=== PATIENT | male | born 1970 | race Caucasian/White ===

== ENCOUNTER 2024-11-30 11:50 | Emergency (ER) | payer OTHER ==
[2024-11-30 11:57] VITALS: RESP 20; TEMP 98
--- NOTE | 2024-11-30 12:05 | ED ---
General Adult HPI - General Chief complaint: Shortness of Breath Stated complaint: JUSTIN Time Seen by Provider: 11/30/24 11:50 Source: patient, EMS, RN notes reviewed, old records reviewed Mode of arrival: EMS Limitations: no limitations - History of Present Illness Initial comments: This is a 54-year-old male who presents to the emergency department stating that he has been having a cough for about a week and he had difficulty breathing. Patient states that difficulty breathing is getting worse. Patient denies chest pain or palpitations. Patient denies any fever or chills. Patient denies any abdominal pain patient has nausea vomit diarrhea. - Related Data Previous Rx's Medication Instructions Recorded Albuterol Inhaler [Ventolin Hfa 1 - 2 puff INHALATION Q6HR PRN #2 11/30/24 Inhaler] each Amoxic-Pot Clav 875-125Mg 1 tab PO BID 10 Days #20 tab 11/30/24 [Augmentin 875-125] Azithromycin [Zithromax Tri-Basil (3 500 mg PO DAILY 3 Days #3 tab 11/30/24 tabs)] Allergies Allergy/AdvReac Type Severity Reaction Status Date / Time No Known Allergies Allergy Verified 11/30/24 11:57 Review of Systems ROS Statement: Those systems with pertinent positive or pertinent negative responses have been documented in the HPI. ROS Other: All systems not noted in ROS Statement are negative. Past Medical History Past Medical History: No Reported History History of Any Multi-Drug Resistant Organisms: None Reported Past Surgical History: No Surgical Hx Reported Past Psychological History: No Psychological Hx Reported Smoking Status: Current every day smoker Past Alcohol Use History: Rare Past Drug Use History: None Reported General Exam - General Exam Comments Initial Comments: GENERAL: Patient is well-developed and well-nourished. Patient is nontoxic and well- hydrated and is in mild distress. ENT: Neck is soft and supple. No significant lymphadenopathy is noted. Oropharynx is clear. Moist mucous membranes. Neck has full range of motion without eliciting any pain. EYES: The sclera were anicteric and conjunctiva were pink and moist. Extraocular movements were intact and pupils were equal round and reactive to light. Eyelids were unremarkable. PULMONARY: Unlabored respirations. Good breath sounds bilaterally. No audible rales rhonchi or wheezing was noted. CARDIOVASCULAR: There is a regular rate and rhythm without any murmurs gallops or rubs. ABDOMEN: Soft and nontender with normal bowel sounds. SKIN: Skin is clear with no lesions or rashes and otherwise unremarkable. NEUROLOGIC: Patient is alert and oriented x3. Cranial nerves II through XII are grossly intact. Motor and sensory are also intact. Normal speech, volume and content. Symmetrical smile. MUSCULOSKELETAL: Normal extremities with adequate strength and full range of motion. LYMPHATICS: No significant lymphadenopathy is noted PSYCHIATRIC: Normal psychiatric evaluation. Limitations: no limitations Course Vital Signs 11/30/24 11/30/24 11/30/24 11:51 11:56 11:57 Temperature 98 F Pulse Rate 118 H Respiratory 20 20 Rate Blood Pressure 121/61 O2 Sat by Pulse 96 Oximetry 11/30/24 11/30/24 12:20 12:58 Temperature Pulse Rate 112 H 100 Respiratory Rate Blood Pressure O2 Sat by Pulse Oximetry Medical Decision Making - Medical Decision Making EKG is interpreted by myself. EKG shows sinus tachycardia at 109 bpm [place] interval is 97 QRS is 87 QT interval 343 QTc is 407. Patient's EKG shows no ST segment elevation or depression. Was pt. sent in by a medical professional or institution (, PA, STICK ROLLER, urgent care, hospital, or long-term...) When possible be specific @ -No Did you speak to anyone other than the patient for history (EMS, parent, family, police, friend...)? What history was obtained from this source @ -No Did you review nursing and triage notes (agree or disagree)? Why? @ -I reviewed and agree with nursing and triage notes Were old charts reviewed (outside hosp., previous admission, EMS record, old EKG, old radiological studies, urgent care reports/EKG's, long-term records)? Report findings @ -No old charts were reviewed Differential Diagnosis? @ -Differential Dyspnea: Coronary syndrome, arrhythmia, tamponade, asthma, COPD, pulmonary embolism, pneumonia, pneumothorax, pulmonary effusion, anaphylaxis, diabetic ketoacidosis, flailed chest, pulmonary contusion, diaphragmatic rupture, anemia, neuro muscular, this is not meant to be an all-inclusive list. EKG interpreted by me (3pts min.). @ -As above X-rays interpreted by me (1pt min.). @ -Patient has consolidated right lower lobe CT interpreted by me (1pt min.). @ -None done U/S interpreted by me (1pt. min.). @ -None done What testing was considered but not performed or refused? (CT, X-rays, U/S, labs)? Why? @ -None What meds were considered but not given or refused? Why? @ -None Did you discuss the management of the patient with other professionals (professionals i.e. , PA, STICK ROLLER, lab, RT, psych nurse, community mental health social worker, tar leveler, teacher, sheriffs officer, case management social worker)? Give summary @ -No Was smoking cessation discussed for >3mins.? @ -No Was critical care preformed (if so, how long)? @ -No Were there social determinants of health that impacted care today? How? (Homelessness, low income, unemployed, alcoholism, drug addiction, transp ortation, low edu. Level, literacy, decrease access to med. care, [facility], rehab)? @ -No Was there de-escalation of care discussed even if they declined (Discuss DNR or withdrawal of care, Hospice)? DNR status @ -No What co-morbidities impacted this encounter? (DM, HTN, Smoking, COPD, CAD, Cancer, CVA, ARF, Chemo, Hep., AIDS, mental health diagnosis, sleep apnea, morbid obesity)? @ -None Was patient admitted / discharged? Hospital course, mention meds given and route, prescriptions, significant lab abnormalities, going to OR and other pertinent info. @ -I spoke with the patient indicated to the patient that I wanted the patient to stay because of the significance of the pneumonia and the white count but the patient stated he could not stay because he has a developmentally delayed child at home that no one else can take care of. Patient was given 2 doses of Rocephin and I tried to encourage him to stay again and he absolutely refused so patient will be discharged home on Zithromax Undiagnosed new problem with uncertain prognosis? @ -No Drug Therapy requiring intensive monitoring for toxicity (Heparin, Nitro, Insulin, Cardizem)? @ -No Were any procedures done? @ -No Diagnosis/symptom? @ -Pneumonia Acute, or Chronic, or Acute on Chronic? @ -Acute Uncomplicated (without systemic symptoms) or Complicated (systemic symptoms)? @ -Comp Side effects of treatment? @ -No Exacerbation, Progression, or Severe Exacerbation? @ -No Poses a threat to life or bodily function? How? (Chest pain, [place], [place], pneumonia, PE, COPD, DKA, ARF, appy, cholecystitis, CVA, Diverticulitis, Homicidal, Suicidal, threat to staff... and all critical care pts) @ -Yes this could lead to sepsis and endorgan dysfunction - Lab Data Result diagrams: 11/30/24 12:03 11/30/24 12:03 Lab Results 11/30/24 11/30/24 11/30/24 Range/Units 12:03 12: 12:03 WBC 19.56 H (4.50-10.00) 10*3/uL RBC 3.79 L (4.40-5.60) 10*6/uL Hgb 11.0 L (13.0-17.0) g/dL Hct 32.2 L (39.6-50.0) % MCV 85.0 (80.0-97.0) fL MCH 29.0 (27.0-32.0) pg MCHC 34.2 (32.0-37.0) g/dL Plt Count 923 H (140-440) 10*3/uL MPV 9.1 L (9.5-12.2) fL Immature Gran % (Auto) 1.3 % Neutrophils % (Manual) 78 % Lymphocytes % (Manual) 15 % Monocytes % (Manual) 4 % Eosinophils % (Manual) 1 % Metamyelocytes % 1 % Myelocytes % 1 % Immature Gran # 0.25 H (0.00-0.04) 10*3/uL Neutrophils # (Manual) 15.26 H (1.3-7.7) k/uL Lymphocytes # (Manual) 2.93 (1.0-4.8) k/uL Monocytes # (Manual) 0.78 (0-1.0) k/uL Eosinophils # (Manual) 0.20 (0-0.7) k/uL Metamyelocytes # (Man) 0.20 H (0) k/uL Myelocytes # (Manual) 0.20 H (0) k/uL Nucleated RBCs 0 (0-0) /100 WBC Manual Slide Review Performed Sodium 134 L (137-145) mmol/L Potassium 4.0 (3.5-5.1) mmol/L Chloride 98 (98-107) mmol/L Carbon Dioxide 18 L (22-30) mmol/L Anion Gap 18 mmol/L BUN 30 H (9-20) mg/dL Creatinine 1.51 H (0.66-1.25) mg/dL Est GFR (CKD-EPI)AfAm 60 (>60 ml/min/1.73 sqM) Est GFR (CKD-EPI)NonAf 52 (>60 ml/min/1.73 sqM) Glucose 144 H (74-99) mg/dL Plasma Lactic Acid Raul 3.4 H* (0.7-2.0) mmol/L Calcium 8.9 (8.4-10.2) mg/dL Magnesium 1.9 (1.6-2.3) mg/dL Total Bilirubin 0.6 (0.2-1.3) mg/dL AST 19 (17-59) U/L ALT 40 (4-49) U/L Alkaline Phosphatase 136 H (38-126) U/L Total Protein 6.2 L (6.3-8.2) g/dL Albumin 3.0 L (3.5-5.0) g/dL Influenza Type A (PCR) (Not Detectd) Influenza Type B (PCR) (Not Detectd) RSV (PCR) (Not Detectd) SARS-CoV-2 (PCR) (Not Detectd) 11/30/24 Range/Units 12:22 WBC (4.50-10.00) 10*3/uL RBC (4.40-5.60) 10*6/uL Hgb (13.0-17.0) g/dL Hct (39.6-50.0) % MCV (80.0-97.0) fL MCH (27.0-32.0) pg MCHC (32.0-37.0) g/dL Plt Count (140-440) 10*3/uL MPV (9.5-12.2) fL Immature Gran % (Auto) % Neutrophils % (Manual) % Lymphocytes % (Manual) % Monocytes % (Manual) % Eosinophils % (Manual) % Metamyelocytes % % Myelocytes % % Immature Gran # (0.00-0.04) 10*3/uL Neutrophils # (Manual) (1.3-7.7) k/uL Lymphocytes # (Manual) (1.0-4.8) k/uL Monocytes # (Manual) (0-1.0) k/uL Eosinophils # (Manual) (0-0.7) k/uL Metamyelocytes # (Man) (0) k/uL Myelocytes # (Manual) (0) k/uL Nucleated RBCs (0-0) /100 WBC Manual Slide Review Sodium (137-145) mmol/L Potassium (3.5-5.1) mmol/L Chloride (98-107) mmol/L Carbon Dioxide (22-30) mmol/L Anion Gap mmol/L BUN (9-20) mg/dL Creatinine (0.66-1.25) mg/dL Est GFR (CKD-EPI)AfAm (>60 ml/min/1.73 sqM) Est GFR (CKD-EPI)NonAf (>60 ml/min/1.73 sqM) Glucose (74-99) mg/dL Plasma Lactic Acid Raul (0.7-2.0) mmol/L Calcium (8.4-10.2) mg/dL Magnesium (1.6-2.3) mg/dL Total Bilirubin (0.2-1.3) mg/dL AST (17-59) U/L ALT (4-49) U/L Alkaline Phosphatase (38-126) U/L Total Protein (6.3-8.2) g/dL Albumin (3.5-5.0) g/dL Influenza Type A (PCR) Not Detected (Not Detectd) Influenza Type B (PCR) Not Detected (Not Detectd) RSV (PCR) Not Detected (Not Detectd) SARS-CoV-2 (PCR) Not Detected (Not Detectd) Disposition Clinical Impression: Pneumonia Disposition: HOME SELF-CARE Instructions (If sedation given, give patient instructions): Bacterial Pneumonia (ED) Prescriptions: Amoxic-Pot Clav 875-125Mg [Augmentin 875-125] 1 tab PO BID 10 Days #20 tab Albuterol Inhaler [Ventolin Hfa Inhaler] 1 - 2 puff INHALATION Q6HR PRN #2 each PRN Reason: Difficulty breathing Azithromycin [Zithromax Tri-Basil (3 tabs)] 500 mg PO DAILY 3 Days #3 tab Is patient prescribed a controlled substance at d/c from ED?: No Referrals: None,Stated [Primary Care Provider] - 1-2 days Time of Disposition: 13:50
[2024-11-30] MEDS: methylPREDNISolone SOD SUCCI 125 MG/2 ML VIAL IV STA (12:06)
[2024-11-30] MEDS: SODIUM CHLORIDE 0.9% 1,000 ML IV ONE ×2 (12:06→13:21)
[2024-11-30] MEDS: IPRATROPIUM-ALBUTEROL 3 ML NEB INHALATION STA (12:20)
[2024-11-30 12:21] LABS: HCT 32.2 % (39.6-50.0); MCHC 34.2 g/dL (32.0-37.0); Mean Platelet Volume 9.1 fL (9.5-12.2); Platelet Count 923 10*3/uL (140-440); RBC 3.79 10*6/uL (4.40-5.60); RDW 13.4 % (11.5-14.5); WBC 19.56 10*3/uL (4.50-10.00)
[2024-11-30 12:32] LABS: ALT 40 U/L (4-49); AST 19 U/L (17-59); African American GFR (CKD) 60 (>60 ml/min/1.73 sqM); Alkaline Phosphatase 136 U/L (38-126); Anion Gap 18 mmol/L; Blood Urea Nitrogen 30 mg/dL (9-20); Calcium 8.9 mg/dL (8.4-10.2); Carbon Dioxide 18 mmol/L (22-30); Chloride 98 mmol/L (98-107); Glucose 144 mg/dL (74-99); Magnesium 1.9 mg/dL (1.6-2.3); Non-African American GFR(CKD) 52 (>60 ml/min/1.73 sqM); Sodium 134 mmol/L (137-145); Total Bilirubin 0.6 mg/dL (0.2-1.3); Total Protein 6.2 g/dL (6.3-8.2)
[2024-11-30 13:11] LABS: Influenza A Not Detected (Not Detectd); Influenza B Not Detected (Not Detectd); RSV Not Detected (Not Detectd)
[2024-11-30 13:22] LABS: Lymphocytes # (M) 2.93 k/uL (1.0-4.8); Metamyelocytes % 1 %; Monocytes # (M) 0.78 k/uL (0-1.0); Myelocytes % 1 %; Neutrophils # (M) 15.26 k/uL (1.3-7.7); Neutrophils % (M) 78 %; Nucleated Red Blood Cells 0 /100 WBC (0-0); Total Cells Counted 100
--- NOTE | 2024-11-30 13:26 | XR ---
EXAMINATION TYPE: XR chest 2V DATE OF EXAM: 11/30/2024 12:50 PM COMPARISON: None. CLINICAL INDICATION: Male, 54 years old with history of difficulty breathing, TECHNIQUE: XR chest 2V view(s) obtained. FINDINGS: The heart size is normal. The pulmonary vasculature is normal. Right lower lobe consolidation is present. Correlate for pneumonia. Small effusion is present. Follow -up is recommended.. IMPRESSION: 1. Right lower lobe consolidation. Correlate for pneumonia. Follow-up recommended. 2. Small right pleural effusion [facility], , 11/30/2024 1:23 PM
[2024-11-30] MEDS: LACTATED RINGERS 1,000 ML IV ONE (13:28)
[2024-11-30] MEDS: cefTRIAXone IN SWFI 1,000 MG/10 ML SYRINGE IVP STA ×2 (14:02→14:04)
[2024-11-30 14:14] VITALS: BP 134/84; PULSE 105
== END 2024-11-30 14:26 | disposition home or self-care (01) ==
LOC: EC 11:50
DX: J18.9 Pneumonia, unspecified organism (principal); R00.0 Tachycardia, unspecified; F17.200 Nicotine dependence, unspecified, uncomplicated
CPT/HCPCS: 36415; 94640; 93005; 80053; 83605; 83735; 85025; 87040; 87636; 71046; 99285; 96374; 96375; 96361 ×2; J0696; J2919

== ENCOUNTER 2024-12-20 08:28 | Inpatient (IN) | payer OTHER ==
--- NOTE | 2024-12-20 08:49 | ED ---
General Adult HPI - General Chief complaint: Shortness of Breath Stated complaint: JUSTIN Time Seen by Provider: 12/20/24 08:33 Source: patient, EMS, RN notes reviewed Mode of arrival: EMS Limitations: no limitations - History of Present Illness Initial comments: Patient is a 54-year-old male present to the emergency department with concerns with difficulty breathing. Onset of symptoms was just a couple days ago. No cough. No fever. Patient does have a 30 pack year history of smoking, not at this time. Patient does have leg edema which is new for him. No chest pain. Patient did have bad pneumonia a few weeks ago. - Related Data Previous Rx's Medication Instructions Recorded Albuterol Inhaler [Ventolin Hfa 1 - 2 puff INHALATION Q6HR PRN #2 11/30/24 Inhaler] each Amoxic-Pot Clav 875-125Mg 1 tab PO BID 10 Days #20 tab 11/30/24 [Augmentin 875-125] Azithromycin [Zithromax Tri-Basil (3 500 mg PO DAILY 3 Days #3 tab 11/30/24 tabs)] Allergies Allergy/AdvReac Type Severity Reaction Status Date / Time No Known Allergies Allergy Verified 12/20/24 08:34 Review of Systems ROS Statement: Those systems with pertinent positive or pertinent negative responses have been documented in the HPI. ROS Other: All systems not noted in ROS Statement are negative. Constitutional: Denies: fever Eyes: Denies: eye pain ENT: Denies: ear pain Respiratory: Reports: as per HPI, dyspnea. Denies: cough Cardiovascular: Reports: edema. Denies: chest pain Endocrine: Denies: fatigue Past Medical History Past Medical History: No Reported History History of Any Multi-Drug Resistant Organisms: None Reported Past Surgical History: No Surgical Hx Reported Past Psychological History: No Psychological Hx Reported Smoking Status: Former smoker Past Alcohol Use History: Rare Past Drug Use History: None Reported General Exam Limitations: no limitations General appearance: alert Head exam: Present: normocephalic Eye exam: Present: normal appearance Neck exam: Present: normal inspection Respiratory exam: Present: decreased breath sounds Cardiovascular Exam: Present: tachycardia, normal heart sounds GI/Abdominal exam: Present: soft. Absent: tenderness Extremities exam: Present: pedal edema. Absent: calf tenderness Neurological exam: Present: alert Psychiatric exam: Present: normal affect, normal mood Skin exam: Present: normal color Course Vital Signs 12/20/24 12/20/24 12/20/24 08:29 08:59 09:07 Temperature 98.2 F Pulse Rate 102 H 100 107 H Respiratory 30 H 18 18 Rate Blood Pressure 150/85 O2 Sat by Pulse 95 Oximetry 12/20/24 12/20/24 09:15 10:08 Temperature Pulse Rate 108 H 104 H Respiratory 26 H 18 Rate Blood Pressure 146/83 142/80 O2 Sat by Pulse 97 96 Oximetry EKG Findings - EKG Results: EKG: interpreted by RAULD, sinus rhythm, normal axis, normal QRS, normal ST/T EKG shows: tachycardia Medical Decision Making - Medical Decision Making Was pt. sent in by a medical professional or institution (, PA, CLINICAL EXERCISE SPECIALIST, urgent care, hospital, or fci...) When possible be specific @ -No Did you speak to anyone other than the patient for history (EMS, parent, family, police, friend...)? What history was obtained from this source @ -No Did you review nursing and triage notes (agree or disagree)? Why? @ -I reviewed and agree with nursing and triage notes Were old charts reviewed (outside hosp., previous admission, EMS record, old EKG, old radiological studies, urgent care reports/EKG's, fci records)? Report findings @ -Previous chart reviewed including recommendations and x-ray and blood work Differential Diagnosis (chest pain, altered mental status, abdominal pain women, abdominal pain men, vaginal bleeding, weakness, fever, dyspnea, syncope, headache, dizziness, GI bleed, back pain, seizure, CVA, palpatations, mental health, musculoskeletal)? @ -Differential Dyspnea: Coronary syndrome, arrhythmia, tamponade, asthma, COPD, pulmonary embolism, pneumonia, pneumothorax, pulmonary effusion, anaphylaxis, diabetic ketoacidosis, flailed chest, pulmonary contusion, diaphragmatic rupture, anemia, neuromuscular, this is not meant to be an all-inclusive list. EKG interpreted by me (3pts min.). @ -As above X-rays interpreted by me (1pt min.). @ -Large right effusion. Appearance of air foci CT interpreted by me (1pt min.). @ -CT scan shows large right effusion. Air foci U/S interpreted by me (1pt. min.). @ -None done What testing was considered but not performed or refused? (CT, X-rays, U/S, labs)? Why? @ -None What meds were considered but not given or refused? Why? @ -None Did you discuss the management of the patient with other professionals (professionals i.e. , PA, CLINICAL EXERCISE SPECIALIST, lab, RT, psych nurse, community mental health social worker, natural foods clerk, teacher, electorate officer, disability case manager)? Give summary @ -Case discussed with Dr. Rivera who will evaluate. Case also discussed with Dr. Huff who will admit covering hospital call Was smoking cessation discussed for >3mins.? @ -No Was critical care preformed (if so, how long)? @ -31 minutes critical care time Were there social determinants of health that impacted care today? How? (Homelessness, low income, unemployed, alcoholism, drug addiction, transportation, low edu. Level, literacy, decrease access to med. care, [facility], rehab)? @ -No Was there de-escalation of care discussed even if they declined (Discuss DNR or withdrawal of care, Hospice)? DNR status @ -No What co-morbidities impacted this encounter? (DM, HTN, Smoking, COPD, CAD, Cancer, CVA, ARF, Chemo, Hep., AIDS, mental health diagnosis, sleep apnea, morbid obesity)? @ -Recent pneumonia Was patient admitted / discharged? Hospital course, mention meds given and route, prescriptions, significant lab abnormalities, going to OR and other per tinent info. @ -Patient has large right effusion. Concern for infectious etiology. Concerns for sepsis at 10:15 AM. Blood culture and lactic acid and IV antibiotics have all been ordered. Patient reevaluated and updated. Admission orders written. Undiagnosed new problem with uncertain prognosis? @ -No Drug Therapy requiring intensive monitoring for toxicity (Heparin, Nitro, Insulin, Cardizem)? @ -No Were any procedures done? @ -No Diagnosis/symptom? @ -Large right effusion Acute, or Chronic, or Acute on Chronic? @ -Acute Uncomplicated (without systemic symptoms) or Complicated (systemic symptoms)? @ -Complicated with concerns for infection and sepsis Side effects of treatment? @ -No Exacerbation, Progression, or Severe Exacerbation? @ -No Poses a threat to life or bodily function? How? (Chest pain, [place], [place], pneumonia, PE, COPD, DKA, ARF, appy, cholecystitis, CVA, Diverticulitis, Homicidal, Suicidal, threat to staff... and all critical care pts) @ -Threat to pulmonary function - Lab Data Result diagrams: 12/20/24 08:49 12/20/24 08:49 Lab Results 12/20/24 12/20/24 12/20/24 Range/Units 08:49 08:49 08:49 WBC 11.22 H (4.50-10.00) 10*3/uL RBC 2.90 L (4.40-5.60) 10*6/uL Hgb 7.6 L D (13.0-17.0) g/dL Hct 24.2 L (39.6-50.0) % MCV 83.4 (80.0-97.0) fL MCH 26.2 L (27.0-32.0) pg MCHC 31.4 L (32.0-37.0) g/dL Plt Count 707 H (140-440) 10*3/uL MPV 8.4 L (9.5-12.2) fL Immature Gran % (Auto) 0.6 % Neutrophils % (Manual) 72 % Lymphocytes % (Manual) 24 % Monocytes % (Manual) 4 % Eosinophils % (Manual) 2 % Immature Gran # 0.07 H (0.00-0.04) 10*3/uL Neutrophils # (Manual) 8.08 H (1.3-7.7) k/uL Lymphocytes # (Manual) 2.69 (1.0-4.8) k/uL Monocytes # (Manual) 0.45 (0-1.0) k/uL Eosinophils # (Manual) 0.22 (0-0.7) k/uL Nucleated RBCs 1 H (0-0) /100 WBC Manual Slide Review Performed Polychromasia Present Anisocytosis (manual) Present PT 12.3 (10.0-12.5) sec INR 1.1 (<1.2) APTT 24.8 (22.0-30.0) sec D-Dimer 1.66 H (<0.60) mg/L FEU Sodium 136 L (137-145) mmol/L Potassium 4.5 (3.5-5.1) mmol/L Chloride 105 (98-107) mmol/L Carbon Dioxide 22 (22-30) mmol/L Anion Gap 9 mmol/L BUN 9 (9-20) mg/dL Creatinine 0.42 L (0.66-1.25) mg/dL Est GFR (CKD-EPI)AfAm >90 (>60 ml/min/1.73 sqM) Est GFR (CKD-EPI)NonAf >90 (>60 ml/min/1.73 sqM) Glucose 111 H (74-99) mg/dL Plasma Lactic Acid Raul (0.7-2.0) mmol/L Calcium 8.8 (8.4-10.2) mg/dL Magnesium 2.0 (1.6-2.3) mg/dL Total Bilirubin 0.6 (0.2-1.3) mg/dL AST 26 (17-59) U/L ALT 33 (4-49) U/L Alkaline Phosphatase 160 H (38-126) U/L Troponin I (0.000-0.034) ng/mL NT-Pro-B Natriuret Pep 283 pg/mL Total Protein 6.5 (6.3-8.2) g/dL Albumin 3.0 L (3.5-5.0) g/dL Influenza Type A (PCR) (Not Detectd) Influenza Type B (PCR) (Not Detectd) RSV (PCR) (Not Detectd) SARS-CoV-2 (PCR) (Not Detectd) 12/20/24 12/20/24 12/20/24 Range/Units 08:49 08:49 08:49 WBC (4.50-10.00) 10*3/uL RBC (4.40-5.60) 10*6/uL Hgb (13.0-17.0) g/dL Hct (39.6-50.0) % MCV (80.0-97.0) fL MCH (27.0-32.0) pg MCHC (32.0-37.0) g/dL Plt Count (140-440) 10*3/uL MPV (9.5-12.2) fL Immature Gran % (Auto) % Neutrophils % (Manual) % Lymphocytes % (Manual) % Monocytes % (Manual) % Eosinophils % (Manual) % Immature Gran # (0.00-0.04) 10*3/uL Neutrophils # (Manual) (1.3-7.7) k/uL Lymphocytes # (Manual) (1.0-4.8) k/uL Monocytes # (Manual) (0-1.0) k/uL Eosinophils # (Manual) (0-0.7) k/uL Nucleated RBCs (0-0) /100 WBC Manual Slide Review Polychromasia Anisocytosis (manual) PT (10.0-12.5) sec INR (<1.2) APTT (22.0-30.0) sec D-Dimer (<0.60) mg/L FEU Sodium (137-145) mmol/L Potassium (3.5-5.1) mmol/L Chloride (98-107) mmol/L Carbon Dioxide (22-30) mmol/L Anion Gap mmol/L BUN (9-20) mg/dL Creatinine (0.66-1.25) mg/dL Est GFR (CKD-EPI)AfAm (>60 ml/min/1.73 sqM) Est GFR (CKD-EPI)NonAf (>60 ml/min/1.73 sqM) Glucose (74-99) mg/dL Plasma Lactic Acid Raul 1.2 (0.7-2.0) mmol/L Calcium (8.4-10.2) mg/dL Magnesium (1.6-2.3) mg/dL Total Bilirubin (0.2-1.3) mg/dL AST (17-59) U/L ALT (4-49) U/L Alkaline Phosphatase (38-126) U/L Troponin I <0.012 (0.000-0.034) ng/mL NT-Pro-B Natriuret Pep pg/mL Total Protein (6.3-8.2) g/dL Albumin (3.5-5.0) g/dL Influenza Type A (PCR) Not Detected (Not Detectd) Influenza Type B (PCR) Not Detected (Not Detectd) RSV (PCR) Not Detected (Not Detectd) SARS-CoV-2 (PCR) Not Detected (Not Detectd) Disposition Clinical Impression: Pleural effusion, right Disposition: ADMITTED IP TO THIS [facility] Condition: Serious Is patient prescribed a controlled substance at d/c from ED?: No Referrals: None,Stated [Primary Care Provider] - 1-2 days Time of Disposition: 10:25
[2024-12-20 08:55] LABS: HCT 24.2 % (39.6-50.0); MCH 26.2 pg (27.0-32.0); MCHC 31.4 g/dL (32.0-37.0); MCV 83.4 fL (80.0-97.0); Mean Platelet Volume 8.4 fL (9.5-12.2); Platelet Count 707 10*3/uL (140-440); RDW 14.8 % (11.5-14.5); WBC 11.22 10*3/uL (4.50-10.00)
[2024-12-20] MEDS: IPRATROPIUM-ALBUTEROL 3 ML NEB INHALATION STA (08:59)
[2024-12-20 09:09] LABS: ALT 33 U/L (4-49); AST 26 U/L (17-59); African American GFR (CKD) >90 (>60 ml/min/1.73 sqM); Alkaline Phosphatase 160 U/L (38-126); Anion Gap 9 mmol/L; Blood Urea Nitrogen 9 mg/dL (9-20); Calcium 8.8 mg/dL (8.4-10.2); Carbon Dioxide 22 mmol/L (22-30); Chloride 105 mmol/L (98-107); Glucose 111 mg/dL (74-99); Non-African American GFR(CKD) >90 (>60 ml/min/1.73 sqM); Potassium 4.5 mmol/L (3.5-5.1); Sodium 136 mmol/L (137-145); Total Bilirubin 0.6 mg/dL (0.2-1.3); Total Protein 6.5 g/dL (6.3-8.2)
[2024-12-20 09:11] LABS: HGB 7.6 g/dL (13.0-17.0)
[2024-12-20 09:12] LABS: INR 1.1 (<1.2); Partial Thromboplastin Time 24.8 sec (22.0-30.0); Prothrombin Time 12.3 sec (10.0-12.5)
[2024-12-20 09:16] LABS: NT-Pro-B-Type Natriuretic Pept 283 pg/mL
--- NOTE | 2024-12-20 09:17 | XR ---
EXAMINATION TYPE: XR chest 2V DATE OF EXAM: 12/20/2024 8:59 AM COMPARISON: 11/30/2024 CLINICAL INDICATION: Male, 54 years old with history of difficulty breathing, shortness of breath TECHNIQUE: PA and lateral views FINDINGS: Exam is become markedly abnormal in the interval now with abnormal opacity filling most of the right hemithorax. This seems to have some mass effect on the heart with slight leftward cardiac shift. Some mottled lucencies are suggested and there is also small amount of aerated portion at the superior ma rgin of the abnormal opacity. Background increased interstitial density on the left is unchanged. Hyp erinflation. IMPRESSION: COPD with interval development of marked abnormality characterized by opacity filling nearly the enti re right hemithorax and demonstrating slight mass effect onto the mediastinum. Further contrast enhan riana CT evaluation recommended. Background COPD and suspected chronic scarring. [facility], , 12/20/2024 9:14 AM
[2024-12-20 09:34] LABS: Influenza A Not Detected (Not Detectd); Influenza B Not Detected (Not Detectd); RSV Not Detected (Not Detectd)
[2024-12-20 09:48] LABS: Eosinophils # (M) 0.22 k/uL (0-0.7); Lymphocytes # (M) 2.69 k/uL (1.0-4.8); Monocytes # (M) 0.45 k/uL (0-1.0); Neutrophils # (M) 8.08 k/uL (1.3-7.7); Neutrophils % (M) 72 %; Nucleated Red Blood Cells 1 /100 WBC (0-0); Total Cells Counted 200
[2024-12-20 09:50] LABS: Anisocytosis (M) Present; Polychromasia Present
--- NOTE | 2024-12-20 10:01 | CT ---
EXAMINATION TYPE: CT angio chest DATE OF EXAM: 12/20/2024 9:52 AM COMPARISON: None. CLINICAL INDICATION: Male, 54 years old with history of anna, effusion, , TECHNIQUE: Axial CT was performed with sagittal and coronal reformats. 3D reconstruction and/or MIP imaging was also performed on a separate workstation. IV CONTRAST: with IV Contrast, patient injected with 100 mL of Isovue 370. (None if empty) CT DLP: mGycm, Automated exposure control for dose reduction was used. FINDINGS: PULMONARY ARTERIES: The pulmonary arteries and their major tributaries are patent. I do not see williams dence for sizable filling defect to suggest pulmonary embolic process. LUNGS: There is a large pleural collection noted with numerous internal foci of air and anterior air- fluid level seen. Collection measures at least 22 cm craniocaudal dimension by 16 cm transverse dimen lily by 22.4 cm AP dimension. Findings are concerning for abscess or underlying empyema. There is ranulfo r complete collapse of the right lung with aeration seen within the right upper lobe. There is medias tinal shift from right to left of approximately 3.2 cm. Emphysematous changes are noted. The left leigh g demonstrates mild strandy density left lower lobe however is otherwise clear. MEDIASTINUM: There is mediastinal shift from right to left of approximately 3.2 cm. No evidence for m ediastinal mass. No mediastinal lymph nodes greater than 1cm. HEART: Size within normal limits. No significant coronary artery calcifications. HILAR STRUCTURES: No evidence for mass. No hilar lymph nodes greater than 1 cm. IMPRESSION: 1. No evidence for Pulmonary embolism at this time. 2.There is a large pleural collection noted with numerous internal foci of air and anterior air-fluid level seen. Collection measures at least 22 cm craniocaudal dimension by 16 cm transverse dimension by 22.4 cm AP dimension. Findings are concerning for abscess or underlying empyema. 3. Complete collapse of the right middle lobe and right lower lobe. 4. Mediastinal shift from right to left. [facility], , 12/20/2024 9:58 AM
[2024-12-20] MEDS ORDERED: PNEUMONIA PROTOCOL UTILIZED 1 EACH MISC PO PRN (10:16)
[2024-12-20] MEDS ORDERED: VANCOMYCIN IV PER PHARMACY 1 EACH MISC MISCELLANE PRN ×2 (10:16→12:05)
--- NOTE | 2024-12-20 10:30 | US ---
EXAMINATION TYPE: US chest DATE OF EXAM: 12/20/2024 COMPARISON: Same day CT and CXR CLINICAL INDICATION: Male, 54 years old with history of Right pleural effusion; Right effusion TECHNIQUE: Grayscale imaging of the chest. Targeted ultrasound of the posterior lower right hemithor ax FINDINGS: EXAM MEASUREMENTS: Right Pleural Effusion pocket size: 21.1 cm Right skin surface to fluid distance: 3.2 cm Right side marked for possible thoracentesis outside the dept. Pulmonologists are able to review the images in the patient?s EMR. IMPRESSIONS: As above [facility], , 12/20/2024 10:28 AM
[2024-12-20] MEDS: AZITHROMYCIN 500 MG in SODIUM CHLORIDE 0.9% 250 ML IVPB STA (11:04)
[2024-12-20] MEDS: IPRATROPIUM-ALBUTEROL 3 ML NEB INHALATION SCH (11:11)
[2024-12-20] MEDS: SODIUM CHLORIDE 0.9% 1,000 ML IV SCH (11:17)
[2024-12-20] MEDS: PIPERACILLIN-TAZOBACTAM 3.375 GM in SODIUM CHLORIDE 0.9% 100 ML IVPB STA (11:18)
--- NOTE | 2024-12-20 11:19 | XR ---
EXAMINATION TYPE: XR chest 1V portable DATE OF EXAM: 12/20/2024 11:13 AM COMPARISON: None. CLINICAL INDICATION: Male, 54 years old with history of Post right thoracentesis, TECHNIQUE: XR chest 1V portable views of the chest are obtained. FINDINGS: Demonstrated are scattered senescent parenchymal change. The patient is status post right-sided thoracentesis with significant diminution in right-sided pleur al collection. There is a loculated pneumothorax/collection of air measuring 12.6 x 4.5 cm. Scattered coarse and patchy infiltrate is seen throughout the right lung. The left lung appears clear. The heart is stable. Hilar and mediastinal structures are within normal limits. Degenerative changes are seen of the dorsal spine. IMPRESSION: 1. The patient is status post right-sided thoracentesis with significant diminution in right-sided p leural collection. There is a loculated pneumothorax/collection of air measuring 12.6 x 4.5 cm. Scatt ered coarse and patchy infiltrate is seen throughout the right lung. [facility], , 12/20/2024 11:17 AM
[2024-12-20] MEDS: VANCOMYCIN 1,500 MG in SODIUM CHLORIDE 0.9% 500 ML 500 ML IVPB ONE (11:50)
--- NOTE | 2024-12-20 12:07 | P.HPIM ---
History of Present Illness This is a pleasant 54 years old male with no significant past medical history Patient presents because of worsening dyspnea. About 1 month ago he was diagnosed with pneumonia pneumonia with small right pleural effusion and he was treated with oral antibiotic, this was progressed gradually over this month and become more opacified right lung on chest x-ray. Patient underwent thoracocentesis with pulmonary team while he is still in the emergency room where more than 3 L of purulent fluid has been drained. Patient with no significant pain, no significant coughing and is on room air He denies any other specific symptoms He quit smoking about 4 months ago with no alcohol or illicit drugs. Vitals stable he was mildly tachycardic which is improving now Labs showing leukocytosis 11.2, hemoglobin 7.6. Platelet count 707 Rest of BMP LFT troponin and INR were unremarkable D-dimer was elevated 1.6. He underwent CTA of the chest which was negative for PE but showing large pleural effusion on the right with collapse of the right lung. Chest x-ray and CTA of the lung showing the same findings of large pleural effusion and collapse of the right lung EKG showing sinus tachycardia [address]-T changes Patient underwent right sided thoracocentesis more than 3 L of purulent fluid was drained. And patient tolerated the procedure well Review of Systems Review of systems CONSTITUTIONAL: No fever, no malaise, no fatigue. HEENT: No recent visual problems or hearing problems. Denied any sore throat. CARDIOVASCULAR: No orthopnea, PND, no palpitations, no syncope. PULMONARY: No s chest wall tenderness, no hemoptysis. GASTROINTESTINAL: No diarrhea, no nausea, no vomiting, no abdominal pain. Normoactive bowel sounds. NEUROLOGICAL: No headaches, no weakness, no numbness. HEMATOLOGICAL: Denies any bleeding or petechiae. GENITOURINARY: Denies any burning micturition, frequency, or urgency. MUSCULOSKELETAL/RHEUMATOLOGICAL: Denies any joint pain, swelling, or any muscle pain. ENDOCRINE: Denies any polyuria or polydipsia. Past Medical History Past Medical History: No Reported History History of Any Multi-Drug Resistant Organisms: None Reported Past Surgical History: No Surgical Hx Reported Past Psychological History: No Psychological Hx Reported Smoking Status: Former smoker Past Alcohol Use History: Rare Past Drug Use History: None Reported Medications and Allergies Home Medications Medication Instructions Recorded Confirmed Type No Known Home Medications 12/20/24 12/20/24 History Allergies Allergy/AdvReac Type Severity Reaction Status Date / Time No Known Allergies Allergy Verified 12/20/24 11:32 Physical Exam Vitals: Vital Signs Temp Pulse Resp BP Pulse Ox 12/20/24 11:26 18 12/20/24 11:21 96 18 121/63 95 12/20/24 10:08 104 H 18 142/80 96 12/20/24 09:15 108 H 26 H 146/83 97 12/20/24 09:07 107 H 18 12/20/24 08:59 100 18 12/20/24 08:29 98.2 F 102 H 30 H 150/85 95 Intake and Output 12/19/24 12/20/24 12/20/24 22:59 06:59 14:59 Other: Weight 77.111 kg GENERAL: The patient is alert and oriented x3, not in any acute distress. Well developed, well nourished. HEENT: Pupils are round and equally reacting to light. EOMI. No scleral icterus. No conjunctival pallor. Normocephalic, atraumatic. No pharyngeal erythema. No thyromegaly. CARDIOVASCULAR: S1 and S2 present. No murmurs, rubs, or gallops. -PULMONARY: Chest is clear to auscultation, no wheezing , no crackles. Decreased breath sounds on the right lung side ABDOMEN: Soft, nontender, nondistended, normoactive bowel sounds. No palpable organomegaly. MUSCULOSKELETAL: No joint swelling or deformity. EXTREMITIES: No cyanosis, clubbing, or pedal edema. NEUROLOGICAL: Gross neurological examination did not reveal any focal deficits. SKIN: No rashes. no petechiae. Results CBC & Chem 7: 12/20/24 08:49 12/20/24 08:49 Labs: Abnormal Lab Results - Last 24 Hours (Table) 12/20/24 12/20/24 12/20/24 Range/Units 08:49 08:49 08:49 WBC 11.22 H (4.50-10.00) 10*3/uL RBC 2.90 L (4.40-5.60) 10*6/uL Hgb 7.6 L D (13.0-17.0) g/dL Hct 24.2 L (39.6-50.0) % MCH 26.2 L (27.0-32.0) pg MCHC 31.4 L (32.0-37.0) g/dL Plt Count 707 H (140-440) 10*3/uL MPV 8.4 L (9.5-12.2) fL Immature Gran # 0.07 H (0.00-0.04) 10*3/uL Neutrophils # (Manual) 8.08 H (1.3-7.7) k/uL Nucleated RBCs 1 H (0-0) /100 WBC D-Dimer 1.66 H (<0.60) mg/L FEU Sodium 136 L (137-145) mmol/L Creatinine 0.42 L (0.66-1.25) mg/dL Glucose 111 H (74-99) mg/dL Alkaline Phosphatase 160 H (38-126) U/L Albumin 3.0 L (3.5-5.0) g/dL Assessment and Plan Assessment: Right pneumonia failed outpatient treatment associated with large/huge right pleural effusion with left-sided mediastinal shift right sided thoracocentesis more than 3 L of purulent fluid was drained Normocytic hypochromic anemia Elevated D-dimer with negative CAT scan from pulmonary embolism Plan: Continue with antibiotic currently on Zosyn and IV vancomycin. Will change it to pharmacy to dose Follow-up pleural fluid culture Follow-up chest x-ray Pulmonary team following closely Bronchodilator Labs and medication were reviewed.. Continue same treatment. Continue with s ymptomatic treatment. Resume home medication. Monitor labs and vitals. DVT and GI prophylaxis. Further recommendations as per clinical course of the patient DVT prophylaxis: Subcutaneous heparin GI Prophylaxis: Pepcid Prognosis is guarded
--- NOTE | 2024-12-20 13:54 | P.CNPUL ---
History of Present Illness Consult date: 12/20/24 Requesting physician: Nick Joseph Reason for consult: dyspnea, pleural effusion, abnormal CXR/CT Chief complaint: Shortness of breath History of present illness: This is a pleasant 54-year-old male patient with a known history of chronic tobacco dependence stating he quit about 4 months ago. No primary care provider. No other medical history. He was here on November 30, 2024 in the emergency department with complaints of increasing shortness of breath cough and congestion. He was found to have a right lower lobe infiltrate and was treated with Augmentin, azithromycin and an albuterol inhaler. He was to follow-up with a primary care provider however he did not. He returned here to the emergency room this morning with worsening shortness of breath over the past week. Chest x-ray shows near complete opacification of the right lung. CT angiogram ruled out pulmonary embolism. There is a large pleural collection noted with numerous internal foci of air and anterior air-filled levels seen. Findings are concerning for abscess or underlying empyema. Complete collapse of the right middle and right lower lobe. Mediastinal shift from right to left. White count 11.2. Hemoglobin 7.6. Platelets 707. D-dimer 1.66. Sodium 136. Potassium 4.5. Bicarb 22. BUN 9. Creatinine 0.42. Glucose 111. Troponin negative x 1. proBNP 283. Viral screen negative for influenza A/B, RSV or COVID. He is seen today in the emergency department. Currently sitting up on a stretcher. He is dyspneic with conversation. Dyspneic with minimal exertion. He is maintaining good O2 saturations in the 90s on room air. Slightly tachypneic. Tachycardic. Ultrasound of the chest revealed a 21.[address] Regan did perform a thoracentesis with just over 4 L of thick pale yellow fluid with sediment returned. Follow-up chest x-ray revealed significant decrease in the right sided pleural collection. There is a loculated pneumothorax/collection of air measuring 12.6 x 4.5 cm. Scattered coarse and patchy infiltrate seen throughout the right lung. He has been initiated on vancomycin and Zosyn. Review of Systems REVIEW OF SYSTEMS: CONSTITUTIONAL: Denies any recent significant weight loss or weight gain. EYES: Denies change in vision. EARS, NOSE, MOUTH, THROAT: Denies headaches, denies sore throat. CARDIOVASCULAR: Denies chest pain, palpitations or syncopal episodes. RESPIRATORY: Positive for shortness of breath, cough, congestion no hemoptysis. GASTROINTESTINAL: Denies change in appetite, denies abdominal pain GENITOURINARY: Denies hematuria, denies infections. MUSKULOSKELETAL: Denies pain, denies swelling. INTEGUMENTARY: Denies rash, denies eczema. NEUROLOGICAL: Denies recent memory loss, no recent seizure activity. PSYCHIATRIC: Denies anxiety, denies depression. HEMATOLOGIC/LYMPHATIC: Denies anemia, denies enlarged lymph nodes. Past Medical History Past Medical History: Pneumonia (Right lower lobe pneumonia November 30, 2024) History of Any Multi-Drug Resistant Organisms: None Reported Past Surgical History: No Surgical Hx Reported Past Psychological History: No Psychological Hx Reported Smoking Status: Former smoker (Quit smoking 4 months ago) Past Alcohol Use History: Rare (Drinks wine every other Monday) Past Drug Use History: None Reported - Past Family History Mother Family Medical History: Osteoarthritis (OA) Father Family Medical History: Diabetes Mellitus Medications and Allergies Home Medications Medication Instructions Recorded Confirmed Type No Known Home Medications 12/20/24 12/20/24 History Allergies Allergy/AdvReac Type Severity Reaction Status Date / Time No Known Allergies Allergy Verified 12/20/24 11:32 Physical Exam Vitals: Vital Signs Temp Pulse Resp BP Pulse Ox 12/20/24 11:26 18 12/20/24 11:21 96 18 121/63 95 12/20/24 10:08 104 H 18 142/80 96 12/20/24 09:15 108 H 26 H 146/83 97 12/20/24 09:07 107 H 18 12/20/24 08:59 100 18 12/20/24 08:29 98.2 F 102 H 30 H 150/85 95 Intake and Output 12/19/24 12/20/24 12/20/24 22:59 06:59 14:59 Other: Weight 77.111 kg GENERAL EXAM: Alert, pleasant 54-year-old male, on room air, some mild dyspnea, fairly comfortable in no apparent distress. HEAD: Normocephalic. EYES: Normal reaction of pupils, equal size. NOSE: Clear with pink turbinates. THROAT: No erythema or exudates. NECK: No masses, no JVD. CHEST: No chest wall deformity. LUNGS: Equal air entry with diminished breath sounds throughout the right lung. CVS: S1 and S2 normal with no audible murmur, regular rhythm. ABDOMEN: No hepatosplenomegaly, normal bowel sounds, no guarding or rigidity. SPINE: No scoliosis or deformity SKIN: No rashes CENTRAL NERVOUS SYSTEM: No focal deficits, tone is normal in all 4 extremities. EXTREMITIES: There is no peripheral edema. No clubbing, no cyanosis. Peripheral pulses are intact. Results - Laboratory Findings CBC and BMP: 12/20/24 08:49 12/20/24 08:49 PT/INR, D-dimer PT 12.3 sec (10.0-12.5) 12/20/24 08:49 INR 1.1 (<1.2) 12/20/24 08:49 D-Dimer 1.66 mg/L FEU (<0.60) H 12/20/24 08:49 Abnormal lab findings: Abnormal Labs 12/20/24 12/20/24 12/20/24 08:49 08:49 08:49 WBC 11.22 H RBC 2.90 L Hgb 7.6 L D Hct 24.2 L MCH 26.2 L MCHC 31.4 L Plt Count 707 H MPV 8.4 L Immature Gran # 0.07 H Neutrophils # (Manual) 8.08 H Nucleated RBCs 1 H D-Dimer 1.66 H Sodium 136 L Creatinine 0.42 L Glucose 111 H Alkaline Phosphatase 160 H Albumin 3.0 L - Diagnostic Findings Chest x-ray: image reviewed CT scan - chest: image reviewed Assessment and Plan Assessment: Dyspnea secondary to near complete opacification of the right lung. Status post thoracentesis today with 4 L of thick yellowish-brown fluid returned. Cultures, fluid analysis and cytology pending. Initiated on vancomycin and Zosyn Recent treatment for right lower lobe pneumonia on 11/30/2024 in our emergency department with Augmentin and azithromycin Chronic tobacco dependence, states quit approximately 4 months ago No primary care provider, no recent health care assessment Plan: The patient was seen and evaluated Imaging, labs and medications reviewed Status post right sided thoracentesis 4 L of cloudy thick fluid returned Follow-up chest x-ray reveals trapped lung Cardiothoracic services consulted Infectious disease consulted Initiated on vancomycin and Zosyn Cultures and cytology pending Currently stable and on room air oxygen Add bronchodilators Add an incentive spirometer Follow-up chest x-ray in a.m. Encouraged to find a primary care provider for future follow-up We will continue to follow and make further recommendations based on his clinical status I have personally seen and examined the patient, performed the documentation and the assessment and plan as written. Number of minutes spent on the visit: 20 Dictation was produced using [employer] dictation software. Please excuse any grammatical, word or spelling errors. Time with Patient: Greater than 30
[2024-12-20] MEDS: PIPERACILLIN-TAZOBACTAM 3.375 GM in SODIUM CHLORIDE 0.9% 100 ML IVPB SCH (15:07)
--- NOTE | 2024-12-20 15:43 | P.GSCN ---
History of Present Illness Consult date: 12/20/24 Reason for Consult: Right empyema, trapped right lung Requesting physician: Isabel Regan History of present illness: This is a 54-year-old gentleman who does not follow with a primary care physician on a regular basis. He has a past medical history significant for a recent right lower lobe pneumonia on November 30, 2024 which was treated with azithromycin and Augmentin, and tobacco abuse, quit smoking around 4 months ago. The patient reported to the emergency department here at [facility] via EMS due to complaints of progressive shortness of breath, especially with activity. He reports he has been having symptoms of shortness of breath over the last 2 weeks, but has progressively gotten worse over the last couple of days. The patient also reports he has developed some edema to his bilateral lower extremities. He denies any fever, chills, nausea, vomiting, diarrhea, constipation, headache, hemoptysis, hematemesis, cough, chest pain/pressure, presyncope or syncope. On November 30, 2024, he presented to the emergency department with complaints of productive cough, fever, and was subsequently diagnosed with a right lower lobe pneumonia and small pleural effusion. The patient reports that he did feel better after the course of antibiotics, although around a week after finishing the antibiotics he developed some shortness of breath with activity. Initial laboratory results on admission showed a WBC count of 11.22, hemoglobin 7.6, hematocrit 24.2, platelet count 707, PT 12.3, INR 1.1, PTT 24.8, D-dimer 1.66, sodium 136, potassium 4.5, chloride 105, CO2 22, BUN 9, creatinine 0.42, glucose 111, troponins less than 0.012, and pro BNP 283. Influenza type A, influenza type B, RSV and SARS COVID 2 all showed not detected. A twelve-lead EKG was completed which showed sinus tachycardia heart rate 102 bpm. Due to the patient's shortness of breath and elevated D-dimer a chest CTA was completed which showed no evidence for pulmonary embolism, a large pleural collection noted with numerous internal foci of air and anterior air-fluid level seen, the collection measured 22 cm cranioc audal dimension by 16 cm transverse dimension by 22.4 cm AP dimension, findings were concerning for abscess or underlying empyema, complete collapse of the right middle lobe and right lower lobe, and mediastinal shift from right to left. Due to the findings of the large right pleural fluid collection an ultrasound of the chest was completed which showed a right pleural effusion pocket size of 21.1 cm. Subsequently, Dr. Regan from pulmonary/critical care medicine was consulted for further evaluation and treatment recommendations. The patient underwent a right sided thoracentesis by Dr. Lindsey and 4 L empyema was drained out of the right chest. A follow-up chest x-ray was completed post right thoracentesis which demonstrated significant dimuntion and right sided pleural collection, a loculated pneumothorax/collection of air measuring 12.6 x 4.5 cm, and scattered coarse patchy infiltrates seen throughout the right mid lung. A consult was subsequently placed to cardiothoracic surgery for further evaluation and treatment recommendations due to the findings of an empyema and trapped lung. Review of Systems A review of systems was completed was negative except as mentioned in the HPI. Past Medical History Past Medical History: Pneumonia (Right lower lobe pneumonia November 30, 2024) History of Any Multi-Drug Resistant Organisms: None Reported Past Surgical History: No Surgical Hx Reported Past Psychological History: No Psychological Hx Reported Smoking Status: Former smoker (Quit smoking 4 months ago) Past Alcohol Use History: Rare (Drinks wine every other Monday) Past Drug Use History: None Reported - Past Family History Mother Family Medical History: Osteoarthritis (OA) Father Family Medical History: Diabetes Mellitus Medications and Allergies Home Medications Medication Instructions Recorded Confirmed Type No Known Home Medications 12/20/24 12/20/24 History Allergies Allergy/AdvReac Type Severity Reaction Status Date / Time No Known Allergies Allergy Verified 12/20/24 11:32 Surgical - Exam Vital Signs Temp Pulse Resp BP Pulse Ox 98.2 F 102 H 30 H 150/85 95 12/20/24 08:29 12/20/24 08:29 12/20/24 08:29 12/20/24 08:29 12/20/24 08:29 - General well developed, well nourished, no distress, no pain - Eyes PERRL, normal ocular movement, no pale, no icteric - ENT normal pinna, normal nares, normal mucosa, no hearing loss, no congestion - Neck Neck is supple, no lymphadenopathy no masses, no bruits, trachea midline, no venous distension - Respiratory Lung sounds essentially clear to his left lobes, diminished lung sounds to his right lobes, no wheezes, rhonchi or crackles. Respirations are symmetrical and nonlabored. Oxygen saturation is 95% on room air. - Cardiovascular Regular rhythm and rate. S1 and S2 present, negative for S3, gallop or murmur. +2 edema to his bilateral lower extremities. - Abdomen Abdomen is soft, nontender and nondistended. Active bowel sounds present all 4 abdominal quadrants. No guarding or rigidity. No organomegaly appreciated. - Genitourinary Deferred - Rectum Deferred - Integumentary Skin is warm and dry. No clubbing or cyanosis is present. no rash, no growths, no abnormal pigmentation - Neurologic No focal deficits. normal coordination, normal sensation - Musculoskeletal Moves all 4 extremities with equal strength bilateral. - Psychiatric oriented to time, oriented to person, oriented to place, speech is normal, memory intact Results - Labs 12/20/24 08:49 12/20/24 08:49 Abnormal Lab Results - Last 24 Hours (Table) 12/20/24 12/20/24 12/20/24 Range/Units 08:49 08:49 08:49 WBC 11.22 H (4.50-10.00) 10*3/uL RBC 2.90 L (4.40-5.60) 10*6/uL Hgb 7.6 L D (13.0-17.0) g/dL Hct 24.2 L (39.6-50.0) % MCH 26.2 L (27.0-32.0) pg MCHC 31.4 L (32.0-37.0) g/dL Plt Count 707 H (140-440) 10*3/uL MPV 8.4 L (9.5-12.2) fL Immature Gran # 0.07 H (0.00-0.04) 10*3/uL Neutrophils # (Manual) 8.08 H (1.3-7.7) k/uL Nucleated RBCs 1 H (0-0) /100 WBC D-Dimer 1.66 H (<0.60) mg/L FEU Sodium 136 L (137-145) mmol/L Creatinine 0.42 L (0.66-1.25) mg/dL Glucose 111 H (74-99) mg/dL Alkaline Phosphatase 160 H (38-126) U/L Albumin 3.0 L (3.5-5.0) g/dL Diabetes panel 12/20/24 Range/Units 08:49 Sodium 136 L (137-145) mmol/L Potassium 4.5 (3.5-5.1) mmol/L Chloride 105 (98-107) mmol/L Carbon Dioxide 22 (22-30) mmol/L BUN 9 (9-20) mg/dL Creatinine 0.42 L (0.66-1.25) mg/dL Glucose 111 H (74-99) mg/dL Calcium 8.8 (8.4-10.2) mg/dL AST 26 (17-59) U/L ALT 33 (4-49) U/L Alkaline Phosphatase 160 H (38-126) U/L Total Protein 6.5 (6.3-8.2) g/dL Albumin 3.0 L (3.5-5.0) g/dL Calcium panel 12/20/24 Range/Units 08:49 Calcium 8.8 (8.4-10.2) mg/dL Albumin 3.0 L (3.5-5.0) g/dL Pituitary panel 12/20/24 Range/Units 08:49 Sodium 136 L (137-145) mmol/L Potassium 4.5 (3.5-5.1) mmol/L Chloride 105 (98-107) mmol/L Carbon Dioxide 22 (22-30) mmol/L BUN 9 (9-20) mg/dL Creatinine 0.42 L (0.66-1.25) mg/dL Glucose 111 H (74-99) mg/dL Calcium 8.8 (8.4-10.2) mg/dL Adrenal panel 12/20/24 Range/Units 08:49 Sodium 136 L (137-145) mmol/L Potassium 4.5 (3.5-5.1) mmol/L Chloride 105 (98-107) mmol/L Carbon Dioxide 22 (22-30) mmol/L BUN 9 (9-20) mg/dL Creatinine 0.42 L (0.66-1.25) mg/dL Glucose 111 H (74-99) mg/dL Calcium 8.8 (8.4-10.2) mg/dL Total Bilirubin 0.6 (0.2-1.3) mg/dL AST 26 (17-59) U/L ALT 33 (4-49) U/L Alkaline Phosphatase 160 H (38-126) U/L Total Protein 6.5 (6.3-8.2) g/dL Albumin 3.0 L (3.5-5.0) g/dL - Imaging Chest x-ray: report reviewed, image reviewed CT scan - chest: report reviewed, image reviewed EKG: image reviewed Assessment and Plan Assessment: Right-sided pleural effusion, empyema, status post thoracentesis with 4 L empyema drained by Dr. Rivera Shortness of breath, likely secondary to above Normocytic hypochromic anemia Elevated D-dimer, CTA of the chest negative for pulmonary embolus Recent right lower lobe pneumonia, completed a course of Z-Basil and Augmentin History of nicotine dependence, quit smoking 4 months ago Plan: The patient was seen and examined at his bedside in the emergency department room 9. His chart and diagnostics were reviewed. His case was discussed in detail with Dr. Daindra Casarez from cardiothoracic surgery. We will order an incentive spirometry at this time and encouraged use 10 times every hour while awake. Infectious disease has been consulted, antibiotic management per infectious disease recommendations, currently on Zosyn and vancomycin. Continue to monitor daily chest x-rays. Medical management of other comorbidities per internal medicine, infectious disease and pulmonary/critical care medicine recommendations. Continued smoking cessation has been encouraged with the patient. Pleural fluid culture results remain pending, will continue to follow. More recommendations to follow based on patient's clinical course. We will consult interventional radiology for right pigtail catheter placement, followed by instillation of dornase/alteplase instillation treatments. Thank you Dr. Rivera for this consult and we look forward to working with you in the care of this patient. I have personally seen and examined the patient, performed the documentation and the assessment and plan as written. Number of minutes spent on the visit: 30. CHRISTOPHER Swanson
[2024-12-20 17:17] LABS: Total Protein 6.5 g/dL (6.2-8.2)
--- NOTE | 2024-12-20 18:34 | OP ---
OPERATIVE REPORT DATE OF SERVICE : OPERATIVE REPORT: Right-sided thoracentesis. PREOPERATIVE DIAGNOSIS: Large right-sided pleural effusion. POSTOPERATIVE DIAGNOSIS: Right pleural effusion, suspect empyema. DESCRIPTION OF PROCEDURE: The patient was placed in a sitting upright position, the area below the right scapula was prepared in a sterile fashion, drapes were applied. Ultrasound was used prior to the procedure, and the ultrasound was highly suggestive of a parapneumonic effusion, possible empyema. The marking was placed at the 8th intercostal space and tip of the scapula. The area was locally anesthetized with lidocaine, then the needle was inserted into the pleural space. Fluid was localized with a small needle. Then, a small tiny incision was made and standard thoracentesis cannula and needle were used, advanced into the pleural space and as soon as the fluid was obtained, the catheter was advanced over the needle into the pleural space and the guide needle was pulled out. A drain total of 4 L of purulent fluid, thick yellow, drained from the right pleural space. The procedure was well tolerated, the patient had no symptoms throughout the whole procedure, a postoperative chest x-ray showed a trapped lung and small area of air collection. Again, this was not the noted at the periphery of the lung laterally. Fluid was sent for different diagnostic studies, no complications, and no intervention is found to be necessary at this point; however, Thoracic Surgery will be consulted for possible decortication down the line. In the meantime, we will treat the patient empirically with antibiotics in the form of Zosyn and vancomycin. We will monitor daily x-rays of the chest. MMODL / IJN: [id number] /
[2024-12-20] MEDS: HYDROcodone/APAP 5-325MG 1 EACH TAB PO PRN (18:47)
[2024-12-20 19:22] LABS: Appearance,BF Turbid (Clear)
[2024-12-20 19:39] LABS: Cholesterol,BF Source Pleural Fluid; Cholesterol,Body Fluid 31 mg/dL; T. Protein, Body Fluid Source Pleural Fluid; Total Protein, Body Fluid >3600 mg/dL
[2024-12-20 20:16] LABS: Glucose, BF Source Pleural Fluid; Glucose, Body Fluid <2 mg/dL; LDH, Body Fluid Source Pleural Fluid
[2024-12-20] MEDS: VANCOMYCIN 1,500 MG in SODIUM CHLORIDE 0.9% 500 ML 500 ML IVPB SCH (21:35)
--- NOTE | 2024-12-21 07:20 | XR ---
EXAMINATION TYPE: XR chest 1V portable DATE OF EXAM: 12/21/2024 CLINICAL INDICATION: Male, 54 years old with history of Right empyema, progress study. TECHNIQUE: Single AP portable upright view of the chest is obtained. COMPARISON: Chest x-ray and CT from one day earlier FINDINGS: Persistent right peripheral lower lung thick-walled collection now mostly air after thorac entesis. This is more prominent in size from most recent x-ray. Background chronic emphysematous hudson ge redemonstrated with right upper lung diffuse opacity. Stable mild linear scarring in the left lung . More prominent right basilar masslike consolidation/atelectasis. Cardiac fluid size stable and with in normal limits. Osseous structures are intact. IMPRESSION: More prominent pleural-based thick-walled right lower lung collection containing predomin antly air. More prominent adjacent right basilar compressive atelectasis. Persistent right upper lung diffuse edema and/or atelectasis. [facility], , 12/21/2024 7:18 AM
[2024-12-21] MEDS ORDERED: AZITHROMYCIN 500 MG in SODIUM CHLORIDE 0.9% 250 ML IVPB SCH (09:00)
[2024-12-21 10:04] LABS: HCT 24.6 % (39.6-50.0); HGB 7.6 g/dL (13.0-17.0); MCH 26.1 pg (27.0-32.0); MCHC 30.9 g/dL (32.0-37.0); MCV 84.5 fL (80.0-97.0); Mean Platelet Volume 8.5 fL (9.5-12.2); Platelet Count 674 10*3/uL (140-440); RBC 2.91 10*6/uL (4.40-5.60); RDW 15.1 % (11.5-14.5); WBC 6.63 10*3/uL (4.50-10.00)
[2024-12-21 10:15] LABS: African American GFR (CKD) >90 (>60 ml/min/1.73 sqM); Anion Gap 6 mmol/L; Blood Urea Nitrogen 4 mg/dL (9-20); Calcium 7.9 mg/dL (8.4-10.2); Carbon Dioxide 26 mmol/L (22-30); Chloride 104 mmol/L (98-107); Glucose 223 mg/dL (74-99); Non-African American GFR(CKD) >90 (>60 ml/min/1.73 sqM); Potassium 4.1 mmol/L (3.5-5.1); Sodium 136 mmol/L (137-145)
--- NOTE | 2024-12-21 12:21 | CT ---
EXAMINATION TYPE: CT chest abdomen w con CT DLP: 874.6 mGycm, Automated exposure control for dose reduction was used. DATE OF EXAM: 12/21/2024 12:01 PM COMPARISON: Chest radiograph 12/21/2024, CTA chest 12/20/2024 CLINICAL INDICATION:Male, 54 years old with history of empyema, anemia; PHH, Empyema, anemia. Technique: Multiple axial images of the chest, abdomen, and pelvis were obtained following the intrav enous administration of 100 mL Isovue-300. Two-dimensional coronal and sagittal reconstructions were obtained. Findings: CHEST: LUNGS/ PLEURA: Moderate centrilobular and paraseptal emphysematous changes. Scattered regions of line ar atelectasis within the left lung. Large right hydropneumothorax with air-fluid level. Consolidativ e patchy opacities within the hydropneumothorax. There is some additional patchy consolidative and ga s opacities in the periphery of the right upper lung. Overall measures grossly 21.3 x 10.7 x 17.7 cm. Loculated component along the right major fissure superiorly. Surrounding regions of atelectatic leigh g. There is some aeration of the right upper lung. AIRWAY: Patent and unremarkable.. HEART: Prominent in size. Small pericardial effusion. Mild coronary artery calcifications present. MEDIASTINUM: Enlarged precarinal lymph node measuring up to 1.7 cm. VASCULATURE: No aortic aneurysm. MUSCULOSKELETAL: No acute osseous abnormalities. S-shaped scoliotic curvature. SOFT TISSUES/LYMPH NODES: Unremarkable. LOWER NECK: No significant finding.. ABDOMEN: ABDOMEN LIVER: Enlarged measuring 21.0 cm in CC dimension. Focal region of fatty infiltration adjacent to the subsegmental ligament. GALLBLADDER AND BILE DUCTS: Layering increased densities within the lumen consistent with gallstones are present. No biliary ductal dilatation. PANCREAS: Unremarkable. SPLEEN: Enlarged measuring 15.0 cm in CC dimension ADRENAL GLANDS: Unremarkable. KIDNEYS AND URETERS: No evidence of hydronephrosis or renal calculus. The kidneys enhance symmetrical ly. Contrast is demonstrated within both collecting systems on the delayed phase. STOMACH AND BOWEL: Stomach and duodenum are unremarkable. The appendix is within normal limits. No fo christopher bowel wall thickening or surrounding inflammatory changes. No evidence of bowel obstruction. PERITONEUM: No evidence of pneumoperitoneum or free fluid. VASCULATURE: Mild atherosclerotic calcifications are present throughout the abdominal aorta and its b ranches. No abdominal aortic aneurysm. MUSCULOSKELETAL: No acute osseous abnormalities. Multilevel degenerative disc disease with the most p ronounced at L5-S1 and L1-L2. LYMPH NODES: No evidence for lymphadenopathy. SOFT TISSUE/ABDOMINAL WALL: Tiny fat filled umbilical hernia. IMPRESSION: 1. Redemonstration of large fluid collection/hydropneumothorax within the right lung with consolidat giles opacities and multiple foci of gas. There is decreased fluid component with increased gas compone nt from prior exam. Additional multiloculated portion along the right major fissure superiorly. Findi ngs are consistent reported empyema. 2. Reactive mediastinal adenopathy. 3. Moderate COPD changes. 4. Mild hepatosplenomegaly. 5. Cholelithiasis. [facility], , 12/21/2024 12:19 PM
[2024-12-21 12:53] LABS: Eosinophils # (M) 0.13 k/uL (0-0.7); Lymphocytes # (M) 2.25 k/uL (1.0-4.8); Monocytes # (M) 0.27 k/uL (0-1.0); Neutrophils # (M) 3.98 k/uL (1.3-7.7); Neutrophils % (M) 60 %; Nucleated Red Blood Cells 0 /100 WBC (0-0); Total Cells Counted 100
--- NOTE | 2024-12-21 13:50 | P.PN ---
Subjective Progress Note Date: 12/21/24 This is a pleasant 54-year-old male patient with a known history of chronic tobacco dependence stating he quit about 4 months ago. No primary care provider. No other medical history. He was here on November 30, 2024 in the emergency department with complaints of increasing shortness of breath cough and congestion. He was found to have a right lower lobe infiltrate and was treated with Augmentin, azithromycin and an albuterol inhaler. He was to follow-up with a primary care provider however he did not. He returned here to the emergency room this morning with worsening shortness of breath over the past week. Chest x-ray shows near complete opacification of the right lung. CT angiogram ruled out pulmonary embolism. There is a large pleural collection noted with numerous internal foci of air and anterior air-filled levels seen. Findings are concerning for abscess or underlying empyema. Complete collapse of the right middle and right lower lobe. Mediastinal shift from right to left. White count 11.2. Hemoglobin 7.6. Platelets 707. D-dimer 1.66. Sodium 136. Potassium 4.5. Bicarb 22. BUN 9. Creatinine 0.42. Glucose 111. Troponin negative x 1. proBNP 283. Viral screen negative for influenza A/B, RSV or COVID. He is seen today in the emergency department. Currently sitting up on a stretcher. He is dyspneic with conversation. Dyspneic with minimal exertion. He is maintaining good O2 saturations in the 90s on room air. Slightly tachypneic. Tachycardic. Ultrasound of the chest revealed a 21.[address] Regan did perform a thoracentesis with just over 4 L of thick pale yellow fluid with sediment returned. Follow-up chest x-ray revealed significant decrease in the right sided pleural collection. There is a loculated pneumothorax/collection of air measuring 12.6 x 4.5 cm. Scattered coarse and patchy infiltrate seen throughout the right lung. He has been initiated on vancomycin and Zosyn. The patient is seen today December 21, 2024 in follow-up on the regular medical floor. He is currently sitting up in bed. Awake and alert in no acute distress. B reathing easier today compared to yesterday. Attaining good O2 saturations in the 90s on 2 L/min per nasal cannula. Chest x-ray reveals more prominent pleural-based thick-walled right lower lung collection containing predominantly air. More prominent adjacent right basilar compressive atelectasis. Persistent right upper lung diffuse edema and/or atelectasis. CT scan of the chest and abdomen redemonstrates a large fluid collection/hydropneumothorax within the right lung with consolidative opacities and multiple foci of gas. Additional multiloculated portion along the right major fissure superiorly. Reactive mediastinal adenopathy. Moderate COPD changes. Mild hepatic splenomegaly. Ch olelithiasis. White count 6.6. Hemoglobin 7.6. Platelets 674. Sodium 136. Potassium 4.1. Bicarb 26. BUN 4. Creatinine 0.47. Glucose 223. Pleural fluid and exudate with total protein greater than 3.6 and LDH greater than 2500. Urine Legionella screen was negative. Pleural fluid cultures pending. Cytology pending. Sputum culture pending. He remains on vancomycin and cefepime. Continued on bronchodilators. Normal saline at 100 mL/h Objective - Vital Signs Vital signs: Vital Signs Temp 98.8 F 12/21/24 06:50 Pulse 102 H 12/21/24 08:33 Resp 18 12/21/24 06:50 BP 138/74 12/21/24 06:50 Pulse Ox 93 L 12/21/24 07:52 FiO2 Intake & Output 12/20/24 12/21/24 12/21/24 18:59 06:59 18:59 Intake Total 750 Balance 750 Weight 77.111 kg Intake: Oral 750 Other: Voiding Method Toilet # Voids 0 2 - Exam GENERAL EXAM: Alert, active, pleasant 54-year-old male, on 2 L nasal cannula, fairly comfortable in no apparent distress. HEAD: Normocephalic. EYES: Normal reaction of pupils, equal size. NOSE: Clear with pink turbinates. THROAT: No erythema or exudates. NECK: No masses, no JVD. CHEST: No chest wall deformity. LUNGS: Equal air entry with scattered rhonchi, crackles in the right lung. CVS: S1 and S2 normal with no audible murmur, regular rhythm. ABDOMEN: No hepatosplenomegaly, normal bowel sounds, no guarding or rigidity. SPINE: No scoliosis or deformity SKIN: No rashes CENTRAL NERVOUS SYSTEM: No focal deficits, tone is normal in all 4 extremities. EXTREMITIES: There is no peripheral edema. No clubbing, no cyanosis. Peripheral pulses are intact. - Labs CBC & Chem 7: 12/21/24 09:31 12/21/24 09:31 Labs: Abnormal Lab Results - Last 24 Hours (Table) 12/20/24 12/20/24 12/21/24 Range/Units 08:49 11:21 09:31 RBC 2.91 L (4.40-5.60) 10*6/uL Hgb 7.6 L (13.0-17.0) g/dL Hct 24.6 L (39.6-50.0) % MCH 26.1 L (27.0-32.0) pg MCHC 30.9 L (32.0-37.0) g/dL RDW 15.1 H (11.5-14.5) % Plt Count 674 H (140-440) 10*3/uL MPV 8.5 L (9.5-12.2) fL Immature Gran # 0.05 H (0.00-0.04) 10*3/uL Sodium (137-145) mmol/L BUN (9-20) mg/dL Creatinine (0.66-1.25) mg/dL Glucose (74-99) mg/dL Calcium (8.4-10.2) mg/dL Lactate Dehydrogenase 434 H (120-246) U/L Fluid Appearance Turbid A (Clear) 12/21/24 Range/Units 09:31 RBC (4.40-5.60) 10*6/uL Hgb (13.0-17.0) g/dL Hct (39.6-50.0) % MCH (27.0-32.0) pg MCHC (32.0-37.0) g/dL RDW (11.5-14.5) % Plt Count (140-440) 10*3/uL MPV (9.5-12.2) fL Immature Gran # (0.00-0.04) 10*3/uL Sodium 136 L (137-145) mmol/L BUN 4 L (9-20) mg/dL Creatinine 0.47 L (0.66-1.25) mg/dL Glucose 223 H (74-99) mg/dL Calcium 7.9 L (8.4-10.2) mg/dL Lactate Dehydrogenase (120-246) U/L Fluid Appearance (Clear) Microbiology - Last 24 Hours (Table) 12/20/24 23:00 Gram Stain - Preliminary Sputum 12/20/24 11:21 Gram Stain - Preliminary Pleural Fluid Assessment and Plan Assessment: Dyspnea secondary to near complete opacification of the right lung. Status post thoracentesis today with 4 L of thick yellowish-brown fluid returned. Cultures, fluid analysis and cytology pending. Currently on vancomycin and cefepime. CT scan of the chest and abdomen redemonstrates a large fluid collection/hydropneumothorax within the right lung with consolidative opacities and multiple foci of gas. Additional multiloculated portion along the right major fissure superiorly. Reactive mediastinal adenopathy. Moderate COPD changes. Mild hepatic splenomegaly. Cholelithiasis. Acute hypoxemic respiratory failure secondary to above, currently on 2 L/min per nasal cannula Recent treatment for right lower lobe pneumonia on 11/30/2024 in our emergency d epartment with Augmentin and azithromycin Acute anemia of unclear etiology, current hemoglobin 7.6. When on 11/30/2024 was 11.0 Chronic tobacco dependence, states quit approximately 4 months ago No primary care provider, no recent health care assessment Plan: The patient was seen and evaluated Imaging, labs and medications reviewed Obtain a stool for occult blood CT scan of the chest and abdomen reviewed Continue saline at 75 mL/h Continue vancomycin and cefepime per ID service Currently stable and on 2 L nasal cannula Continue bronchodilators Continue the incentive spirometer Plan is for pigtail catheter insertion December 24, 2023 CT services is following december plan for lytic infusions We will continue to follow I have personally seen and examined the patient, performed the documentation and the assessment and plan as written. Number of minutes spent on the visit: 10 Dictation was produced using [employer]ok[employer] software. Please excuse any grammatical, word or spelling errors.
--- NOTE | 2024-12-21 17:20 | P.PN ---
Subjective Progress Note Date: 12/21/24 Principal diagnosis: Right empyema, trapped right lung. Past medical history significant for a recent right lower lobe pneumonia on November 30, 2024 which was treated with azithromycin and Augmentin, and tobacco abuse, quit smoking around 4 months ago. The patient was seen and examined at his bedside on the fourth floor medical surgical unit. He is currently sitting up in bed, is awake, alert, orientated x 3 is in no acute apparent distress. The patient reports his breathing has much improved since having the fluid drained off his right chest. He is still having some shortness of breath with activity and his oxygen saturations are currently 88% to 89% on room air. He is achieving 1500 mL on his incentive spirometry. Remote telemetry is showing normal sinus rhythm heart rate 85 bpm. He has been afebrile in the last 24 hours. Pleural fluid Gram stain shows many polymorphonuclear leukocytes and no organisms seen. Sputum Gram stain preliminary shows many polymorphonuclear leukocytes, few gram-positive cocci, rare gram-negative bacilli and rare gram-positive bacilli. Infectious diseases consulted and currently the patient is receiving vancomycin, and Maxipime for IV antibiotic coverage. Chest x-ray this morning reveals a more prominent pleural-based thick-walled right lower lung collection containing predominantly air, more prominent adjacent right basilar compressive atelectasis, and persistent right upper lung diffuse edema and/or atelectasis. Interventional radiology has been consulted for placement of pigtail catheter for alteplase/dornase instillation. Objective - Vital Signs Vital signs: Vital Signs Temp 98.4 F 12/21/24 00:40 Pulse 102 H 12/21/24 00:40 Resp 18 12/21/24 00:40 BP 125/73 12/21/24 00:40 Pulse Ox 91 L 12/21/24 00:40 FiO2 Intake & Output 12/20/24 12/20/24 12/21/24 06:59 18:59 06:59 Weight 77.111 kg Other: # Voids 0 - Exam CONSTITUTIONAL: Appears comfortable, cooperative, no acute distress RESPIRATORY: Lungs sounds diminished to his right chest, essentially clear to his left lobes. Respirations symmetrical, nonlabored. Currently on room air with oxygen saturation 89%. Able to achieve 1500 mL on his incentive spirometry. Strong cough. CARDIOVASCULAR: S1, S2 present. Regular rate and rhythm, sinus rhythm on telemetry, heart rate 85 bpm. Palpable peripheral pulses bilaterally. +1 edema to his bilateral lower extremities. No calf pain or tenderness noted. SCDs present. GASTROINTESTINAL: Abdomen soft, nontender, nondistended. Active bowel sounds present 4 quadrants. Tolerating diet. Positive bowel movement. GENITOURINARY: Continues to void clear, yellow urine INTEGUMENTARY: Skin is warm and dry with evidence of good perfusion. NEUROLOGIC: Cranial nerves II through XII intact. No focal deficits MUSKULOSKELETAL: Able to move all extremities, strength equal bilaterally, gait normal. PSYCHIATRIC: Alert and oriented to person place and time, appropriate affect, intact judgment and insight - Allied health notes Allied health notes reviewed: nursing - Labs CBC & Chem 7: 12/21/24 09:31 12/21/24 09:31 Labs: Abnormal Lab Results - Last 24 Hours (Table) 12/20/24 12/20/24 12/20/24 Range/Units 08:49 08:49 08:49 WBC 11.22 H (4.50-10.00) 10*3/uL RBC 2.90 L (4.40-5.60) 10*6/uL Hgb 7.6 L D (13.0-17.0) g/dL Hct 24.2 L (39.6-50.0) % MCH 26.2 L (27.0-32.0) pg MCHC 31.4 L (32.0-37.0) g/dL Plt Count 707 H (140-440) 10*3/uL MPV 8.4 L (9.5-12.2) fL Immature Gran # 0.07 H (0.00-0.04) 10*3/uL Neutrophils # (Manual) 8.08 H (1.3-7.7) k/uL Nucleated RBCs 1 H (0-0) /100 WBC D-Dimer 1.66 H (<0.60) mg/L FEU Sodium 136 L (137-145) mmol/L Creatinine 0.42 L (0.66-1.25) mg/dL Glucose 111 H (74-99) mg/dL Alkaline Phosphatase 160 H (38-126) U/L Lactate Dehydrogenase (120-246) U/L Albumin 3.0 L (3.5-5.0) g/dL Fluid Appearance (Clear) 12/20/24 12/20/24 Range/Units 08:49 11:21 WBC (4.50-10.00) 10*3/uL RBC (4.40-5.60) 10*6/uL Hgb (13.0-17.0) g/dL Hct (39.6-50.0) % MCH (27.0-32.0) pg MCHC (32.0-37.0) g/dL Plt Count (140-440) 10*3/uL MPV (9.5-12.2) fL Immature Gran # (0.00-0.04) 10*3/uL Neutrophils # (Manual) (1.3-7.7) k/uL Nucleated RBCs (0-0) /100 WBC D-Dimer (<0.60) mg/L FEU Sodium (137-145) mmol/L Creatinine (0.66-1.25) mg/dL Glucose (74-99) mg/dL Alkaline Phosphatase (38-126) U/L Lactate Dehydrogenase 434 H (120-246) U/L Albumin (3.5-5.0) g/dL Fluid Appearance Turbid A (Clear) Microbiology - Last 24 Hours (Table) 12/20/24 23:00 Gram Stain - Preliminary Sputum 12/20/24 11:21 Gram Stain - Preliminary Pleural Fluid - Imaging and Cardiology Chest x-ray: report reviewed, image reviewed Assessment and Plan Assessment: Right-sided pleural effusion, empyema, status post thoracentesis with 4 L empyema drained by Dr. Rivera Shortness of breath, likely secondary to above Acute hypoxemic respiratory failure secondary to above Normocytic hypochromic anemia Elevated D-dimer, CTA of the chest negative for pulmonary embolus Recent right lower lobe pneumonia, completed a course of Z-Basil and Augmentin History of nicotine dependence, quit smoking 4 months ago Plan: Dr. Casarez will place a right chest pigtail catheter. Keep right pleural chest tube pigtail catheter to low continuous wall suction -20 cm H2O. Encourage use of incentive spirometry 10 times every hour while awake. Dr. Casarez is recommending a bronchoscopy, this was communicated between Dr. Casarez and Dr. Regan. We will make the patient n.p.o. after midnight. Monitor daily chest x-rays. Continue to follow cytology, pleural fluid and sputum culture results. Dr. Nick from infectious disease is following, antibiotic management per Dr. Nick. We will order transthoracic 2D echocardiogram to evaluate his LV function. The patient has new onset edema to his bilateral lower extremities. Send all called stool due to his anemia. Increase activity as tolerated. Out of bed for all meals. More recommendations to follow based on patient's clinical course. Time with Patient: Greater than 30
--- NOTE | 2024-12-21 17:22 | XR ---
EXAMINATION TYPE: XR chest 1V portable DATE OF EXAM: 12/21/2024 5:15 PM COMPARISON: 12/21/2024 CLINICAL INDICATION: Male, 54 years old with history of chest tube placement, TECHNIQUE: XR chest 1V portable views of the chest are obtained. FINDINGS: Demonstrated are scattered senescent parenchymal change. Pigtail catheter is now present at the right mid lung pleural space. Loculated collection containing fluid and air consistent with empyema persists and is somewhat smaller than on prior examination. Con tinued patchy infiltrate throughout the right lung. The heart is stable. Hilar and mediastinal structures are within normal limits. Degenerative changes are seen of the dorsal spine. IMPRESSION: 1. Pigtail catheter is now present at the right mid lung pleural space. Loculated collection contain ing fluid and air consistent with empyema persists and is somewhat smaller than on prior examination. Continued patchy infiltrate throughout the right lung. [facility], , 12/21/2024 5:19 PM
[2024-12-21] MEDS: VANCOMYCIN TROUGH DUE 1 EACH MISC MISCELLANE ONE (19:46)
--- NOTE | 2024-12-21 23:04 | P.CONS ---
History of Present Illness - Reason for Consult Consult date: 12/21/24 Empyema Requesting physician: Bernice Rouse - Chief Complaint Shortness of breath and cough x few weeks - History of Present Illness Patient is a 54-year-old male with a past medical history significant for pneumonia former smoker presenting to the hospital for evaluation of increasing shortness of breath that apparently has been getting worse over the last few weeks patient apparently recently has been diagnosed with pneumonia that has been treated in the outpatient setting with Zithromax and Augmentin however the patient patient did not have improvement and noticed to have progressive worsening shortness of breath on minimal exertion even at rest patient also have a cough which is moderate in intensity with occasional sputum production. Denies any hemoptysis or pleuritic chest pain patient denies high- grade fever did have some chills on presentation to the hospital patient was afebrile and no fever have been recorded subsequently patient was tachycardic but not hypotensive he was hypoxic currently on 2 L nasal cannula oxygen patient did have a white count of 11.22 creatinine 0.42 electrolytes are normal liver enzymes normal patient did have a thoracocentesis with a turbid fluid white count of [id number] cells with the cultures currently pending patient did have a chest x-ray COPD with interval development of marked abnormality characterized by opacity filling nearly the entire right hemithorax and demonstrating right mass effect onto the mediastinum patient did have a CT angiogram of the chest did shows large right effusion with numerous internal foci of air and did air- fluid level concerning for empyema complete collapse of the right middle lobe no PE patient is empirically being treated with vancomycin and Zosyn infectious disease was consulted for further management of antibiotic therapy Review of Systems Positive point and negatives has been mentioned in the HPI, complete review of systems was performed and all other systems are negative Past Medical History Past Medical History: Pneumonia History of Any Multi-Drug Resistant Organisms: None Reported Past Surgical History: No Surgical Hx Reported Past Anesthesia/Blood Transfusion Reactions: Unable to Obtain Past Psychological History: No Psychological Hx Reported Smoking Status: Former smoker Past Alcohol Use History: Rare Past Drug Use History: None Reported - Past Family History Mother Family Medical History: Osteoarthritis (OA) Father Family Medical History: Diabetes Mellitus Medications and Allergies Home Medications Medication Instructions Recorded Confirmed Type No Known Home Medications 12/20/24 12/20/24 History Allergies Allergy/AdvReac Type Severity Reaction Status Date / Time No Known Allergies Allergy Verified 12/20/24 11:32 Physical Exam Vitals: Vital Signs Temp Pulse Pulse Resp BP BP Pulse Ox 12/21/24 00:40 98.4 F 102 H 18 125/73 91 L 12/20/24 21:12 101 H 12/20/24 21:01 100 12/20/24 19:25 98.3 F 105 H 18 119/68 93 L 12/20/24 17:08 98.3 F 101 H 20 124/73 94 L 12/20/24 15:47 103 H 18 12/20/24 15:37 105 H 18 12/20/24 14:55 108 H 22 117/74 93 L 12/20/24 11:26 18 12/20/24 11:21 96 18 121/63 95 12/20/24 10:08 104 H 18 142/80 96 12/20/24 09:15 108 H 26 H 146/83 97 12/20/24 09:07 107 H 18 12/20/24 08:59 100 18 12/20/24 08:29 98.2 F 102 H 30 H 150/85 95 Intake and Output 12/20/24 12/20/24 12/21/24 14:59 22:59 06:59 Intake Total 750 Balance 750 Intake: Oral 750 Other: # Voids 0 2 Weight 77.111 kg 77.111 kg GENERAL DESCRIPTION: Middle-age male lying in bed, no distress. No tachypnea or accessory muscle of respiration use. HEENT: Shows Pallor , no scleral icterus. Oral mucous membrane is dry. No pharyngeal erythema or thrush NECK: Trachea central, no thyromegaly. LUNGS: Unlabored breathing. Decreased breath sound at right lung base HEART: S1, S2, regular rate and rhythm. No loud murmur ABDOMEN: Soft, no tenderness , guarding or rigidity, no organomegaly EXTREMITIES: No edema of feet. SKIN: No rash, no masses palpable. NEUROLOGICAL: The patient is awake, alert, oriented x3, mood and affect normal. Results CBC & Chem 7: 12/21/24 09:31 12/21/24 09:31 Labs: Abnormal Lab Results - Last 24 Hours (Table) 12/20/24 12/20/24 12/20/24 Range/Units 08:49 08:49 08:49 WBC 11.22 H (4.50-10.00) 10*3/uL RBC 2.90 L (4.40-5.60) 10*6/uL Hgb 7.6 L D (13.0-17.0) g/dL Hct 24.2 L (39.6-50.0) % MCH 26.2 L (27.0-32.0) pg MCHC 31.4 L (32.0-37.0) g/dL Plt Count 707 H (140-440) 10*3/uL MPV 8.4 L (9.5-12.2) fL Immature Gran # 0.07 H (0.00-0.04) 10*3/uL Neutrophils # (Manual) 8.08 H (1.3-7.7) k/uL Nucleated RBCs 1 H (0-0) /100 WBC D-Dimer 1.66 H (<0.60) mg/L FEU Sodium 136 L (137-145) mmol/L Creatinine 0.42 L (0.66-1.25) mg/dL Glucose 111 H (74-99) mg/dL Alkaline Phosphatase 160 H (38-126) U/L Lactate Dehydrogenase (120-246) U/L Albumin 3.0 L (3.5-5.0) g/dL Fluid Appearance (Clear) 12/20/24 12/20/24 Range/Units 08:49 11:21 WBC (4.50-10.00) 10*3/uL RBC (4.40-5.60) 10*6/uL Hgb (13.0-17.0) g/dL Hct (39.6-50.0) % MCH (27.0-32.0) pg MCHC (32.0-37.0) g/dL Plt Count (140-440) 10*3/uL MPV (9.5-12.2) fL Immature Gran # (0.00-0.04) 10*3/uL Neutrophils # (Manual) (1.3-7.7) k/uL Nucleated RBCs (0-0) /100 WBC D-Dimer (<0.60) mg/L FEU Sodium (137-145) mmol/L Creatinine (0.66-1.25) mg/dL Glucose (74-99) mg/dL Alkaline Phosphatase (38-126) U/L Lactate Dehydrogenase 434 H (120-246) U/L Albumin (3.5-5.0) g/dL Fluid Appearance Turbid A (Clear) Microbiology - Last 24 Hours (Table) 12/20/24 23:00 Gram Stain - Preliminary Sputum 12/20/24 11:21 Gram Stain - Preliminary Pleural Fluid Assessment and Plan (1) Sepsis Current Visit: Yes Status: Acute Code(s): A41.9 - SEPSIS, UNSPECIFIED ORGANISM SNOMED Code(s): 08599709 (2) Empyema Current Visit: Yes Status: Acute Code(s): J86.9 - PYOTHORAX WITHOUT FISTULA SNOMED Code(s): 958199115 (3) Pneumonia Current Visit: No Status: Acute Code(s): J18.9 - PNEUMONIA, UNSPECIFIED ORGANISM SNOMED Code(s): 447479265 Plan: 1patient presented to hospital with sepsis in this patient who did have tachycardia elevated white count meeting criteria for SIRS source is right-sided pneumonia and underlying empyema status post thoracocentesis in this patient failing outpatient oral Augmentin and Zithromax therapy will need to cover for resistant gram-positive as well as gram-negative pathogen 2-patient will be treated with vancomycin however switch Zosyn to cefepime to decrease risk of nephrotoxicity while waiting for the culture to finalize We will follow on clinical condition and cultures to further adjust medication if needed Thank you for this consultation we will follow the patient along with you Dictation was produced using [email or web address] dictation software. please excuse any grammatical, word or spelling errors. Time with Patient: Greater than 30
[2024-12-21] MEDS: MORPHINE SULFATE 2 MG/ML SYRINGE IVP STA (23:10)
--- NOTE | 2024-12-21 23:32 | P.PN ---
Subjective This is a pleasant 54 years old male with no significant past medical history Patient presents because of worsening dyspnea. About 1 month ago he was diagnosed with pneumonia pneumonia with small right pleural effusion and he was treated with oral antibiotic, this was progressed gradually over this month and become more opacified right lung on chest x-ray. Patient underwent thoracocentesis with pulmonary team while he is still in the emergency room where more than 3 L of purulent fluid has been drained. Patient with no significant pain, no significant coughing and is on room air He denies any other specific symptoms He quit smoking about 4 months ago with no alcohol or illicit drugs. Vitals stable he was mildly tachycardic which is improving now Labs showing leukocytosis 11.2, hemoglobin 7.6. Platelet count 707 Rest of BMP LFT troponin and INR were unremarkable D-dimer was elevated 1.6. He underwent CTA of the chest which was negative for PE but showing large pleural effusion on the right with collapse of the right lung. Chest x-ray and CTA of the lung showing the same findings of large pleural effusion and collapse of the right lung EKG showing sinus tachycardia [address]-T changes Patient underwent right sided thoracocentesis more than 3 L of purulent fluid was drained. And patient tolerated the procedure well 5/3 Patient feels more comfortable and breathing easily no significant chest pain or coughing Repeat CT of the chest and abdomen showing loculated still large fluid collection in the right lung for his empyema. thoracic surgery was consulted for possible decortication Patient currently kept on IV vancomycin and Zosyn pending final culture results Review of systems CONSTITUTIONAL: No fever, no malaise, no fatigue. GASTROINTESTINAL: No diarrhea, no nausea, no vomiting, no abdominal pain. Normoactive bowel sounds. NEUROLOGICAL: No headaches, no weakness, no numbness. HEMATOLOGICAL: Denies any bleeding or petechiae. GENITOURINARY: Denies any burning micturition, frequency, or urgency. MUSCULOSKELETAL/RHEUMATOLOGICAL: Denies any joint pain, swelling, or any muscle pain. ENDOCRINE: Denies any polyuria or polydipsia. Active Medications Generic Name Dose Route Start Last Admin Trade Name Freq PRN Reason Stop Dose Admin Hydrocodone Bitart/Acetaminophen 1 each 12/20/24 18:40 12/21/24 18:56 Hydrocodone/Apap 5-325mg 1 Each Tab PO 1 each Q6HR PRN Administration Pain Albuterol/Ipratropium 3 ml 12/20/24 12:00 12/21/24 21:08 Ipratropium-Albuterol 3 Ml Neb INHALATION 3 ml RT-QID BARTOLOME Administration Albuterol/Ipratropium 3 ml 12/20/24 10:16 Ipratropium-Albuterol 3 Ml Neb INHALATION RT-Q4H PRN shortness of breath Sodium Chloride 1,000 mls @ 75 mls/hr 12/20/24 10:30 12/21/24 18:14 Saline 0.9% IV Not Given .[id number] BARTOLOME Piperacillin Sod/Tazobactam 100 mls @ 25 mls/hr 12/22/24 00:00 Sod 3.375 gm/ Sodium Chloride IVPB Q8HR [facility] Protocol Miscellaneous Information 1 each 12/20/24 10:16 Pneumonia Protocol Utilized 1 Each Misc PO ONCE PRN Per Protocol Objective - Vital Signs Vital signs: Vital Signs Temp 98.8 F 12/21/24 06:50 Pulse 94 12/21/24 16:10 Resp 18 12/21/24 06:50 BP 138/74 12/21/24 06:50 Pulse Ox 93 L 12/21/24 07:52 FiO2 Intake & Output 12/21/24 12/21/24 12/22/24 06:59 18:59 06:59 Intake Total 750 Output Total 650 Balance 750 -650 Intake: Oral 750 Output: Drainage 650 Right Chest 650 Other: Voiding Method Toilet # Voids 2 1 - Exam GENERAL: The patient is alert and oriented x3, not in any acute distress. Well developed, well nourished. HEENT: Pupils are round and equally reacting to light. EOMI. No scleral icterus. No conjunctival pallor. Normocephalic, atraumatic. No pharyngeal erythema. No thyromegaly. CARDIOVASCULAR: S1 and S2 present. No murmurs, rubs, or gallops. -PULMONARY: Chest is clear to auscultation, no wheezing , no crackles. Decreased breath sounds in the bases ABDOMEN: Soft, nontender, nondistended, normoactive bowel sounds. No palpable organomegaly. MUSCULOSKELETAL: No joint swelling or deformity. EXTREMITIES: No cyanosis, clubbing, or pedal edema. NEUROLOGICAL: Gross neurological examination did not reveal any focal deficits. SKIN: No rashes. no petechiae. - Labs CBC & Chem 7: 12/21/24 09:31 12/21/24 09:31 Labs: Abnormal Lab Results - Last 24 Hours (Table) 12/21/24 12/21/24 Range/Units 09:31 09:31 RBC 2.91 L (4.40-5.60) 10*6/uL Hgb 7.6 L (13.0-17.0) g/dL Hct 24.6 L (39.6-50.0) % MCH 26.1 L (27.0-32.0) pg MCHC 30.9 L (32.0-37.0) g/dL RDW 15.1 H (11.5-14.5) % Plt Count 674 H (140-440) 10*3/uL MPV 8.5 L (9.5-12.2) fL Immature Gran # 0.05 H (0.00-0.04) 10*3/uL Sodium 136 L (137-145) mmol/L BUN 4 L (9-20) mg/dL Creatinine 0.47 L (0.66-1.25) mg/dL Glucose 223 H (74-99) mg/dL Calcium 7.9 L (8.4-10.2) mg/dL Microbiology - Last 24 Hours (Table) 12/20/24 11:21 Nasal Screen MRSA/MSSA - Final Nasal Swab 12/20/24 11:15 Blood Culture - Preliminary Blood 12/20/24 11:21 Acid Fast Bacilli Smear - Preliminary Lung - Right 12/20/24 23:00 Gram Stain - Preliminary Sputum 12/20/24 11:21 Gram Stain - Preliminary Pleural Fluid Assessment and Plan Assessment: Right pneumonia failed outpatient treatment associated with large/huge right pleural effusion with left-sided mediastinal shift right sided thoracocentesis more than 3 L of purulent fluid was drained Normocytic hypochromic anemia Elevated D-dimer with negative CAT scan from pulmonary embolism Plan: Continue with antibiotic currently on Zosyn and IV vancomycin. Will change it to pharmacy to dose. ID team on the case Follow-up pleural fluid culture Follow-up chest x-ray Pulmonary team following closely Bronchodilator Cardiothoracic surgery consult for possible decortication Labs and medication were reviewed.. Continue same treatment. Continue with symptomatic treatment. Resume home medication. Monitor labs and vitals. DVT and GI prophylaxis. Further recommendations as per clinical course of the patient DVT prophylaxis: Subcutaneous heparin GI Prophylaxis: Pepcid Prognosis is guarded
[2024-12-22] MEDS: PIPERACILLIN-TAZOBACTAM 3.375 GM in SODIUM CHLORIDE 0.9% 100 ML IVPB SCH (01:16)
[2024-12-22 03:53] LABS: African American GFR (CKD) >90 (>60 ml/min/1.73 sqM); Non-African American GFR(CKD) >90 (>60 ml/min/1.73 sqM)
--- NOTE | 2024-12-22 05:55 | XR ---
EXAMINATION TYPE: XR chest 1V portable DATE OF EXAM: 12/22/2024 CLINICAL INDICATION: Male, 54 years old with history of Right empyema, progress study. TECHNIQUE: Single AP portable semiupright view of the chest is obtained. COMPARISON: Chest x-ray from one day earlier FINDINGS: Stable right lateral pleural pigtail drainage catheter. Stable moderate size right lateral inferior pleural collection now containing fluid. Background chronic emphysematous change with paren chymal scarring bilaterally. Persistent right basilar masslike opacity. Cardiac silhouette size stabl e and within normal limits. Levoconvex scoliosis in the lower thoracic spine is redemonstrated. IMPRESSION: Stable moderate-sized right pleural collection with pigtail drainage catheter now contain ing fluid versus air on prior. [facility], , 12/22/2024 5:52 AM
[2024-12-22] MEDS ORDERED: ACETAMINOPHEN TAB 325 MG TAB PO PRN (07:27)
--- NOTE | 2024-12-22 07:44 | CA ---
Transthoracic Echo Report Name: Jesse Kendrick Age: 54 Gender: M : 1970 Exam Date: 12/21/2024 17:33 Exam Location: [facility] Ht (in): 72 Wt (lb): 170 Ordering Physician: Marquise Levy Attending/Referring Phys: Cam MORALES Senior Product Integrity Engineer Yane Casillas RDCS Procedure CPT: Indications: evaluate LV function Cardiac Hx: Technical Quality: Fair Contrast 1: Total Dose (mL): Contrast 2: Total Dose (mL): MEASUREMENTS (Male / Female) Normal Values 2D ECHO LV Diastolic Diameter PLAX 4.6 cm 4.2 - 5.9 / 3.9 - 5.3 cm LV Systolic Diameter PLAX 2.6 cm IVS Diastolic Thickness 1.3 cm 0.6 - 1.0 / 0.6 - 0.9 cm LVPW Diastolic Thickness 1.2 cm 0.6 - 1.0 / 0.6 - 0.9 cm LV Relative Wall Thickness 0.5 RV Internal Dim ED PLAX 2.8 cm LA Systolic Diameter LX 4.2 cm 3.0 - 4.0 / 2.7 - 3.8 cm LV Diastolic Volume MOD BP 68.0 cm??? 67 - 155 / 56 - 104 cm??? LV Systolic Volume MOD BP 18.0 cm??? 22 - 58 / 19 - 49 cm??? LV Ejection Fraction MOD BP 73.5 % >= 55 % LV Cardiac Index MOD BP 2451.6 cm???/min???m??? LV Diastolic Volume MOD 4C 92.5 cm??? LV Systolic Volume MOD 4C 23.7 cm??? LV Ejection Fraction MOD 4C 74.4 % LV Cardiac Index MOD 4C 3371.9 cm???/min???m??? LV Diastolic Length 4C 7.7 cm LV Systolic Length 4C 6.2 cm LV Diastolic Volume MOD 2C 48.1 cm??? LV Systolic Volume MOD 2C 13.8 cm??? LV Ejection Fraction MOD 2C 71.3 % LV Cardiac Index MOD 2C 1679.8 cm???/min???m??? LV Diastolic Length 2C 7.2 cm LV Systolic Length 2C 6.7 cm LA Volume 86.6 cm??? 18 - 58 / 22 - 52 cm??? LA Volume Index 43.8 cm???/m??? 16 - 28 cm???/m??? M-MODE Aortic Root Diameter MM 3.6 cm LA Systolic Diameter MM 4.2 cm LA Ao Ratio MM 1.2 AV Cusp Separation MM 2.0 cm DOPPLER AV Peak Velocity 192.7 cm/s AV Peak Gradient 14.9 mmHg MV Area PHT 3.2 cm??? Mitral E Point Velocity 105.7 cm/s Mitral A Point Velocity 84.4 cm/s Mitral E to A Ratio 1.3 MV Deceleration Time 240.7 ms TR Peak Velocity 317.7 cm/s TR Peak Gradient 40.4 mmHg Right Atrial Pressure 5.0 mmHg Pulmonary Artery Systolic Pressu 45.4 mmHg Right Ventricular Systolic Press 45.4 mmHg FINDINGS Left Ventricle Left ventricular ejection fraction is estimated at 65-70%. Mildly increased septal wall thickness. Hyperdynamic left ventricular systolic function. Left ventricular cavity size normal. No obvious regional wall motion abnormalities. Right Ventricle Mild right ventricular dilatation. Moderate pulmonary hypertension. Right Atrium Mild right atrial dilatation. Left Atrium Mildly increased left atrial diameter. Mildly increased left atrial area. Mitral Valve Mitral valve thickened. Mild mitral regurgitation. No mitral stenosis. Aortic Valve Trileaflet aortic valve. No aortic valve stenosis or regurgitation. Diffuse thickening (sclerosis) of the aortic valve cusps without reduced excursion. Tricuspid Valve Structurally normal tricuspid valve. Mild tricuspid regurgitation. No tricuspid stenosis. Pulmonic Valve Structurally normal pulmonic valve. Trace pulmonic regurgitation. No pulmonic stenosis. Pericardium Small pericardial effusion. No pleural effusion. Aorta Aorta at upper limits of normal. CONCLUSIONS Normal LV function Previewed by: Dr. Rocky Reis MD (Electronically Signed) Final Date: 22 Dec 2024 07:43
[2024-12-22 08:40] LABS: Basophils # (A) 0.04 10*3/uL (0.00-0.10); Basophils % (A) 0.6 %; Eosinophils # (A) 0.11 10*3/uL (0.04-0.35); Eosinophils % (A) 1.8 %; HCT 26.5 % (39.6-50.0); Lymphocytes # (A) 1.81 10*3/uL (0.90-5.00); Lymphocytes % (A) 29.1 %; MCH 25.5 pg (27.0-32.0); MCHC 30.2 g/dL (32.0-37.0); MCV 84.4 fL (80.0-97.0); Mean Platelet Volume 8.3 fL (9.5-12.2); Monocytes % (A) 9.6 %; Neutrophils # (A) 3.58 10*3/uL (1.80-7.70); Neutrophils % (A) 57.6 %; Platelet Count 621 10*3/uL (140-440); RBC 3.14 10*6/uL (4.40-5.60); RDW 15.2 % (11.5-14.5); WBC 6.22 10*3/uL (4.50-10.00)
[2024-12-22] MEDS: DORNASE ALFA 5 MG in SODIUM CHLORIDE 0.9% 50 ML IRRIGATION ONE (08:49)
[2024-12-22] MEDS: ALTEPLASE 10 MG in SODIUM CHLORIDE 0.9% 50 ML IRRIGATION ONE (08:50)
[2024-12-22 08:52] LABS: African American GFR (CKD) >90 (>60 ml/min/1.73 sqM); Anion Gap 7 mmol/L; Blood Urea Nitrogen 3 mg/dL (9-20); Calcium 8.7 mg/dL (8.4-10.2); Carbon Dioxide 27 mmol/L (22-30); Chloride 101 mmol/L (98-107); Glucose 99 mg/dL (74-99); Non-African American GFR(CKD) >90 (>60 ml/min/1.73 sqM); Potassium 4.8 mmol/L (3.5-5.1); Sodium 135 mmol/L (137-145)
[2024-12-22] MEDS: KETOROLAC 15 MG/ML 1 ML VIAL IVP SCH (09:00)
[2024-12-22] MEDS: LACTATED RINGERS 1,000 ML IV ONE ×2 (09:35→09:51)
[2024-12-22] MEDS: LIDOCAINE 2% INJ 20 MG/ML INTRATRACH ONE (09:40)
--- NOTE | 2024-12-22 10:12 | P.PN ---
Subjective Progress Note Date: 12/22/24 Principal diagnosis: Right empyema, trapped right lung. Past medical history significant for a recent right lower lobe pneumonia on November 30, 2024 which was treated with azithromycin and Augmentin, and tobacco abuse, quit smoking around 4 months ago. Status post day #2 right thoracentesis with 4 L of empyema drained by Dr. Rivera. Status post day #1 placement of right chest pigtail catheter by Dr. Casarez. The patient was seen and examined at his bedside on the fourth floor medical surgical unit today October 22, 2024. He is currently sitting up in bed, is awake, alert, orientated x 3 is in no acute apparent distress. He is currently n.p.o. at this time as he is scheduled for a bronchoscopy to be performed by Dr. Regan today. He underwent a placement of a right pleural pigtail catheter yesterday by Dr. Casarez, the pigtail catheter is connected to a bedside Pleur-evac system on low continuous wall suction -20 cm H2O. No air leak is present at this time. It is draining purulent serous drainage. 225 mL output in the last 8 hours and 900 mL output since placement. Oxygen saturations are 94% on 2 L nasal cannula and he is achieving 1500 to 2000 mL on his incentive spirometry with encouragement. Blood culture showed no growth after 24 hours. Pleural fluid cultures show no growth after 24 hours and sputum culture luminary results show many polymorphonuclear leukocytes, few gram-positive cocci, rare gram-negative bacilli and rare gram-positive bacilli. He remains on Zosyn for IV antibiotic coverage. He has been afebrile in the last 24 hours. Chest x-ray results reviewed. Objective - Vital Signs Vital signs: Vital Signs Temp 98.9 F 12/22/24 06:54 Pulse 93 12/22/24 09:20 Resp 18 12/22/24 06:54 BP 137/77 12/22/24 06:54 Pulse Ox 96 12/22/24 09:12 FiO2 Intake & Output 12/21/24 12/22/24 12/22/24 18:59 06:59 18:59 Intake Total 800 100 Output Total 650 2075 Balance -650 -1275 100 Intake: IV 100 Oral 800 Output: Drainage 650 225 Right Chest 650 225 Urine 1850 Other: Voiding Method Toilet Toilet Urinal # Voids 1 3 - Exam CONSTITUTIONAL: Appears comfortable, cooperative, no acute distress RESPIRATORY: Lungs sounds diminished to his right chest, essentially clear to his left lobes. Respirations symmetrical, nonlabored. Currently on 2 L nasal cannula with oxygen saturation 92%. Able to achieve 0632-6286 mL on his incentive spirometry. Strong cough. CARDIOVASCULAR: S1, S2 present. Regular rate and rhythm, sinus rhythm on telemetry, heart rate 94 bpm. Palpable peripheral pulses bilaterally. +1 edema to his bilateral lower extremities. No calf pain or tenderness noted. SCDs present. GASTROINTESTINAL: Abdomen soft, nontender, nondistended. Active bowel sounds present 4 quadrants. Tolerating diet. GENITOURINARY: Continues to void clear, yellow urine. INTEGUMENTARY: Skin is warm and dry with evidence of good perfusion. NEUROLOGIC: Cranial nerves II through XII intact. No focal deficits MUSKULOSKELETAL: Able to move all extremities, strength equal bilaterally, gait normal. PSYCHIATRIC: Alert and oriented to person place and time, appropriate affect, intact judgment and insight. INVASIVE LINES AND TUBES: right pleural pigtail catheter connected to a bedside Pleur-evac system on low continuous wall suction -20 cm H2O. No air leak is present at this time. It is draining purulent serous drainage. 225 mL output in the last 8 hours and 900 mL output since placement. - Allied health notes Allied health notes reviewed: nursing - Labs CBC & Chem 7: 12/22/24 07:42 12/22/24 07:42 Labs: Abnormal Lab Results - Last 24 Hours (Table) 12/21/24 12/21/24 12/22/24 Range/Units 09:31 09:31 03:14 RBC 2.91 L (4.40-5.60) 10*6/uL Hgb 7.6 L (13.0-17.0) g/dL Hct 24.6 L (39.6-50.0) % MCH 26.1 L (27.0-32.0) pg MCHC 30.9 L (32.0-37.0) g/dL RDW 15.1 H (11.5-14.5) % Plt Count 674 H (140-440) 10*3/uL MPV 8.5 L (9.5-12.2) fL Immature Gran # 0.05 H (0.00-0.04) 10*3/uL Sodium 136 L (137-145) mmol/L BUN 4 L (9-20) mg/dL Creatinine 0.47 L 0.37 L (0.66-1.25) mg/dL Glucose 223 H (74-99) mg/dL Calcium 7.9 L (8.4-10.2) mg/dL 12/22/24 12/22/24 Range/Units 07:42 07:42 RBC 3.14 L (4.40-5.60) 10*6/uL Hgb 8.0 L (13.0-17.0) g/dL Hct 26.5 L (39.6-50.0) % MCH 25.5 L (27.0-32.0) pg MCHC 30.2 L (32.0-37.0) g/dL RDW 15.2 H (11.5-14.5) % Plt Count 621 H (140-440) 10*3/uL MPV 8.3 L (9.5-12.2) fL Immature Gran # 0.08 H (0.00-0.04) 10*3/uL Sodium 135 L (137-145) mmol/L BUN 3 L (9-20) mg/dL Creatinine 0.44 L (0.66-1.25) mg/dL Glucose (74-99) mg/dL Calcium (8.4-10.2) mg/dL Microbiology - Last 24 Hours (Table) 12/20/24 11:21 Gram Stain - Preliminary Pleural Fluid Body Fluid Culture - Preliminary 12/20/24 11:21 Nasal Screen MRSA/MSSA - Final Nasal Swab 12/20/24 11:15 Blood Culture - Preliminary Blood 12/20/24 11:21 Acid Fast Bacilli Smear - Preliminary Lung - Right - Imaging and Cardiology Chest x-ray: report reviewed, image reviewed Assessment and Plan Assessment: Right-sided pleural effusion, empyema, status post thoracentesis with 4 L empyema drained by Dr. Rivera, status post placement of right pleural pigtail catheter Shortness of breath, likely secondary to above Acute hypoxemic respiratory failure secondary to above Normocytic hypochromic anemia Elevated D-dimer, CTA of the chest negative for pulmonary embolus Recent right lower lobe pneumonia, completed a course of Z-Basil and Augmentin History of nicotine dependence, quit smoking 4 months ago Plan: Keep right pleural pigtail catheter in place to low continuous wall suction -20 cm H2O. May disconnect to ambulate to the bathroom and in the uribe. Will instill alteplase/dornase through the pigtail catheter today and clamp for 1 hour post instillation. Encourage use of incentive spirometry 10 times every hour while awake. He is scheduled for bronchoscopy today by Dr. Rivera, n.p.o. at this time. Monitor daily chest x-rays. Continue to follow cytology, pleural fluid and sputum culture results. Dr. Nick from infectious disease is following, antibiotic management per infectious disease. Transthoracic 2D echocardiogram results reviewed. Occult stool stool pending. Hemoglobin 8.0 today. Increase activity as tolerated. Out of bed for all meals. More recommendations to follow based on patient's clinical course. Time with Patient: Greater than 30
--- NOTE | 2024-12-22 10:50 | XR ---
EXAMINATION TYPE: XR chest 1V portable DATE OF EXAM: 12/22/2024 CLINICAL INDICATION: Male, 54 years old with history of Post bronch, progress study. TECHNIQUE: Single AP portable upright view of the chest is obtained. COMPARISON: Chest x-ray from earlier today FINDINGS: No pneumothorax after bronchoscopy. Persistent small to moderate size right-sided pleural f luid collection with basilar pleural pigtail drainage catheter. Background chronic emphysematous change with parenchymal scarring bilaterally. Persistent right basil ar masslike opacity. Persistent right suprahilar mass like opacity and diffuse right lung opacity/ellis ma. Cardiac silhouette size stable and within normal limits. Levoconvex scoliosis in the lower thorac ic spine is redemonstrated. IMPRESSION: No pneumothorax after bronchoscopy. Other findings stable. [facility] Alex, , 12/22/2024 10:47 AM
--- NOTE | 2024-12-22 13:39 | P.PN ---
Subjective Progress Note Date: 12/22/24 This is a pleasant 54-year-old male patient with a known history of chronic tobacco dependence stating he quit about 4 months ago. No primary care provider. No other medical history. He was here on November 30, 2024 in the emergency department with complaints of increasing shortness of breath cough and congestion. He was found to have a right lower lobe infiltrate and was treated with Augmentin, azithromycin and an albuterol inhaler. He was to follow-up with a primary care provider however he did not. He returned here to the emergency room this morning with worsening shortness of breath over the past week. Chest x-ray shows near complete opacification of the right lung. CT angiogram ruled out pulmonary embolism. There is a large pleural collection noted with numerous internal foci of air and anterior air-filled levels seen. Findings are concerning for abscess or underlying empyema. Complete collapse of the right middle and right lower lobe. Mediastinal shift from right to left. White count 11.2. Hemoglobin 7.6. Platelets 707. D-dimer 1.66. Sodium 136. Potassium 4.5. Bicarb 22. BUN 9. Creatinine 0.42. Glucose 111. Troponin negative x 1. proBNP 283. Viral screen negative for influenza A/B, RSV or COVID. He is seen today in the emergency department. Currently sitting up on a stretcher. He is dyspneic with conversation. Dyspneic with minimal exertion. He is maintaining good O2 saturations in the 90s on room air. Slightly tachypneic. Tachycardic. Ultrasound of the chest revealed a 21.[address] Regan did perform a thoracentesis with just over 4 L of thick pale yellow fluid with sediment returned. Follow-up chest x-ray revealed significant decrease in the right sided pleural collection. There is a loculated pneumothorax/collection of air measuring 12.6 x 4.5 cm. Scattered coarse and patchy infiltrate seen throughout the right lung. He has been initiated on vancomycin and Zosyn. The patient is seen today December 21, 2024 in follow-up on the regular medical floor. He is currently sitting up in bed. Awake and alert in no acute distress. B reathing easier today compared to yesterday. Attaining good O2 saturations in the 90s on 2 L/min per nasal cannula. Chest x-ray reveals more prominent pleural-based thick-walled right lower lung collection containing predominantly air. More prominent adjacent right basilar compressive atelectasis. Persistent right upper lung diffuse edema and/or atelectasis. CT scan of the chest and abdomen redemonstrates a large fluid collection/hydropneumothorax within the right lung with consolidative opacities and multiple foci of gas. Additional multiloculated portion along the right major fissure superiorly. Reactive mediastinal adenopathy. Moderate COPD changes. Mild hepatic splenomegaly. Ch olelithiasis. White count 6.6. Hemoglobin 7.6. Platelets 674. Sodium 136. Potassium 4.1. Bicarb 26. BUN 4. Creatinine 0.47. Glucose 223. Pleural fluid and exudate with total protein greater than 3.6 and LDH greater than 2500. Urine Legionella screen was negative. Pleural fluid cultures pending. Cytology pending. Sputum culture pending. He remains on vancomycin and cefepime. Continued on bronchodilators. Normal saline at 100 mL/h The patient is seen today December 22, 2024 in follow-up on the regular medical floor. He is currently sitting up in bed. Awake and alert in no acute distress. Denies any worsening shortness of breath, cough or congestion. He continues with a dry nonproductive cough. He is maintaining good O2 saturations in the 90s on 2 L nasal cannula. He has been afebrile. Hemodynamically stable. A right sided pigtail catheter was placed by CT services yesterday. Currently 2 Pleur-evac. Receiving alteplase/dornase infusions. They did request bronchoscopy to rule out any endobronchial tumors prior to possible decortication later this week. Koska P was performed today. No endobronchial lesions noted. There was some compression in the right bronchial system due to external fluid. He tolerated the procedure well. He remains on Zosyn. Pleural fluid cultures are pending. Sputum culture is pending. Bronchoscopy with BAL cultures are now pending. White count 6.2. Hemoglobin 8.0. Platelets 621. Sodium 135. Potassium 4.8. Bicarb 27. BUN 3. Creatinine 0.44. He remains on DuoNeb inhalations. Heath and Toradol for pain control. Objective - Vital Signs Vital signs: Vital Signs Temp 97.6 F 12/22/24 10:15 Pulse 92 12/22/24 10:15 Resp 19 12/22/24 10:15 BP 109/67 12/22/24 10:15 Pulse Ox 92 L 12/22/24 10:15 FiO2 Intake & Output 12/21/24 12/22/24 12/22/24 18:59 06:59 18:59 Intake Total 800 100 Output Total 650 2075 900 Balance -650 -1275 -800 Intake: IV 100 Oral 800 Output: Drainage 650 225 Right Chest 650 225 Urine 1850 900 Other: Voiding Method Toilet Toilet Toilet Urinal Urinal # Voids 1 3 2 - Exam GENERAL EXAM: Alert, pleasant 54-year-old male, sitting up in bed, on 2 L nasal cannula, fairly comfortable in no apparent distress. HEAD: Normocephalic. EYES: Normal reaction of pupils, equal size. NOSE: Clear with pink turbinates. THROAT: No erythema or exudates. NECK: No masses, no JVD. CHEST: No chest wall deformity. LUNGS: Equal air entry with scattered rhonchi, crackles in the right lung. CVS: S1 and S2 normal with no audible murmur, regular rhythm. ABDOMEN: No hepatosplenomegaly, normal bowel sounds, no guarding or rigidity. SPINE: No scoliosis or deformity SKIN: No rashes CENTRAL NERVOUS SYSTEM: No focal deficits, tone is normal in all 4 extremities. EXTREMITIES: There is no peripheral edema. No clubbing, no cyanosis. Peripheral pulses are intact. - Labs CBC & Chem 7: 12/22/24 07:42 12/22/24 07:42 Labs: Abnormal Lab Results - Last 24 Hours (Table) 12/22/24 12/22/24 12/22/24 Range/Units 03:14 07:42 07:42 RBC 3.14 L (4.40-5.60) 10*6/uL Hgb 8.0 L (13.0-17.0) g/dL Hct 26.5 L (39.6-50.0) % MCH 25.5 L (27.0-32.0) pg MCHC 30.2 L (32.0-37.0) g/dL RDW 15.2 H (11.5-14.5) % Plt Count 621 H (140-440) 10*3/uL MPV 8.3 L (9.5-12.2) fL Immature Gran # 0.08 H (0.00-0.04) 10*3/uL Sodium 135 L (137-145) mmol/L BUN 3 L (9-20) mg/dL Creatinine 0.37 L 0.44 L (0.66-1.25) mg/dL Microbiology - Last 24 Hours (Table) 12/20/24 11:21 Gram Stain - Preliminary Pleural Fluid Body Fluid Culture - Preliminary 12/20/24 11:21 Nasal Screen MRSA/MSSA - Final Nasal Swab 12/20/24 11:15 Blood Culture - Preliminary Blood 12/20/24 11:21 Acid Fast Bacilli Smear - Preliminary Lung - Right Assessment and Plan Assessment: Dyspnea secondary to near complete opacification of the right lung. Status post thoracentesis today with 4 L of thick yellowish-brown fluid returned. Cultures, fluid analysis and cytology pending. Currently on vancomycin and cefepime. CT scan of the chest and abdomen redemonstrates a large fluid collection/hydropneumothorax within the right lung with consolidative opacities and multiple foci of gas. Additional multiloculated portion along the right major fissure superiorly. Reactive mediastinal adenopathy. Moderate COPD changes. Mild hepatic splenomegaly. Cholelithiasis. Complex right sided pleural effusion secondary to above. Pigtail catheter placed on 12/21/2024 to Pleur-evac. Receiving alteplase/dornase infusion. Bronchoscopy with BAL performed 12/22/2024. No endobronchial tumors identified. There was some external compression noted from pleural fluid, trapped lung Acute hypoxemic respiratory failure secondary to above, currently on 2 L/min per nasal cannula Recent treatment for right lower lobe pneumonia on 11/30/2024 in our emergency department with Augmentin and azithromycin Acute anemia of unclear etiology, current hemoglobin 8.0. When on 11/30/2024 was 11.0 Chronic tobacco dependence, states quit approximately 4 months ago No primary care provider, no recent health care assessment Plan: The patient was seen and evaluated Chest x-ray, labs and medications reviewed Right sided pigtail catheter placed yesterday Alteplase/dornase infusion per CT service Bronchoscopy with BAL performed today No endobronchial tumors noted Continue Zosyn per ID service Currently stable and on 2 L nasal cannula Continue bronchodilators Continue the incentive spirometer May require decortication surgery We will continue to follow I have personally seen and examined the patient, performed the documentation and the assessment and plan as written. Number of minutes spent on the visit: 10 Dictation was produced using [employer] dictation software. Please excuse any grammatical, word or spelling errors.
--- NOTE | 2024-12-22 17:05 | P.PN ---
Subjective Progress Note Date: 12/22/24 Principal diagnosis: Reason for follow-up is pneumonia/empyema Patient is a 54-year-old male with a past medical history significant for pneumonia former smoker presenting to the hospital for evaluation of increasing shortness of breath, patient be diagnosed with a right-sided pneumonia concerning for empyema in this patient was status post chest tube placement on the right side. On today's evaluation that is 12/22/2024, Patient is afebrile this morning patient denies having any worsening right-sided chest pain shortness of breath and cough is decreased in intensity, the patient is currently on room air, patient denies any abdominal pain no diarrhea no nausea no vomiting. Patient white count 6.22, creatinine 0.44, sputum and pleural fluid culture currently pending MRSA nasal screen was negative Objective - Vital Signs Vital signs: Vital Signs Temp 98.5 F 12/22/24 14:55 Pulse 89 12/22/24 16:57 Resp 18 12/22/24 14:55 BP 122/71 12/22/24 14:55 Pulse Ox 95 12/22/24 14:55 FiO2 Intake & Output 12/21/24 12/22/24 12/22/24 18:59 06:59 18:59 Intake Total 800 100 Output Total 650 2074 900 Balance -409 -8619 -800 Intake: IV 100 Oral 800 Output: Drainage 650 225 Right Chest 650 225 Urine 1850 900 Other: Voiding Method Toilet Toilet Toilet Urinal Urinal # Voids 1 3 2 - Exam GENERAL DESCRIPTION: Middle-age male lying in bed in no distress RESPIRATORY SYSTEM: Unlabored breathing , decreased breath sounds at bases HEART: S1 S2 regular rate and rhythm , ABDOMEN: Soft , no tenderness EXTREMITIES: No edema feet - Labs CBC & Chem 7: 12/22/24 07:42 12/22/24 07:42 Labs: Abnormal Lab Results - Last 24 Hours (Table) 12/22/24 12/22/24 12/22/24 Range/Units 03:14 07:42 07:42 RBC 3.14 L (4.40-5.60) 10*6/uL Hgb 8.0 L (13.0-17.0) g/dL Hct 26.5 L (39.6-50.0) % MCH 25.5 L (27.0-32.0) pg MCHC 30.2 L (32.0-37.0) g/dL RDW 15.2 H (11.5-14.5) % Plt Count 621 H (140-440) 10*3/uL MPV 8.3 L (9.5-12.2) fL Immature Gran # 0.08 H (0.00-0.04) 10*3/uL Sodium 135 L (137-145) mmol/L BUN 3 L (9-20) mg/dL Creatinine 0.37 L 0.44 L (0.66-1.25) mg/dL Microbiology - Last 24 Hours (Table) 12/20/24 11:15 Blood Culture - Preliminary Blood 12/20/24 23:00 Gram Stain - Preliminary Sputum Sputum Culture - Preliminary 12/20/24 11:21 Gram Stain - Preliminary Pleural Fluid Body Fluid Culture - Preliminary 12/20/24 11:21 Nasal Screen MRSA/MSSA - Final Nasal Swab 12/20/24 11:21 Acid Fast Bacilli Smear - Preliminary Lung - Right Assessment and Plan (1) Sepsis Current Visit: Yes Status: Acute Code(s): A41.9 - SEPSIS, UNSPECIFIED ORGANISM SNOMED Code(s): 79619386 (2) Empyema Current Visit: Yes Status: Acute Code(s): J86.9 - PYOTHORAX WITHOUT FISTULA SNOMED Code(s): 478142682 (3) Pneumonia Current Visit: No Status: Acute Code(s): J18.9 - PNEUMONIA, UNSPECIFIED ORGANISM SNOMED Code(s): 756450096 Plan: 1patient presented to hospital with sepsis in this patient who did have tachycardia elevated white count meeting criteria for SIRS source is right-sided pneumonia and underlying empyema status post thoracocentesis in this patient failing outpatient oral Augmentin and Zithromax therapy will need to cover for resistant gram-positive as well as gram-negative pathogen 2-patient sputum and pleural fluid cultures so far pending MRSA nasal screen was negative so vancomycin was discontinued and antibiotic has been adjusted to Zosyn while waiting for the culture to finalize Dictation was produced using [employer] software. please excuse any grammatical, word or spelling errors. Time with Patient: Less than 30
--- NOTE | 2024-12-22 23:09 | P.PN ---
Subjective This is a pleasant 54 years old male with no significant past medical history Patient presents because of worsening dyspnea. About 1 month ago he was diagnosed with pneumonia pneumonia with small right pleural effusion and he was treated with oral antibiotic, this was progressed gradually over this month and become more opacified right lung on chest x-ray. Patient underwent thoracocentesis with pulmonary team while he is still in the emergency room where more than 3 L of purulent fluid has been drained. Patient with no significant pain, no significant coughing and is on room air He denies any other specific symptoms He quit smoking about 4 months ago with no alcohol or illicit drugs. Vitals stable he was mildly tachycardic which is improving now Labs showing leukocytosis 11.2, hemoglobin 7.6. Platelet count 707 Rest of BMP LFT troponin and INR were unremarkable D-dimer was elevated 1.6. He underwent CTA of the chest which was negative for PE but showing large pleural effusion on the right with collapse of the right lung. Chest x-ray and CTA of the lung showing the same findings of large pleural effusion and collapse of the right lung EKG showing sinus tachycardia [address]-T changes Patient underwent right sided thoracocentesis more than 3 L of purulent fluid was drained. And patient tolerated the procedure well 5/3 Patient feels more comfortable and breathing easily no significant chest pain or coughing Repeat CT of the chest and abdomen showing loculated still large fluid collection in the right lung for his empyema. thoracic surgery was consulted for possible decortication Patient currently kept on IV vancomycin and Zosyn pending final culture results / Patient breathing better Remains on oxygen He is s/p bronchoscopy showing no tumor Status post right-sided chest tube with about 2 L of discharge mainly purulent and pus Cardiothoracic surgery team following closely Culture pending Remains on Zosyn Review of systems CONSTITUTIONAL: No fever, no malaise, no fatigue. GASTROINTESTINAL: No diarrhea, no nausea, no vomiting, no abdominal pain. Normoactive bowel sounds. NEUROLOGICAL: No headaches, no weakness, no numbness. HEMATOLOGICAL: Denies any bleeding or petechiae. GENITOURINARY: Denies any burning micturition, frequency, or urgency. MUSCULOSKELETAL/RHEUMATOLOGICAL: Denies any joint pain, swelling, or any muscle pain. ENDOCRINE: Denies any polyuria or polydipsia. Active Medications Generic Name Dose Route Start Last Admin Trade Name Freq PRN Reason Stop Dose Admin Acetaminophen 650 mg 12/22/24 07:27 Acetaminophen Tab 325 Mg Tab PO Q4HR PRN Fever and/ or Pain Hydrocodone Bitart/Acetaminophen 1 each 12/20/24 18:40 12/22/24 20:13 Hydrocodone/Apap 5-325mg 1 Each Tab PO 1 each Q6HR PRN Administration Pain Albuterol/Ipratropium 3 ml 12/20/24 12:00 12/22/24 21:15 Ipratropium-Albuterol 3 Ml Neb INHALATION 3 ml RT-QID BARTOLOME Administration Albuterol/Ipratropium 3 ml 12/20/24 10:16 Ipratropium-Albuterol 3 Ml Neb INHALATION RT-Q4H PRN shortness of breath Sodium Chloride 1,000 mls @ 75 mls/hr 12/20/24 10:30 12/22/24 22:00 Saline 0.9% IV 75 mls/hr .[id number] BARTOLOME Administration Piperacillin Sod/Tazobactam 100 mls @ 25 mls/hr 12/22/24 00:00 12/22/24 16:43 Sod 3.375 gm/ Sodium Chloride IVPB 25 mls/hr Q8HR BARTOLOME Administration Protocol Alteplase, Recombinant 10 mg/ 50 mls @ 500 mls/hr 12/23/24 08:00 Sodium Chloride IRRIGATION 12/23/24 08:05 ONCE ONE Dornase Rambo 5 mg/ Sodium 55 mls @ 550 mls/hr 12/23/24 08:00 Chloride IRRIGATION 12/23/24 08:05 ONCE ONE Ketorolac Tromethamine 15 mg 12/22/24 07:30 12/22/24 18:09 Ketorolac 15 Mg/Ml 1 Ml Vial IVP 12/27/24 07:27 15 mg Q6HR BARTOLOME Administration Miscellaneous Information 1 each 12/20/24 10:16 Pneumonia Protocol Utilized 1 Each Misc PO ONCE PRN Per Protocol Objective - Vital Signs Vital signs: Vital Signs Temp 98.5 F 12/22/24 20:08 Pulse 100 12/22/24 21:29 Resp 16 12/22/24 20:08 BP 133/67 12/22/24 20:08 Pulse Ox 95 12/22/24 20:08 FiO2 Intake & Output 05/12/1312/22/24 12/23/24 06:59 18:59 06:59 Intake Total 800 100 Output Total 2074 2400 870 Balance -1275 -2300 -870 Intake: IV 100 Oral 800 Output: Drainage 225 370 Right Chest 225 370 Urine 1850 2400 500 Other: Voiding Method Toilet Toilet Toilet Urinal Urinal Urinal # Voids 3 2 - Exam GENERAL: The patient is alert and oriented x3, not in any acute distress. Well developed, well nourished. HEENT: Pupils are round and equally reacting to light. EOMI. No scleral icterus. No conjunctival pallor. Normocephalic, atraumatic. No pharyngeal erythema. No thyromegaly. CARDIOVASCULAR: S1 and S2 present. No murmurs, rubs, or gallops. -PULMONARY: Chest is clear to auscultation, no wheezing , no crackles. Decreased breath sounds in the bases ABDOMEN: Soft, nontender, nondistended, normoactive bowel sounds. No palpable organomegaly. MUSCULOSKELETAL: No joint swelling or deformity. EXTREMITIES: No cyanosis, clubbing, or pedal edema. NEUROLOGICAL: Gross neurological examination did not reveal any focal deficits. SKIN: No rashes. no petechiae. - Labs CBC & Chem 7: 12/22/24 07:42 12/22/24 07:42 Labs: Abnormal Lab Results - Last 24 Hours (Table) 12/22/24 12/22/24 12/22/24 Range/Units 03:14 07:42 07:42 RBC 3.14 L (4.40-5.60) 10*6/uL Hgb 8.0 L (13.0-17.0) g/dL Hct 26.5 L (39.6-50.0) % MCH 25.5 L (27.0-32.0) pg MCHC 30.2 L (32.0-37.0) g/dL RDW 15.2 H (11.5-14.5) % Plt Count 621 H (140-440) 10*3/uL MPV 8.3 L (9.5-12.2) fL Immature Gran # 0.08 H (0.00-0.04) 10*3/uL Sodium 135 L (137-145) mmol/L BUN 3 L (9-20) mg/dL Creatinine 0.37 L 0.44 L (0.66-1.25) mg/dL Microbiology - Last 24 Hours (Table) 12/20/24 11:21 Gram Stain - Preliminary Pleural Fluid Body Fluid Culture - Preliminary 12/20/24 11:15 Blood Culture - Preliminary Blood 12/20/24 23:00 Gram Stain - Preliminary Sputum Sputum Culture - Preliminary Assessment and Plan Assessment: Right pneumonia failed outpatient treatment associated with large/huge right pleural effusion with left-sided mediastinal shift right sided thoracocentesis more than 3 L of purulent fluid was drained Normocytic hypochromic anemia Elevated D-dimer with negative CAT scan from pulmonary embolism Plan: Continue with antibiotic currently on Zosyn and IV vancomycin. Will change it to pharmacy to dose. ID team on the case Follow-up pleural fluid culture Cardiothoracic surgery consult Continue with right-sided chest tube Pulmonary team following closely Bronchodilator Cardiothoracic surgery consult for possible decortication Labs and medication were reviewed.. Continue same treatment. Continue with symptomatic treatment. Resume home medication. Monitor labs and vitals. DVT and GI prophylaxis. Further recommendations as per clinical course of the patient DVT prophylaxis: Subcutaneous heparin GI Prophylaxis: Pepcid Prognosis is guarded
[2024-12-23] MEDS: IPRATROPIUM-ALBUTEROL 3 ML NEB INHALATION PRN (02:43)
--- NOTE | 2024-12-23 07:41 | XR ---
EXAMINATION TYPE: XR chest 1V portable DATE OF EXAM: 12/23/2024 6:57 AM COMPARISON: Multiple radiographs, with the most recent on 12/22/2024, CT chest abdomen 12/21/2024, CTA ch est 12/20/2024 TECHNIQUE: XR chest 1V portable Portable AP radiograph of the chest. CLINICAL INDICATION:Male, 54 years old with history of Right empyema; FINDINGS: Lungs/Pleura: No pneumothorax. Persistent small to moderate size right-sided pleural fluid collection with basilar pleural pigtail drainage catheter. Background emphysematous change with parenchymal sca rring bilaterally. Persistent right suprahilar opacity representing atelectasis. Pulmonary vascularity: Unremarkable. Heart/mediastinum: Cardiomediastinal silhouette is unremarkable. Musculoskeletal: No acute osseous pathology. IMPRESSION: Similar small the moderate size right pleural fluid collection with pleural pigtail catheter. [facility] Yeni Alex, , 12/23/2024 7:39 AM
--- NOTE | 2024-12-23 08:05 | P.PN ---
Subjective Progress Note Date: 12/23/24 Principal diagnosis: Right empyema, trapped right lung. Previous medical history of recent right lower lobe pneumonia with failed treatment of azithromycin and Augmentin, and tobacco dependence with cessation 4 months ago. POD #3 right thoracentesis with 4 L of empyema drained by Dr. Rivera. POD #2 placement of right chest pigtail catheter by Dr. Casarez. The patient was seen and examined this morning sitting up in bed on the medical surgical unit in no acute distress. Denies significant pain, does still have some shortness of breath. Remains on 2 L nasal cannula with oxygen saturation in the high 90s. Able to achieve 2000 mL on his incentive spirometry. Remains in sinus rhythm to sinus tach on telemetry, hemodynamically stable. Right pigtail catheter present, lytics were instilled for the first dose yesterday, 160 mL drainage overnight with 900 mL of drainage since insertion. Remains on IV Zosyn per infectious disease. Cultures still pending. Objective - Vital Signs Vital signs: Vital Signs Temp 98.6 F 12/23/24 01:43 Pulse 98 12/23/24 02:53 Resp 18 12/23/24 01:43 BP 129/72 12/23/24 01:43 Pulse Ox 99 12/23/24 01:43 FiO2 Intake & Output 12/22/24 12/23/24 12/23/24 18:59 06:59 18:59 Intake Total 100 Output Total 2400 1630 Balance -2300 -1630 Intake: IV 100 Output: Drainage 530 Right Chest 530 Urine 2400 1100 Other: Voiding Method Toilet Toilet Urinal Urinal # Voids 2 - Exam CONSTITUTIONAL: Appears comfortable, cooperative, no acute distress RESPIRATORY: Lungs sounds diminished on the right. Respirations even, nonlabored. Currently on 2 L nasal cannula with oxygen saturation 99%. Able to achieve 2000 mL on incentive spirometry. Strong cough. CARDIOVASCULAR: S1, S2 present. Regular rate and rhythm, sinus rhythm to sinus tach on telemetry. Palpable peripheral pulses bilaterally. No edema present. No calf pain or tenderness noted. SCDs present. GASTROINTESTINAL: Abdomen soft, nontender, nondistended. Active bowel sounds present 4 quadrants. Tolerating diet GENITOURINARY: Continues to void INTEGUMENTARY: Skin is warm and dry NEUROLOGIC: Cranial nerves II through XII intact MUSKULOSKELETAL: Able to move all extremities, strength equal bilaterally, gait normal PSYCHIATRIC: Alert and oriented to person place and time, appropriate affect, intact judgment and insight INVASIVE LINES AND TUBES: Right sided pigtail catheter present to continuous wall suction drained 160 mL thick infectious drainage overnight, 900 mL since insertion yesterday - Allied health notes Allied health notes reviewed: nursing - Labs CBC & Chem 7: 12/22/24 07:42 12/22/24 07:42 Labs: Abnormal Lab Results - Last 24 Hours (Table) 12/22/24 12/22/24 Range/Units 07:42 07:42 RBC 3.14 L (4.40-5.60) 10*6/uL Hgb 8.0 L (13.0-17.0) g/dL Hct 26.5 L (39.6-50.0) % MCH 25.5 L (27.0-32.0) pg MCHC 30.2 L (32.0-37.0) g/dL RDW 15.2 H (11.5-14.5) % Plt Count 621 H (140-440) 10*3/uL MPV 8.3 L (9.5-12.2) fL Immature Gran # 0.08 H (0.00-0.04) 10*3/uL Sodium 135 L (137-145) mmol/L BUN 3 L (9-20) mg/dL Creatinine 0.44 L (0.66-1.25) mg/dL Microbiology - Last 24 Hours (Table) 12/22/24 09:40 Gram Stain - Preliminary Bronchoalviolar Lavage - Right 12/20/24 11:21 Gram Stain - Preliminary Pleural Fluid Body Fluid Culture - Preliminary 12/20/24 11:15 Blood Culture - Preliminary Blood 12/20/24 23:00 Gram Stain - Preliminary Sputum Sputum Culture - Preliminary - Imaging and Cardiology Chest x-ray: report reviewed, image reviewed Assessment and Plan Assessment: Right empyema, trapped right lung, status post right thoracentesis and placement of right pigtail catheter with lytic installation Acute hypoxic respiratory failure Shortness of breath secondary to above History of recent right lower lobe pneumonia with failed treatment of azithromycin and Augmentin Tobacco dependence with cessation 4 months ago. Plan: Keep right pleural pigtail catheter in place to low continuous wall suction -20 cm H2O. May disconnect to ambulate to the bathroom and in the uribe. Will instill second dose alteplase/dornase through the pigtail catheter today and clamp for 1 hour post instillation. Wean oxygen as tolerated. Encourage use of incentive spirometry 10 times every hour while awake. Monitor daily chest x-rays. Continue to follow cytology, pleural fluid and sputum culture results. Dr. Nick from infectious disease is following, antibiotic management per infectious disease. Increase activity as tolerated. Out of bed for all meals. More recommendations to follow based on patient's clinical course.
[2024-12-23 08:22] LABS: HCT 24.2 % (39.6-50.0); MCH 25.1 pg (27.0-32.0); MCHC 28.9 g/dL (32.0-37.0); MCV 86.7 FL (80.0-97.0); Mean Platelet Volume 8.9 FL (9.5-12.2); NRBC Per 100 WBC 0 X 10*3/uL (0.00-0.01); Platelet Count 637 X 10*3/uL (140-440); RBC 2.79 X 10*6/uL (4.40-5.60); RDW 15.3 % (11.5-14.5); WBC 4.71 X 10*3/uL (4.50-10.00)
[2024-12-23 08:32] LABS: Blood Urea Nitrogen 6.6 mg/dL (9.0-27.0); Calcium 7.9 mg/dL (8.7-10.3); Carbon Dioxide 25.5 mmol/L (21.6-31.8); Chloride 102 mmol/L (96-109); Glucose 187 mg/dL (70-110); Potassium 4.4 mmol/L (3.5-5.5); Sodium 138 mmol/L (135-145)
[2024-12-23] MEDS: ALTEPLASE 10 MG in SODIUM CHLORIDE 0.9% 50 ML IRRIGATION ONE (08:54)
[2024-12-23] MEDS: DORNASE ALFA 5 MG in SODIUM CHLORIDE 0.9% 50 ML IRRIGATION ONE (08:54)
[2024-12-23 09:13] LABS: Basophils # (A) 0.02 X 10*3/uL (0.00-0.10); Basophils % (A) 0.4 %; Eosinophils # (A) 0.08 X 10*3/uL (0.04-0.35); Eosinophils % (A) 1.7 %; Lymphocytes # (A) 1.72 X 10*3/uL (0.90-5.00); Lymphocytes % (A) 36.5 %; Monocytes # (A) 0.59 X 10*3/uL (0.20-1.00); Monocytes % (A) 12.5 %; Neutrophils # (A) 2.24 X 10*3/uL (1.80-7.70); Neutrophils % (A) 47.6 %
--- NOTE | 2024-12-23 14:42 | P.PN ---
Subjective Progress Note Date: 12/23/24 This is a pleasant 54-year-old male patient with a known history of chronic tobacco dependence stating he quit about 4 months ago. No primary care provider. No other medical history. He was here on November 30, 2024 in the emergency department with complaints of increasing shortness of breath cough and congestion. He was found to have a right lower lobe infiltrate and was treated with Augmentin, azithromycin and an albuterol inhaler. He was to follow-up with a primary care provider however he did not. He returned here to the emergency room this morning with worsening shortness of breath over the past week. Chest x-ray shows near complete opacification of the right lung. CT angiogram ruled out pulmonary embolism. There is a large pleural collection noted with numerous internal foci of air and anterior air-filled levels seen. Findings are concerning for abscess or underlying empyema. Complete collapse of the right middle and right lower lobe. Mediastinal shift from right to left. White count 11.2. Hemoglobin 7.6. Platelets 707. D-dimer 1.66. Sodium 136. Potassium 4.5. Bicarb 22. BUN 9. Creatinine 0.42. Glucose 111. Troponin negative x 1. proBNP 283. Viral screen negative for influenza A/B, RSV or COVID. He is seen today in the emergency department. Currently sitting up on a stretcher. He is dyspneic with conversation. Dyspneic with minimal exertion. He is maintaining good O2 saturations in the 90s on room air. Slightly tachypneic. Tachycardic. Ultrasound of the chest revealed a 21.[address] Regan did perform a thoracentesis with just over 4 L of thick pale yellow fluid with sediment returned. Follow-up chest x-ray revealed significant decrease in the right sided pleural collection. There is a loculated pneumothorax/collection of air measuring 12.6 x 4.5 cm. Scattered coarse and patchy infiltrate seen throughout the right lung. He has been initiated on vancomycin and Zosyn. The patient is seen today December 21, 2024 in follow-up on the regular medical floor. He is currently sitting up in bed. Awake and alert in no acute distress. B reathing easier today compared to yesterday. Attaining good O2 saturations in the 90s on 2 L/min per nasal cannula. Chest x-ray reveals more prominent pleural-based thick-walled right lower lung collection containing predominantly air. More prominent adjacent right basilar compressive atelectasis. Persistent right upper lung diffuse edema and/or atelectasis. CT scan of the chest and abdomen redemonstrates a large fluid collection/hydropneumothorax within the right lung with consolidative opacities and multiple foci of gas. Additional multiloculated portion along the right major fissure superiorly. Reactive mediastinal adenopathy. Moderate COPD changes. Mild hepatic splenomegaly. Ch olelithiasis. White count 6.6. Hemoglobin 7.6. Platelets 674. Sodium 136. Potassium 4.1. Bicarb 26. BUN 4. Creatinine 0.47. Glucose 223. Pleural fluid and exudate with total protein greater than 3.6 and LDH greater than 2500. Urine Legionella screen was negative. Pleural fluid cultures pending. Cytology pending. Sputum culture pending. He remains on vancomycin and cefepime. Continued on bronchodilators. Normal saline at 100 mL/h The patient is seen today December 22, 2024 in follow-up on the regular medical floor. He is currently sitting up in bed. Awake and alert in no acute distress. Denies any worsening shortness of breath, cough or congestion. He continues with a dry nonproductive cough. He is maintaining good O2 saturations in the 90s on 2 L nasal cannula. He has been afebrile. Hemodynamically stable. A right sided pigtail catheter was placed by CT services yesterday. Currently 2 Pleur-evac. Receiving alteplase/dornase infusions. They did request bronchoscopy to rule out any endobronchial tumors prior to possible decortication later this week. [place] P was performed today. No endobronchial lesions noted. There was some compression in the right bronchial system due to external fluid. He tolerated the procedure well. He remains on Zosyn. Pleural fluid cultures are pending. Sputum culture is pending. Bronchoscopy with BAL cultures are now pending. White count 6.2. Hemoglobin 8.0. Platelets 621. Sodium 135. Potassium 4.8. Bicarb 27. BUN 3. Creatinine 0.44. He remains on DuoNeb inhalations. [place] and Toradol for pain control. The patient is seen today December 23, 2024 in follow-up on the regular medical floor. He is currently resting in bed. Awake and alert in no acute distress. Maintaining good O2 saturations in the 90s on 2 L/min per nasal cannula. He is been afebrile. Hemodynamically stable. Pleural fluid cultures revealing no growth. Bronchoalveolar lavage cultures revealing no growth thus far. White count 4.7. Hemoglobin 7.0. Platelets 637. Sodium 138. Potassium 4.4. Bicarb 26. BUN 7. Creatinine 0.4. Glucose 187. He is continued on DuoNeb inhalations. Continued on Zosyn. Chest x-ray continues to show similar small to moderate right-sided pleural effusion with pleural pigtail catheter in place to Pleur-evac to low continuous suction. Infused yesterday. 160 mL of drainage overnight. He continues to work well with the incentive spirometer probably nearly 2000 mL. Plan is to instill alteplase/dornase again today per CT service. Objective - Vital Signs Vital signs: Vital Signs Temp 98.5 F 12/23/24 06:45 Pulse 102 H 12/23/24 12:29 Resp 17 12/23/24 06:45 BP 135/74 12/23/24 06:45 Pulse Ox 96 12/23/24 12:20 FiO2 Intake & Output 12/22/24 12/23/24 12/23/24 18:59 06:59 18:59 Intake Total 100 Output Total 2400 1630 Balance -2300 -1630 Intake: IV 100 Output: Drainage 530 Right Chest 530 Urine 2400 1100 Other: Voiding Method Toilet Toilet Urinal Urinal # Voids 2 - Exam GENERAL EXAM: Alert, pleasant 54-year-old male, resting in bed, on 2 L nasal cannula, comfortable in no apparent distress. HEAD: Normocephalic. EYES: Normal reaction of pupils, equal size. NOSE: Clear with pink turbinates. THROAT: No erythema or exudates. NECK: No masses, no JVD. CHEST: No chest wall deformity. Right sided pigtail catheter in place to Pleur- evac to wall suction. LUNGS: Equal air entry with scattered rhonchi, crackles in the right lung. CVS: S1 and S2 normal with no audible murmur, regular rhythm. ABDOMEN: No hepatosplenomegaly, normal bowel sounds, no guarding or rigidity. SPINE: No scoliosis or deformity SKIN: No rashes CENTRAL NERVOUS SYSTEM: No focal deficits, tone is normal in all 4 extremities. EXTREMITIES: There is no peripheral edema. No clubbing, no cyanosis. Peripheral pulses are intact. - Labs CBC & Chem 7: 12/23/24 02:50 12/23/24 02:50 Labs: Abnormal Lab Results - Last 24 Hours (Table) 12/23/24 12/23/24 Range/Units 02:50 02:50 RBC 2.79 L (4.40-5.60) X 10*6/uL Hgb 7.0 L (13.0-17.0) g/dL Hct 24.2 L (39.6-50.0) % MCH 25.1 L (27.0-32.0) pg MCHC 28.9 L (32.0-37.0) g/dL RDW 15.3 H (11.5-14.5) % Plt Count 637 H (140-440) X 10*3/uL MPV 8.9 L (9.5-12.2) FL Immature Gran # 0.06 H (0.00-0.04) X 10*3/uL BUN 6.6 L (9.0-27.0) mg/dL Creatinine 0.4 L (0.6-1.5) mg/dL Glucose 187 H (70-110) mg/dL Calcium 7.9 L (8.7-10.3) mg/dL Microbiology - Last 24 Hours (Table) 12/22/24 09:40 Gram Stain - Preliminary Bronchoalviolar Lavage - Right 12/20/24 11:21 Gram Stain - Preliminary Pleural Fluid Body Fluid Culture - Preliminary 12/20/24 11:15 Blood Culture - Preliminary Blood 12/20/24 23:00 Gram Stain - Preliminary Sputum Sputum Culture - Preliminary Assessment and Plan Assessment: Dyspnea secondary to near complete opacification of the right lung. Status post thoracentesis today with 4 L of thick yellowish-brown fluid returned. Cultures, fluid analysis and cytology pending. Currently on vancomycin and cefepime. CT scan of the chest and abdomen redemonstrates a large fluid collection/hydropneumothorax within the right lung with consolidative opacities and multiple foci of gas. Additional multiloculated portion along the right major fissure superiorly. Reactive mediastinal adenopathy. Moderate COPD changes. Mild hepatic splenomegaly. Cholelithiasis. Complex right sided pleural effusion secondary to above. Pigtail catheter placed on 12/21/2024 to Pleur-evac. Receiving alteplase/dornase infusion. Bronchoscopy with BAL performed 12/22/2024. No endobronchial tumors identified. There was some external compression noted from pleural fluid, trapped lung Acute hypoxemic respiratory failure secondary to above, currently on 2 L/min per nasal cannula Recent treatment for right lower lobe pneumonia on 11/30/2024 in our emergency department with Augmentin and azithromycin Acute anemia of unclear etiology, current hemoglobin 8.0. When on 11/30/2024 was 11.0 Chronic tobacco dependence, states quit approximately 4 months ago No primary care provider, no recent health care assessment Plan: The patient was seen and evaluated Chest x-ray, labs and medications reviewed Right sided pigtail catheter remains Alteplase/dornase infusions per CT service Continue Zosyn per ID service Currently stable and on 2 L nasal cannula Continue bronchodilators Continue the incentive spirometer Increase his activity as tolerated We will continue to follow I have personally seen and examined the patient, performed the documentation and the assessment and plan as written. Number of minutes spent on the visit: 10 Dictation was produced using SMS [employer]ist dictation software. Please excuse any grammatical, word or spelling errors.
--- NOTE | 2024-12-24 06:03 | P.PN ---
Subjective Progress Note Date: 12/23/24 This is a pleasant 54 years old male with no significant past medical history Patient presents because of worsening dyspnea. About 1 month ago he was diagnosed with pneumonia pneumonia with small right pleural effusion and he was treated with oral antibiotic, this was progressed gradually over this month and become more opacified right lung on chest x-ray. Patient underwent thoracocentesis with pulmonary team while he is still in the emergency room where more than 3 L of purulent fluid has been drained. Patient with no significant pain, no significant coughing and is on room air He denies any other specific symptoms He quit smoking about 4 months ago with no alcohol or illicit drugs. Vitals stable he was mildly tachycardic which is improving now Labs showing leukocytosis 11.2, hemoglobin 7.6. Platelet count 707 Rest of BMP LFT troponin and INR were unremarkable D-dimer was elevated 1.6. He underwent CTA of the chest which was negative for PE but showing large pleural effusion on the right with collapse of the right lung. Chest x-ray and CTA of the lung showing the same findings of large pleural effusion and collapse of the right lung EKG showing sinus tachycardia [address]-T changes Patient underwent right sided thoracocentesis more than 3 L of purulent fluid was drained. And patient tolerated the procedure well 12/21 Patient feels more comfortable and breathing easily no significant chest pain or coughing Repeat CT of the chest and abdomen showing loculated still large fluid collection in the right lung for his empyema. thoracic surgery was consulted for possible decortication Patient currently kept on IV vancomycin and Zosyn pending final culture results 12/22 Patient breathing better Remains on oxygen He is s/p bronchoscopy showing no tumor Status post right-sided chest tube with about 2 L of discharge mainly purulent and pus Cardiothoracic surgery team following closely Culture pending Remains on Zosyn 12/23/2024 Patient is seen in follow-up today remains with a right-sided chest tube with CT surgery following administering another dose of tPA for right empyema. Infectious disease and pulmonary following as well and will continue current reg imen while awaiting cultures. Patient has been encouraged to increase activity as tolerated and continued incentive spirometer use at least 10 times every hour while awake. Patient is currently maintained on 2 L via nasal cannula and does not wear oxygen outpatient. Hemoglobin is noted to be 7 and will follow-up on repeat labs, transfuse if less than 7. Will follow-up on cultures and discuss f urther with consultations regarding treatment plan moving forward. No plans of chest tube removal as of yet as patient continues with significant amount of purulence being drained. Review of systems CONSTITUTIONAL: No fever, no malaise, no fatigue. GASTROINTESTINAL: No diarrhea, no nausea, no vomiting, no abdominal pain. Normoactive bowel sounds. Respiratory: Reports of continued shortness of breath and cough with right sided chest wall pain near the chest tube site NEUROLOGICAL: No headaches, no weakness, no numbness. HEMATOLOGICAL: Denies any bleeding or petechiae. GENITOURINARY: Denies any burning micturition, frequency, or urgency. MUSCULOSKELETAL/RHEUMATOLOGICAL: Denies any joint pain, swelling, or any muscle pain. ENDOCRINE: Denies any polyuria or polydipsia. Physical exam: GENERAL: The patient is alert and oriented x3, not in any acute distress. Well developed, well nourished. HEENT: Pupils are round and equally reacting to light. EOMI. No scleral icterus. No conjunctival pallor. Normocephalic, atraumatic. No pharyngeal erythema. No thyromegaly. CARDIOVASCULAR: S1 and S2 present. No murmurs, rubs, or gallops. -PULMONARY: Diminished breath sounds bilaterally otherwise chest is clear to auscultation, no wheezing , no crackles. Decreased breath sounds in the bases, more so on the right ABDOMEN: Soft, nontender, nondistended, normoactive bowel sounds. No palpable organomegaly. MUSCULOSKELETAL: No joint swelling or deformity. EXTREMITIES: No cyanosis, clubbing, or pedal edema. NEUROLOGICAL: Gross neurological examination did not reveal any focal deficits. SKIN: No rashes. no petechiae. Assessment: Right pneumonia failed outpatient treatment associated with large/huge right pleural effusion with left-sided mediastinal shift right sided thoracocentesis more than 3 L of purulent fluid was drained, empyema receiving tPA instillation in the chest tube with CT surgery Acute hypoxic respiratory failure secondary to assessment #1 Normocytic hypochromic anemia Elevated D-dimer with negative CAT scan from pulmonary embolism GI prophylaxis DVT prophylaxis No code Plan: Continue with antibiotic currently on Zosyn and IV vancomycin. Infectious disease following and awaiting cultures to determine appropriate antibiotics Cardiothoracic surgery following is instilling another dose of tPA and the chest tube with continued significant amounts of purulence noted Continue with right-sided chest tube at this time per CT surgery and will follow-up on repeat chest x-ray Pulmonary team following closely Continue with breathing inhalational treatments and weaning FiO2 as tolerated. Patient currently maintained on 2 L he does not wear oxygen outpatient Hemoglobin noted to be 7.0 with no active bleeding noted at this time we will follow-up on repeat labs and recommend to transfuse if less than Encouraged incentive spirometer use at least 10 times every hour while awake Patient will need resources outpatient on discharge as patient has no primary care provider at this time The impression and plan of care has been dictated by Suad San, Nurse Practitioner as directed. Dr. Mohit MD I have performed a history and examination and MDM of this patient, discussed the same with the dictator, and agree with the dictator's assessment and plan as written ,documented as a scribe. Based on total visit time, I have performed more than 50% of the visit. Objective - Vital Signs Vital signs: Vital Signs Temp 98.5 F 12/23/24 06:45 Pulse 106 H 12/23/24 06:45 Resp 17 12/23/24 06:45 BP 135/74 12/23/24 06:45 Pulse Ox 92 L 12/23/24 06:45 FiO2 Intake & Output 12/22/24 12/23/24 12/23/24 18:59 06:59 18:59 Intake Total 100 Output Total 2400 1630 Balance -2300 -1630 Intake: IV 100 Output: Drainage 530 Right Chest 530 Urine 2400 1100 Other: Voiding Method Toilet Toilet Urinal Urinal # Voids 2 - Labs CBC & Chem 7: 12/23/24 02:50 12/23/24 02:50 Labs: Abnormal Lab Results - Last 24 Hours (Table) 12/23/24 12/23/24 Range/Units 02:50 02:50 RBC 2.79 L (4.40-5.60) X 10*6/uL Hgb 7.0 L (13.0-17.0) g/dL Hct 24.2 L (39.6-50.0) % MCH 25.1 L (27.0-32.0) pg MCHC 28.9 L (32.0-37.0) g/dL RDW 15.3 H (11.5-14.5) % Plt Count 637 H (140-440) X 10*3/uL MPV 8.9 L (9.5-12.2) FL Immature Gran # 0.06 H (0.00-0.04) X 10*3/uL BUN 6.6 L (9.0-27.0) mg/dL Creatinine 0.4 L (0.6-1.5) mg/dL Glucose 187 H (70-110) mg/dL Calcium 7.9 L (8.7-10.3) mg/dL Microbiology - Last 24 Hours (Table) 12/22/24 09:40 Gram Stain - Preliminary Bronchoalviolar Lavage - Right 12/20/24 11:21 Gram Stain - Preliminary Pleural Fluid Body Fluid Culture - Preliminary 12/20/24 11:15 Blood Culture - Preliminary Blood 12/20/24 23:00 Gram Stain - Preliminary Sputum Sputum Culture - Preliminary
--- NOTE | 2024-12-24 07:43 | XR ---
EXAMINATION TYPE: XR chest 1V portable DATE OF EXAM: 12/24/2024 6:47 AM COMPARISON: Multiple radiographs, with the most recent on 12/23/2024, CT chest abdomen 12/21/2024 TECHNIQUE: XR chest 1V portable Portable AP radiograph of the chest. CLINICAL INDICATION:Male, 54 years old with history of Right-sided empyema; FINDINGS: Lungs/Pleura: No pneumothorax. Persistent small to moderate size right-sided pleural fluid collection with basilar pleural pigtail drainage catheter. Background emphysematous change with parenchymal sca rring bilaterally. Persistent right suprahilar opacity and right basilar opacity. Pulmonary vascularity: Unremarkable. Heart/mediastinum: Cardiomediastinal silhouette is unremarkable. Musculoskeletal: No acute osseous pathology. Right shoulder arthropathy. IMPRESSION: 1. Similar small the moderate size right pleural fluid collection with pleural pigtail catheter. 2. Persistent right suprahilar and right basilar opacities likely representing pneumonia and/or atel ectasis. [facility], , 12/24/2024 7:40 AM
[2024-12-24 08:36] LABS: HCT 24.2 % (39.6-50.0); HGB 7.2 g/dL (13.0-17.0); MCH 25.4 pg (27.0-32.0); MCHC 29.8 g/dL (32.0-37.0); MCV 85.5 FL (80.0-97.0); Mean Platelet Volume 8.7 FL (9.5-12.2); NRBC Per 100 WBC 0 X 10*3/uL (0.00-0.01); Platelet Count 593 X 10*3/uL (140-440); RBC 2.83 X 10*6/uL (4.40-5.60); RDW 15.4 % (11.5-14.5); WBC 5.17 X 10*3/uL (4.50-10.00)
--- NOTE | 2024-12-24 09:31 | P.PN ---
Subjective Progress Note Date: 12/24/24 Principal diagnosis: Right empyema, trapped right lung. Previous medical history of recent right lower lobe pneumonia with failed treatment of azithromycin and Augmentin, and tobacco dependence with cessation 4 months ago. POD #4 right thoracentesis with 4 L of empyema drained by Dr. Rivera. POD #3 placement of right chest pigtail catheter by Dr. Casarez. The patient was seen and examined this morning sitting up in bed on the medical surgical unit in no acute distress. Denies significant pain currently although does admit pain control wears out before he is due for his next dose of medication, does still have some shortness of breath. Remains on 2 L nasal cannula with oxygen saturation in the high 90s. Able to achieve 1500 mL on his incentive spirometry. Remains in sinus rhythm to sinus tach on telemetry, hemodynamically stable. Right pigtail catheter present, lytics were instilled for the second dose yesterday, 90 mL drainage overnight with 1350 mL of drainage in the last 24 hours. Remains on IV Zosyn per infectious disease. Cultures still pending. Objective - Vital Signs Vital signs: Vital Signs Temp 98.3 F 12/24/24 07:35 Pulse 96 12/24/24 07:35 Resp 16 12/24/24 07:35 BP 127/72 12/24/24 07:35 Pulse Ox 95 12/24/24 07:35 FiO2 Intake & Output 12/23/24 12/24/24 12/24/24 18:59 06:59 18:59 Intake Total 1100 Output Total 645 1950 Balance 455 -1950 Intake: Intake, IV Titration 1100 Amount Piperacillin-Tazobactam 3 200 .375 gm In Sodium Chloride 0.9% 100 ml @ 25 mls/hr IVPB Q8HR [facility] Rx# :[id number] Sodium Chloride 0.9% 1, 900 000 ml @ 50 mls/hr IV . Q20H [facility] Rx#:[id number] Output: Chest Tube Drainage 510 Chest Tube Right 510 Drainage 645 Right Chest 645 Urine 1440 Other: Voiding Method Toilet Urinal # Voids 4 # Bowel Movements 1 - Exam CONSTITUTIONAL: Appears comfortable, cooperative, no acute distress RESPIRATORY: Lungs sounds diminished on the right. Respirations even, nonlabored. Currently on 2 L nasal cannula with oxygen saturation 95%. Able to achieve 1500 mL on incentive spirometry. Strong cough. CARDIOVASCULAR: S1, S2 present. Regular rate and rhythm, sinus rhythm to sinus tach on telemetry. Palpable peripheral pulses bilaterally. No edema present. No calf pain or tenderness noted. SCDs present. GASTROINTESTINAL: Abdomen soft, nontender, nondistended. Active bowel sounds present 4 quadrants. Tolerating diet GENITOURINARY: Continues to void INTEGUMENTARY: Skin is warm and dry NEUROLOGIC: Cranial nerves II through XII intact MUSKULOSKELETAL: Able to move all extremities, strength equal bilaterally, gait normal PSYCHIATRIC: Alert and oriented to person place and time, appropriate affect, intact judgment and insight INVASIVE LINES AND TUBES: Right sided pigtail catheter present to continuous wall suction drained 90 mL thick infectious drainage overnight, 1350 mL in the last 24 hours - Allied health notes Allied health notes reviewed: nursing - Labs CBC & Chem 7: 12/24/24 02:48 12/23/24 02:50 Labs: Abnormal Lab Results - Last 24 Hours (Table) 12/24/24 Range/Units 02:48 RBC 2.83 L (4.40-5.60) X 10*6/uL Hgb 7.2 L (13.0-17.0) g/dL Hct 24.2 L (39.6-50.0) % MCH 25.4 L (27.0-32.0) pg MCHC 29.8 L (32.0-37.0) g/dL RDW 15.4 H (11.5-14.5) % Plt Count 593 H (140-440) X 10*3/uL MPV 8.7 L (9.5-12.2) FL Microbiology - Last 24 Hours (Table) 12/22/24 09:40 Acid Fast Bacilli Smear - Preliminary Bronchoalviolar Lavage - Right 12/20/24 11:21 Gram Stain - Preliminary Pleural Fluid Body Fluid Culture - Preliminary 12/20/24 11:15 Blood Culture - Preliminary Blood 12/20/24 23:00 Gram Stain - Final Sputum Sputum Culture - Final - Imaging and Cardiology Chest x-ray: report reviewed, image reviewed Assessment and Plan Assessment: Right empyema, trapped right lung, status post right thoracentesis and placement of right pigtail catheter with lytic installation Acute hypoxic respiratory failure Shortness of breath secondary to above History of recent right lower lobe pneumonia with failed treatment of azithromycin and Augmentin Tobacco dependence with cessation 4 months ago. Plan: Keep right pleural pigtail catheter in place to low continuous wall suction -20 cm H2O. May disconnect to ambulate to the bathroom and in the uribe. Will instill third dose alteplase/dornase through the pigtail catheter today and clamp for 1 hour post instillation. Wean oxygen as tolerated. Encourage use of incentive spirometry 10 times every hour while awake. Monitor daily chest x-rays. Continue to follow cytology, pleural fluid and sputum culture results. Dr. Nick from infectious disease is following, antibiotic management per infectious disease. Increase activity as tolerated. Out of bed for all meals. Encouraged patient to alternate [place] with Toradol instead of taking both at the same time for better pain control Dr. Jenkins did visit with the patient yesterday and discussed our plan for continued lytic installation for several days. If no improvement may consider surgical decortication More recommendations to follow based on patient's clinical course.
[2024-12-24 09:54] LABS: Basophils # (A) 0.05 X 10*3/uL (0.00-0.10); Eosinophils # (A) 0.08 X 10*3/uL (0.04-0.35); Eosinophils % (A) 1.5 %; Lymphocytes # (A) 1.89 X 10*3/uL (0.90-5.00); Lymphocytes % (A) 36.6 %; Monocytes % (A) 11.6 %; Neutrophils # (A) 2.46 X 10*3/uL (1.80-7.70); Neutrophils % (A) 47.6 %
--- NOTE | 2024-12-24 12:37 | P.PN ---
Subjective Progress Note Date: 12/24/24 Principal diagnosis: Empyema. This is a pleasant 54-year-old male patient with a known history of chronic tobacco dependence stating he quit about 4 months ago. No primary care p rovider. No other medical history. He was here on November 30, 2024 in the emergency department with complaints of increasing shortness of breath cough and congestion. He was found to have a right lower lobe infiltrate and was treated with Augmentin, azithromycin and an albuterol inhaler. He was to follow-up with a primary care provider however he did not. He returned here to the emergency room this morning with worsening shortness of breath over the past week. Chest x-ray shows near complete opacification of the right lung. CT angiogram ruled out pulmonary embolism. There is a large pleural collection noted with numerous internal foci of air and anterior air-filled levels seen. Findings are concerning for abscess or underlying empyema. Complete collapse of the right middle and right lower lobe. Mediastinal shift from right to left. White count 11.2. Hemoglobin 7.6. Platelets 707. D-dimer 1.66. Sodium 136. Potassium 4.5. Bicarb 22. BUN 9. Creatinine 0.42. Glucose 111. Troponin negative x 1. proBNP 283. Viral screen negative for influenza A/B, RSV or COVID. He is seen today in the emergency department. Currently sitting up on a stretcher. He is dyspneic with conversation. Dyspneic with minimal exertion. He is maintaining good O2 saturations in the 90s on room air. Slightly tachypneic. Tachycardic. Ultrasound of the chest revealed a 21.[address] Regan did perform a thoracentesis with just over 4 L of thick pale yellow fluid with sediment re turned. Follow-up chest x-ray revealed significant decrease in the right sided pleural collection. There is a loculated pneumothorax/collection of air measuring 12.6 x 4.5 cm. Scattered coarse and patchy infiltrate seen throughout the right lung. He has been initiated on vancomycin and Zosyn. The patient is seen today December 21, 2024 in follow-up on the regular medical floor. He is currently sitting up in bed. Awake and alert in no acute distress. Breathing easier today compared to yesterday. Attaining good O2 saturations in the 90s on 2 L/min per nasal cannula. Chest x-ray reveals more prominent pleural-based thick-walled right lower lung collection containing predominantly air. More prominent adjacent right basilar compressive atelectasis. Persistent right upper lung diffuse edema and/or atelectasis. CT scan of the chest and abdomen redemonstrates a large fluid collection/hydropneumothorax within the right lung with consolidative opacities and multiple foci of gas. Additional multiloculated portion along the right major fissure superiorly. Reactive mediastinal adenopathy. Moderate COPD changes. Mild hepatic splenomegaly. Cholelithiasis. White count 6.6. Hemoglobin 7.6. Platelets 674. Sodium 136. Potassium 4.1. Bicarb 26. BUN 4. Creatinine 0.47. Glucose 223. Pleural fluid and exudate with total protein greater than 3.6 and LDH greater than 2500. Urine Legionella screen was negative. Pleural fluid cultures pending. Cytology pending. Sputum culture pending. He remains on vancomycin and cefepime. Continued on bronchodilators. Normal saline at 100 mL/h The patient is seen today December 22, 2024 in follow-up on the regular medical floor. He is currently sitting up in bed. Awake and alert in no acute distress. Denies any worsening shortness of breath, cough or congestion. He continues with a dry nonproductive cough. He is maintaining good O2 saturations in the 90s on 2 L nasal cannula. He has been afebrile. Hemodynamically stable. A rig ht sided pigtail catheter was placed by CT services yesterday. Currently 2 Pleur-evac. Receiving alteplase/dornase infusions. They did request bronchoscopy to rule out any endobronchial tumors prior to possible decortication later this week. [place] P was performed today. No endobronchial lesions noted. There was some compression in the right bronchial system due to external fluid. He tolerated the procedure well. He remains on Zosyn. Pleural fluid cultures are pending. Sputum culture is pending. Bronchoscopy with BAL cultures are now pending. White count 6.2. Hemoglobin 8.0. Platelets 621. Sodium 135. Potassium 4.8. Bicarb 27. BUN 3. Creatinine 0.44. He remains on DuoNeb inhalations. [place] and Toradol for pain control. The patient is seen today December 23, 2024 in follow-up on the regular medical floor. He is currently resting in bed. Awake and alert in no acute distress. Maintaining good O2 saturations in the 90s on 2 L/min per nasal cannula. He is been afebrile. Hemodynamically stable. Pleural fluid cultures revealing no growth. Bronchoalveolar lavage cultures revealing no growth thus far. White count 4.7. Hemoglobin 7.0. Platelets 637. Sodium 138. Potassium 4.4. Bicarb 26. BUN 7. Creatinine 0.4. Glucose 187. He is continued on DuoNeb inhalation s. Continued on Zosyn. Chest x-ray continues to show similar small to moderate right-sided pleural effusion with pleural pigtail catheter in place to Pleur- evac to low continuous suction. Infused yesterday. 160 mL of drainage overnight. He continues to work well with the incentive spirometer probably nearly 2000 mL. Plan is to instill alteplase/dornase again today per CT service. Progress note dated December 24, 2024. 54-year-old male seen today in room 468. He is resting comfortably in bed. The patient is currently on 2 L of oxygen. He is not receiving any IV fluids. He continues on Zosyn. The patient has been followed by cardiothoracic surgery, and is receiving lytics, in the pleural space, on a regular and daily basis. Clinically, he feels better. Current laboratory data includes a white count of 5.2, hemoglobin 7.2, hematocrit 24.2, and a platelet count of 593,000. No addit ional labs to report. Chest x-ray shows a similar small to moderate size right- sided pleural effusion, with a pleural pigtail catheter. The chest x-ray is largely unchanged. Objective - Vital Signs Vital signs: Vital Signs Temp 98.3 F 12/24/24 07:35 Pulse 100 12/24/24 10:26 Resp 16 12/24/24 08:00 BP 127/72 12/24/24 07:35 Pulse Ox 95 12/24/24 07:35 FiO2 Intake & Output 12/23/24 12/24/24 12/24/24 18:59 06:59 18:59 Intake Total 1100 Output Total 645 1950 Balance 455 -1950 Intake: Intake, IV Titration 1100 Amount Piperacillin-Tazobactam 3 200 .375 gm In Sodium Chloride 0.9% 100 ml @ 25 mls/hr IVPB Q8HR [facility] Rx# :[id number] Sodium Chloride 0.9% 1, 900 000 ml @ 50 mls/hr IV . Q20H [facility] Rx#:[id number] Output: Chest Tube Drainage 510 Chest Tube Right 510 Drainage 645 Right Chest 645 Urine 1440 Other: Voiding Method Toilet Toilet Urinal Urinal # Voids 4 # Bowel Movements 1 - Exam No acute distress, oriented 3. Currently, the patient is on 2 L of oxygen. HEENT examination is grossly unremarkable. Mucous membranes are moist. No oral lesions. Neck supple. Full range of motion. No adenopathy thyromegaly or neck vein distention. Cardiovascular examination reveals regular rhythm rate. S1-S2 normal. No S3 or S4. No discernible murmur noted. Lungs reveal diminished breath sounds on the right side. Left lung is clear. A few scattered crackles are noted. No wheezes. Pigtail catheter on the right. Abdomen soft bowel sounds are heard. No masses or tenderness. Extremities are intact. No cyanosis clubbing or edema. Skin is without rash or lesion. Neurologic examination is brief but nonfocal. - Labs CBC & Chem 7: 12/24/24 02:48 12/23/24 02:50 Labs: Abnormal Lab Results - Last 24 Hours (Table) 12/24/24 Range/Units 02:48 RBC 2.83 L (4.40-5.60) X 10*6/uL Hgb 7.2 L (13.0-17.0) g/dL Hct 24.2 L (39.6-50.0) % MCH 25.4 L (27.0-32.0) pg MCHC 29.8 L (32.0-37.0) g/dL RDW 15.4 H (11.5-14.5) % Plt Count 593 H (140-440) X 10*3/uL MPV 8.7 L (9.5-12.2) FL Immature Gran # 0.09 H (0.00-0.04) X 10*3/uL Microbiology - Last 24 Hours (Table) 12/22/24 09:40 Gram Stain - Preliminary Bronchoalviolar Lavage - Right Bronchial Washings Culture - Preliminary 12/22/24 09:40 Acid Fast Bacilli Smear - Preliminary Bronchoalviolar Lavage - Right 12/20/24 11:21 Gram Stain - Preliminary Pleural Fluid Body Fluid Culture - Preliminary 12/20/24 11:15 Blood Culture - Preliminary Blood 12/20/24 23:00 Gram Stain - Final Sputum Sputum Culture - Final Assessment and Plan Assessment: Dyspnea secondary to near complete opacification of the right lung. Status post thoracentesis today with 4 L of thick yellowish-brown fluid returned. Cultures, fluid analysis and cytology pending. Currently on vancomycin and cefepime. CT scan of the chest and abdomen redemonstrates a large fluid collection/hydropneumothorax within the right lung with consolidative opacities and multiple foci of gas. Additional multiloculated portion along the right ma neftali fissure superiorly. Reactive mediastinal adenopathy. Moderate COPD changes. Complex right sided pleural effusion secondary to above. Pigtail catheter placed on 12/21/2024 to Pleur-evac. Receiving alteplase/dornase infusion. Bronchoscopy with BAL performed 12/22/2024. No endobronchial tumors identified. There was some external compression noted from pleural fluid, trapped lung. Acute hypoxemic respiratory failure secondary to above. Recent treatment for right lower lobe pneumonia on 11/30/2024 in our emergency department with Augmentin and azithromycin. Acute anemia of unclear etiology, possibly anemia of chronic disease. Chronic tobacco dependence. Plan: Plan dated December 24, 2024. 54-year-old male again seen in room 468. The patient remains on 2 L. He has been getting lytics into the right pleural space on a daily basis, given to him by cardiothoracic surgery. The patient continues on antibiotics. Labs, x-rays, medications are reviewed. Surgery has made no decision as to whether or not the patient should have a decortication. Clinically, the patient appears relatively stable. We will continue to follow. Culture data is negative. Pigtail catheter remains into the right pleural space. Dictation was produced using PANOSOLation software. Please excuse any grammatical, word or spelling errors. Time with Patient: Less than 30
[2024-12-24] MEDS: DORNASE ALFA 5 MG in SODIUM CHLORIDE 0.9% 50 ML IRRIGATION ONE (12:45)
[2024-12-24] MEDS: ALTEPLASE 10 MG in SODIUM CHLORIDE 0.9% 50 ML IRRIGATION ONE (12:45)
--- NOTE | 2024-12-24 14:05 | P.PN ---
Subjective Progress Note Date: 12/23/24 Principal diagnosis: Reason for follow-up is pneumonia/empyema Patient is a 54-year-old male with a past medical history significant for pneumonia former smoker presenting to the hospital for evaluation of increasing shortness of breath, patient be diagnosed with a right-sided pneumonia concerning for empyema in this patient was status post chest tube placement on the right side. On today's evaluation that is 12/23/2024,the patient denies any fever or any chills, patient is breathing comfortably on room air, the patient right-sided chest pain has decreased in intensity denies any worsening cough no nausea vomiting no abdominal pain or diarrhea. Patient is currently on 2 L nasal cannula oxygen. Patient white count is 4.71 creatinine 0.4 cultures are currently pending. Objective - Vital Signs Vital signs: Vital Signs Temp 98.5 F 12/23/24 06:45 Pulse 102 H 12/23/24 12:29 Resp 17 12/23/24 06:45 BP 135/74 12/23/24 06:45 Pulse Ox 96 12/23/24 12:20 FiO2 Intake & Output 12/22/24 12/23/24 12/23/24 18:59 06:59 18:59 Intake Total 100 Output Total 2400 1630 Balance -2300 -1630 Intake: IV 100 Output: Drainage 530 Right Chest 530 Urine 2400 1100 Other: Voiding Method Toilet Toilet Urinal Urinal # Voids 2 - Exam GENERAL DESCRIPTION: Middle-age male lying in bed in no distress RESPIRATORY SYSTEM: Unlabored breathing , decreased breath sounds at bases HEART: S1 S2 regular rate and rhythm , ABDOMEN: Soft , no tenderness EXTREMITIES: No edema feet - Labs CBC & Chem 7: 12/24/24 02:48 12/23/24 02:50 Labs: Abnormal Lab Results - Last 24 Hours (Table) 12/23/24 12/23/24 Range/Units 02:50 02:50 RBC 2.79 L (4.40-5.60) X 10*6/uL Hgb 7.0 L (13.0-17.0) g/dL Hct 24.2 L (39.6-50.0) % MCH 25.1 L (27.0-32.0) pg MCHC 28.9 L (32.0-37.0) g/dL RDW 15.3 H (11.5-14.5) % Plt Count 637 H (140-440) X 10*3/uL MPV 8.9 L (9.5-12.2) FL Immature Gran # 0.06 H (0.00-0.04) X 10*3/uL BUN 6.6 L (9.0-27.0) mg/dL Creatinine 0.4 L (0.6-1.5) mg/dL Glucose 187 H (70-110) mg/dL Calcium 7.9 L (8.7-10.3) mg/dL Microbiology - Last 24 Hours (Table) 12/22/24 09:40 Gram Stain - Preliminary Bronchoalviolar Lavage - Right 12/20/24 11:21 Gram Stain - Preliminary Pleural Fluid Body Fluid Culture - Preliminary 12/20/24 11:15 Blood Culture - Preliminary Blood 12/20/24 23:00 Gram Stain - Preliminary Sputum Sputum Culture - Preliminary Assessment and Plan (1) Sepsis Current Visit: Yes Status: Acute Code(s): A41.9 - SEPSIS, UNSPECIFIED ORGANISM SNOMED Code(s): 48127905 (2) Empyema Current Visit: Yes Status: Acute Code(s): J86.9 - PYOTHORAX WITHOUT FISTULA SNOMED Code(s): 550085048 (3) Pneumonia Current Visit: No Status: Acute Code(s): J18.9 - PNEUMONIA, UNSPECIFIED ORGANISM SNOMED Code(s): 138139390 Plan: 1patient presented to hospital with sepsis in this patient who did have tachycardia elevated white count meeting criteria for SIRS source is right-sided pneumonia and underlying empyema status post thoracocentesis in this patient failing outpatient oral Augmentin and Zithromax therapy will need to cover for resistant gram-positive as well as gram-negative pathogen 2-patient sputum and pleural fluid cultures so far pending MRSA nasal screen was negative 3patient currently being treated with Zosyn while waiting for the culture to finalize Dictation was produced using [employer] dictation software. please excuse any grammatical, word or spelling errors. Time with Patient: Less than 30
--- NOTE | 2024-12-24 14:06 | P.PN ---
Subjective Progress Note Date: 12/24/24 Principal diagnosis: Reason for follow-up is pneumonia/empyema Patient is a 54-year-old male with a past medical history significant for pneumonia former smoker presenting to the hospital for evaluation of increasing shortness of breath, patient be diagnosed with a right-sided pneumonia concerning for empyema in this patient was status post chest tube placement on the right side. On today's evaluation that is 12/24/2024,the patient remains to be afebrile, patient is on 2 L nasal cannula supplemental oxygen and denies any shortness of breath right-sided chest pain has decreased and no worsening cough.Patient denies having any nausea or vomiting, no abdominal pain and no diarrhea. Patient white count is 5.17 creatinine 0.4 cultures are currently pending Objective - Vital Signs Vital signs: Vital Signs Temp 98.3 F 12/24/24 07:35 Pulse 100 12/24/24 10:26 Resp 16 12/24/24 08:00 BP 127/72 12/24/24 07:35 Pulse Ox 95 12/24/24 07:35 FiO2 Intake & Output 12/23/24 12/24/24 12/24/24 18:59 06:59 18:59 Intake Total 1100 Output Total 645 1950 Balance 455 -1950 Intake: Intake, IV Titration 1100 Amount Piperacillin-Tazobactam 3 200 .375 gm In Sodium Chloride 0.9% 100 ml @ 25 mls/hr IVPB Q8HR [facility] Rx# :[id number] Sodium Chloride 0.9% 1, 900 000 ml @ 50 mls/hr IV . Q20H [facility] Rx#:[id number] Output: Chest Tube Drainage 510 Chest Tube Right 510 Drainage 645 Right Chest 645 Urine 1440 Other: Voiding Method Toilet Toilet Urinal Urinal # Voids 4 # Bowel Movements 1 - Exam GENERAL DESCRIPTION: Middle-age male lying in bed in no distress RESPIRATORY SYSTEM: Unlabored breathing , decreased breath sounds at bases HEART: S1 S2 regular rate and rhythm , ABDOMEN: Soft , no tenderness EXTREMITIES: No edema feet - Labs CBC & Chem 7: 12/24/24 02:48 12/23/24 02:50 Labs: Abnormal Lab Results - Last 24 Hours (Table) 12/24/24 Range/Units 02:48 RBC 2.83 L (4.40-5.60) X 10*6/uL Hgb 7.2 L (13.0-17.0) g/dL Hct 24.2 L (39.6-50.0) % MCH 25.4 L (27.0-32.0) pg MCHC 29.8 L (32.0-37.0) g/dL RDW 15.4 H (11.5-14.5) % Plt Count 593 H (140-440) X 10*3/uL MPV 8.7 L (9.5-12.2) FL Immature Gran # 0.09 H (0.00-0.04) X 10*3/uL Microbiology - Last 24 Hours (Table) 12/22/24 09:40 Gram Stain - Preliminary Bronchoalviolar Lavage - Right Bronchial Washings Culture - Preliminary 12/22/24 09:40 Acid Fast Bacilli Smear - Preliminary Bronchoalviolar Lavage - Right 12/20/24 11:21 Gram Stain - Preliminary Pleural Fluid Body Fluid Culture - Preliminary 12/20/24 11:15 Blood Culture - Preliminary Blood 12/20/24 23:00 Gram Stain - Final Sputum Sputum Culture - Final Assessment and Plan (1) Sepsis Current Visit: Yes Status: Acute Code(s): A41.9 - SEPSIS, UNSPECIFIED ORGANISM SNOMED Code(s): 24034203 (2) Empyema Current Visit: Yes Status: Acute Code(s): J86.9 - PYOTHORAX WITHOUT FISTULA SNOMED Code(s): 725800264 (3) Pneumonia Current Visit: No Status: Acute Code(s): J18.9 - PNEUMONIA, UNSPECIFIED ORGANISM SNOMED Code(s): 136295212 Plan: 1patient presented to hospital with sepsis in this patient who did have tachycardia elevated white count meeting criteria for SIRS source is right-sided pneumonia and underlying empyema status post thoracocentesis in this patient failing outpatient oral Augmentin and Zithromax therapy will need to cover for resistant gram-positive as well as gram-negative pathogen 2-patient sputum and pleural fluid cultures so far pending MRSA nasal screen was negative 3patient continue with Zosyn while waiting for the culture to finalize to determine discharge antibiotics Dictation was produced using [employer] dictation software. please excuse any grammatical, word or spelling errors. Time with Patient: Less than 30
[2024-12-25] MEDS: HYDROcodone/APAP 5-325MG 1 EACH TAB PO PRN (06:07)
--- NOTE | 2024-12-25 08:05 | XR ---
EXAMINATION TYPE: XR chest 1V portable DATE OF EXAM: 12/25/2024 6:37 AM COMPARISON: Multiple radiographs, with the most recent on 12/24/2024 TECHNIQUE: XR chest 1V portable Portable AP radiograph of the chest. CLINICAL INDICATION:Male, 54 years old with history of empyema; FINDINGS: Lungs/Pleura: Small right basilar pneumothorax with decreased small right pleural effusion. Right-odilon ed pleural pigtail catheter is in stable position. Background emphysematous change with parenchymal s carring bilaterally. Persistent right suprahilar opacity and right basilar opacity. Trace left pleura l effusion. Pulmonary vascularity: Unremarkable. Heart/mediastinum: Cardiomediastinal silhouette is unremarkable. Musculoskeletal: No acute osseous pathology. Right shoulder arthropathy. IMPRESSION: 1. Decreased small right pleural effusion with right basilar small pneumothorax with stable position of pigtail catheter. 2. Persistent right suprahilar and right basilar opacities likely representing pneumonia and/or atel ectasis. 3. Trace left pleural effusion. [facility], , 12/25/2024 8:03 AM
--- NOTE | 2024-12-25 10:04 | P.PN ---
Subjective Progress Note Date: 12/25/24 This is a pleasant 54 years old male with no significant past medical history Patient presents because of worsening dyspnea. About 1 month ago he was diagnosed with pneumonia pneumonia with small right pleural effusion and he was treated with oral antibiotic, this was progressed gradually over this month and become more opacified right lung on chest x-ray. Patient underwent thoracocentesis with pulmonary team while he is still in the emergency room where more than 3 L of purulent fluid has been drained. Patient with no significant pain, no significant coughing and is on room air He denies any other specific symptoms He quit smoking about 4 months ago with no alcohol or illicit drugs. Vitals stable he was mildly tachycardic which is improving now Labs showing leukocytosis 11.2, hemoglobin 7.6. Platelet count 707 Rest of BMP LFT troponin and INR were unremarkable D-dimer was elevated 1.6. He underwent CTA of the chest which was negative for PE but showing large pleural effusion on the right with collapse of the right lung. Chest x-ray and CTA of the lung showing the same findings of large pleural effusion and collapse of the right lung EKG showing sinus tachycardia [address]-T changes Patient underwent right sided thoracocentesis more than 3 L of purulent fluid was drained. And patient tolerated the procedure well 12/21 Patient feels more comfortable and breathing easily no significant chest pain or coughing Repeat CT of the chest and abdomen showing loculated still large fluid collection in the right lung for his empyema. thoracic surgery was consulted for possible decortication Patient currently kept on IV vancomycin and Zosyn pending final culture results 12/22 Patient breathing better Remains on oxygen He is s/p bronchoscopy showing no tumor Status post right-sided chest tube with about 2 L of discharge mainly purulent and pus Cardiothoracic surgery team following closely Culture pending Remains on Zosyn 12/23/2024 Patient is seen in follow-up today remains with a right-sided chest tube with CT surgery following administering another dose of tPA for right empyema. Infectious disease and pulmonary following as well and will continue current reg imen while awaiting cultures. Patient has been encouraged to increase activity as tolerated and continued incentive spirometer use at least 10 times every hour while awake. Patient is currently maintained on 2 L via nasal cannula and does not wear oxygen outpatient. Hemoglobin is noted to be 7 and will follow-up on repeat labs, transfuse if less than 7. Will follow-up on cultures and discuss f christalther with consultations regarding treatment plan moving forward. No plans of chest tube removal as of yet as patient continues with significant amount of purulence being drained. 12/24/2024 Patient is seen in follow-up today reports to feeling lethargic today but doing well otherwise. Patient is continued on oxygenation at 2 L and reports shortness of breath. Patient reports his pain during breakthrough is becoming extreme and Toradol is helping asking for increased frequency. Will adjust [place] slightly and encouraged continued incentive spirometer use and increased activity as tolerated with sitting up more frequently. Plan is for tPA instillation through the chest tube per CT surgery today. Patient continues with continued purulent drainage noted in the tubing. Patient is maintained on antibiotics and awaiting for cultures to finalize. Review of systems CONSTITUTIONAL: No fever, no malaise, no fatigue. GASTROINTESTINAL: No diarrhea, no nausea, no vomiting, no abdominal pain. Normoactive bowel sounds. Respiratory: Reports of continued shortness of breath and cough with right sided chest wall pain near the chest tube site NEUROLOGICAL: No headaches, no weakness, no numbness. HEMATOLOGICAL: Denies any bleeding or petechiae. GENITOURINARY: Denies any burning micturition, frequency, or urgency. MUSCULOSKELETAL/RHEUMATOLOGICAL: Denies any joint pain, swelling, or any muscle pain. ENDOCRINE: Denies any polyuria or polydipsia. Physical exam: GENERAL: The patient is alert and oriented x3, not in any acute distress. Well developed, well nourished. HEENT: Pupils are round and equally reacting to light. EOMI. No scleral icterus. No conjunctival pallor. Normocephalic, atraumatic. No pharyngeal erythema. No thyromegaly. CARDIOVASCULAR: S1 and S2 present. No murmurs, rubs, or gallops. -PULMONARY: Diminished breath sounds bilaterally otherwise chest is clear to auscultation, no wheezing , no crackles. Decreased breath sounds in the bases, more so on the right ABDOMEN: Soft, nontender, nondistended, normoactive bowel sounds. No palpable organomegaly. MUSCULOSKELETAL: No joint swelling or deformity. EXTREMITIES: No cyanosis, clubbing, or pedal edema. NEUROLOGICAL: Gross neurological examination did not reveal any focal deficits. SKIN: No rashes. no petechiae. Assessment: Right pneumonia failed outpatient treatment associated with large/huge right pleural effusion with left-sided mediastinal shift right sided thoracocentesis more than 3 L of purulent fluid was drained, empyema receiving tPA instillation in the chest tube with CT surgery Acute hypoxic respiratory failure secondary to assessment #1 Normocytic hypochromic anemia Elevated D-dimer with negative CAT scan from pulmonary embolism GI prophylaxis DVT prophylaxis No code Plan: Continue with antibiotic currently on Zosyn and IV vancomycin. Infectious disease following and awaiting cultures to determine appropriate antibiotics Cardiothoracic surgery following is instilling another dose of tPA and the chest tube with continued significant amounts of purulence noted Continue with right-sided chest tube at this time per CT surgery. Possible repeat CT once drainage has lessened Pulmonary team following closely Continue with breathing inhalational treatments and weaning FiO2 as tolerated. Patient currently maintained on 2 L he does not wear oxygen outpatient Hemoglobin noted to be 7.3 with no active bleeding noted at this time we will follow-up on repeat labs and recommend to transfuse if less than 7 Encouraged incentive spirometer use at least 10 times every hour while awake Patient will need resources outpatient on discharge as patient has no primary care provider at this time The impression and plan of care has been dictated by Suad San, Nurse Practitioner as directed. Dr. Mohit MD I have performed a history and examination and MDM of this patient, discussed the same with the dictator, and agree with the dictator's assessment and plan as written ,documented as a scribe. Based on total visit time, I have performed more than 50% of the visit. Objective - Vital Signs Vital signs: Vital Signs Temp 98.4 F 12/25/24 06:50 Pulse 94 12/25/24 08:13 Resp 17 12/25/24 06:50 BP 119/72 12/25/24 06:50 Pulse Ox 97 12/25/24 08:04 FiO2 Intake & Output 12/24/24 12/25/24 12/25/24 18:59 06:59 18:59 Intake Total 200 Output Total 2039 1809 100 Balance -2039 -1809 100 Intake: Oral 200 Output: Chest Tube Drainage 310 100 Chest Tube Right 310 100 Drainage 340 Right Chest 340 Urine 1700 1500 Other: Voiding Method Toilet Urinal # Voids 1 - Labs CBC & Chem 7: 12/24/24 02:48 12/23/24 02:50 Labs: Microbiology - Last 24 Hours (Table) 12/20/24 11:21 Gram Stain - Final Pleural Fluid Body Fluid Culture - Final 12/22/24 09:40 Gram Stain - Preliminary Bronchoalviolar Lavage - Right Bronchial Washings Culture - Preliminary
[2024-12-25 10:22] LABS: Basophils # (A) 0.03 X 10*3/uL (0.00-0.10); Basophils % (A) 0.6 %; Eosinophils # (A) 0.09 X 10*3/uL (0.04-0.35); Eosinophils % (A) 1.8 %; HGB 7.4 g/dL (13.0-17.0); Lymphocytes # (A) 1.79 X 10*3/uL (0.90-5.00); Lymphocytes % (A) 35.7 %; MCH 24.1 pg (27.0-32.0); MCHC 28.5 g/dL (32.0-37.0); MCV 84.7 FL (80.0-97.0); Mean Platelet Volume 8.6 FL (9.5-12.2); Monocytes # (A) 0.56 X 10*3/uL (0.20-1.00); Monocytes % (A) 11.2 %; NRBC Per 100 WBC 0 X 10*3/uL (0.00-0.01); Neutrophils # (A) 2.48 X 10*3/uL (1.80-7.70); Neutrophils % (A) 49.3 %; Platelet Count 602 X 10*3/uL (140-440); RBC 3.07 X 10*6/uL (4.40-5.60); RDW 15.5 % (11.5-14.5); WBC 5.02 X 10*3/uL (4.50-10.00)
[2024-12-25 10:46] LABS: BUN/Creat Ratio 12.25 Ratio (12.00-20.00); Blood Urea Nitrogen 4.9 mg/dL (9.0-27.0); Calcium 8.5 mg/dL (8.7-10.3); Chloride 99 mmol/L (96-109); Glucose 100 mg/dL (70-110); Potassium 5.3 mmol/L (3.5-5.5); Sodium 136 mmol/L (135-145)
--- NOTE | 2024-12-25 11:07 | P.PN ---
Subjective Progress Note Date: 12/25/24 Principal diagnosis: Right empyema, trapped right lung. Previous medical history of recent right lower lobe pneumonia with failed treatment of azithromycin and Augmentin, and tobacco dependence with cessation 4 months ago. POD #5 right thoracentesis with 4 L of empyema drained by Dr. Rivera. POD #4 placement of right chest pigtail catheter by Dr. Casarez. Patient was seen and examined in follow-up today December 25, 2024 at his bedside on the fourth floor medical surgical unit. He is currently laying in bed, is awake, alert, oriented x 3 and is in no acute apparent distress. Oxygen saturations are 97% on 2 L nasal cannula and he is achieving 2000 mL on his incentive spirometry with encouragement. Right pigtail catheter chest tube remains in place to low continuous wall suction -20 cm H2O. No airleak is present. Draining thin serous purulent drainage. 310 mL output in the last 8 hours and 1050 mL output in the last 24 hours. He received his third dose of alteplase/dornase pleural instillation yesterday 12/25/2023. Chest x-ray this morning shows a decrease small right pleural effusion with right basilar small pneumothorax with stable position of pigtail catheter. It also shows persistent right suprahilar and right basilar opacities likely representing pneumonia and/or atelectasis, and a trace left pleural effusion. He remains on Zosyn for IV antibiotic coverage managed by infectious disease. Bronchial washing cultures show few polymorphonuclear leukocytes, rare epithelial cells, moderate Gram negative bacilli, few gram-positive cocci and few yeast. Sputum culture shows few normal garth, no Staphylococcus aureus or Pseudomonas recovered. Pleural fluid culture shows no growth after 4 days and blood cultures showed no growth after 72 hours. Objective - Vital Signs Vital signs: Vital Signs Temp 98.4 F 12/25/24 06:50 Pulse 94 12/25/24 08:13 Resp 17 12/25/24 06:50 BP 119/72 12/25/24 06:50 Pulse Ox 97 12/25/24 08:04 FiO2 Intake & Output 12/24/24 12/25/24 12/25/24 18:59 06:59 18:59 Intake Total 200 Output Total 2039 1809 100 Balance -2039 -1809 100 Intake: Oral 200 Output: Chest Tube Drainage 310 100 Chest Tube Right 310 100 Drainage 340 Right Chest 340 Urine 1700 1500 Other: Voiding Method Toilet Urinal # Voids 1 - Exam CONSTITUTIONAL: Appears comfortable, cooperative, no acute distress RESPIRATORY: Lungs sounds diminished on the right. Respirations symmetrical, nonlabored. Currently on 2 L nasal cannula with oxygen saturation 97%. Able to achieve 2000 mL on his incentive spirometry. Strong cough. CARDIOVASCULAR: S1, S2 present. Regular rate and rhythm, sinus rhythm to sinus tach on telemetry. Palpable peripheral pulses bilaterally. No edema present. No calf pain or tenderness noted. SCDs present. GASTROINTESTINAL: Abdomen soft, nontender, nondistended. Active bowel sounds present 4 quadrants. Tolerating diet GENITOURINARY: Continues to void. INTEGUMENTARY: Skin is warm and dry. No clubbing or cyanosis present. NEUROLOGIC: Cranial nerves II through XII intact. No focal deficits. MUSKULOSKELETAL: Able to move all extremities, strength equal bilaterally, gait normal. PSYCHIATRIC: Alert and oriented to person place and time, appropriate affect, intact judgment and insight. INVASIVE LINES AND TUBES: Right sided pigtail catheter present to continuous wall suction drained 310 mL thick infectious drainage overnight, 1050 mL in the last 24 hours. - Allied health notes Allied health notes reviewed: nursing - Labs CBC & Chem 7: 12/25/24 06:10 12/25/24 06:10 Labs: Abnormal Lab Results - Last 24 Hours (Table) 12/25/24 12/25/24 Range/Units 06:10 06:10 RBC 3.07 L (4.40-5.60) X 10*6/uL Hgb 7.4 L (13.0-17.0) g/dL Hct 26.0 L (39.6-50.0) % MCH 24.1 L (27.0-32.0) pg MCHC 28.5 L (32.0-37.0) g/dL RDW 15.5 H (11.5-14.5) % Plt Count 602 H (140-440) X 10*3/uL MPV 8.6 L (9.5-12.2) FL Immature Gran # 0.07 H (0.00-0.04) X 10*3/uL BUN 4.9 L (9.0-27.0) mg/dL Creatinine 0.4 L (0.6-1.5) mg/dL Calcium 8.5 L (8.7-10.3) mg/dL Microbiology - Last 24 Hours (Table) 12/20/24 11:21 Gram Stain - Final Pleural Fluid Body Fluid Culture - Final 12/22/24 09:40 Gram Stain - Preliminary Bronchoalviolar Lavage - Right Bronchial Washings Culture - Preliminary - Imaging and Cardiology Chest x-ray: report reviewed, image reviewed Assessment and Plan Assessment: Right-sided pleural effusion, empyema, status post thoracentesis with 4 L empyema drained by Dr. Rivera, status post placement of right pleural pigtail catheter with lytic installation Shortness of breath, likely secondary to above Acute hypoxemic respiratory failure secondary to above Normocytic hypochromic anemia Elevated D-dimer, CTA of the chest negative for pulmonary embolus Recent right lower lobe pneumonia, completed a course of Z-[place] and Augmentin History of nicotine dependence, quit smoking 4 months ago Plan: Keep right pleural pigtail catheter in place to low continuous wall suction -20 cm H2O. May disconnect to ambulate to the bathroom and in the uribe. Will instill fourth dose alteplase/dornase through the pigtail catheter today and clamp for 1 hour post instillation. Wean oxygen as tolerated. Encourage use of incentive spirometry 10 times every hour while awake. Monitor daily chest x-rays. Continue to follow cytology, pleural fluid and sputum culture results. Dr. Nick from infectious disease is following, antibiotic management per infectious disease. Increase activity as tolerated. Out of bed for all meals. Encouraged patient to alternate [place] with Toradol instead of taking both at the same time for better pain control. Dr. Jenkins did visit with the patient on 12/24/2023 and discussed our plan for continued lytic installation for several days. If no improvement may consider surgical decortication. More recommendations to follow based on patient's clinical course. Time with Patient: Greater than 30
[2024-12-25] MEDS: ALTEPLASE 10 MG in SODIUM CHLORIDE 0.9% 50 ML IRRIGATION ONE (11:38)
[2024-12-25] MEDS: DORNASE ALFA 5 MG in SODIUM CHLORIDE 0.9% 50 ML IRRIGATION ONE (11:38)
--- NOTE | 2024-12-25 12:31 | P.PN ---
Subjective Progress Note Date: 12/25/24 Principal diagnosis: Empyema. This is a pleasant 54-year-old male patient with a known history of chronic tobacco dependence stating he quit about 4 months ago. No primary care p rovider. No other medical history. He was here on November 30, 2024 in the emergency department with complaints of increasing shortness of breath cough and congestion. He was found to have a right lower lobe infiltrate and was treated with Augmentin, azithromycin and an albuterol inhaler. He was to follow-up with a primary care provider however he did not. He returned here to the emergency room this morning with worsening shortness of breath over the past week. Chest x-ray shows near complete opacification of the right lung. CT angiogram ruled out pulmonary embolism. There is a large pleural collection noted with numerous internal foci of air and anterior air-filled levels seen. Findings are concerning for abscess or underlying empyema. Complete collapse of the right middle and right lower lobe. Mediastinal shift from right to left. White count 11.2. Hemoglobin 7.6. Platelets 707. D-dimer 1.66. Sodium 136. Potassium 4.5. Bicarb 22. BUN 9. Creatinine 0.42. Glucose 111. Troponin negative x 1. proBNP 283. Viral screen negative for influenza A/B, RSV or COVID. He is seen today in the emergency department. Currently sitting up on a stretcher. He is dyspneic with conversation. Dyspneic with minimal exertion. He is maintaining good O2 saturations in the 90s on room air. Slightly tachypneic. Tachycardic. Ultrasound of the chest revealed a 21.[address] Regan did perform a thoracentesis with just over 4 L of thick pale yellow fluid with sediment re turned. Follow-up chest x-ray revealed significant decrease in the right sided pleural collection. There is a loculated pneumothorax/collection of air measuring 12.6 x 4.5 cm. Scattered coarse and patchy infiltrate seen throughout the right lung. He has been initiated on vancomycin and Zosyn. The patient is seen today December 21, 2024 in follow-up on the regular medical floor. He is currently sitting up in bed. Awake and alert in no acute distress. Breathing easier today compared to yesterday. Attaining good O2 saturations in the 90s on 2 L/min per nasal cannula. Chest x-ray reveals more prominent pleural-based thick-walled right lower lung collection containing predominantly air. More prominent adjacent right basilar compressive atelectasis. Persistent right upper lung diffuse edema and/or atelectasis. CT scan of the chest and abdomen redemonstrates a large fluid collection/hydropneumothorax within the right lung with consolidative opacities and multiple foci of gas. Additional multiloculated portion along the right major fissure superiorly. Reactive mediastinal adenopathy. Moderate COPD changes. Mild hepatic splenomegaly. Cholelithiasis. White count 6.6. Hemoglobin 7.6. Platelets 674. Sodium 136. Potassium 4.1. Bicarb 26. BUN 4. Creatinine 0.47. Glucose 223. Pleural fluid and exudate with total protein greater than 3.6 and LDH greater than 2500. Urine Legionella screen was negative. Pleural fluid cultures pending. Cytology pending. Sputum culture pending. He remains on vancomycin and cefepime. Continued on bronchodilators. Normal saline at 100 mL/h The patient is seen today December 22, 2024 in follow-up on the regular medical floor. He is currently sitting up in bed. Awake and alert in no acute distress. Denies any worsening shortness of breath, cough or congestion. He continues with a dry nonproductive cough. He is maintaining good O2 saturations in the 90s on 2 L nasal cannula. He has been afebrile. Hemodynamically stable. A rig ht sided pigtail catheter was placed by CT services yesterday. Currently 2 Pleur-evac. Receiving alteplase/dornase infusions. They did request bronchoscopy to rule out any endobronchial tumors prior to possible decortication later this week. Koska P was performed today. No endobronchial lesions noted. There was some compression in the right bronchial system due to external fluid. He tolerated the procedure well. He remains on Zosyn. Pleural fluid cultures are pending. Sputum culture is pending. Bronchoscopy with BAL cultures are now pending. White count 6.2. Hemoglobin 8.0. Platelets 621. Sodium 135. Potassium 4.8. Bicarb 27. BUN 3. Creatinine 0.44. He remains on DuoNeb inhalations. Berger and Toradol for pain control. The patient is seen today December 23, 2024 in follow-up on the regular medical floor. He is currently resting in bed. Awake and alert in no acute distress. Maintaining good O2 saturations in the 90s on 2 L/min per nasal cannula. He is been afebrile. Hemodynamically stable. Pleural fluid cultures revealing no growth. Bronchoalveolar lavage cultures revealing no growth thus far. White count 4.7. Hemoglobin 7.0. Platelets 637. Sodium 138. Potassium 4.4. Bicarb 26. BUN 7. Creatinine 0.4. Glucose 187. He is continued on DuoNeb inhalation s. Continued on Zosyn. Chest x-ray continues to show similar small to moderate right-sided pleural effusion with pleural pigtail catheter in place to Pleur- evac to low continuous suction. Infused yesterday. 160 mL of drainage overnight. He continues to work well with the incentive spirometer probably nearly 2000 mL. Plan is to instill alteplase/dornase again today per CT service. Progress note dated December 24, 2024. 54-year-old male seen today in room 468. He is resting comfortably in bed. The patient is currently on 2 L of oxygen. He is not receiving any IV fluids. He continues on Zosyn. The patient has been followed by cardiothoracic surgery, and is receiving lytics, in the pleural space, on a regular and daily basis. Clinically, he feels better. Current laboratory data includes a white count of 5.2, hemoglobin 7.2, hematocrit 24.2, and a platelet count of 593,000. No addit ional labs to report. Chest x-ray shows a similar small to moderate size right- sided pleural effusion, with a pleural pigtail catheter. The chest x-ray is largely unchanged. Progress note dated December 25, 2024. 54-year-old male seen in room 468. He is lying in bed. He is comfortable. He is awake and alert. The patient was admitted with a diagnosis of right-sided empyema. A pigtail catheter was placed on the right side. He has been receiving lytic therapy, over the last few days. He is currently on 2 L of oxygen. He does feel better. Is not receiving any IV fluids. He continues on Zosyn. His chest x-ray today, may be a bit better. White count 5.02, hemoglobin 7.4, hematocrit 26.0, platelet count 602,000. Sodium 136, potassium 5.3, chloride 99, CO2 25, BUN 4.9, creatinine 0.4. Glucose is 100. Calcium is 8.5. Chest x-ray, in my opinion, is largely unchanged, or slightly improved. Objective - Vital Signs Vital signs: Vital Signs Temp 98.4 F 12/25/24 06:50 Pulse 94 12/25/24 08:13 Resp 17 12/25/24 06:50 BP 119/72 12/25/24 06:50 Pulse Ox 97 12/25/24 08:04 FiO2 Intake & Output 12/24/24 12/25/24 12/25/24 18:59 06:59 18:59 Intake Total 200 Output Total 2039 181 100 Balance -2039 -1809 100 Intake: Oral 200 Output: Chest Tube Drainage 310 100 Chest Tube Right 310 100 Drainage 340 Right Chest 340 Urine 1700 1500 Other: Voiding Method Toilet Urinal # Voids 1 - Exam No acute distress, oriented 3. Currently, the patient is on 2 L of oxygen. HEENT examination is grossly unremarkable. Mucous membranes are moist. No oral lesions. Neck supple. Full range of motion. No adenopathy thyromegaly or neck vein distention. Cardiovascular examination reveals regular rhythm rate. S1-S2 normal. No S3 or S4. No discernible murmur noted. Lungs reveal diminished breath sounds on the right side. Left lung is clear. A few scattered crackles are noted. No wheezes. Pigtail catheter on the right. Abdomen soft bowel sounds are heard. No masses or tenderness. Extremities are intact. No cyanosis clubbing or edema. Skin is without rash or lesion. Neurologic examination is brief but nonfocal. - Labs CBC & Chem 7: 12/25/24 06:10 12/25/24 06:10 Labs: Abnormal Lab Results - Last 24 Hours (Table) 12/25/24 12/25/24 Range/Units 06:10 06:10 RBC 3.07 L (4.40-5.60) X 10*6/uL Hgb 7.4 L (13.0-17.0) g/dL Hct 26.0 L (39.6-50.0) % MCH 24.1 L (27.0-32.0) pg MCHC 28.5 L (32.0-37.0) g/dL RDW 15.5 H (11.5-14.5) % Plt Count 602 H (140-440) X 10*3/uL MPV 8.6 L (9.5-12.2) FL Immature Gran # 0.07 H (0.00-0.04) X 10*3/uL BUN 4.9 L (9.0-27.0) mg/dL Creatinine 0.4 L (0.6-1.5) mg/dL Calcium 8.5 L (8.7-10.3) mg/dL Microbiology - Last 24 Hours (Table) 12/20/24 11:21 Gram Stain - Final Pleural Fluid Body Fluid Culture - Final 12/22/24 09:40 Gram Stain - Preliminary Bronchoalviolar Lavage - Right Bronchial Washings Culture - Preliminary Assessment and Plan Assessment: Dyspnea secondary to near complete opacification of the right lung. Status post thoracentesis today with 4 L of thick yellowish-brown fluid returned. Cultures, fluid analysis and cytology pending. Currently on vancomycin and cefepime. CT scan of the chest and abdomen redemonstrates a large fluid collection/hydropneumothorax within the right lung with consolidative opacities and multiple foci of gas. Additional multiloculated portion along the right major fissure superiorly. Reactive mediastinal adenopathy. Moderate COPD changes. Complex right sided pleural effusion secondary to above. Pigtail catheter aviva riana on 12/21/2024 to Pleur-evac. Receiving alteplase/dornase infusion. Bronchoscopy with BAL performed 12/22/2024. No endobronchial tumors identified. There was some external compression noted from pleural fluid, trapped lung. Acute hypoxemic respiratory failure secondary to above. Recent treatment for right lower lobe pneumonia on 11/30/2024 in our emergency department with Augmentin and azithromycin. Acute anemia of unclear etiology, possibly anemia of chronic disease. Chronic tobacco dependence. Plan: Plan dated December 24, 2024. 54-year-old male again seen in room 468. The patient remains on 2 L. He has been getting lytics into the right pleural space on a daily basis, given to him by cardiothoracic surgery. The patient continues on antibiotics. Labs, x-rays, medications are reviewed. Surgery has made no decision as to whether or not the patient should have a decortication. Clinically, the patient appears relatively stable. We will continue to follow. Culture data is negative. Pigtail catheter remains into the right pleural space. Dictation was produced using [employer] software. Please excuse any grammatical, word or spelling errors. Plan dated December 25, 2024. 54-year-old male seen again in room 468. He remains on 2 L of oxygen. He has a right sided pigtail catheter. He has been receiving tPA and alpha dornase, per cardiothoracic surgery. He continues on Zosyn. Today's chest x-ray may be slightly better. Labs, x-rays, and medications are reviewed. Clinically, he appears to be doing better. We will continue to follow. Prognosis is guarded. Dictation was produced using [employer] software. Please excuse any grammatical, word or spelling errors. Time with Patient: Less than 30
--- NOTE | 2024-12-25 16:36 | PCN ---
PROCEDURE NOTE PROCEDURES PERFORMED: Bronchoscopy and bronchoalveolar lavage of the right lower lobe and right middle lobe. PREOPERATIVE DIAGNOSES: 1. Empyema, status post thoracentesis. 2. Trapped lung. 3. Rule out endobronchial tumor. POSTOPERATIVE DIAGNOSES: 1. Empyema, status post thoracentesis. 2. Trapped lung. 3. Rule out endobronchial tumor. 4. No evidence of endobronchial tumor. ANESTHESIA USED: IV conscious sedation. DESCRIPTION OF PROCEDURE: The patient was brought into the bronchoscopy suite, placed in the supine position, O2 was applied via Ventimask. A bite block was applied. We monitored his O2 saturation continuously. Blood pressure was intermittently monitored, cardiac rhythm was continuously monitored. After adequate IV conscious sedation, bronchoscope was advanced through the bite block down to the area of the vocal cords. The vocal cords were noted to be patent and no evidence of pathology over the vocal cords. Lidocaine applied over the vocal cords. Bronchoscope was advanced further down to the trachea. Thick purulent secretions were noted in the endotracheal wall; these were suctioned. Then, a thorough examination was done of the right upper lobe, right middle lobe, right lower lobe, left upper lobe, lingula, left lower lobe; and there was evidence of mostly purulent secretions throughout the bronchial tree. These were all suctioned and clear. Examination of the right middle lobe was done; there was no evidence of endobronchial tumor. Right lower lobe, there was no evidence of endobronchial tumor. However, the right middle lobe and right lower lobe were extremely decompressed, and mostly because of trapped lung. Procedure was tolerated, no complications, fluid obtained from the right middle lobe and right lower lobe was sent for different diagnostic studies. MMODL / IJN: [id number] /
[2024-12-25] MEDS: ANIDULAFUNGIN 200 MG in SODIUM CHLORIDE 0.9% 200 ML IVPB ONE (22:55)
[2024-12-26] MEDS: AMPICILLIN-SULBACTAM 3 GM in SODIUM CHLORIDE 0.9% 100 ML IVPB SCH (02:00)
--- NOTE | 2024-12-26 06:02 | P.PN ---
Subjective Progress Note Date: 12/25/24 This is a pleasant 54 years old male with no significant past medical history Patient presents because of worsening dyspnea. About 1 month ago he was diagnosed with pneumonia pneumonia with small right pleural effusion and he was treated with oral antibiotic, this was progressed gradually over this month and become more opacified right lung on chest x-ray. Patient underwent thoracocentesis with pulmonary team while he is still in the emergency room where more than 3 L of purulent fluid has been drained. Patient with no significant pain, no significant coughing and is on room air He denies any other specific symptoms He quit smoking about 4 months ago with no alcohol or illicit drugs. Vitals stable he was mildly tachycardic which is improving now Labs showing leukocytosis 11.2, hemoglobin 7.6. Platelet count 707 Rest of BMP LFT troponin and INR were unremarkable D-dimer was elevated 1.6. He underwent CTA of the chest which was negative for PE but showing large pleural effusion on the right with collapse of the right lung. Chest x-ray and CTA of the lung showing the same findings of large pleural effusion and collapse of the right lung EKG showing sinus tachycardia [address]-T changes Patient underwent right sided thoracocentesis more than 3 L of purulent fluid was drained. And patient tolerated the procedure well 12/21 Patient feels more comfortable and breathing easily no significant chest pain or coughing Repeat CT of the chest and abdomen showing loculated still large fluid collection in the right lung for his empyema. thoracic surgery was consulted for possible decortication Patient currently kept on IV vancomycin and Zosyn pending final culture results 12/22 Patient breathing better Remains on oxygen He is s/p bronchoscopy showing no tumor Status post right-sided chest tube with about 2 L of discharge mainly purulent and pus Cardiothoracic surgery team following closely Culture pending Remains on Zosyn 12/23/2024 Patient is seen in follow-up today remains with a right-sided chest tube with CT surgery following administering another dose of tPA for right empyema. Infectious disease and pulmonary following as well and will continue current reg imen while awaiting cultures. Patient has been encouraged to increase activity as tolerated and continued incentive spirometer use at least 10 times every hour while awake. Patient is currently maintained on 2 L via nasal cannula and does not wear oxygen outpatient. Hemoglobin is noted to be 7 and will follow-up on repeat labs, transfuse if less than 7. Will follow-up on cultures and discuss f sonya with consultations regarding treatment plan moving forward. No plans of chest tube removal as of yet as patient continues with significant amount of purulence being drained. 12/24/2024 Patient is seen in follow-up today reports to feeling lethargic today but doing well otherwise. Patient is continued on oxygenation at 2 L and reports shortness of breath. Patient reports his pain during breakthrough is becoming extreme and Toradol is helping asking for increased frequency. Will adjust N orco slightly and encouraged continued incentive spirometer use and increased activity as tolerated with sitting up more frequently. Plan is for tPA instillation through the chest tube per CT surgery today. Patient continues with continued purulent drainage noted in the tubing. Patient is maintained on antibiotics and awaiting for cultures to finalize. 12/25/2024 Patient seen in follow-up today reports to feeling slightly improved and less short of breath. Patient continues with chest tube CT surgery following will be receiving another tPA administration in the chest tube. Patient continues with purulent drainage although somewhat more clear today. Awaiting finalized cultures and follow-up on chest x-ray to monitor closely. Patient is using incentive spirometer encouraged to use at least 10 times every hour while awake. Continue current pain regimen. Will follow-up on repeat labs. Hemoglobin is stable above 7 with no active bleeding noted. Review of systems CONSTITUTIONAL: No fever, no malaise, no fatigue. GASTROINTESTINAL: No diarrhea, no nausea, no vomiting, no abdominal pain. Normoactive bowel sounds. Respiratory: Reports of continued shortness of breath and cough with right sided chest wall pain near the chest tube site, slightly improved today. NEUROLOGICAL: No headaches, no weakness, no numbness. HEMATOLOGICAL: Denies any bleeding or petechiae. GENITOURINARY: Denies any burning micturition, frequency, or urgency. MUSCULOSKELETAL/RHEUMATOLOGICAL: Denies any joint pain, swelling, or any muscle pain. ENDOCRINE: Denies any polyuria or polydipsia. Physical exam: GENERAL: The patient is alert and oriented x3, not in any acute distress. Well developed, well nourished. HEENT: Pupils are round and equally reacting to light. EOMI. No scleral icterus. No conjunctival pallor. Normocephalic, atraumatic. No pharyngeal erythema. No thyromegaly. CARDIOVASCULAR: S1 and S2 present. No murmurs, rubs, or gallops. -PULMONARY: Diminished breath sounds bilaterally otherwise chest is clear to auscultation, no wheezing , no crackles. Decreased breath sounds in the bases, more so on the right ABDOMEN: Soft, nontender, nondistended, normoactive bowel sounds. No palpable organomegaly. MUSCULOSKELETAL: No joint swelling or deformity. EXTREMITIES: No cyanosis, clubbing, or pedal edema. NEUROLOGICAL: Gross neurological examination did not reveal any focal deficits. SKIN: No rashes. no petechiae. Assessment: Right pneumonia failed outpatient treatment associated with large/huge right pleural effusion with left-sided mediastinal shift right sided thoracocentesis more than 3 L of purulent fluid was drained, empyema receiving tPA instillation in the chest tube with CT surgery Acute hypoxic respiratory failure secondary to assessment #1 Normocytic hypochromic anemia Elevated D-dimer with negative CAT scan from pulmonary embolism GI prophylaxis DVT prophylaxis No code Plan: Continue with antibiotic currently on Zosyn and IV vancomycin. Infectious disease following and awaiting cultures to determine appropriate antibiotics Cardiothoracic surgery following is instilling another dose of tPA and the chest tube with continued significant amounts of purulence noted. Continue with right-sided chest tube at this time per CT surgery. Possible r epeat CT once drainage has lessened. Chest x-ray slightly improved Pulmonary team following closely Continue with breathing inhalational treatments and weaning FiO2 as tolerated. Patient currently maintained on 2 L he does not wear oxygen outpatient Hemoglobin noted to be 7.3 with no active bleeding noted at this time we will follow-up on repeat labs and recommend to transfuse if less than 7 Encouraged incentive spirometer use at least 10 times every hour while awake Patient will need resources outpatient on discharge as patient has no primary care provider at this time The impression and plan of care has been dictated by Suad San Nurse Practitioner as directed. Dr. Mohit MD I have performed a history and examination and MDM of this patient, discussed the same with the dictator, and agree with the dictator's assessment and plan as written ,documented as a scribe. Based on total visit time, I have performed more than 50% of the visit. Objective - Vital Signs Vital signs: Vital Signs Temp 98.4 F 12/25/24 06:50 Pulse 94 12/25/24 08:13 Resp 17 12/25/24 06:50 BP 119/72 12/25/24 06:50 Pulse Ox 97 12/25/24 08:04 FiO2 Intake & Output 12/24/24 12/25/24 12/25/24 18:59 06:59 18:59 Intake Total 200 Output Total 2039 1809 100 Balance -2039 100 Intake: Oral 200 Output: Chest Tube Drainage 310 100 Chest Tube Right 310 100 Drainage 340 Right Chest 340 Urine 1700 1500 Other: Voiding Method Toilet Urinal # Voids 1 - Labs CBC & Chem 7: 12/25/24 06:10 12/25/24 06:10 Labs: Microbiology - Last 24 Hours (Table) 12/20/24 11:21 Gram Stain - Final Pleural Fluid Body Fluid Culture - Final 12/22/24 09:40 Gram Stain - Preliminary Bronchoalviolar Lavage - Right Bronchial Washings Culture - Preliminary
[2024-12-26] MEDS: PANTOPRAZOLE 40 MG TABLET PO SCH (06:30)
[2024-12-26] MEDS: ANIDULAFUNGIN 100 MG in SODIUM CHLORIDE 0.9% 100 ML IVPB SCH (08:16)
--- NOTE | 2024-12-26 08:18 | XR ---
EXAMINATION TYPE: XR chest 1V DATE OF EXAM: 12/26/2024 8:04 AM COMPARISON: Multiple radiographs, with the most recent on 12/25/2024 TECHNIQUE: XR chest 1V Portable AP radiograph of the chest. CLINICAL INDICATION:Male, 54 years old with history of Right empyema; FINDINGS: Lungs/Pleura: Similar small right basilar pneumothorax and small right pleural effusion. Right-sided pleural pigtail catheter is in stable position. Background emphysematous change with parenchymal scar ring bilaterally. Persistent right suprahilar opacity and right basilar opacity. Pulmonary vascularity: Unremarkable. Heart/mediastinum: Cardiomediastinal silhouette is unremarkable. Musculoskeletal: No acute osseous pathology. Right shoulder arthropathy. IMPRESSION: 1. Similar small right basilar pneumothorax with small pleural effusion. Stable position of pigtail catheter. 2. Persistent right suprahilar and right basilar opacities likely representing pneumonia and/or atel ectasis. [facility] Alex, , 12/26/2024 8:15 AM
--- NOTE | 2024-12-26 10:45 | P.PN ---
Subjective Progress Note Date: 12/26/24 Principal diagnosis: Right empyema, trapped right lung. Previous medical history of recent right lower lobe pneumonia with failed treatment of azithromycin and Augmentin, and tobacco dependence with cessation 4 months ago. POD #6 right thoracentesis with 4 L of empyema drained by Dr. Rivera. POD #5 placement of right chest pigtail catheter by Dr. Casarez. The patient was seen and examined in follow-up today December 26, 2024 at his bedside on the fourth floor medical surgical unit. He is currently lying in bed, is awake, alert, oriented x 3 and is in no acute apparent distress. Denies any complaints of shortness of breath or pain at this time. States he feels a little weak today. Oxygen saturations are 95% on room air, and he is achieving 2000 mL on his incentive spirometry with encouragement. Right chest pigtail catheter remains in place to low continuous wall suction -20 cm H2O. No airleak is present. Draining serous/purulent drainage. He received a fourth dose of alteplase/dornase yesterday December 25, 2024, and he drained 550 mL output in the last 24 hours. Chest x-ray and laboratory results reviewed. Objective - Vital Signs Vital signs: Vital Signs Temp 97.8 F 12/26/24 07:00 Pulse 96 12/26/24 09:49 Resp 17 12/26/24 07:00 BP 135/75 12/26/24 07:00 Pulse Ox 95 12/26/24 07:00 FiO2 Intake & Output 12/25/24 12/26/24 12/26/24 18:59 06:59 18:59 Intake Total 450 250 Output Total 900 2700 Balance -450 -2700 250 Intake: Oral 450 250 Output: Chest Tube Drainage 400 Chest Tube Right 400 Urine 500 2700 Other: Voiding Method Urinal # Voids 1 - Exam CONSTITUTIONAL: Appears comfortable, cooperative, no acute distress RESPIRATORY: Lungs sounds diminished on the right. Respirations symmetrical, nonlabored. Currently on 2 L nasal cannula with oxygen saturation 95%. Able to achieve 2000 mL on his incentive spirometry. Strong cough. CARDIOVASCULAR: S1, S2 present. Regular rate and rhythm, sinus rhythm to sinus tach on telemetry. Palpable peripheral pulses bilaterally. No edema present. No calf pain or tenderness noted. SCDs present. GASTROINTESTINAL: Abdomen soft, nontender, nondistended. Active bowel sounds present 4 quadrants. Tolerating diet GENITOURINARY: Continues to void. INTEGUMENTARY: Skin is warm and dry. No clubbing or cyanosis present. NEUROLOGIC: Cranial nerves II through XII intact. No focal deficits. MUSKULOSKELETAL: Able to move all extremities, strength equal bilaterally, gait normal. PSYCHIATRIC: Alert and oriented to person place and time, appropriate affect, intact judgment and insight. INVASIVE LINES AND TUBES: Right sided pigtail catheter present to continuous wall suction drained 550 mL serous/purulent drainage in the last 24 hours. - Allied health notes Allied health notes reviewed: nursing - Labs CBC & Chem 7: 12/25/24 06:10 12/25/24 06:10 Labs: Abnormal Lab Results - Last 24 Hours (Table) 12/25/24 Range/Units 06:10 BUN 4.9 L (9.0-27.0) mg/dL Creatinine 0.4 L (0.6-1.5) mg/dL Calcium 8.5 L (8.7-10.3) mg/dL Microbiology - Last 24 Hours (Table) 12/20/24 11:15 Blood Culture - Final Blood 12/22/24 09:40 Gram Stain - Final Bronchoalviolar Lavage - Right Bronchial Washings Culture - Final Pichia kuiavzevii Actinomyces odontolyticus - Imaging and Cardiology Chest x-ray: report reviewed, image reviewed Assessment and Plan Assessment: Right-sided pleural effusion, empyema, status post thoracentesis with 4 L empyema drained by Dr. Rivera, status post placement of right pleural pigtail catheter with lytic installation Shortness of breath, likely secondary to above Acute hypoxemic respiratory failure secondary to above Normocytic hypochromic anemia Elevated D-dimer, CTA of the chest negative for pulmonary embolus Recent right lower lobe pneumonia, completed a course of Z-[place] and Augmentin History of nicotine dependence, quit smoking 4 months ago Plan: Keep right pleural pigtail catheter in place to low continuous wall suction -20 cm H2O. May disconnect to ambulate to the bathroom and in the uribe. Will instill a fifth dose alteplase/dornase through the pigtail catheter today and clamp for 1 hour post instillation. Wean oxygen as tolerated. Encourage use of incentive spirometry 10 times every hour while awake. Monitor daily chest x-rays. Bronchial washings show positive Pichia Kudriavzevli, Actinomyces odontoyticus Dr. Nick from infectious disease is following, antibiotic management per infectious disease. Increase activity as tolerated. Out of bed for all meals. Encouraged patient to alternate [place] with Toradol instead of taking both at the same time for better pain control. Dr. Jenkins did visit with the patient on 12/24/2023 and discussed our plan for continued lytic installation for several days. If no improvement may consider surgical decortication. More recommendations to follow based on patient's clinical course. Time with Patient: Greater than 30
--- NOTE | 2024-12-26 13:16 | P.PN ---
Subjective Progress Note Date: 12/26/24 Principal diagnosis: Empyema. This is a pleasant 54-year-old male patient with a known history of chronic tobacco dependence stating he quit about 4 months ago. No primary care p rovider. No other medical history. He was here on November 30, 2024 in the emergency department with complaints of increasing shortness of breath cough and congestion. He was found to have a right lower lobe infiltrate and was treated with Augmentin, azithromycin and an albuterol inhaler. He was to follow-up with a primary care provider however he did not. He returned here to the emergency room this morning with worsening shortness of breath over the past week. Chest x-ray shows near complete opacification of the right lung. CT angiogram ruled out pulmonary embolism. There is a large pleural collection noted with numerous internal foci of air and anterior air-filled levels seen. Findings are concerning for abscess or underlying empyema. Complete collapse of the right middle and right lower lobe. Mediastinal shift from right to left. White count 11.2. Hemoglobin 7.6. Platelets 707. D-dimer 1.66. Sodium 136. Potassium 4.5. Bicarb 22. BUN 9. Creatinine 0.42. Glucose 111. Troponin negative x 1. proBNP 283. Viral screen negative for influenza A/B, RSV or COVID. He is seen today in the emergency department. Currently sitting up on a stretcher. He is dyspneic with conversation. Dyspneic with minimal exertion. He is maintaining good O2 saturations in the 90s on room air. Slightly tachypneic. Tachycardic. Ultrasound of the chest revealed a 21.[address] Regan did perform a thoracentesis with just over 4 L of thick pale yellow fluid with sediment re turned. Follow-up chest x-ray revealed significant decrease in the right sided pleural collection. There is a loculated pneumothorax/collection of air measuring 12.6 x 4.5 cm. Scattered coarse and patchy infiltrate seen throughout the right lung. He has been initiated on vancomycin and Zosyn. The patient is seen today December 21, 2024 in follow-up on the regular medical floor. He is currently sitting up in bed. Awake and alert in no acute distress. Breathing easier today compared to yesterday. Attaining good O2 saturations in the 90s on 2 L/min per nasal cannula. Chest x-ray reveals more prominent pleural-based thick-walled right lower lung collection containing predominantly air. More prominent adjacent right basilar compressive atelectasis. Persistent right upper lung diffuse edema and/or atelectasis. CT scan of the chest and abdomen redemonstrates a large fluid collection/hydropneumothorax within the right lung with consolidative opacities and multiple foci of gas. Additional multiloculated portion along the right major fissure superiorly. Reactive mediastinal adenopathy. Moderate COPD changes. Mild hepatic splenomegaly. Cholelithiasis. White count 6.6. Hemoglobin 7.6. Platelets 674. Sodium 136. Potassium 4.1. Bicarb 26. BUN 4. Creatinine 0.47. Glucose 223. Pleural fluid and exudate with total protein greater than 3.6 and LDH greater than 2500. Urine Legionella screen was negative. Pleural fluid cultures pending. Cytology pending. Sputum culture pending. He remains on vancomycin and cefepime. Continued on bronchodilators. Normal saline at 100 mL/h The patient is seen today December 22, 2024 in follow-up on the regular medical floor. He is currently sitting up in bed. Awake and alert in no acute distress. Denies any worsening shortness of breath, cough or congestion. He continues with a dry nonproductive cough. He is maintaining good O2 saturations in the 90s on 2 L nasal cannula. He has been afebrile. Hemodynamically stable. A rig ht sided pigtail catheter was placed by CT services yesterday. Currently 2 Pleur-evac. Receiving alteplase/dornase infusions. They did request bronchoscopy to rule out any endobronchial tumors prior to possible decortication later this week. [place] P was performed today. No endobronchial lesions noted. There was some compression in the right bronchial system due to external fluid. He tolerated the procedure well. He remains on Zosyn. Pleural fluid cultures are pending. Sputum culture is pending. Bronchoscopy with BAL cultures are now pending. White count 6.2. Hemoglobin 8.0. Platelets 621. Sodium 135. Potassium 4.8. Bicarb 27. BUN 3. Creatinine 0.44. He remains on DuoNeb inhalations. [place] and Toradol for pain control. The patient is seen today December 23, 2024 in follow-up on the regular medical floor. He is currently resting in bed. Awake and alert in no acute distress. Maintaining good O2 saturations in the 90s on 2 L/min per nasal cannula. He is been afebrile. Hemodynamically stable. Pleural fluid cultures revealing no growth. Bronchoalveolar lavage cultures revealing no growth thus far. White count 4.7. Hemoglobin 7.0. Platelets 637. Sodium 138. Potassium 4.4. Bicarb 26. BUN 7. Creatinine 0.4. Glucose 187. He is continued on DuoNeb inhalation s. Continued on Zosyn. Chest x-ray continues to show similar small to moderate right-sided pleural effusion with pleural pigtail catheter in place to Pleur- evac to low continuous suction. Infused yesterday. 160 mL of drainage overnight. He continues to work well with the incentive spirometer probably nearly 2000 mL. Plan is to instill alteplase/dornase again today per CT service. Progress note dated December 24, 2024. 54-year-old male seen today in room 468. He is resting comfortably in bed. The patient is currently on 2 L of oxygen. He is not receiving any IV fluids. He continues on Zosyn. The patient has been followed by cardiothoracic surgery, and is receiving lytics, in the pleural space, on a regular and daily basis. Clinically, he feels better. Current laboratory data includes a white count of 5.2, hemoglobin 7.2, hematocrit 24.2, and a platelet count of 593,000. No addit ional labs to report. Chest x-ray shows a similar small to moderate size right- sided pleural effusion, with a pleural pigtail catheter. The chest x-ray is largely unchanged. Progress note dated December 25, 2024. 54-year-old male seen in room 468. He is lying in bed. He is comfortable. He is awake and alert. The patient was admitted with a diagnosis of right-sided empyema. A pigtail catheter was placed on the right side. He has been receiving lytic therapy, over the last few days. He is currently on 2 L of oxygen. He does feel better. Is not receiving any IV fluids. He continues on Zosyn. His chest x-ray today, may be a bit better. White count 5.02, hemoglobin 7.4, hematocrit 26.0, platelet count 602,000. Sodium 136, potassium 5.3, chloride 99, CO2 25, BUN 4.9, creatinine 0.4. Glucose is 100. Calcium is 8.5. Chest x-ray, in my opinion, is largely unchanged, or slightly improved. Progress note dated December 26, 2024. 54-year-old male seen again in room 468. He is sitting in a chair next to his hospital bed. The patient continues nasal O2 2 L. He is getting saline at 50 c c an hour. He continues to get daily Lasix, given to him by cardiothoracic surgery. Clinically, he is doing well, and he does feel better. There may be a modest improvement in the patient's chest x-ray. Current labs are from yesterday, no new labs today. Chest x-ray shows a similar small right basilar pneumothorax, small pleural effusion. The pigtail catheter is in stable position. There is persistent right suprahilar and right basilar opacities. This chest x-ray is largely unchanged. BAL sampling, from the right lung, reveals Pichia kudriavzevii and actinomyces odontolyticus. There are no sensitivities for these organisms as yet. Objective - Vital Signs Vital signs: Vital Signs Temp 97.8 F 12/26/24 07:00 Pulse 96 12/26/24 09:49 Resp 17 12/26/24 07:00 BP 135/75 12/26/24 07:00 Pulse Ox 95 12/26/24 07:00 FiO2 Intake & Output 12/25/24 12/26/24 12/26/24 18:59 06:59 18:59 Intake Total 450 250 Output Total 900 2700 550 Balance -450 -2700 -300 Intake: Oral 450 250 Output: Chest Tube Drainage 400 Chest Tube Right 400 Urine 500 2700 550 Other: Voiding Method Urinal # Voids 1 - Exam No acute distress, oriented 3. Currently, the patient is on 2 L of oxygen. HEENT examination is grossly unremarkable. Mucous membranes are moist. No oral lesions. Neck supple. Full range of motion. No adenopathy thyromegaly or neck vein distention. Cardiovascular examination reveals regular rhythm rate. S1-S2 normal. No S3 or S4. No discernible murmur noted. Lungs reveal diminished breath sounds on the right side. Left lung is clear. A few scattered crackles are noted. No wheezes. Pigtail catheter on the right. Abdomen soft bowel sounds are heard. No masses or tenderness. Extremities are intact. No cyanosis clubbing or edema. Skin is without rash or lesion. Neurologic examination is brief but nonfocal. - Labs CBC & Chem 7: 12/25/24 06:10 12/25/24 06:10 Labs: Microbiology - Last 24 Hours (Table) 12/20/24 11:15 Blood Culture - Final Blood 12/22/24 09:40 Gram Stain - Final Bronchoalviolar Lavage - Right Bronchial Washings Culture - Final Pichia kudriavzevii Actinomyces odontolyticus Assessment and Plan Assessment: Dyspnea secondary to near complete opacification of the right lung. S/P thoracentesis with 4 L of thick yellowish-brown fluid returned. BAL samples positive for Pichia, and actinomyces. Complex right sided pleural effusion secondary to above. Pigtail catheter placed on 12/21/2024 to Pleur-evac. Receiving alteplase/dornase infusion. Bronchoscopy with BAL performed 12/22/2024. No endobronchial tumors identified. Acute hypoxemic respiratory failure secondary to above. Recent treatment for right lower lobe pneumonia on 11/30/2024. Acute anemia of unclear etiology, possibly anemia of chronic disease. Chronic tobacco dependence. Plan: Plan dated December 24, 2024. 54-year-old male again seen in room 468. The patient remains on 2 L. He has been getting lytics into the right pleural space on a daily basis, given to him by cardiothoracic surgery. The patient continues on antibiotics. Labs, x-rays, medications are reviewed. Surgery has made no decision as to whether or not the patient should have a decortication. Clinically, the patient appears relatively stable. We will continue to follow. Culture data is negative. Pigtail catheter remains into the right pleural space. Dictation was produced using [employer] dictation software. Please excuse any grammatical, word or spelling errors. Plan dated December 25, 2024. 54-year-old male seen again in room 468. He remains on 2 L of oxygen. He has a right sided pigtail catheter. He has been receiving tPA and alpha dornase, per cardiothoracic surgery. He continues on Zosyn. Today's chest x-ray may be slightly better. Labs, x-rays, and medications are reviewed. Clinically, he appears to be doing better. We will continue to follow. Prognosis is guarded. Dictation was produced using [employer] software. Please excuse any grammatical, word or spelling errors. Plan dated December 26, 2024. The patient is seen today in room 468. He is sitting in the chair next to the hospital bed. He continues on nasal O2 at 2 L. He also continues on Zosyn. The patient is getting saline at 50 cc an hour. Clinically, the patient appears stable. Bronchoscopy washings, done earlier on this hospitalization, show evidence of actinomyces, and Pichia. Sensitivities are currently pending. Labs, x-rays, and medications are reviewed. We will continue to follow the patient, make recommendations along the way. Prognosis is guarded. Dictation was produced using [employer] software. Please excuse any grammatical, word or spelling errors. Time with Patient: Less than 30
[2024-12-26 13:59] VITALS: BMI 23.0
--- NOTE | 2024-12-26 14:56 | CT ---
EXAMINATION TYPE: CT chest wo con DATE OF EXAM: 12/26/2024 COMPARISON: 12/21/2024 CLINICAL INDICATION: Male, 54 years old with history of Right empyema; PHH, Right empyema TECHNIQUE: CT scan of the thorax is performed without IV contrast. CT DLP: 343.[address] CTDI: mGy Automated exposure control for dose reduction was used. FINDINGS: There has been interval marked reduction in the large hydropneumothorax on the right. There is a smal l persistent small right lung base hydropneumothorax.. There is marked dense airspace consolidation r ight lower lobe with air bronchograms consistent with acute pneumonia or atelectasis. There is a pers istent large loculated fluid collection with air in the superior aspect of the right major fissure co nsistent with loculated empyema. Overall there is significant improved aeration in the right lung but there are marked emphysematous bilaterally. There are no acute changes within the left lung there is no left-sided pneumothorax or pleural effusi on. There is a mild pericardial effusion. There is stable mild mediastinal adenopathy. Great vessels of the chest are normal. Limited scans of the upper abdomen reveal no gross abnormality. There are no osseous lesions. IMPRESSION: 1. Marked improved aeration in the right lung with marked reduction in the hydropneumothorax on the r ight. A small hydropneumothorax persists. 2. Stable loculated effusion/empyema in the superior right minor fissure. 3. Persistent moderate right lower lobe lung consolidation with air bronchograms consistent with atel ectasis/pneumonia 4. Marked emphysematous changes 5. . No acute cardiopulmonary disease in the left lung. 6. Mild pericardial effusion. [facility] Alex, , 12/26/2024 2:54 PM
--- NOTE | 2024-12-26 16:24 | P.PN ---
Subjective Progress Note Date: 12/25/24 Principal diagnosis: Reason for follow-up is pneumonia/empyema Patient is a 54-year-old male with a past medical history significant for pneumonia former smoker presenting to the hospital for evaluation of increasing shortness of breath, patient be diagnosed with a right-sided pneumonia concerning for empyema in this patient was status post chest tube placement on the right side. On today's evaluation that is 12/25/2024, the patient continues to be afebrile, the patient is on 2 L nasal oxygen and breathing comfortably, the Pt right-sided chest pain has slightly decreased in intensity no nausea vomiting no worsening cough no abdominal pain no diarrhea. Patient white count is 5.17, culture currently growing actinomyces and Pichia Kudriavzevii Objective - Vital Signs Vital signs: Vital Signs Temp 98.4 F 12/25/24 14:00 Pulse 99 12/25/24 20:42 Resp 17 12/25/24 14:00 BP 108/68 12/25/24 14:00 Pulse Ox 98 12/25/24 14:00 FiO2 Intake & Output 12/25/24 12/25/24 12/26/24 06:59 18:59 06:59 Intake Total 450 Output Total 1810 900 Balance -1810 -450 Intake: Oral 450 Output: Chest Tube Drainage 310 400 Chest Tube Right 310 400 Urine 1500 500 Other: Voiding Method Urinal # Voids 1 - Exam GENERAL DESCRIPTION: Middle-age male lying in bed in no distress RESPIRATORY SYSTEM: Unlabored breathing , decreased breath sounds at bases HEART: S1 S2 regular rate and rhythm , ABDOMEN: Soft , no tenderness EXTREMITIES: No edema feet - Labs CBC & Chem 7: 12/25/24 06:10 12/25/24 06:10 Labs: Abnormal Lab Results - Last 24 Hours (Table) 12/25/24 12/25/24 Range/Units 06:10 06:10 RBC 3.07 L (4.40-5.60) X 10*6/uL Hgb 7.4 L (13.0-17.0) g/dL Hct 26.0 L (39.6-50.0) % MCH 24.1 L (27.0-32.0) pg MCHC 28.5 L (32.0-37.0) g/dL RDW 15.5 H (11.5-14.5) % Plt Count 602 H (140-440) X 10*3/uL MPV 8.6 L (9.5-12.2) FL Immature Gran # 0.07 H (0.00-0.04) X 10*3/uL BUN 4.9 L (9.0-27.0) mg/dL Creatinine 0.4 L (0.6-1.5) mg/dL Calcium 8.5 L (8.7-10.3) mg/dL Microbiology - Last 24 Hours (Table) 12/20/24 11:15 Blood Culture - Final Blood 12/22/24 09:40 Gram Stain - Final Bronchoalviolar Lavage - Right Bronchial Washings Culture - Final Pichia kudriavzevii Actinomyces odontolyticus Assessment and Plan (1) Sepsis Current Visit: Yes Status: Acute Code(s): A41.9 - SEPSIS, UNSPECIFIED ORGANISM SNOMED Code(s): 40988517 (2) Empyema Current Visit: Yes Status: Acute Code(s): J86.9 - PYOTHORAX WITHOUT FISTULA SNOMED Code(s): 235636499 (3) Pneumonia Current Visit: No Status: Acute Code(s): J18.9 - PNEUMONIA, UNSPECIFIED ORGANISM SNOMED Code(s): 513442109 Plan: 1patient presented to hospital with sepsis in this patient who did have tachycardia elevated white count meeting criteria for SIRS source is right-sided pneumonia and underlying empyema status post thoracocentesis in this patient failing outpatient oral Augmentin and Zithromax therapy will need to cover for r esistant gram-positive as well as gram-negative pathogen 2-patient sputum and pleural fluid cultures so far pending MRSA nasal screen was negative culture currently growing actinomyces and Pichia Kudriavzevii 3I will continue Zosyn and start the patient on Unasyn and Eraxis on the basis of these culture Dictation was produced using [employer] dictation software. please excuse any grammatical, word or spelling errors. Time with Patient: Less than 30
--- NOTE | 2024-12-26 16:25 | P.PN ---
Subjective Progress Note Date: 12/26/24 Principal diagnosis: Reason for follow-up is pneumonia/empyema Patient is a 54-year-old male with a past medical history significant for pneumonia former smoker presenting to the hospital for evaluation of increasing shortness of breath, patient be diagnosed with a right-sided pneumonia concerning for empyema in this patient was status post chest tube placement on the right side. On today's evaluation that is 12/26/2024, Patient is afebrile patient is currently on room air and denies having any shortness of breath, the patient seem to be complaining of more pain on the right side today nausea with vomiting no abdominal pain or diarrhea. Patient white 25.02, creatinine 0.4 Objective - Vital Signs Vital signs: Vital Signs Temp 97.8 F 12/26/24 07:00 Pulse 96 12/26/24 09:49 Resp 17 12/26/24 07:00 BP 135/75 12/26/24 07:00 Pulse Ox 95 12/26/24 07:00 FiO2 Intake & Output 12/25/24 12/26/24 12/26/24 18:59 06:59 18:59 Intake Total 450 250 Output Total 900 2700 550 Balance -450 -2700 -300 Intake: Oral 450 250 Output: Chest Tube Drainage 400 Chest Tube Right 400 Urine 500 2700 550 Other: Voiding Method Urinal # Voids 1 - Exam GENERAL DESCRIPTION: Middle-age male lying in bed in no distress RESPIRATORY SYSTEM: Unlabored breathing , decreased breath sounds at bases HEART: S1 S2 regular rate and rhythm , ABDOMEN: Soft , no tenderness EXTREMITIES: No edema feet - Labs CBC & Chem 7: 12/25/24 06:10 12/25/24 06:10 Labs: Microbiology - Last 24 Hours (Table) 12/20/24 11:15 Blood Culture - Final Blood 12/22/24 09:40 Gram Stain - Final Bronchoalviolar Lavage - Right Bronchial Washings Culture - Final Pichia kudriavzevii Actinomyces odontolyticus Assessment and Plan (1) Sepsis Current Visit: Yes Status: Acute Code(s): A41.9 - SEPSIS, UNSPECIFIED ORGANISM SNOMED Code(s): 99070919 (2) Empyema Current Visit: Yes Status: Acute Code(s): J86.9 - PYOTHORAX WITHOUT FISTULA SNOMED Code(s): 430397471 (3) Pneumonia Current Visit: No Status: Acute Code(s): J18.9 - PNEUMONIA, UNSPECIFIED ORGANISM SNOMED Code(s): 777808953 Plan: 1patient presented to hospital with sepsis in this patient who did have tachycardia elevated white count meeting criteria for SIRS source is right-sided pneumonia and underlying empyema status post thoracocentesis in this patient failing outpatient oral Augmentin and Zithromax therapy will need to cover for resistant gram-positive as well as gram-negative pathogen 2-patient sputum and pleural fluid cultures so far pending MRSA nasal screen was negative culture currently growing actinomyces and Pichia Kudriavzevii 3patient is currently being treated with Unasyn and Eraxis on the basis of pleural culture will need midline for outpatient antibiotic and antifungal Dictation was produced using [employer] dictation software. please excuse any grammatical, word or spelling errors. Time with Patient: Less than 30
[2024-12-26 16:57] LABS: INR 1.1 (<1.2); Prothrombin Time 11.7 sec (10.0-12.5)
[2024-12-27 08:19] LABS: Basophils # (A) 0.03 X 10*3/uL (0.00-0.10); Basophils % (A) 0.5 %; Eosinophils # (A) 0.08 X 10*3/uL (0.04-0.35); Eosinophils % (A) 1.4 %; HCT 26.7 % (39.6-50.0); HGB 7.9 g/dL (13.0-17.0); Lymphocytes # (A) 2.08 X 10*3/uL (0.90-5.00); MCH 24.8 pg (27.0-32.0); MCHC 29.6 g/dL (32.0-37.0); Mean Platelet Volume 8.7 FL (9.5-12.2); Monocytes # (A) 0.68 X 10*3/uL (0.20-1.00); Monocytes % (A) 12.1 %; NRBC Per 100 WBC 0 X 10*3/uL (0.00-0.01); Neutrophils # (A) 2.65 X 10*3/uL (1.80-7.70); Neutrophils % (A) 47.2 %; Platelet Count 578 X 10*3/uL (140-440); RBC 3.18 X 10*6/uL (4.40-5.60); RDW 15.6 % (11.5-14.5); WBC 5.62 X 10*3/uL (4.50-10.00)
--- NOTE | 2024-12-27 08:23 | XR ---
EXAMINATION TYPE: XR chest 1V portable DATE OF EXAM: 12/27/2024 6:35 AM COMPARISON: Multiple radiographs, with the most recent on 12/26/2024, CT chest 12/26/2024 TECHNIQUE: XR chest 1V portable Portable AP radiograph of the chest. CLINICAL INDICATION:Male, 54 years old with history of Right empyema; FINDINGS: Lungs/Pleura: Small right basilar hydropneumothorax redemonstrated. Surrounding right basilar consoli dation is similar. Right suprahilar opacity redemonstrated corresponding to loculated fluid within th e major fissure on yesterday's CT. Left mid and lower lung linear scarring. Interval removal of pleur al pigtail catheter from prior radiograph yesterday. Pulmonary vascularity: Unremarkable. Heart/mediastinum: Cardiomediastinal silhouette is unremarkable. Musculoskeletal: No acute osseous pathology. IMPRESSION: 1. Persistent small right basilar hydropneumothorax with surrounding consolidation related to known empyema. 2. Similar right suprahilar opacity related to known loculated effusion/empyema within the right johana or fissure. [facility], , 12/27/2024 8:21 AM
[2024-12-27 08:28] LABS: Magnesium 2.1 mg/dL (1.5-2.4)
[2024-12-27 09:05] LABS: Blood Urea Nitrogen 9.2 mg/dL (9.0-27.0); Calcium 8.6 mg/dL (8.7-10.3); Carbon Dioxide 24.3 mmol/L (21.6-31.8); Chloride 100 mmol/L (96-109); Glucose 110 mg/dL (70-110); Sodium 137 mmol/L (135-145)
--- NOTE | 2024-12-27 09:08 | P.PN ---
Subjective Progress Note Date: 12/26/24 This is a pleasant 54 years old male with no significant past medical history Patient presents because of worsening dyspnea. About 1 month ago he was diagnosed with pneumonia pneumonia with small right pleural effusion and he was treated with oral antibiotic, this was progressed gradually over this month and become more opacified right lung on chest x-ray. Patient underwent thoracocentesis with pulmonary team while he is still in the emergency room where more than 3 L of purulent fluid has been drained. Patient with no significant pain, no significant coughing and is on room air He denies any other specific symptoms He quit smoking about 4 months ago with no alcohol or illicit drugs. Vitals stable he was mildly tachycardic which is improving now Labs showing leukocytosis 11.2, hemoglobin 7.6. Platelet count 707 Rest of BMP LFT troponin and INR were unremarkable D-dimer was elevated 1.6. He underwent CTA of the chest which was negative for PE but showing large pleural effusion on the right with collapse of the right lung. Chest x-ray and CTA of the lung showing the same findings of large pleural effusion and collapse of the right lung EKG showing sinus tachycardia [address]-T changes Patient underwent right sided thoracocentesis more than 3 L of purulent fluid was drained. And patient tolerated the procedure well 12/21 Patient feels more comfortable and breathing easily no significant chest pain or coughing Repeat CT of the chest and abdomen showing loculated still large fluid collection in the right lung for his empyema. thoracic surgery was consulted for possible decortication Patient currently kept on IV vancomycin and Zosyn pending final culture results 12/22 Patient breathing better Remains on oxygen He is s/p bronchoscopy showing no tumor Status post right-sided chest tube with about 2 L of discharge mainly purulent and pus Cardiothoracic surgery team following closely Culture pending Remains on Zosyn 12/23/2024 Patient is seen in follow-up today remains with a right-sided chest tube with CT surgery following administering another dose of tPA for right empyema. Infectious disease and pulmonary following as well and will continue current reg imen while awaiting cultures. Patient has been encouraged to increase activity as tolerated and continued incentive spirometer use at least 10 times every hour while awake. Patient is currently maintained on 2 L via nasal cannula and does not wear oxygen outpatient. Hemoglobin is noted to be 7 and will follow-up on repeat labs, transfuse if less than 7. Will follow-up on cultures and discuss quentin sonya with consultations regarding treatment plan moving forward. No plans of chest tube removal as of yet as patient continues with significant amount of purulence being drained. 12/24/2024 Patient is seen in follow-up today reports to feeling lethargic today but doing well otherwise. Patient is continued on oxygenation at 2 L and reports shortness of breath. Patient reports his pain during breakthrough is becoming extreme and Toradol is helping asking for increased frequency. Will adjust [place] slightly and encouraged continued incentive spirometer use and increased activity as tolerated with sitting up more frequently. Plan is for tPA instillation through the chest tube per CT surgery today. Patient continues with continued purulent drainage noted in the tubing. Patient is maintained on antibiotics and awaiting for cultures to finalize. 12/25/2024 Patient seen in follow-up today reports to feeling slightly improved and less short of breath. Patient continues with chest tube CT surgery following will be receiving another tPA administration in the chest tube. Patient continues with purulent drainage although somewhat more clear today. Awaiting finalized cultures and follow-up on chest x-ray to monitor closely. Patient is using incentive spirometer encouraged to use at least 10 times every hour while awake. Continue current pain regimen. Will follow-up on repeat labs. Hemoglobin is stable above 7 with no active bleeding noted. IV 04/09/2025 Patient seen and evaluated in follow-up this morning and continues with right side chest tube and has been receiving tPA administrations with follow-up chest x-ray that shows similar small right basilar pneumothorax with small pleural effusion stable position of pigtail catheter with persistent right suprahilar and right basilar opacities likelypichia kudriavzevii along with Actinomyces odontolyticus and is continued on Unasyn anidulafungin and per ID recommendations. Patient is afebrile and reports to feeling weak and fatigued today. Repeat chest x-ray will be ordered for tomorrow and patient has scheduled CT of the chest per CT surgery for further evaluation of the loculated empyema. Review of systems CONSTITUTIONAL: No fever, no malaise, no fatigue. GASTROINTESTINAL: No diarrhea, no nausea, no vomiting, no abdominal pain. Normoactive bowel sounds. Respiratory: Reports of continued shortness of breath and cough with right sided chest wall pain near the chest tube site, slightly improved today. NEUROLOGICAL: No headaches, no weakness, no numbness. HEMATOLOGICAL: Denies any bleeding or petechiae. GENITOURINARY: Denies any burning micturition, frequency, or urgency. MUSCULOSKELETAL/RHEUMATOLOGICAL: Denies any joint pain, swelling, or any muscle pain. ENDOCRINE: Denies any polyuria or polydipsia. Physical exam: GENERAL: The patient is alert and oriented x3, not in any acute distress. Well developed, well nourished. HEENT: Pupils are round and equally reacting to light. EOMI. No scleral icterus. No conjunctival pallor. Normocephalic, atraumatic. No pharyngeal erythema. No thyromegaly. CARDIOVASCULAR: S1 and S2 present. No murmurs, rubs, or gallops. -PULMONARY: Diminished breath sounds bilaterally otherwise chest is clear to auscultation, no wheezing , no crackles. Decreased breath sounds in the bases, more so on the right ABDOMEN: Soft, nontender, nondistended, normoactive bowel sounds. No palpable organomegaly. MUSCULOSKELETAL: No joint swelling or deformity. EXTREMITIES: No cyanosis, clubbing, or pedal edema. NEUROLOGICAL: Gross neurological examination did not reveal any focal deficits. SKIN: No rashes. no petechiae. Assessment: Right pneumonia failed outpatient treatment associated with large/huge right pleural effusion with left-sided mediastinal shift right sided thoracocentesis more than 3 L of purulent fluid was drained, empyema receiving tPA instillation in the chest tube with CT surgery Acute hypoxic respiratory failure secondary to assessment #1 Normocytic hypochromic anemia Elevated D-dimer with negative CAT scan from pulmonary embolism GI prophylaxis DVT prophylaxis No code Plan: Continue with antibiotic currently on Zosyn and IV vancomycin. Infectious disease following and awaiting cultures to determine appropriate antibiotics Cardiothoracic surgery following is instilling another dose of tPA and the chest tube with continued significant amounts of purulence noted. Continue with right-sided chest tube at this time per CT surgery. repeat CT ordered for today and pending. drainage has lessened. Chest x-ray slightly improved Pulmonary team following closely Continue with breathing inhalational treatments and weaning FiO2 as tolerated. Patient currently maintained on 2 L he does not wear oxygen outpatient Hemoglobin noted to be 7.3 with no active bleeding noted at this time we will follow-up on repeat labs and recommend to transfuse if less than 7 Encouraged incentive spirometer use at least 10 times every hour while awake Patient will need resources outpatient on discharge as patient has no primary care provider at this time The impression and plan of care has been dictated by Suad San, Nurse Pr actitioner as directed. Dr. Mohit MD I have performed a history and examination and MDM of this patient, discussed the same with the dictator, and agree with the dictator's assessment and plan as written ,documented as a scribe. Based on total visit time, I have performed more than 50% of the visit. Objective - Vital Signs Vital signs: Vital Signs Temp 98.7 F 12/27/24 07:19 Pulse 94 12/27/24 07:19 Resp 18 12/27/24 07:19 BP 117/73 12/27/24 07:19 Pulse Ox 95 12/27/24 07:19 FiO2 Intake & Output 12/26/24 12/27/24 12/27/24 18:59 06:59 18:59 Intake Total 250 Output Total 1750 900 Balance -1500 -900 Weight 77.111 kg Intake: Oral 250 Output: Urine 1750 900 Other: Voiding Method Urinal # Voids 1 - Labs CBC & Chem 7: 12/27/24 04:51 12/25/24 06:10 Labs: Abnormal Lab Results - Last 24 Hours (Table) 12/27/24 Range/Units 04:51 RBC 3.18 L (4.40-5.60) X 10*6/uL Hgb 7.9 L (13.0-17.0) g/dL Hct 26.7 L (39.6-50.0) % MCH 24.8 L (27.0-32.0) pg MCHC 29.6 L (32.0-37.0) g/dL RDW 15.6 H (11.5-14.5) % Plt Count 578 H (140-440) X 10*3/uL MPV 8.7 L (9.5-12.2) FL Immature Gran # 0.10 H (0.00-0.04) X 10*3/uL
--- NOTE | 2024-12-27 10:56 | P.PN ---
Subjective Progress Note Date: 12/27/24 Principal diagnosis: Right empyema, trapped right lung. Previous medical history of recent right lower lobe pneumonia with failed treatment of azithromycin and Augmentin, and tobacco dependence with cessation 4 months ago. POD #7 right thoracentesis with 4 L of empyema drained by Dr. Rivera. POD #6 placement of right chest pigtail catheter by Dr. Casarez. The patient was seen and examined in follow-up today December 27, 2024 at his bedside on the [facility] medical surgical unit. He is currently sitting up to the bedside chair, is awake, alert, oriented x 3 and is in no acute apparent distress. Denies any complaints of pain or shortness of breath at this time. He reports he feels improved today from yesterday. His right pigtail catheter chest tube accidentally fell out yesterday, a clean, dry dressing remains intact to his pigtail catheter site. He had received 4 doses of alteplase/dornase. He is scheduled for a right pigtail catheter placement today by interventional radiology scheduled for 1 PM. Once his pigtail catheter has been placed we will instill a fifth dose of alteplase/dornase. Bronchial washings cultures showed positive for Pichia kudriavzevil, actinomyces odontolyicus and he is currently receiving Unasyn and Eraxis for antibiotic coverage managed by infectious disease. A CT scan of the chest was completed yesterday which showed marked im proved aeration in the right lung with marked reduction in the hydropneumothorax on the right, a small hydropneumothorax persist, stable loculated effusion/empyema in the superior right minor fissure, persistent moderate right lower lobe lung consolidation with air bronchograms consistent with atele ctasis/pneumonia, marked emphysematous changes, no acute cardiopulmonary disease in the left lung and mild pericardial effusion. Chest x-ray results from this morning reviewed. Objective - Vital Signs Vital signs: Vital Signs Temp 98.7 F 12/27/24 07:19 Pulse 94 12/27/24 09:58 Resp 18 12/27/24 07:45 BP 117/73 12/27/24 07:19 Pulse Ox 95 12/27/24 07:19 FiO2 Intake & Output 12/26/24 12/27/24 12/27/24 18:59 06:59 18:59 Intake Total 250 Output Total 1750 900 400 Balance -1500 900 -400 Weight 77.111 kg Intake: Oral 250 Output: Urine 1750 900 400 Other: Voiding Method Urinal Urinal # Voids 1 - Exam CONSTITUTIONAL: Appears comfortable, cooperative, no acute distress RESPIRATORY: Lungs sounds diminished on the right. Respirations symmetrical, nonlabored. Currently on room air with oxygen saturation 99%. Able to achieve 2250 mL on his incentive spirometry. Strong cough. CARDIOVASCULAR: S1, S2 present. Regular rate and rhythm, sinus rhythm on telemetry. Palpable peripheral pulses bilaterally. No edema present. No calf pain or tenderness noted. SCDs present. GASTROINTESTINAL: Abdomen soft, nontender, nondistended. Active bowel sounds present 4 quadrants. Tolerating diet GENITOURINARY: Continues to void. INTEGUMENTARY: Skin is warm and dry. No clubbing or cyanosis present. NEUROLOGIC: Cranial nerves II through XII intact. No focal deficits. MUSKULOSKELETAL: Able to move all extremities, strength equal bilaterally, gait normal. PSYCHIATRIC: Alert and oriented to person place and time, appropriate affect, intact judgment and insight. - Allied health notes Allied health notes reviewed: nursing - Labs CBC & Chem 7: 12/27/24 04:51 12/27/24 04:51 Labs: Abnormal Lab Results - Last 24 Hours (Table) 12/27/24 12/27/24 Range/Units 04:51 04:51 RBC 3.18 L (4.40-5.60) X 10*6/uL Hgb 7.9 L (13.0-17.0) g/dL Hct 26.7 L (39.6-50.0) % MCH 24.8 L (27.0-32.0) pg MCHC 29.6 L (32.0-37.0) g/dL RDW 15.6 H (11.5-14.5) % Plt Count 578 H (140-440) X 10*3/uL MPV 8.7 L (9.5-12.2) FL Immature Gran # 0.10 H (0.00-0.04) X 10*3/uL Anion Gap 12.70 H (4.00-12.00) mmol/L Creatinine 0.4 L (0.6-1.5) mg/dL BUN/Creatinine Ratio 23.00 H (12.00-20.00) Ratio Calcium 8.6 L (8.7-10.3) mg/dL - Imaging and Cardiology Chest x-ray: report reviewed, image reviewed CT scan - chest: report reviewed, image reviewed Assessment and Plan Assessment: Right-sided pleural effusion, empyema, status post thoracentesis with 4 L empyema drained by Dr. Rivera, status post placement of right pleural pigtail catheter with lytic installation Shortness of breath, likely secondary to above Acute hypoxemic respiratory failure secondary to above Normocytic hypochromic anemia Elevated D-dimer, CTA of the chest negative for pulmonary embolus Bronchial washing cultures positive for Pichia kudriavzevil, actinomyces od ontolyicus Recent right lower lobe pneumonia, completed a course of Z-[place] and Augmentin History of nicotine dependence, quit smoking 4 months ago Plan: The patient is scheduled for placement of right pigtail catheter today by interventional radiology, scheduled for 1 PM. Once catheter is placed we will instill a fifth dose alteplase/dornase through the pigtail catheter today and clamp for 1 hour post instillation. The patient may disconnect the pigtail catheter to walk in the uribe and ambulate to the bathroom. Wean oxygen as tolerated. Encourage use of incentive spirometry 10 times every hour while awake. Monitor daily chest x-rays. Bronchial washings show positive Pichia Kudriavzevli, Actinomyces odontoyticus Dr. Nick from infectious disease is following, antibiotic management per infectious disease. Increase activity as tolerated. Out of bed for all meals. Encourage ambulation Encouraged patient to alternate [place] with Toradol instead of taking both at the same time for better pain control. Dr. Jenkins did visit with the patient on 12/24/2023 and discussed our plan for continued lytic installation for several days. If no improvement may consider surgical decortication. More recommendations to follow based on patient's clinical course. Time with Patient: Greater than 30
--- NOTE | 2024-12-27 13:19 | P.PN ---
Subjective Progress Note Date: 12/27/24 This is a pleasant 54-year-old male patient with a known history of chronic tobacco dependence stating he quit about 4 months ago. No primary care provider. No other medical history. He was here on November 30, 2024 in the emergency department with complaints of increasing shortness of breath cough and congestion. He was found to have a right lower lobe infiltrate and was treated with Augmentin, azithromycin and an albuterol inhaler. He was to follow-up with a primary care provider however he did not. He returned here to the emergency room this morning with worsening shortness of breath over the past week. Chest x-ray shows near complete opacification of the right lung. CT angiogram ruled out pulmonary embolism. There is a large pleural collection noted with numerous internal foci of air and anterior air-filled levels seen. Findings are concerning for abscess or underlying empyema. Complete collapse of the right middle and right lower lobe. Mediastinal shift from right to left. White count 11.2. Hemoglobin 7.6. Platelets 707. D-dimer 1.66. Sodium 136. Potassium 4.5. Bicarb 22. BUN 9. Creatinine 0.42. Glucose 111. Troponin negative x 1. proBNP 283. Viral screen negative for influenza A/B, RSV or COVID. He is seen today in the emergency department. Currently sitting up on a stretcher. He is dyspneic with conversation. Dyspneic with minimal exertion. He is maintaining good O2 saturations in the 90s on room air. Slightly tachypneic. Tachycardic. Ultrasound of the chest revealed a 21.[address] Regan did perform a thoracentesis with just over 4 L of thick pale yellow fluid with sediment returned. Follow-up chest x-ray revealed significant decrease in the right sided pleural collection. There is a loculated pneumothorax/collection of air measuring 12.6 x 4.5 cm. Scattered coarse and patchy infiltrate seen throughout the right lung. He has been initiated on vancomycin and Zosyn. The patient is seen today December 21, 2024 in follow-up on the regular medical floor. He is currently sitting up in bed. Awake and alert in no acute distress. B reathing easier today compared to yesterday. Attaining good O2 saturations in the 90s on 2 L/min per nasal cannula. Chest x-ray reveals more prominent pleural-based thick-walled right lower lung collection containing predominantly air. More prominent adjacent right basilar compressive atelectasis. Persistent right upper lung diffuse edema and/or atelectasis. CT scan of the chest and abdomen redemonstrates a large fluid collection/hydropneumothorax within the right lung with consolidative opacities and multiple foci of gas. Additional multiloculated portion along the right major fissure superiorly. Reactive mediastinal adenopathy. Moderate COPD changes. Mild hepatic splenomegaly. Ch olelithiasis. White count 6.6. Hemoglobin 7.6. Platelets 674. Sodium 136. Potassium 4.1. Bicarb 26. BUN 4. Creatinine 0.47. Glucose 223. Pleural fluid and exudate with total protein greater than 3.6 and LDH greater than 2500. Urine Legionella screen was negative. Pleural fluid cultures pending. Cytology pending. Sputum culture pending. He remains on vancomycin and cefepime. Continued on bronchodilators. Normal saline at 100 mL/h The patient is seen today December 22, 2024 in follow-up on the regular medical floor. He is currently sitting up in bed. Awake and alert in no acute distress. Denies any worsening shortness of breath, cough or congestion. He continues with a dry nonproductive cough. He is maintaining good O2 saturations in the 90s on 2 L nasal cannula. He has been afebrile. Hemodynamically stable. A right sided pigtail catheter was placed by CT services yesterday. Currently 2 Pleur-evac. Receiving alteplase/dornase infusions. They did request bronchoscopy to rule out any endobronchial tumors prior to possible decortication later this week. Koska P was performed today. No endobronchial lesions noted. There was some compression in the right bronchial system due to external fluid. He tolerated the procedure well. He remains on Zosyn. Pleural fluid cultures are pending. Sputum culture is pending. Bronchoscopy with BAL cultures are now pending. White count 6.2. Hemoglobin 8.0. Platelets 621. Sodium 135. Potassium 4.8. Bicarb 27. BUN 3. Creatinine 0.44. He remains on DuoNeb inhalations. Eugene and Toradol for pain control. The patient is seen today December 23, 2024 in follow-up on the regular medical floor. He is currently resting in bed. Awake and alert in no acute distress. Maintaining good O2 saturations in the 90s on 2 L/min per nasal cannula. He is been afebrile. Hemodynamically stable. Pleural fluid cultures revealing no growth. Bronchoalveolar lavage cultures revealing no growth thus far. White count 4.7. Hemoglobin 7.0. Platelets 637. Sodium 138. Potassium 4.4. Bicarb 26. BUN 7. Creatinine 0.4. Glucose 187. He is continued on DuoNeb inhalations. Continued on Zosyn. Chest x-ray continues to show similar small to moderate right-sided pleural effusion with pleural pigtail catheter in place to Pleur-evac to low continuous suction. Infused yesterday. 160 mL of drainage overnight. He continues to work well with the incentive spirometer probably nearly 2000 mL. Plan is to instill alteplase/dornase again today per CT service. The patient is seen today December 27, 2024 in follow-up on the regular medical floor. He is sitting up in bed. Awake and alert in no acute distress. Maintaining good O2 saturations in the 90s on room air oxygen. His right sided pigtail catheter was inadvertently removed yesterday. A CT scan of the chest continue to show marked improved aeration in the right lung with marked reduction in the hydropneumothorax on the right. A small hydropneumothorax persists. Stable loculated effusion/empyema in the superior right minor fissure. Persistent moderate right lower lobe lung consolidation with air bronchograms consistent with atelectasis/pneumonia. Marked emphysematous changes. No acute pulmonary disease of the left lung. The plan is to have the pigtail catheter replaced today and to continue with alteplase/dornase infusions per CT service. Bronchoalveolar lavage cultures were positive for Pichia kudriavzevii and actinomyces odontolyticus process. He is continued on DuoNeb inhalations. Remains on antibiotics in the form of Unasyn. Remains on Eraxis. Continues to work well with the incentive spirometer. White count 5.6. Hemoglobin 7.9. Platelets 578. Sodium 137. Potassium 5.0. Bicarb 24. BUN 9. Creatinine 0.9. Glucose 110. Objective - Vital Signs Vital signs: Vital Signs Temp 98.7 F 12/27/24 07:19 Pulse 94 12/27/24 09:58 Resp 18 12/27/24 07:45 BP 117/73 12/27/24 07:19 Pulse Ox 95 12/27/24 07:19 FiO2 Intake & Output 12/26/24 12/27/24 12/27/24 18:59 06:59 18:59 Intake Total 250 Output Total 1750 900 400 Balance -1500 -900 -400 Weight 77.111 kg Intake: Oral 250 Output: Urine 1750 900 400 Other: Voiding Method Urinal Urinal # Voids 1 - Exam GENERAL EXAM: Alert, pleasant 54-year-old male, resting in bed, on room air oxygen, comfortable in no apparent distress. HEAD: Normocephalic. EYES: Normal reaction of pupils, equal size. NOSE: Clear with pink turbinates. THROAT: No erythema or exudates. NECK: No masses, no JVD. CHEST: No chest wall deformity. Right sided pigtail catheter to be replaced and put to Pleur-evac to wall suction. LUNGS: Equal air entry with scattered rhonchi, crackles in the right lung. CVS: S1 and S2 normal with no audible murmur, regular rhythm. ABDOMEN: No hepatosplenomegaly, normal bowel sounds, no guarding or rigidity. SPINE: No scoliosis or deformity SKIN: No rashes CENTRAL NERVOUS SYSTEM: No focal deficits, tone is normal in all 4 extremities. EXTREMITIES: There is no peripheral edema. No clubbing, no cyanosis. Peripheral pulses are intact. - Labs CBC & Chem 7: 12/27/24 04:51 12/27/24 04:51 Labs: Abnormal Lab Results - Last 24 Hours (Table) 12/27/24 12/27/24 Range/Units 04:51 04:51 RBC 3.18 L (4.40-5.60) X 10*6/uL Hgb 7.9 L (13.0-17.0) g/dL Hct 26.7 L (39.6-50.0) % MCH 24.8 L (27.0-32.0) pg MCHC 29.6 L (32.0-37.0) g/dL RDW 15.6 H (11.5-14.5) % Plt Count 578 H (140-440) X 10*3/uL MPV 8.7 L (9.5-12.2) FL Immature Gran # 0.10 H (0.00-0.04) X 10*3/uL Anion Gap 12.70 H (4.00-12.00) mmol/L Creatinine 0.4 L (0.6-1.5) mg/dL BUN/Creatinine Ratio 23.00 H (12.00-20.00) Ratio Calcium 8.6 L (8.7-10.3) mg/dL Assessment and Plan Assessment: Dyspnea secondary to near complete opacification of the right lung. Status post thoracentesis today with 4 L of thick yellowish-brown fluid returned. Cultures, fluid analysis and cytology pending. Currently on vancomycin and cefepime. CT scan of the chest and abdomen redemonstrates a large fluid collection/hydropneumothorax within the right lung with consolidative opacities and multiple foci of gas. Additional multiloculated portion along the right johana or fissure superiorly. Reactive mediastinal adenopathy. Moderate COPD changes. Mild hepatic splenomegaly. Cholelithiasis. Complex right sided pleural effusion secondary to above. Pigtail catheter placed on 12/21/2024 to Pleur-evac. Receiving alteplase/dornase infusion. Bronchoscopy with BAL performed 12/22/2024. No endobronchial tumors identified. There was some external compression noted from pleural fluid, trapped lung. A CT scan of the chest continue to show marked improved aeration in the right lung with marked reduction in the hydropneumothorax on the right. A small hydropneumothorax persists. Stable loculated effusion/empyema in the superior right minor fissure. Persistent moderate right lower lobe lung consolidation with air bronchograms consistent with atelectasis/pneumonia. Marked emphysematous changes. No acute pulmonary disease of the left lung. The plan is to have the pigtail catheter replaced today and to continue with alteplase/dornase infusions per CT service. Post bronchoscopy with BAL on 12/22/2024. Bronchoalveolar lavage cultures were positive for Pichia kudriavzevii and actinomyces odontolyticus process. Remains on Unasyn. Remains on Eraxis. Acute hypoxemic respiratory failure secondary to above, recovered and on room air oxygen Recent treatment for right lower lobe pneumonia on 11/30/2024 in our emergency department with Augmentin and azithromycin Acute anemia of unclear etiology, current hemoglobin 8.0. When on 11/30/2024 was 11.0 Chronic tobacco dependence, states quit approximately 4 months ago No primary care provider, no recent health care assessment Plan: The patient was seen and evaluated CT scan of the chest, chest x-ray, labs and medications reviewed Right sided pigtail catheter to be replaced today Alteplase/dornase infusions per CT service Continue Unasyn and Eraxis per ID service Currently stable and on room air oxygen Continue bronchodilators Continue the incentive spirometer Increase his activity as tolerated We will continue to follow I have personally seen and examined the patient, performed the documentation and the assessment and plan as written. Number of minutes spent on the visit: 10 Dictation was produced using [employer] dictation software. Please excuse any grammatical, word or spelling errors.
[2024-12-27] MEDS: KETOROLAC 15 MG/ML 1 ML VIAL IVP SCH (14:48)
[2024-12-27] MEDS: DORNASE ALFA 5 MG in SODIUM CHLORIDE 0.9% 50 ML IRRIGATION ONE ×2 (15:15→18:08)
[2024-12-27] MEDS: ALTEPLASE 10 MG in SODIUM CHLORIDE 0.9% 50 ML IRRIGATION ONE ×2 (15:15→18:08)
--- NOTE | 2024-12-28 00:04 | P.PN ---
Subjective Progress Note Date: 12/27/24 This is a pleasant 54 years old male with no significant past medical history Patient presents because of worsening dyspnea. About 1 month ago he was diagnosed with pneumonia pneumonia with small right pleural effusion and he was treated with oral antibiotic, this was progressed gradually over this month and become more opacified right lung on chest x-ray. Patient underwent thoracocentesis with pulmonary team while he is still in the emergency room where more than 3 L of purulent fluid has been drained. Patient with no significant pain, no significant coughing and is on room air He denies any other specific symptoms He quit smoking about 4 months ago with no alcohol or illicit drugs. Vitals stable he was mildly tachycardic which is improving now Labs showing leukocytosis 11.2, hemoglobin 7.6. Platelet count 707 Rest of BMP LFT troponin and INR were unremarkable D-dimer was elevated 1.6. He underwent CTA of the chest which was negative for PE but showing large pleural effusion on the right with collapse of the right lung. Chest x-ray and CTA of the lung showing the same findings of large pleural effusion and collapse of the right lung EKG showing sinus tachycardia [address]-T changes Patient underwent right sided thoracocentesis more than 3 L of purulent fluid was drained. And patient tolerated the procedure well 12/21 Patient feels more comfortable and breathing easily no significant chest pain or coughing Repeat CT of the chest and abdomen showing loculated still large fluid collection in the right lung for his empyema. thoracic surgery was consulted for possible decortication Patient currently kept on IV vancomycin and Zosyn pending final culture results 12/22 Patient breathing better Remains on oxygen He is s/p bronchoscopy showing no tumor Status post right-sided chest tube with about 2 L of discharge mainly purulent and pus Cardiothoracic surgery team following closely Culture pending Remains on Zosyn 12/23/2024 Patient is seen in follow-up today remains with a right-sided chest tube with CT surgery following administering another dose of tPA for right empyema. Infectious disease and pulmonary following as well and will continue current reg imen while awaiting cultures. Patient has been encouraged to increase activity as tolerated and continued incentive spirometer use at least 10 times every hour while awake. Patient is currently maintained on 2 L via nasal cannula and does not wear oxygen outpatient. Hemoglobin is noted to be 7 and will follow-up on repeat labs, transfuse if less than 7. Will follow-up on cultures and discuss quentin sonya with consultations regarding treatment plan moving forward. No plans of chest tube removal as of yet as patient continues with significant amount of purulence being drained. 12/24/2024 Patient is seen in follow-up today reports to feeling lethargic today but doing well otherwise. Patient is continued on oxygenation at 2 L and reports shortness of breath. Patient reports his pain during breakthrough is becoming extreme and Toradol is helping asking for increased frequency. Will adjust N orco slightly and encouraged continued incentive spirometer use and increased activity as tolerated with sitting up more frequently. Plan is for tPA instillation through the chest tube per CT surgery today. Patient continues with continued purulent drainage noted in the tubing. Patient is maintained on antibiotics and awaiting for cultures to finalize. 12/25/2024 Patient seen in follow-up today reports to feeling slightly improved and less short of breath. Patient continues with chest tube CT surgery following will be receiving another tPA administration in the chest tube. Patient continues with purulent drainage although somewhat more clear today. Awaiting finalized cultures and follow-up on chest x-ray to monitor closely. Patient is using incentive spirometer encouraged to use at least 10 times every hour while awake. Continue current pain regimen. Will follow-up on repeat labs. Hemoglobin is stable above 7 with no active bleeding noted. 12/26/2024 Patient seen and evaluated in follow-up this morning and continues with right side chest tube and has been receiving tPA administrations with follow-up chest x-ray that shows similar small right basilar pneumothorax with small pleural effusion stable position of pigtail catheter with persistent right suprahilar and right basilar opacities likely. Patient is continued on Unasyn anidulafungin and per ID recommendations. Culture showing pichia kudriavzevii along with Actinomyces odontolyticus. patient is afebrile and reports to feeling weak and fatigued today. Repeat chest x-ray will be ordered for tomorrow and patient has scheduled CT of the chest per CT surgery for further evaluation of the loculated empyema. 12/27/2024 Patient is seen in follow-up today per CT surgery. Pulmonary following along with infectious disease as patient was noted to have loculated empyema status post chest tube. Apparently chest tube was dislodged and awaiting repeat chest tube insertion to be placed sometime today per CT surgery. Patient is afebrile and denies worsening shortness of breath actually reports to feeling somewhat im proved and is currently on room air. Patient does fatigue easily and becomes dyspneic with exertion. Patient has been encouraged to continue with incentive spirometer. Review of systems: Constitutional: No reports of fatigue, fever, or chills Cardiovascular: No reports of chest pain, reports chest wall pain with the chest tube site Respiratory: o reports of shortness of breath with occasional cough, shortness of breath is slightly improved GI: No reports of nausea, vomiting, or diarrhea : No reports of dysuria or retention Neurovascular: No reports of weakness or numbness All medications have been reviewed Physical exam: GENERAL: The patient is alert and oriented x3, not in any acute distress. Well developed, well nourished. Appears older than stated age HEENT: Pupils are round and equally reacting to light. EOMI. No scleral icterus. No conjunctival pallor. Normocephalic, atraumatic. No pharyngeal erythema. No thyromegaly. CARDIOVASCULAR: S1 and S2 present. No murmurs, rubs, or gallops. -PULMONARY: Diminished breath sounds bilaterally otherwise chest is clear to auscultation, no wheezing , no crackles. Decreased breath sounds in the bases, more so on the right ABDOMEN: Soft, nontender, nondistended, normoactive bowel sounds. No palpable organomegaly. MUSCULOSKELETAL: No joint swelling or deformity. EXTREMITIES: No cyanosis, clubbing, or pedal edema. NEUROLOGICAL: Gross neurological examination did not reveal any focal deficits. SKIN: No rashes. no petechiae. Assessment: Right pneumonia failed outpatient treatment associated with large/huge right pleural effusion with left-sided mediastinal shift right sided thoracocentesis more than 3 L of purulent fluid was drained, empyema receiving tPA instillation in the chest tube with CT surgery, cultures showing pichia kudriavzevii along with Actinomyces odontolyticus and yeast Acute hypoxic respiratory failure secondary to assessment #1, improving and currently on room air Normocytic hypochromic anemia Elevated D-dimer with negative CAT scan from pulmonary embolism GI prophylaxis DVT prophylaxis No code Plan: Continue with antibiotic currently on Zosyn and IV vancomycin. Infectious disease following and awaiting cultures to determine appropriate antibiotics. Cardiothoracic surgery following is instilling another dose of tPA and the chest tube with continued significant amounts of purulence noted. Patient did have right-sided chest tube although apparently was dislodged accidentally at this time per CT surgery. Will have new chest tube placed sometime today. Follow-up on repeat chest x-ray Pulmonary team following closely Continue with breathing inhalational treatments and weaning FiO2 as tolerated. Patient currently room air today and continues with intermittent supplemental oxygen. Patient does not wear oxygen outpatient Hemoglobin noted to be 7.9 with no active bleeding noted at this time we will follow-up on repeat labs and recommend to transfuse if less than 7. Will obtain iron studies as patient's hemoglobin in November of this year was 11 Encouraged incentive spirometer use at least 10 times every hour while awake Patient will need resources outpatient on discharge as patient has no primary care provider at this time The impression and plan of care has been dictated by Suad San, Nurse Practitioner as directed. Dr. Devendra MD I have performed a history and examination and MDM of this patient, discussed the same with the dictator, and agree with the dictator's assessment and plan as written ,documented as a scribe. Based on total visit time, I have performed more than 50% of the visit. Objective - Vital Signs Vital signs: Vital Signs Temp 98.7 F 12/27/24 07:19 Pulse 94 12/27/24 07:19 Resp 18 12/27/24 07:19 BP 117/73 12/27/24 07:19 Pulse Ox 95 12/27/24 07:19 FiO2 Intake & Output 12/26/24 12/27/24 12/27/24 18:59 06:59 18:59 Intake Total 250 Output Total 1750 900 Balance -1500 -900 Weight 77.111 kg Intake: Oral 250 Output: Urine 1750 900 Other: Voiding Method Urinal # Voids 1 - Labs CBC & Chem 7: 12/27/24 04:51 12/27/24 04:51 Labs: Abnormal Lab Results - Last 24 Hours (Table) 12/27/24 12/27/24 Range/Units 04:51 04:51 RBC 3.18 L (4.40-5.60) X 10*6/uL Hgb 7.9 L (13.0-17.0) g/dL Hct 26.7 L (39.6-50.0) % MCH 24.8 L (27.0-32.0) pg MCHC 29.6 L (32.0-37.0) g/dL RDW 15.6 H (11.5-14.5) % Plt Count 578 H (140-440) X 10*3/uL MPV 8.7 L (9.5-12.2) FL Immature Gran # 0.10 H (0.00-0.04) X 10*3/uL Anion Gap 12.70 H (4.00-12.00) mmol/L Creatinine 0.4 L (0.6-1.5) mg/dL BUN/Creatinine Ratio 23.00 H (12.00-20.00) Ratio Calcium 8.6 L (8.7-10.3) mg/dL
--- NOTE | 2024-12-28 06:35 | XR ---
EXAMINATION TYPE: XR chest 1V portable DATE OF EXAM: 12/28/2024 CLINICAL INDICATION: Male, 54 years old with history of Right empyema, progress study. TECHNIQUE: Single AP portable upright view of the chest is obtained. COMPARISON: Chest x-ray from one day earlier FINDINGS: There is new Right basilar pleural pigtail drainage catheter. Persistent small to moderate -sized right inferior lateral pleural fluid collection consistent with empyema now having some auditor internal al air after some presumed fluid drainage. Size of collection is stable from one day earlier. Persistent chronic emphysematous change with multifocal right lung acute infiltrates and/or atelectas is. Cardiac silhouette size stable and within normal limits. Osseous structures are intact. IMPRESSION: New Right basilar pleural pigtail drainage catheter. Stable in size right inferior latera l pleural fluid collection or empyema. [facility] Alex, , 12/28/2024 6:33 AM
--- NOTE | 2024-12-28 09:12 | P.PN ---
Subjective Progress Note Date: 12/28/24 Principal diagnosis: Right empyema, trapped right lung. Previous medical history of recent right lower lobe pneumonia with failed treatment of azithromycin and Augmentin, and tobacco dependence with cessation 4 months ago. POD #8 right thoracentesis with 4 L of empyema drained by Dr. Rivera. POD #7 placement of right chest pigtail catheter by Dr. Casarez, POD #1 replacement of right sided pigtail catheter by IR The patient was seen and examined this morning laying in bed on the medical surgical unit in no acute distress. Denies significant pain, does still have some shortness of breath. Remains on room air with oxygen saturation in the mid 90s. Able to achieve 1500 mL on his incentive spirometry. Remains in sinus rhythm to sinus tach on telemetry, hemodynamically stable. Right pigtail catheter present, lytics were instilled for the fifth dose yesterday, 360 mL drainage overnight with 500 mL of drainage in the last 24 hours. Remains on Eraxis and Unasyn per infectious disease. Objective - Vital Signs Vital signs: Vital Signs Temp 98.1 F 12/28/24 07:06 Pulse 88 12/28/24 08:47 Resp 17 12/28/24 08:00 BP 114/78 12/28/24 07:06 Pulse Ox 95 12/28/24 07:06 FiO2 Intake & Output 12/27/24 12/28/24 12/28/24 18:59 06:59 18:59 Intake Total 1000 540 Output Total 1100 3085 1000 Balance -100 -2545 -1000 Intake: Intake, IV Titration 300 Amount Ampicillin-Sulbactam 3 gm 200 In Sodium Chloride 0.9% 100 ml @ 200 mls/hr IVPB Q6HR [facility] Rx#:[id number] Anidulafungin 100 mg In 100 Sodium Chloride 0.9% 100 ml @ 84 mls/hr IVPB DAILY [facility] Rx#:[id number] Oral 700 540 Output: Chest Tube Drainage 300 460 Chest Tube Right 300 460 Urine 800 2625 1000 Other: Voiding Method Urinal Urinal Urinal # Voids 1 - Exam CONSTITUTIONAL: Appears comfortable, cooperative, no acute distress RESPIRATORY: Lungs sounds diminished on the right. Respirations even, nonlabored. Currently on room air with oxygen saturation 96%. Able to achieve 1500 mL on incentive spirometry. Strong cough. CARDIOVASCULAR: S1, S2 present. Regular rate and rhythm, sinus rhythm to sinus tach on telemetry. Palpable peripheral pulses bilaterally. No edema present. No calf pain or tenderness noted. SCDs present. GASTROINTESTINAL: Abdomen soft, nontender, nondistended. Active bowel sounds present 4 quadrants. Tolerating diet GENITOURINARY: Continues to void INTEGUMENTARY: Skin is warm and dry NEUROLOGIC: Cranial nerves II through XII intact MUSKULOSKELETAL: Able to move all extremities, strength equal bilaterally, gait normal PSYCHIATRIC: Alert and oriented to person place and time, appropriate affect, intact judgment and insight INVASIVE LINES AND TUBES: Right sided pigtail catheter present to continuous wall suction drained 360 mL thinner drainage overnight, 500 mL in the last 24 hours - Allied health notes Allied health notes reviewed: nursing - Labs CBC & Chem 7: 12/27/24 04:51 12/27/24 04:51 Labs: Abnormal Lab Results - Last 24 Hours (Table) 12/27/24 Range/Units 04:51 Anion Gap 12.70 H (4.00-12.00) mmol/L Creatinine 0.4 L (0.6-1.5) mg/dL BUN/Creatinine Ratio 23.00 H (12.00-20.00) Ratio Calcium 8.6 L (8.7-10.3) mg/dL Microbiology - Last 24 Hours (Table) 12/22/24 09:40 Fungal Culture - Preliminary Bronchoalviolar Lavage - Right Yeast species - Imaging and Cardiology Chest x-ray: report reviewed, image reviewed Assessment and Plan Assessment: Right empyema, trapped right lung, status post right thoracentesis and placement of right pigtail catheter with lytic installation Acute hypoxic respiratory failure Shortness of breath secondary to above Normocytic hypochromic anemia Elevated D-dimer, CTA of the chest negative for pulmonary embolus Bronchial washing cultures positive for Pichia kudriavzevil, actinomyces odontolyicus History of recent right lower lobe pneumonia with failed treatment of azithromycin and Augmentin Tobacco dependence with cessation 4 months ago. Plan: Keep right pleural pigtail catheter in place to low continuous wall suction -20 cm H2O. May disconnect to ambulate to the bathroom and in the uribe. Will instill 6th dose alteplase/dornase through the pigtail catheter today and clamp for 1 hour post instillation. Encourage use of incentive spirometry 10 times every hour while awake. Monitor daily chest x-rays. Dr. Nick from infectious disease is following, antibiotic management per infectious disease. Increase activity as tolerated. Out of bed for all meals. Pain control per current medication regimen No plan for surgical intervention at this point in time More recommendations to follow based on patient's clinical course.
[2024-12-28] MEDS: DORNASE ALFA 5 MG in SODIUM CHLORIDE 0.9% 50 ML IRRIGATION ONE (10:00)
[2024-12-28] MEDS: ALTEPLASE 10 MG in SODIUM CHLORIDE 0.9% 50 ML IRRIGATION ONE (10:00)
--- NOTE | 2024-12-28 10:00 | US ---
EXAMINATION TYPE: US discontinued thoracentesis, Limited ultrasound of the thorax CT chest tube insertion DATE OF EXAM: 12/27/2024 1:43 PM COMPARISON: , chest radiograph, CT CLINICAL INDICATION:Male, 54 years old with history of right empyema. Technique: Limited ultrasound of the thorax for feasibility of chest tube insertion. Findings: Ultrasound finding of the posterior right thoracic wall demonstrates heterogenous tissue compatible w ith patient's known empyema. Procedure under ultrasound guidance was canceled and CT guidance was req uired. Patient was taken to the CT procedure suite. Informed consent was obtained. The risks of the procedur e were extensively explained including risk of pneumothorax. Procedure was performed in the CT proce dure suite. CT imaging of the chest demonstrates complex right pleural effusion pleural effusion. An appropriate access site was localized to the lateral right pleural space. Timeout was taken per jeanmarie col. The skin was prepped and draped in the usual sterile fashion and then locally anesthetized with 1% lidocaine. The pleural cavity was then accessed via trocar technique with thoracotomy tube Appro ximately 1 mL of clear -colored fluid was obtained. Patient tolerated procedure well without immediate complication. Hemostasis at the procedural site w as obtained with a sterile bandage placed. Immediate following the procedure, an inspiratory and expi ratory chest x-ray was reviewed. No post procedure pneumothorax was identified. The patient was monit ored in the holding area for approximately one hour following the procedure and was subsequently disc harged in stable condition. IMPRESSION: 1. Limited ultrasound of the thorax demonstrating empyema/right complex pleural fusion. 2. Successful CT-guided right thoracotomy tube placement which was left in place for drainage/treatm ent. [facility] Alex, , 12/28/2024 9:58 AM
--- NOTE | 2024-12-28 10:30 | P.PN ---
Subjective Progress Note Date: 12/28/24 This is a pleasant 54-year-old male patient with a known history of chronic tobacco dependence stating he quit about 4 months ago. No primary care provider. No other medical history. He was here on November 30, 2024 in the emergency department with complaints of increasing shortness of breath cough and congestion. He was found to have a right lower lobe infiltrate and was treated with Augmentin, azithromycin and an albuterol inhaler. He was to follow-up with a primary care provider however he did not. He returned here to the emergency room this morning with worsening shortness of breath over the past week. Chest x-ray shows near complete opacification of the right lung. CT angiogram ruled out pulmonary embolism. There is a large pleural collection noted with numerous internal foci of air and anterior air-filled levels seen. Findings are concerning for abscess or underlying empyema. Complete collapse of the right middle and right lower lobe. Mediastinal shift from right to left. White count 11.2. Hemoglobin 7.6. Platelets 707. D-dimer 1.66. Sodium 136. Potassium 4.5. Bicarb 22. BUN 9. Creatinine 0.42. Glucose 111. Troponin negative x 1. proBNP 283. Viral screen negative for influenza A/B, RSV or COVID. He is seen today in the emergency department. Currently sitting up on a stretcher. He is dyspneic with conversation. Dyspneic with minimal exertion. He is maintaining good O2 saturations in the 90s on room air. Slightly tachypneic. Tachycardic. Ultrasound of the chest revealed a 21.[address] Regan did perform a thoracentesis with just over 4 L of thick pale yellow fluid with sediment returned. Follow-up chest x-ray revealed significant decrease in the right sided pleural collection. There is a loculated pneumothorax/collection of air measuring 12.6 x 4.5 cm. Scattered coarse and patchy infiltrate seen throughout the right lung. He has been initiated on vancomycin and Zosyn. The patient is seen today December 21, 2024 in follow-up on the regular medical floor. He is currently sitting up in bed. Awake and alert in no acute distress. B reathing easier today compared to yesterday. Attaining good O2 saturations in the 90s on 2 L/min per nasal cannula. Chest x-ray reveals more prominent pleural-based thick-walled right lower lung collection containing predominantly air. More prominent adjacent right basilar compressive atelectasis. Persistent right upper lung diffuse edema and/or atelectasis. CT scan of the chest and abdomen redemonstrates a large fluid collection/hydropneumothorax within the right lung with consolidative opacities and multiple foci of gas. Additional multiloculated portion along the right major fissure superiorly. Reactive mediastinal adenopathy. Moderate COPD changes. Mild hepatic splenomegaly. Ch olelithiasis. White count 6.6. Hemoglobin 7.6. Platelets 674. Sodium 136. Potassium 4.1. Bicarb 26. BUN 4. Creatinine 0.47. Glucose 223. Pleural fluid and exudate with total protein greater than 3.6 and LDH greater than 2500. Urine Legionella screen was negative. Pleural fluid cultures pending. Cytology pending. Sputum culture pending. He remains on vancomycin and cefepime. Continued on bronchodilators. Normal saline at 100 mL/h The patient is seen today December 22, 2024 in follow-up on the regular medical floor. He is currently sitting up in bed. Awake and alert in no acute distress. Denies any worsening shortness of breath, cough or congestion. He continues with a dry nonproductive cough. He is maintaining good O2 saturations in the 90s on 2 L nasal cannula. He has been afebrile. Hemodynamically stable. A right sided pigtail catheter was placed by CT services yesterday. Currently 2 Pleur-evac. Receiving alteplase/dornase infusions. They did request bronchoscopy to rule out any endobronchial tumors prior to possible decortication later this week. Koska P was performed today. No endobronchial lesions noted. There was some compression in the right bronchial system due to external fluid. He tolerated the procedure well. He remains on Zosyn. Pleural fluid cultures are pending. Sputum culture is pending. Bronchoscopy with BAL cultures are now pending. White count 6.2. Hemoglobin 8.0. Platelets 621. Sodium 135. Potassium 4.8. Bicarb 27. BUN 3. Creatinine 0.44. He remains on DuoNeb inhalations. Viola and Toradol for pain control. The patient is seen today December 23, 2024 in follow-up on the regular medical floor. He is currently resting in bed. Awake and alert in no acute distress. Maintaining good O2 saturations in the 90s on 2 L/min per nasal cannula. He is been afebrile. Hemodynamically stable. Pleural fluid cultures revealing no growth. Bronchoalveolar lavage cultures revealing no growth thus far. White count 4.7. Hemoglobin 7.0. Platelets 637. Sodium 138. Potassium 4.4. Bicarb 26. BUN 7. Creatinine 0.4. Glucose 187. He is continued on DuoNeb inhalations. Continued on Zosyn. Chest x-ray continues to show similar small to moderate right-sided pleural effusion with pleural pigtail catheter in place to Pleur-evac to low continuous suction. Infused yesterday. 160 mL of drainage overnight. He continues to work well with the incentive spirometer probably nearly 2000 mL. Plan is to instill alteplase/dornase again today per CT service. The patient is seen today December 27, 2024 in follow-up on the regular medical floor. He is sitting up in bed. Awake and alert in no acute distress. Maintaining good O2 saturations in the 90s on room air oxygen. His right sided pigtail catheter was inadvertently removed yesterday. A CT scan of the chest continue to show marked improved aeration in the right lung with marked reduction in the hydropneumothorax on the right. A small hydropneumothorax persists. Stable loculated effusion/empyema in the superior right minor fissure. Persistent moderate right lower lobe lung consolidation with air bronchograms consistent with atelectasis/pneumonia. Marked emphysematous changes. No acute pulmonary disease of the left lung. The plan is to have the pigtail catheter replaced today and to continue with alteplase/dornase infusions per CT service. Bronchoalveolar lavage cultures were positive for Pichia kudriavzevii and actinomyces odontolyticus process. He is continued on DuoNeb inhalations. Remains on antibiotics in the form of Unasyn. Remains on Eraxis. Continues to work well with the incentive spirometer. White count 5.6. Hemoglobin 7.9. Platelets 578. Sodium 137. Potassium 5.0. Bicarb 24. BUN 9. Creatinine 0.9. Glucose 110. The patient is seen today December 28, 2024 in follow-up on the regular medical floor. He is awake and alert no acute distress. Resting fairly comfortably in bed. Maintaining good O2 saturations in the 90s on room air oxygen. No IV fluids. He is continued on Unasyn. Continued on Eraxis. Continued on broncho dilators. Right sided pigtail catheter remains in place. Received 1/5 dose of lytics yesterday. 360 mL of drainage overnight with 500 mL in the past 24 hours. Fluid cytology negative for malignancy. Bronchial lavage of the right lung was positive for Pichia kudriavzevii and actinomyces odontolyticus. Objective - Vital Signs Vital signs: Vital Signs Temp 98.1 F 12/28/24 07:06 Pulse 88 12/28/24 08:47 Resp 17 12/28/24 08:00 BP 114/78 12/28/24 07:06 Pulse Ox 95 12/28/24 07:06 FiO2 Intake & Output 12/27/24 12/28/24 12/28/24 18:59 06:59 18:59 Intake Total 1000 540 180 Output Total 1100 3085 1000 Balance -158 -4631 -422 Intake: Intake, IV Titration 300 Amount Ampicillin-Sulbactam 3 gm 200 In Sodium Chloride 0.9% 100 ml @ 200 mls/hr IVPB Q6HR [facility] Rx#:[id number] Anidulafungin 100 mg In 100 Sodium Chloride 0.9% 100 ml @ 84 mls/hr IVPB DAILY [facility] Rx#:[id number] Oral 700 540 180 Output: Chest Tube Drainage 300 460 Chest Tube Right 300 460 Urine 800 2625 1000 Other: Voiding Method Urinal Urinal Urinal # Voids 1 - Exam GENERAL EXAM: Alert, 54-year-old male, resting in bed, on room air oxygen, in no apparent distress. HEAD: Normocephalic. EYES: Normal reaction of pupils, equal size. NOSE: Clear with pink turbinates. THROAT: No erythema or exudates. NECK: No masses, no JVD. CHEST: No chest wall deformity. Right sided pigtail catheter to be replaced and put to Pleur-evac to wall suction. LUNGS: Equal air entry with scattered rhonchi, crackles in the right lung. CVS: S1 and S2 normal with no audible murmur, regular rhythm. ABDOMEN: No hepatosplenomegaly, normal bowel sounds, no guarding or rigidity. SPINE: No scoliosis or deformity SKIN: No rashes CENTRAL NERVOUS SYSTEM: No focal deficits, tone is normal in all 4 extremities. EXTREMITIES: There is no peripheral edema. No clubbing, no cyanosis. Peripheral pulses are intact. - Labs CBC & Chem 7: 12/27/24 04:51 12/27/24 04:51 Labs: Microbiology - Last 24 Hours (Table) 12/22/24 09:40 Fungal Culture - Preliminary Bronchoalviolar Lavage - Right Yeast species Assessment and Plan Assessment: Dyspnea secondary to near complete opacification of the right lung. Status post thoracentesis today with 4 L of thick yellowish-brown fluid returned. Cultures, fluid analysis and cytology pending. Currently on vancomycin and cefepime. CT scan of the chest and abdomen redemonstrates a large fluid collection/hydropneumothorax within the right lung with consolidative opacities and multiple foci of gas. Additional multiloculated portion along the right major fissure superiorly. Reactive mediastinal adenopathy. Moderate COPD changes. Mild hepatic splenomegaly. Cholelithiasis. Complex right sided pleural effusion secondary to above. Pigtail catheter placed on 12/21/2024 to Pleur-evac. Receiving alteplase/dornase infusion. Bronchoscopy with BAL performed 12/22/2024. No endobronchial tumors identified. There was some external compression noted from pleural fluid, trapped lung. A CT scan of the chest continue to show marked improved aeration in the right lung with marked reduction in the hydropneumothorax on the right. A small hy dropneumothorax persists. Stable loculated effusion/empyema in the superior right minor fissure. Persistent moderate right lower lobe lung consolidation with air bronchograms consistent with atelectasis/pneumonia. Marked emphysematous changes. No acute pulmonary disease of the left lung. The plan is to have the pigtail catheter replaced 12/27/2024 and 5 doses of alteplase/dornase infusions per CT service. Post bronchoscopy with BAL on 12/22/2024. Bronchoalveolar lavage cultures were positive for Pichia kudriavzevii and actinomyces odontolyticus process. Remains on Unasyn. Remains on Eraxis. Acute hypoxemic respiratory failure secondary to above, recovered and on room air oxygen Recent treatment for right lower lobe pneumonia on 11/30/2024 in our emergency department with Augmentin and azithromycin Acute anemia of unclear etiology, current hemoglobin 8.0. When on 11/30/2024 was 11.0 Chronic tobacco dependence, states quit approximately 4 months ago No primary care provider, no recent health care assessment Plan: The patient was seen and evaluated Chest x-ray and medications reviewed Right sided pigtail catheter to be replaced yesterday Alteplase/dornase infusions per CT service Received 5 doses thus far Continue Unasyn and Eraxis Stable and on room air oxygen Continue bronchodilators Continue the incentive spirometer Increase his activity as tolerated We will continue to follow I have personally seen and examined the patient, performed the documentation and the assessment and plan as written. Number of minutes spent on the visit: 10 Dictation was produced using [employer] dictation software. Please excuse any grammatical, word or spelling errors.
[2024-12-28 10:38] LABS: Basophils # (A) 0.02 X 10*3/uL (0.00-0.10); Basophils % (A) 0.4 %; Eosinophils # (A) 0.07 X 10*3/uL (0.04-0.35); Eosinophils % (A) 1.3 %; HCT 26.3 % (39.6-50.0); HGB 7.6 g/dL (13.0-17.0); Lymphocytes # (A) 1.89 X 10*3/uL (0.90-5.00); Lymphocytes % (A) 35.8 %; MCH 24.3 pg (27.0-32.0); MCHC 28.9 g/dL (32.0-37.0); Mean Platelet Volume 8.7 FL (9.5-12.2); Monocytes # (A) 0.62 X 10*3/uL (0.20-1.00); Monocytes % (A) 11.7 %; NRBC Per 100 WBC 0 X 10*3/uL (0.00-0.01); Neutrophils # (A) 2.59 X 10*3/uL (1.80-7.70); Neutrophils % (A) 49.1 %; Platelet Count 511 X 10*3/uL (140-440); RBC 3.13 X 10*6/uL (4.40-5.60); RDW 15.5 % (11.5-14.5); WBC 5.28 X 10*3/uL (4.50-10.00)
[2024-12-28 11:07] LABS: % Iron Saturation 10.69 (15.00-50.00); Blood Urea Nitrogen 7.4 mg/dL (9.0-27.0); Calcium 8.7 mg/dL (8.7-10.3); Carbon Dioxide 24.4 mmol/L (21.6-31.8); Chloride 102 mmol/L (96-109); Glucose 118 mg/dL (70-110); Iron 28 UG/DL (65-175); Magnesium 2.1 mg/dL (1.5-2.4); Potassium 5.2 mmol/L (3.5-5.5); Sodium 139 mmol/L (135-145); Total Iron Binding Capacity 262 UG/DL (228-460)
--- NOTE | 2024-12-28 13:12 | P.PN ---
Subjective This is a pleasant 54 years old male with no significant past medical history Patient presents because of worsening dyspnea. About 1 month ago he was diagnosed with pneumonia pneumonia with small right pleural effusion and he was treated with oral antibiotic, this was progressed gradually over this month and become more opacified right lung on chest x-ray. Patient underwent thoracocentesis with pulmonary team while he is still in the emergency room where more than 3 L of purulent fluid has been drained. Patient with no significant pain, no significant coughing and is on room air He denies any other specific symptoms He quit smoking about 4 months ago with no alcohol or illicit drugs. Vitals stable he was mildly tachycardic which is improving now Labs showing leukocytosis 11.2, hemoglobin 7.6. Platelet count 707 Rest of BMP LFT troponin and INR were unremarkable D-dimer was elevated 1.6. He underwent CTA of the chest which was negative for PE but showing large pleural effusion on the right with collapse of the right lung. Chest x-ray and CTA of the lung showing the same findings of large pleural effusion and collapse of the right lung EKG showing sinus tachycardia [address]-T changes Patient underwent right sided thoracocentesis more than 3 L of purulent fluid was drained. And patient tolerated the procedure well 12/21 Patient feels more comfortable and breathing easily no significant chest pain or coughing Repeat CT of the chest and abdomen showing loculated still large fluid collection in the right lung for his empyema. thoracic surgery was consulted for possible decortication Patient currently kept on IV vancomycin and Zosyn pending final culture results 12/22 Patient breathing better Remains on oxygen He is s/p bronchoscopy showing no tumor Status post right-sided chest tube with about 2 L of discharge mainly purulent and pus Cardiothoracic surgery team following closely Culture pending Remains on Zosyn 12/23/2024 Patient is seen in follow-up today remains with a right-sided chest tube with CT surgery following administering another dose of tPA for right empyema. Infectious disease and pulmonary following as well and will continue current regimen while awaiting cultures. Patient has been encouraged to increase activity as tolerated and continued incentive spirometer use at least 10 times every hour while awake. Patient is currently maintained on 2 L via nasal cannula and does not wear oxygen outpatient. Hemoglobin is noted to be 7 and will follow-up on repeat labs, transfuse if less than 7. Will follow-up on cultures and discuss further with consultations regarding treatment plan moving forward. No plans of chest tube removal as of yet as patient continues with significant amount of purulence being drained. 12/24/2024 Patient is seen in follow-up today reports to feeling lethargic today but doing well otherwise. Patient is continued on oxygenation at 2 L and reports shortness of breath. Patient reports his pain during breakthrough is becoming extreme and Toradol is helping asking for increased frequency. Will adjust [place] slightly and encouraged continued incentive spirometer use and increased activity as tolerated with sitting up more frequently. Plan is for tPA instillation through the chest tube per CT surgery today. Patient continues with continued purulent drainage noted in the tubing. Patient is maintained on antibiotics and awaiting for cultures to finalize. 12/25/2024 Patient seen in follow-up today reports to feeling slightly improved and less short of breath. Patient continues with chest tube CT surgery following will be receiving another tPA administration in the chest tube. Patient continues with purulent drainage although somewhat more clear today. Awaiting finalized cultures and follow-up on chest x-ray to monitor closely. Patient is using incentive spirometer encouraged to use at least 10 times every hour while awake. Continue current pain regimen. Will follow-up on repeat labs. Hemoglobin is stable above 7 with no active bleeding noted. 12/26/2024 Patient seen and evaluated in follow-up this morning and continues with right side chest tube and has been receiving tPA administrations with follow-up chest x-ray that shows similar small right basilar pneumothorax with small pleural effusion stable position of pigtail catheter with persistent right suprahilar and right basilar opacities likely. Patient is continued on Unasyn anidulafungin and per ID recommendations. Culture showing pichia kudriavzevii along with Actinomyces odontolyticus. patient is afebrile and reports to feeling weak and fatigued today. Repeat chest x-ray will be ordered for tomorrow and patient has scheduled CT of the chest per CT surgery for further evaluation of the loculated empyema. 12/27/2024 Patient is seen in follow-up today per CT surgery. Pulmonary following along with infectious disease as patient was noted to have loculated empyema status post chest tube. Apparently chest tube was dislodged and awaiting repeat chest tube insertion to be placed sometime today per CT surgery. Patient is afebrile and denies worsening shortness of breath actually reports to feeling somewhat improved and is currently on room air. Patient does fatigue easily and becomes dyspneic with exertion. Patient has been encouraged to continue with incentive spirometer. 12/28/2024 Patient's pigtail catheter came out which was replaced and patient is clinically doing well at this time chest x-ray and CT scan showed improvement in the pleural effusion. Review of systems: Constitutional: No reports of fatigue, fever, or chills Cardiovascular: No reports of chest pain, reports chest wall pain with the chest tube site Respiratory: o reports of shortness of breath with occasional cough, shortness of breath is slightly improved GI: No reports of nausea, vomiting, or diarrhea : No reports of dysuria or retention Neurovascular: No reports of weakness or numbness All medications have been reviewed Physical exam: GENERAL: The patient is alert and oriented x3, not in any acute distress. Well developed, well nourished. Appears older than stated age HEENT: Pupils are round and equally reacting to light. EOMI. No scleral icterus. No conjunctival pallor. Normocephalic, atraumatic. No pharyngeal erythema. No th yromegaly. CARDIOVASCULAR: S1 and S2 present. No murmurs, rubs, or gallops. -PULMONARY: Diminished breath sounds bilaterally otherwise chest is clear to auscultation, no wheezing , no crackles. Decreased breath sounds in the bases, more so on the right ABDOMEN: Soft, nontender, nondistended, normoactive bowel sounds. No palpable organomegaly. MUSCULOSKELETAL: No joint swelling or deformity. EXTREMITIES: No cyanosis, clubbing, or pedal edema. NEUROLOGICAL: Gross neurological examination did not reveal any focal deficits. SKIN: No rashes. no petechiae. Assessment: Right pneumonia failed outpatient treatment associated with large/huge right pleural effusion with left-sided mediastinal shift right sided thoracocentesis more than 3 L of purulent fluid was drained, empyema receiving tPA instillation in the chest tube with CT surgery, cultures showing pichia kudriavzevii along with Actinomyces odontolyticus and yeast Acute hypoxic respiratory failure secondary to assessment #1, improving and currently on room air Normocytic hypochromic anemia Elevated D-dimer with negative CAT scan from pulmonary embolism GI prophylaxis DVT prophylaxis No code Plan: Continue with antibiotic currently on Zosyn and IV vancomycin. Infectious disease following and awaiting cultures to determine appropriate antibiotics. Cardiothoracic surgery following is instilling another dose of tPA and the chest tube with continued significant amounts of purulence noted. Patient did have right-sided chest tube although apparently was dislodged accidentally at this time per CT surgery. Will have new chest tube placed sometime today. Follow-up on repeat chest x-ray Pulmonary team following closely Continue with breathing inhalational treatments and weaning FiO2 as tolerated. Patient currently room air today and continues with intermittent supplemental oxygen. Patient does not wear oxygen outpatient Hemoglobin noted to be 7.9 with no active bleeding noted at this time we will follow-up on repeat labs and recommend to transfuse if less than 7. Will obtain iron studies as patient's hemoglobin in November of this year was 11 Encouraged incentive spirometer use at least 10 times every hour while awake Patient will need resources outpatient on discharge as patient has no primary care provider at this time Objective - Vital Signs Vital signs: Vital Signs Temp 98.1 F 12/28/24 07:06 Pulse 92 12/28/24 12:07 Resp 17 12/28/24 08:00 BP 114/78 12/28/24 07:06 Pulse Ox 95 12/28/24 07:06 FiO2 Intake & Output 12/27/24 12/28/24 12/28/24 18:59 06:59 18:59 Intake Total 1000 540 180 Output Total 1100 3085 1500 Balance -100 -2252 -9165 Intake: Intake, IV Titration 300 Amount Ampicillin-Sulbactam 3 gm 200 In Sodium Chloride 0.9% 100 ml @ 200 mls/hr IVPB Q6HR [facility] Rx#:[id number] Anidulafungin 100 mg In 100 Sodium Chloride 0.9% 100 ml @ 84 mls/hr IVPB DAILY [facility] Rx#:[id number] Oral 700 540 180 Output: Chest Tube Drainage 300 460 Chest Tube Right 300 460 Urine 800 2625 1500 Other: Voiding Method Urinal Urinal Urinal # Voids 1 - Labs CBC & Chem 7: 12/28/24 04:23 12/28/24 04:23 Labs: Abnormal Lab Results - Last 24 Hours (Table) 12/28/24 12/28/24 Range/Units 04:23 04:23 RBC 3.13 L (4.40-5.60) X 10*6/uL Hgb 7.6 L (13.0-17.0) g/dL Hct 26.3 L (39.6-50.0) % MCH 24.3 L (27.0-32.0) pg MCHC 28.9 L (32.0-37.0) g/dL RDW 15.5 H (11.5-14.5) % Plt Count 511 H (140-440) X 10*3/uL MPV 8.7 L (9.5-12.2) FL Immature Gran # 0.09 H (0.00-0.04) X 10*3/uL Anion Gap 12.60 H (4.00-12.00) mmol/L BUN 7.4 L (9.0-27.0) mg/dL Creatinine 0.5 L (0.6-1.5) mg/dL Glucose 118 H (70-110) mg/dL Iron 28 L (65-175) UG/DL % Saturation 10.69 L (15.00-50.00) Transferrin 187.0 L (204.0-354.0) mg/dL Ferritin 369.0 H (22.0-322.0) ng/mL Microbiology - Last 24 Hours (Table) 12/22/24 09:40 Fungal Culture - Preliminary Bronchoalviolar Lavage - Right Yeast species
--- NOTE | 2024-12-29 08:00 | XR ---
EXAMINATION TYPE: XR chest 1V portable DATE OF EXAM: 12/29/2024 5:23 AM COMPARISON: 12/27/2024 CLINICAL INDICATION: Male, 54 years old with history of Right empyema; [facility] TECHNIQUE: XR chest 1V portable Frontal view of the chest. FINDINGS: Lungs/Pleura: There is no evidence of pleural effusion, focal consolidation, or pneumothorax. Pulmonary vascularity: Unremarkable. Heart/mediastinum: Cardiomediastinal silhouette is unremarkable. Musculoskeletal: No acute osseous pathology. Other findings: None Lines/Tubes: Right thoracotomy tube is present with trace pneumothorax. IMPRESSION: Right thoracotomy in place with trace right pneumothorax. Pleural effusion is not definitively seen o n today's exam. [facility], , 12/29/2024 7:57 AM
--- NOTE | 2024-12-29 09:25 | P.PN ---
Subjective Progress Note Date: 12/29/24 This is a pleasant 54-year-old male patient with a known history of chronic tobacco dependence stating he quit about 4 months ago. No primary care provider. No other medical history. He was here on November 30, 2024 in the emergency department with complaints of increasing shortness of breath cough and congestion. He was found to have a right lower lobe infiltrate and was treated with Augmentin, azithromycin and an albuterol inhaler. He was to follow-up with a primary care provider however he did not. He returned here to the emergency room this morning with worsening shortness of breath over the past week. Chest x-ray shows near complete opacification of the right lung. CT angiogram ruled out pulmonary embolism. There is a large pleural collection noted with numerous internal foci of air and anterior air-filled levels seen. Findings are concerning for abscess or underlying empyema. Complete collapse of the right middle and right lower lobe. Mediastinal shift from right to left. White count 11.2. Hemoglobin 7.6. Platelets 707. D-dimer 1.66. Sodium 136. Potassium 4.5. Bicarb 22. BUN 9. Creatinine 0.42. Glucose 111. Troponin negative x 1. proBNP 283. Viral screen negative for influenza A/B, RSV or COVID. He is seen today in the emergency department. Currently sitting up on a stretcher. He is dyspneic with conversation. Dyspneic with minimal exertion. He is maintaining good O2 saturations in the 90s on room air. Slightly tachypneic. Tachycardic. Ultrasound of the chest revealed a 21.[address] Regan did perform a thoracentesis with just over 4 L of thick pale yellow fluid with sediment returned. Follow-up chest x-ray revealed significant decrease in the right sided pleural collection. There is a loculated pneumothorax/collection of air measuring 12.6 x 4.5 cm. Scattered coarse and patchy infiltrate seen throughout the right lung. He has been initiated on vancomycin and Zosyn. The patient is seen today December 21, 2024 in follow-up on the regular medical floor. He is currently sitting up in bed. Awake and alert in no acute distress. B reathing easier today compared to yesterday. Attaining good O2 saturations in the 90s on 2 L/min per nasal cannula. Chest x-ray reveals more prominent pleural-based thick-walled right lower lung collection containing predominantly air. More prominent adjacent right basilar compressive atelectasis. Persistent right upper lung diffuse edema and/or atelectasis. CT scan of the chest and abdomen redemonstrates a large fluid collection/hydropneumothorax within the right lung with consolidative opacities and multiple foci of gas. Additional multiloculated portion along the right major fissure superiorly. Reactive mediastinal adenopathy. Moderate COPD changes. Mild hepatic splenomegaly. Ch olelithiasis. White count 6.6. Hemoglobin 7.6. Platelets 674. Sodium 136. Potassium 4.1. Bicarb 26. BUN 4. Creatinine 0.47. Glucose 223. Pleural fluid and exudate with total protein greater than 3.6 and LDH greater than 2500. Urine Legionella screen was negative. Pleural fluid cultures pending. Cytology pending. Sputum culture pending. He remains on vancomycin and cefepime. Continued on bronchodilators. Normal saline at 100 mL/h The patient is seen today December 22, 2024 in follow-up on the regular medical floor. He is currently sitting up in bed. Awake and alert in no acute distress. Denies any worsening shortness of breath, cough or congestion. He continues with a dry nonproductive cough. He is maintaining good O2 saturations in the 90s on 2 L nasal cannula. He has been afebrile. Hemodynamically stable. A right sided pigtail catheter was placed by CT services yesterday. Currently 2 Pleur-evac. Receiving alteplase/dornase infusions. They did request bronchoscopy to rule out any endobronchial tumors prior to possible decortication later this week. [place] P was performed today. No endobronchial lesions noted. There was some compression in the right bronchial system due to external fluid. He tolerated the procedure well. He remains on Zosyn. Pleural fluid cultures are pending. Sputum culture is pending. Bronchoscopy with BAL cultures are now pending. White count 6.2. Hemoglobin 8.0. Platelets 621. Sodium 135. Potassium 4.8. Bicarb 27. BUN 3. Creatinine 0.44. He remains on DuoNeb inhalations. [place] and Toradol for pain control. The patient is seen today December 23, 2024 in follow-up on the regular medical floor. He is currently resting in bed. Awake and alert in no acute distress. Maintaining good O2 saturations in the 90s on 2 L/min per nasal cannula. He is been afebrile. Hemodynamically stable. Pleural fluid cultures revealing no growth. Bronchoalveolar lavage cultures revealing no growth thus far. White count 4.7. Hemoglobin 7.0. Platelets 637. Sodium 138. Potassium 4.4. Bicarb 26. BUN 7. Creatinine 0.4. Glucose 187. He is continued on DuoNeb inhalations. Continued on Zosyn. Chest x-ray continues to show similar small to moderate right-sided pleural effusion with pleural pigtail catheter in place to Pleur-evac to low continuous suction. Infused yesterday. 160 mL of drainage overnight. He continues to work well with the incentive spirometer probably nearly 2000 mL. Plan is to instill alteplase/dornase again today per CT service. The patient is seen today December 27, 2024 in follow-up on the regular medical floor. He is sitting up in bed. Awake and alert in no acute distress. Maintaining good O2 saturations in the 90s on room air oxygen. His right sided pigtail catheter was inadvertently removed yesterday. A CT scan of the chest continue to show marked improved aeration in the right lung with marked reduction in the hydropneumothorax on the right. A small hydropneumothorax persists. Stable loculated effusion/empyema in the superior right minor fissure. Persistent moderate right lower lobe lung consolidation with air bronchograms consistent with atelectasis/pneumonia. Marked emphysematous changes. No acute pulmonary disease of the left lung. The plan is to have the pigtail catheter replaced today and to continue with alteplase/dornase infusions per CT service. Bronchoalveolar lavage cultures were positive for Pichia kudriavzevii and actinomyces odontolyticus process. He is continued on DuoNeb inhalations. Remains on antibiotics in the form of Unasyn. Remains on Eraxis. Continues to work well with the incentive spirometer. White count 5.6. Hemoglobin 7.9. Platelets 578. Sodium 137. Potassium 5.0. Bicarb 24. BUN 9. Creatinine 0.9. Glucose 110. The patient is seen today December 28, 2024 in follow-up on the regular medical floor. He is awake and alert no acute distress. Resting fairly comfortably in bed. Maintaining good O2 saturations in the 90s on room air oxygen. No IV fluids. He is continued on Unasyn. Continued on Eraxis. Continued on broncho dilators. Right sided pigtail catheter remains in place. Received 1/5 dose of lytics yesterday. 360 mL of drainage overnight with 500 mL in the past 24 hours. Fluid cytology negative for malignancy. Bronchial lavage of the right lung was positive for Pichia kudriavzevii and actinomyces odontolyticus. The patient is seen today December 29, 2024 in follow-up on the regular medical floor. He is resting comfortably in bed. Awake and alert in no acute distress. Maintaining good O2 saturations in the 90s on room air oxygen. He has been afebrile. Hemodynamically stable. He remains on Unasyn and Eraxis. He is continued on bronchodilators. Working well with the incentive spirometer. Chest x-ray showing improvement. Trace right pneumothorax. Right sided pigtail remains in place. No significant pleural effusion. White count 5.2. Hemoglobin 7.6. Platelets 511. Sodium 139. Potassium 5.2. Bicarb 24. BUN 7. Creatinine 0.5. Glucose 118. Objective - Vital Signs Vital signs: Vital Signs Temp 97.6 F 12/29/24 07:45 Pulse 86 12/29/24 09:07 Resp 18 12/29/24 07:46 BP 124/78 12/29/24 07:45 Pulse Ox 97 12/29/24 08:53 FiO2 Intake & Output 12/28/24 12/29/24 12/29/24 18:59 06:59 18:59 Intake Total 180 Output Total 2770 1400 230 Balance -2590 -1400 -230 Intake: Oral 180 Output: Chest Tube Drainage 270 Chest Tube Right 270 Drainage 150 Right Chest 150 Urine 2500 1250 230 Other: Voiding Method Urinal Urinal # Voids 1 - Exam GENERAL EXAM: Alert, very pleasant 54-year-old male, resting in bed, on room air oxygen, comfortable in no apparent distress. HEAD: Normocephalic. EYES: Normal reaction of pupils, equal size. NOSE: Clear with pink turbinates. THROAT: No erythema or exudates. NECK: No masses, no JVD. CHEST: No chest wall deformity. Right sided pigtail catheter to be replaced and put to Pleur-evac to wall suction. LUNGS: Equal air entry with scattered rhonchi, crackles in the right lung. CVS: S1 and S2 normal with no audible murmur, regular rhythm. ABDOMEN: No hepatosplenomegaly, normal bowel sounds, no guarding or rigidity. SPINE: No scoliosis or deformity SKIN: No rashes CENTRAL NERVOUS SYSTEM: No focal deficits, tone is normal in all 4 extremities. EXTREMITIES: There is no peripheral edema. No clubbing, no cyanosis. Peripheral pulses are intact. - Labs CBC & Chem 7: 12/28/24 04:23 12/28/24 04:23 Labs: Abnormal Lab Results - Last 24 Hours (Table) 12/28/24 12/28/24 Range/Units 04:23 04:23 RBC 3.13 L (4.40-5.60) X 10*6/uL Hgb 7.6 L (13.0-17.0) g/dL Hct 26.3 L (39.6-50.0) % MCH 24.3 L (27.0-32.0) pg MCHC 28.9 L (32.0-37.0) g/dL RDW 15.5 H (11.5-14.5) % Plt Count 511 H (140-440) X 10*3/uL MPV 8.7 L (9.5-12.2) FL Immature Gran # 0.09 H (0.00-0.04) X 10*3/uL Anion Gap 12.60 H (4.00-12.00) mmol/L BUN 7.4 L (9.0-27.0) mg/dL Creatinine 0.5 L (0.6-1.5) mg/dL Glucose 118 H (70-110) mg/dL Iron 28 L (65-175) UG/DL % Saturation 10.69 L (15.00-50.00) Transferrin 187.0 L (204.0-354.0) mg/dL Ferritin 369.0 H (22.0-322.0) ng/mL Assessment and Plan Assessment: Dyspnea secondary to near complete opacification of the right lung. Status post thoracentesis today with 4 L of thick yellowish-brown fluid returned. CT scan of the chest and abdomen redemonstrates a large fluid collection/hydropneumothorax within the right lung with consolidative opacities and multiple foci of gas. Additional multiloculated portion along the right major fissure superiorly. Reactive mediastinal adenopathy. Moderate COPD changes. Post bronchoscopy with BAL on 12/22/2024. Bronchoalveolar lavage cultures were positive for Pichia kudriavzevii and actinomyces odontolyticus process. Remains on Unasyn. Remains on Eraxis. Complex right sided pleural effusion secondary to above. Pigtail catheter placed on 12/21/2024 to Pleur-evac. Receiving alteplase/dornase infusion. Bronchoscopy with BAL performed 12/22/2024. No endobronchial tumors identified. There was some external compression noted from pleural fluid, trapped lung. A CT scan of the chest continue to show marked improved aeration in the right lung with marked reduction in the hydropneumothorax on the right. A small hydropneumothorax persists. Stable loculated effusion/empyema in the superior right minor fissure. Persistent moderate right lower lobe lung consolidation with air bronchograms consistent with atelectasis/pneumonia. Marked emphysematous changes. No acute pulmonary disease of the left lung. Pigtail catheter replaced 12/27/2024 and 5 doses of alteplase/dornase infused per CT service. Acute hypoxemic respiratory failure secondary to above, recovered and on room air oxygen Recent treatment for right lower lobe pneumonia on 11/30/2024 in our emergency d epartment with Augmentin and azithromycin Acute anemia of unclear etiology, current hemoglobin 8.0. When on 11/30/2024 was 11.0 Chronic tobacco dependence, states quit approximately 4 months ago No primary care provider, no recent health care assessment Plan: The patient was seen and evaluated Chest x-ray, labs and medications reviewed Chest x-ray showing improvement Right sided pigtail catheter in place Continue Unasyn and Eraxis Stable and on room air oxygen Continue bronchodilators Continue the incentive spirometer Increase his activity as tolerated We will continue to follow I have personally seen and examined the patient, performed the documentation and the assessment and plan as written. Number of minutes spent on the visit: 10 Dictation was produced using [employer] software. Please excuse any grammatical, word or spelling errors.
--- NOTE | 2024-12-29 10:01 | P.PN ---
Subjective Progress Note Date: 12/29/24 Principal diagnosis: Right empyema, trapped right lung. Previous medical history of recent right lower lobe pneumonia with failed treatment of azithromycin and Augmentin, and tobacco dependence with cessation 4 months ago. POD #9 right thoracentesis with 4 L of empyema drained by Dr. Rivera. POD #8 placement of right chest pigtail catheter by Dr. Casarez, POD #2 replacement of right sided pigtail catheter by IR The patient was seen and examined this morning sitting up in bed on the medical surgical unit in no acute distress. Does complain of some chest heaviness with deep breathing, requesting higher dose of [place]. Remains on room air with oxygen saturation in the mid 90s. Able to achieve 2000 mL on his incentive spirometry. Remains in sinus rhythm to sinus tach on telemetry, hemodynamically stable. Right pigtail catheter present, lytics were instilled for the sisth dose yesterday, 150 mL drainage overnight with 400 mL of drainage in the last 24 hours. Remains on Eraxis and Unasyn per infectious disease. Objective - Vital Signs Vital signs: Vital Signs Temp 97.6 F 12/29/24 07:45 Pulse 86 12/29/24 09:07 Resp 18 12/29/24 07:46 BP 124/78 12/29/24 07:45 Pulse Ox 97 12/29/24 08:53 FiO2 Intake & Output 12/28/24 12/29/24 12/29/24 18:59 06:59 18:59 Intake Total 180 Output Total 2770 1400 230 Balance -2590 -1400 -230 Intake: Oral 180 Output: Chest Tube Drainage 270 Chest Tube Right 270 Drainage 150 Right Chest 150 Urine 2500 1250 230 Other: Voiding Method Urinal Urinal # Voids 1 - Exam CONSTITUTIONAL: Appears comfortable, cooperative, no acute distress RESPIRATORY: Lungs sounds diminished on the right. Respirations even, nonlabored. Currently on room air with oxygen saturation 94%. Able to achieve 2000 mL on incentive spirometry. Strong cough. CARDIOVASCULAR: S1, S2 present. Regular rate and rhythm, sinus rhythm to sinus tach on telemetry. Palpable peripheral pulses bilaterally. No edema present. No calf pain or tenderness noted. SCDs present. GASTROINTESTINAL: Abdomen soft, nontender, nondistended. Active bowel sounds present 4 quadrants. Tolerating diet GENITOURINARY: Continues to void INTEGUMENTARY: Skin is warm and dry NEUROLOGIC: Cranial nerves II through XII intact MUSKULOSKELETAL: Able to move all extremities, strength equal bilaterally, gait normal PSYCHIATRIC: Alert and oriented to person place and time, appropriate affect, intact judgment and insight INVASIVE LINES AND TUBES: Right sided pigtail catheter present to continuous wall suction drained 150 mL thinner drainage overnight, 400 mL in the last 24 hours - Allied health notes Allied health notes reviewed: nursing - Labs CBC & Chem 7: 12/28/24 04:23 12/28/24 04:23 Labs: Abnormal Lab Results - Last 24 Hours (Table) 12/28/24 12/28/24 Range/Units 04:23 04:23 RBC 3.13 L (4.40-5.60) X 10*6/uL Hgb 7.6 L (13.0-17.0) g/dL Hct 26.3 L (39.6-50.0) % MCH 24.3 L (27.0-32.0) pg MCHC 28.9 L (32.0-37.0) g/dL RDW 15.5 H (11.5-14.5) % Plt Count 511 H (140-440) X 10*3/uL MPV 8.7 L (9.5-12.2) FL Immature Gran # 0.09 H (0.00-0.04) X 10*3/uL Anion Gap 12.60 H (4.00-12.00) mmol/L BUN 7.4 L (9.0-27.0) mg/dL Creatinine 0.5 L (0.6-1.5) mg/dL Glucose 118 H (70-110) mg/dL Iron 28 L (65-175) UG/DL % Saturation 10.69 L (15.00-50.00) Transferrin 187.0 L (204.0-354.0) mg/dL Ferritin 369.0 H (22.0-322.0) ng/mL - Imaging and Cardiology Chest x-ray: report reviewed, image reviewed Assessment and Plan Assessment: Right empyema, trapped right lung, status post right thoracentesis and placement of right pigtail catheter with lytic installation Acute hypoxic respiratory failure Shortness of breath secondary to above Normocytic hypochromic anemia Elevated D-dimer, CTA of the chest negative for pulmonary embolus Bronchial washing cultures positive for Pichia violettazevil, actinomyces odontolyicus History of recent right lower lobe pneumonia with failed treatment of azithromycin and Augmentin Tobacco dependence with cessation 4 months ago. Plan: Keep right pleural pigtail catheter in place to low continuous wall suction -20 cm H2O. May disconnect to ambulate to the bathroom and in the uribe. Will instill 7th dose alteplase/dornase through the pigtail catheter today and clamp for 1 hour post instillation. Encourage use of incentive spirometry 10 times every hour while awake. Monitor daily chest x-rays. Dr. Nick from infectious disease is following, antibiotic management per infectious disease. Increase activity as tolerated. Out of bed for all meals. Pain control per current medication regimen No plan for surgical intervention at this point in time but will be reevaluated on a daily basis More recommendations to follow based on patient's clinical course.
[2024-12-29] MEDS: ALTEPLASE 10 MG in SODIUM CHLORIDE 0.9% 50 ML IRRIGATION ONE (10:54)
[2024-12-29] MEDS: DORNASE ALFA 5 MG in SODIUM CHLORIDE 0.9% 50 ML IRRIGATION ONE (10:54)
--- NOTE | 2024-12-29 12:11 | P.PN ---
Subjective This is a pleasant 54 years old male with no significant past medical history Patient presents because of worsening dyspnea. About 1 month ago he was diagnosed with pneumonia pneumonia with small right pleural effusion and he was treated with oral antibiotic, this was progressed gradually over this month and become more opacified right lung on chest x-ray. Patient underwent thoracocentesis with pulmonary team while he is still in the emergency room where more than 3 L of purulent fluid has been drained. Patient with no significant pain, no significant coughing and is on room air He denies any other specific symptoms He quit smoking about 4 months ago with no alcohol or illicit drugs. Vitals stable he was mildly tachycardic which is improving now Labs showing leukocytosis 11.2, hemoglobin 7.6. Platelet count 707 Rest of BMP LFT troponin and INR were unremarkable D-dimer was elevated 1.6. He underwent CTA of the chest which was negative for PE but showing large pleural effusion on the right with collapse of the right lung. Chest x-ray and CTA of the lung showing the same findings of large pleural effusion and collapse of the right lung EKG showing sinus tachycardia [address]-T changes Patient underwent right sided thoracocentesis more than 3 L of purulent fluid was drained. And patient tolerated the procedure well 12/21 Patient feels more comfortable and breathing easily no significant chest pain or coughing Repeat CT of the chest and abdomen showing loculated still large fluid collection in the right lung for his empyema. thoracic surgery was consulted for possible decortication Patient currently kept on IV vancomycin and Zosyn pending final culture results 12/22 Patient breathing better Remains on oxygen He is s/p bronchoscopy showing no tumor Status post right-sided chest tube with about 2 L of discharge mainly purulent and pus Cardiothoracic surgery team following closely Culture pending Remains on Zosyn 12/23/2024 Patient is seen in follow-up today remains with a right-sided chest tube with CT surgery following administering another dose of tPA for right empyema. Infectious disease and pulmonary following as well and will continue current regimen while awaiting cultures. Patient has been encouraged to increase activity as tolerated and continued incentive spirometer use at least 10 times every hour while awake. Patient is currently maintained on 2 L via nasal cannula and does not wear oxygen outpatient. Hemoglobin is noted to be 7 and will follow-up on repeat labs, transfuse if less than 7. Will follow-up on cultures and discuss further with consultations regarding treatment plan moving forward. No plans of chest tube removal as of yet as patient continues with significant amount of purulence being drained. 12/24/2024 Patient is seen in follow-up today reports to feeling lethargic today but doing well otherwise. Patient is continued on oxygenation at 2 L and reports shortness of breath. Patient reports his pain during breakthrough is becoming extreme and Toradol is helping asking for increased frequency. Will adjust [place] slightly and encouraged continued incentive spirometer use and increased activity as tolerated with sitting up more frequently. Plan is for tPA instillation through the chest tube per CT surgery today. Patient continues with continued purulent drainage noted in the tubing. Patient is maintained on antibiotics and awaiting for cultures to finalize. 12/25/2024 Patient seen in follow-up today reports to feeling slightly improved and less short of breath. Patient continues with chest tube CT surgery following will be receiving another tPA administration in the chest tube. Patient continues with purulent drainage although somewhat more clear today. Awaiting finalized cultures and follow-up on chest x-ray to monitor closely. Patient is using incentive spirometer encouraged to use at least 10 times every hour while awake. Continue current pain regimen. Will follow-up on repeat labs. Hemoglobin is stable above 7 with no active bleeding noted. 12/26/2024 Patient seen and evaluated in follow-up this morning and continues with right side chest tube and has been receiving tPA administrations with follow-up chest x-ray that shows similar small right basilar pneumothorax with small pleural effusion stable position of pigtail catheter with persistent right suprahilar and right basilar opacities likely. Patient is continued on Unasyn anidulafungin and per ID recommendations. Culture showing pichia kudriavzevii along with Actinomyces odontolyticus. patient is afebrile and reports to feeling weak and fatigued today. Repeat chest x-ray will be ordered for tomorrow and patient has scheduled CT of the chest per CT surgery for further evaluation of the loculated empyema. 12/27/2024 Patient is seen in follow-up today per CT surgery. Pulmonary following along with infectious disease as patient was noted to have loculated empyema status post chest tube. Apparently chest tube was dislodged and awaiting repeat chest tube insertion to be placed sometime today per CT surgery. Patient is afebrile and denies worsening shortness of breath actually reports to feeling somewhat improved and is currently on room air. Patient does fatigue easily and becomes dyspneic with exertion. Patient has been encouraged to continue with incentive spirometer. 12/28/2024 Patient's pigtail catheter came out which was replaced and patient is clinically doing well at this time chest x-ray and CT scan showed improvement in the pleural effusion. 12/29/2024 Patient chest tube is draining well drained about 100 cc since morning. Review of systems: Constitutional: No reports of fatigue, fever, or chills Cardiovascular: No reports of chest pain, reports chest wall pain with the chest tube site Respiratory: o reports of shortness of breath with occasional cough, shortness of breath is slightly improved GI: No reports of nausea, vomiting, or diarrhea : No reports of dysuria or retention Neurovascular: No reports of weakness or numbness All medications have been reviewed Physical exam: GENERAL: The patient is alert and oriented x3, not in any acute distress. Well developed, well nourished. Appears older than stated age HEENT: Pupils are round and equally reacting to light. EOMI. No scleral icterus. No conjunctival pallor. Normocephalic, atraumatic. No pharyngeal erythema. No thyromegaly. CARDIOVASCULAR: S1 and S2 present. No murmurs, rubs, or gallops. -PULMONARY: Diminished breath sounds bilaterally otherwise chest is clear to auscultation, no wheezing , no crackles. Decreased breath sounds in the bases, more so on the right ABDOMEN: Soft, nontender, nondistended, normoactive bowel sounds. No palpable organomegaly. MUSCULOSKELETAL: No joint swelling or deformity. EXTREMITIES: No cyanosis, clubbing, or pedal edema. NEUROLOGICAL: Gross neurological examination did not reveal any focal deficits. SKIN: No rashes. no petechiae. Assessment: Right pneumonia failed outpatient treatment associated with large/huge right pleural effusion with left-sided mediastinal shift right sided thoracocentesis more than 3 L of purulent fluid was drained, empyema receiving tPA instillation in the chest tube with CT surgery, cultures showing pichia kudriavzevii along with Actinomyces odontolyticus and yeast Acute hypoxic respiratory failure secondary to assessment #1, improving and currently on room air Normocytic hypochromic anemia Elevated D-dimer with negative CAT scan from pulmonary embolism GI prophylaxis DVT prophylaxis No code Plan: Continue with antibiotic currently on Zosyn and IV vancomycin. Infectious disease following and awaiting cultures to determine appropriate antibiotics. Cardiothoracic surgery following is instilling another dose of tPA and the chest tube with continued significant amounts of purulence noted. Patient did have right-sided chest tube although apparently was dislodged accidentally at this time per CT surgery. Will have new chest tube placed sometime today. Follow-up on repeat chest x-ray Pulmonary team following closely Continue with breathing inhalational treatments and weaning FiO2 as tolerated. Patient currently room air today and continues with intermittent supplemental oxygen. Patient does not wear oxygen outpatient Hemoglobin noted to be 7.9 with no active bleeding noted at this time we will follow-up on repeat labs and recommend to transfuse if less than 7. Will obtain iron studies as patient's hemoglobin in November of this year was 11 Encouraged incentive spirometer use at least 10 times every hour while awake Patient will need resources outpatient on discharge as patient has no primary care provider at this time Objective - Vital Signs Vital signs: Vital Signs Temp 97.6 F 12/29/24 07:45 Pulse 86 12/29/24 09:07 Resp 18 12/29/24 07:46 BP 124/78 12/29/24 07:45 Pulse Ox 97 12/29/24 08:53 FiO2 Intake & Output 12/28/24 12/29/24 12/29/24 18:59 06:59 18:59 Intake Total 180 Output Total 2770 1400 230 Balance -2590 -1400 -230 Intake: Oral 180 Output: Chest Tube Drainage 270 Chest Tube Right 270 Drainage 150 Right Chest 150 Urine 2500 1250 230 Other: Voiding Method Urinal Urinal # Voids 1 - Labs CBC & Chem 7: 12/28/24 04:23 12/28/24 04:23
--- NOTE | 2024-12-29 12:36 | P.PN ---
Subjective Progress Note Date: 12/27/24 Principal diagnosis: Reason for follow-up is pneumonia/empyema Patient is a 54-year-old male with a past medical history significant for pneumonia former smoker presenting to the hospital for evaluation of increasing shortness of breath, patient be diagnosed with a right-sided pneumonia concerning for empyema in this patient was status post chest tube placement on the right side. On today's evaluation that is 12/27/2024, patient has been afebrile, patient is breathing comfortably and is currently on room air, patient denies right-sided chest pain has decreased intensity and denies any worsening cough, patient denies nausea vomiting or diarrhea and no abdominal pain. Patient white count is 5.62 creatinine 0.4 Objective - Vital Signs Vital signs: Vital Signs Temp 98.7 F 12/27/24 07:19 Pulse 94 12/27/24 09:58 Resp 18 12/27/24 07:45 BP 117/73 12/27/24 07:19 Pulse Ox 95 12/27/24 07:19 FiO2 Intake & Output 12/26/24 12/27/24 12/27/24 18:59 06:59 18:59 Intake Total 250 Output Total 1750 900 400 Balance -1500 -900 -400 Weight 77.111 kg Intake: Oral 250 Output: Urine 1750 900 400 Other: Voiding Method Urinal Urinal # Voids 1 - Exam GENERAL DESCRIPTION: Middle-age male lying in bed in no distress RESPIRATORY SYSTEM: Unlabored breathing , decreased breath sounds at bases HEART: S1 S2 regular rate and rhythm , ABDOMEN: Soft , no tenderness EXTREMITIES: No edema feet - Labs CBC & Chem 7: 12/28/24 04:23 12/28/24 04:23 Labs: Abnormal Lab Results - Last 24 Hours (Table) 12/27/24 12/27/24 Range/Units 04:51 04:51 RBC 3.18 L (4.40-5.60) X 10*6/uL Hgb 7.9 L (13.0-17.0) g/dL Hct 26.7 L (39.6-50.0) % MCH 24.8 L (27.0-32.0) pg MCHC 29.6 L (32.0-37.0) g/dL RDW 15.6 H (11.5-14.5) % Plt Count 578 H (140-440) X 10*3/uL MPV 8.7 L (9.5-12.2) FL Immature Gran # 0.10 H (0.00-0.04) X 10*3/uL Anion Gap 12.70 H (4.00-12.00) mmol/L Creatinine 0.4 L (0.6-1.5) mg/dL BUN/Creatinine Ratio 23.00 H (12.00-20.00) Ratio Calcium 8.6 L (8.7-10.3) mg/dL Assessment and Plan (1) Sepsis Current Visit: Yes Status: Acute Code(s): A41.9 - SEPSIS, UNSPECIFIED ORGANISM SNOMED Code(s): 41334158 (2) Empyema Current Visit: Yes Status: Acute Code(s): J86.9 - PYOTHORAX WITHOUT FISTULA SNOMED Code(s): 259094323 (3) Pneumonia Current Visit: No Status: Acute Code(s): J18.9 - PNEUMONIA, UNSPECIFIED ORGANISM SNOMED Code(s): 014321354 Plan: 1patient presented to hospital with sepsis in this patient who did have tachycardia elevated white count meeting criteria for SIRS source is right-sided pneumonia and underlying empyema status post thoracocentesis in this patient failing outpatient oral Augmentin and Zithromax therapy will need to cover for resistant gram-positive as well as gram-negative pathogen 2-patient sputum and pleural fluid cultures so far pending MRSA nasal screen was negative culture currently growing actinomyces and Pichia Kudriavzevii 3patient is afebrile white count is normal, currently being Unasyn and Eraxis on the basis of pleural culture and monitor clinical course closely Dictation was produced using [employer] software. please excuse any grammatical, word or spelling errors.
--- NOTE | 2024-12-29 12:37 | P.PN ---
Subjective Progress Note Date: 12/28/24 Principal diagnosis: Reason for follow-up is pneumonia/empyema Patient is a 54-year-old male with a past medical history significant for pneumonia former smoker presenting to the hospital for evaluation of increasing shortness of breath, patient be diagnosed with a right-sided pneumonia concerning for empyema in this patient was status post chest tube placement on the right side. On today's evaluation that is 12/28/2024, Patient is afebrile this morning patient denies having any chest pain shortness of breath and cough has decreased in intensity, the patient is currently on room air, patient denies any abdominal pain no diarrhea no nausea no vomiting. Patient white count is 5.28, creatinine 0.5 Objective - Vital Signs Vital signs: Vital Signs Temp 98.3 F 12/28/24 19:20 Pulse 85 12/28/24 20:32 Resp 20 12/28/24 20:32 BP 131/76 12/28/24 19:20 Pulse Ox 94 L 12/28/24 19:20 FiO2 Intake & Output 12/28/24 12/28/24 12/29/24 06:59 18:59 06:59 Intake Total 540 180 Output Total 3085 2500 500 Balance -5620 -3871 -500 Intake: Oral 540 180 Output: Chest Tube Drainage 460 Chest Tube Right 460 Urine 2625 2500 500 Other: Voiding Method Urinal Urinal # Voids 1 - Exam GENERAL DESCRIPTION: Middle-age male lying in bed in no distress RESPIRATORY SYSTEM: Unlabored breathing , decreased breath sounds at bases HEART: S1 S2 regular rate and rhythm , ABDOMEN: Soft , no tenderness EXTREMITIES: No edema feet - Labs CBC & Chem 7: 12/28/24 04:23 12/28/24 04:23 Labs: Abnormal Lab Results - Last 24 Hours (Table) 12/28/24 12/28/24 Range/Units 04:23 04:23 RBC 3.13 L (4.40-5.60) X 10*6/uL Hgb 7.6 L (13.0-17.0) g/dL Hct 26.3 L (39.6-50.0) % MCH 24.3 L (27.0-32.0) pg MCHC 28.9 L (32.0-37.0) g/dL RDW 15.5 H (11.5-14.5) % Plt Count 511 H (140-440) X 10*3/uL MPV 8.7 L (9.5-12.2) FL Immature Gran # 0.09 H (0.00-0.04) X 10*3/uL Anion Gap 12.60 H (4.00-12.00) mmol/L BUN 7.4 L (9.0-27.0) mg/dL Creatinine 0.5 L (0.6-1.5) mg/dL Glucose 118 H (70-110) mg/dL Iron 28 L (65-175) UG/DL % Saturation 10.69 L (15.00-50.00) Transferrin 187.0 L (204.0-354.0) mg/dL Ferritin 369.0 H (22.0-322.0) ng/mL Assessment and Plan (1) Sepsis Current Visit: Yes Status: Acute Code(s): A41.9 - SEPSIS, UNSPECIFIED ORGANISM SNOMED Code(s): 11725637 (2) Empyema Current Visit: Yes Status: Acute Code(s): J86.9 - PYOTHORAX WITHOUT FISTULA SNOMED Code(s): 918884161 (3) Pneumonia Current Visit: No Status: Acute Code(s): J18.9 - PNEUMONIA, UNSPECIFIED ORGANISM SNOMED Code(s): 759203612 Plan: 1patient presented to hospital with sepsis in this patient who did have tachycardia elevated white count meeting criteria for SIRS source is right-sided pneumonia and underlying empyema status post thoracocentesis in this patient failing outpatient oral Augmentin and Zithromax therapy will need to cover for resistant gram-positive as well as gram-negative pathogen 2-patient sputum and pleural fluid cultures so far pending MRSA nasal screen was negative culture currently growing actinomyces and Pichia Kudriavzevii 3patient is afebrile white count is normal, 4patient is currently being Unasyn and Eraxis will need a PICC line for outpatient IV antibiotic and antifungal therapy Dictation was produced using [email or web address] dictation software. please excuse any grammatical, word or spelling errors. Time with Patient: Less than 30
[2024-12-29] MEDS: HYDROcodone/APAP 7.5-325MG 1 EACH TAB PO PRN (13:10)
--- NOTE | 2024-12-30 08:27 | XR ---
EXAMINATION TYPE: XR chest 1V portable DATE OF EXAM: 12/30/2024 6:37 AM COMPARISON: 12/29/2024 CLINICAL INDICATION: Male, 54 years old with history of Empyema, , FINDINGS: Heart normal size. Mild hyperinflation. Interstitial and patchy bilateral opacities persist. Right ba silar pigtail pleural catheter remains in place with similar small pleural air cavity at the lateral costophrenic angle. Residual small right pleural effusion and prominent adjacent right basilar opacit y remains. IMPRESSION: 1. Pigtail pleural catheter at the right base remains in place. Similar residual small right pleural effusion and pleural air cavity. Also, similar prominent right basilar opacity. 2. Otherwise, changes of COPD with bilateral interstitial and patchy opacities are similar as well. [facility], , 12/30/2024 8:24 AM
[2024-12-30] MEDS: ALTEPLASE 10 MG in SODIUM CHLORIDE 0.9% 50 ML IRRIGATION ONE (08:43)
[2024-12-30] MEDS: DORNASE ALFA 5 MG in SODIUM CHLORIDE 0.9% 50 ML IRRIGATION ONE (08:43)
--- NOTE | 2024-12-30 08:58 | P.PN ---
Subjective Progress Note Date: 12/30/24 Principal diagnosis: Right empyema, trapped right lung. Previous medical history of recent right lower lobe pneumonia with failed treatment of azithromycin and Augmentin, and tobacco dependence with cessation 4 months ago. POD #10 right thoracentesis with 4 L of empyema drained by Dr. Rivera. POD #9 placement of right chest pigtail catheter by Dr. Casarez, POD #3 replacement of right sided pigtail catheter by IR The patient was seen and examined this morning sitting up in bed on the medical surgical unit in no acute distress. States increased Boyers dose has helped with his chest heaviness. Remains on room air with oxygen saturation in the mid 90s. Able to achieve 2000 mL on his incentive spirometry. Remains in sinus rhythm on telemetry, hemodynamically stable. Right pigtail catheter present, lytics were instilled for the seventh dose yesterday, 400 mL of drainage in the last 24 hours. Chest x-ray reviewed with Dr. Jenkins. Remains on Eraxis and Unasyn per infectious disease. Patient has been up and ambulatory without difficulty. Objective - Vital Signs Vital signs: Vital Signs Temp 97.6 F 12/30/24 07:10 Pulse 94 12/30/24 07:10 Resp 18 12/30/24 07:10 BP 135/79 12/30/24 07:10 Pulse Ox 91 L 12/30/24 07:10 FiO2 Intake & Output 12/29/24 12/30/24 12/30/24 18:59 06:59 18:59 Intake Total 950 540 Output Total 570 850 Balance 380 -310 Intake: Intake, IV Titration 200 Amount Ampicillin-Sulbactam 3 gm 100 In Sodium Chloride 0.9% 100 ml @ 200 mls/hr IVPB Q6HR [facility] Rx#:[id number] Anidulafungin 100 mg In 100 Sodium Chloride 0.9% 100 ml @ 84 mls/hr IVPB DAILY [facility] Rx#:[id number] Oral 750 540 Output: Chest Tube Drainage 340 Chest Tube Right 340 Urine 230 850 Other: Voiding Method Urinal Urinal # Voids 3 2 - Exam CONSTITUTIONAL: Appears comfortable, cooperative, no acute distress RESPIRATORY: Lungs sounds diminished on the right. Respirations even, nonlabored. Currently on room air with oxygen saturation 96%. Able to achieve 2000 mL on incentive spirometry. Strong cough. CARDIOVASCULAR: S1, S2 present. Regular rate and rhythm, sinus rhythm on telemetry. Palpable peripheral pulses bilaterally. No edema present. No calf pain or tenderness noted. SCDs present. GASTROINTESTINAL: Abdomen soft, nontender, nondistended. Active bowel sounds present 4 quadrants. Tolerating diet GENITOURINARY: Continues to void INTEGUMENTARY: Skin is warm and dry NEUROLOGIC: Cranial nerves II through XII intact MUSKULOSKELETAL: Able to move all extremities, strength equal bilaterally, gait normal PSYCHIATRIC: Alert and oriented to person place and time, appropriate affect, intact judgment and insight INVASIVE LINES AND TUBES: Right sided pigtail catheter present to continuous wall suction, drained 400 mL in the last 24 hours - Allied health notes Allied health notes reviewed: nursing - Labs CBC & Chem 7: 12/28/24 04:23 12/28/24 04:23 - Imaging and Cardiology Chest x-ray: report reviewed, image reviewed Assessment and Plan Assessment: Right empyema, trapped right lung, status post right thoracentesis and placement of right pigtail catheter with lytic installation Acute hypoxic respiratory failure Shortness of breath secondary to above Normocytic hypochromic anemia Elevated D-dimer, CTA of the chest negative for pulmonary embolus Bronchial washing cultures positive for Pichia kudriavzevil, actinomyces odontolyicus History of recent right lower lobe pneumonia with failed treatment of azithromycin and Augmentin Tobacco dependence with cessation 4 months ago. Plan: Keep right pleural pigtail catheter in place to low continuous wall suction -20 cm H2O. May disconnect to ambulate to the bathroom and in the uribe. Will instill 8th dose alteplase/dornase today, will continue to instill as long as patient is getting adequate drainage Encourage use of incentive spirometry 10 times every hour while awake. Monitor daily chest x-rays. Dr. Nick from infectious disease is following, antibiotic management per infectious disease. Increase activity as tolerated. Out of bed for all meals. Pain control per current medication regimen No plan for surgical intervention at this point in time but will be reevaluated on a daily basis More recommendations to follow based on patient's clinical course.
[2024-12-30] MEDS: SODIUM FERRIC GLUCONAT-SUCROSE 125 MG in SODIUM CHLORIDE 0.9% 100 ML IVPB SCH (10:21)
--- NOTE | 2024-12-30 14:10 | P.PN ---
Subjective Progress Note Date: 12/30/24 On 12/30/2024, the patient is being seen for a follow-up. The patient had an extensive right lung pneumonia with a loculated right-sided pleural effusion. The patient presented to us with increased shortness of breath. The patient had a large collection of pleural fluid with numerous internal foci of air and fluid levels and the findings were consistent essentially with empyema. The patient had a thoracentesis with a total of 4 L of thick pale yellowish fluid was aspirated. Following that, the patient had a loculated pneumothorax on the right. Subsequently, the patient had a CAT scan of the chest and abdomen that showed a large fluid collection/hydropneumothorax within the right hemithorax w ith consolidative opacities and multiple foci of air. The patient also had a bronchoscopy on 12/22/2024 that showed no evidence of any endobronchial tumors or lesions. The lavage from the right lung was consistent with Lucy Job the and actinomyces species. Subsequently, the patient had the pigtail catheter inserted and the patient is receiving thrombolytic therapy through the pigtail catheter that was inserted on the right. The patient is currently stable. Using incentive spirometer and pulling approximately 2000 on his I-S. Over the past 24 hours, another 400 cc of pleural fluid was aspirated from the right lung via the pigtail catheter. The most recent chest x-ray from today shows that the catheter is in the right lung base. The same time, there is a small right-sided pleural effusion and a tiny loculated right lower lobe pneumothorax. There is also COPD and bilateral interstitial and patchy opacities bilaterally. The patient remains on IV Unasyn and Eraxis. He is feeling well. No significant shortness of breath. No chest pain. No pleurisy. No hemoptysis. He is cu rrently on 2 L/min nasal cannula. The white cell count is at 5.2, hemoglobin 7.6 and a platelet count of 511. Sodium is at 139, bicarb is 24, BUN is 7 with a creatinine of 0.5. His serum iron level was low at 28. Objective - Vital Signs Vital signs: Vital Signs Temp 97.6 F 12/30/24 07:10 Pulse 92 12/30/24 09:35 Resp 18 12/30/24 07:10 BP 135/79 12/30/24 07:10 Pulse Ox 91 L 12/30/24 07:10 FiO2 Intake & Output 12/29/24 12/30/24 12/30/24 18:59 06:59 18:59 Intake Total 950 540 Output Total 570 850 Balance 380 -310 Intake: Intake, IV Titration 200 Amount Ampicillin-Sulbactam 3 gm 100 In Sodium Chloride 0.9% 100 ml @ 200 mls/hr IVPB Q6HR [facility] Rx#:[id number] Anidulafungin 100 mg In 100 Sodium Chloride 0.9% 100 ml @ 84 mls/hr IVPB DAILY [facility] Rx#:[id number] Oral 750 540 Output: Chest Tube Drainage 340 Chest Tube Right 340 Urine 230 850 Other: Voiding Method Urinal Urinal # Voids 3 2 - Exam The patient appeared well nourished and normally developed. Vital signs as documented. The patient is currently on 2 L of oxygen by nasal cannula Head exam is unremarkable. No scleral icterus or corneal arcus noted. Neck is without jugular venous distension, thyromegaly, or carotid bruits. Carotid upstrokes are brisk bilaterally. Lungs are diminished in the right lung base and the patient is a pigtail catheter in place. There is some crackles and diminished breath sound right lung base. Cardiac exam reveals the PMI to be normally sized and situated. Rhythm is regular. First and second heart sounds normal. No murmurs, rubs or gallops. Abdominal exam reveals normal bowel sounds, no masses, no organomegaly and no aortic enlargement. Extremities are nonedematous and both femoral and pedal pulses are normal. Examination of the skin revealed no evidence of significant rashes, suspicious appearing nevi or other concerning lesions. Neurologically, the patient is awake and alert and the patient does not have any focal neurological deficit. Cranial nerves are essentially intact. - Labs CBC & Chem 7: 12/28/24 04:23 12/28/24 04:23 Labs: Microbiology - Last 24 Hours (Table) 12/22/24 09:40 Fungal Culture - Preliminary Bronchoalviolar Lavage - Right Lucy krusei Assessment and Plan Plan: Right lung empyema, status post thoracentesis today with 4 L of thick yellowish- brown fluid returned. CT scan of the chest and abdomen redemonstrates a large fluid collection/hydropneumothorax within the right lung with consolidative opacities and multiple foci of gas. Additional multiloculated portion along the right major fissure superiorly. Reactive mediastinal adenopathy. Moderate COPD changes. Post bronchoscopy with BAL on 12/22/2024. Bronchoalveolar lavage cultures were positive for Pichia kudriavzevii and actinomyces odontolyticus process. Remains on Unasyn. Remains on Eraxis. Pigtail catheter replaced 12/27/2024 and 5 doses of alteplase/dornase infused per CT service. Acute hypoxemic respiratory failure secondary to above, recovered and on 2 L of oxygen by nasal cannula Recent treatment for right lower lobe pneumonia on 11/30/2024 in our emergency department with Augmentin and azithromycin Anemia of chronic disease, normocytic Chronic tobacco dependence, states quit approximately 4 months ago No primary care provider, no recent health care assessment Plan: Keep right pleural pigtail catheter in place to low continuous wall suction -20 cm H2O. May disconnect to ambulate to the bathroom and in the uribe. Will inst ill 8th dose alteplase/dornase today, will continue to instill as long as patient is getting adequate drainage Chest x-ray shows improvement and there is a loculated small right-sided pneumothorax in the right lung base Encourage use of incentive spirometry 10 times every hour while awake. Monitor daily chest x-rays. Dr. Nick from infectious disease is following, antibiotic management per infectious disease. The patient remains on a combination of Eraxis and Unasyn Increase activity as tolerated. Out of bed for all meals. Pain control per current medication regimen Cardiothoracic surgery is on the case Continue the incentive spirometer Increase his activity as tolerated We will continue to follow Time with Patient: Greater than 30
--- NOTE | 2024-12-31 06:26 | P.PN ---
Subjective Progress Note Date: 12/30/24 This is a pleasant 54 years old male with no significant past medical history Patient presents because of worsening dyspnea. About 1 month ago he was diagnosed with pneumonia pneumonia with small right pleural effusion and he was treated with oral antibiotic, this was progressed gradually over this month and become more opacified right lung on chest x-ray. Patient underwent thoracocentesis with pulmonary team while he is still in the emergency room where more than 3 L of purulent fluid has been drained. Patient with no significant pain, no significant coughing and is on room air He denies any other specific symptoms He quit smoking about 4 months ago with no alcohol or illicit drugs. Vitals stable he was mildly tachycardic which is improving now Labs showing leukocytosis 11.2, hemoglobin 7.6. Platelet count 707 Rest of BMP LFT troponin and INR were unremarkable D-dimer was elevated 1.6. He underwent CTA of the chest which was negative for PE but showing large pleural effusion on the right with collapse of the right lung. Chest x-ray and CTA of the lung showing the same findings of large pleural effusion and collapse of the right lung EKG showing sinus tachycardia [address]-T changes Patient underwent right sided thoracocentesis more than 3 L of purulent fluid was drained. And patient tolerated the procedure well 12/21 Patient feels more comfortable and breathing easily no significant chest pain or coughing Repeat CT of the chest and abdomen showing loculated still large fluid collection in the right lung for his empyema. thoracic surgery was consulted for possible decortication Patient currently kept on IV vancomycin and Zosyn pending final culture results 12/22 Patient breathing better Remains on oxygen He is s/p bronchoscopy showing no tumor Status post right-sided chest tube with about 2 L of discharge mainly purulent and pus Cardiothoracic surgery team following closely Culture pending Remains on Zosyn 12/23/2024 Patient is seen in follow-up today remains with a right-sided chest tube with CT surgery following administering another dose of tPA for right empyema. Infectious disease and pulmonary following as well and will continue current reg imen while awaiting cultures. Patient has been encouraged to increase activity as tolerated and continued incentive spirometer use at least 10 times every hour while awake. Patient is currently maintained on 2 L via nasal cannula and does not wear oxygen outpatient. Hemoglobin is noted to be 7 and will follow-up on repeat labs, transfuse if less than 7. Will follow-up on cultures and discuss quentin sonya with consultations regarding treatment plan moving forward. No plans of chest tube removal as of yet as patient continues with significant amount of purulence being drained. 12/24/2024 Patient is seen in follow-up today reports to feeling lethargic today but doing well otherwise. Patient is continued on oxygenation at 2 L and reports shortness of breath. Patient reports his pain during breakthrough is becoming extreme and Toradol is helping asking for increased frequency. Will adjust N orco slightly and encouraged continued incentive spirometer use and increased activity as tolerated with sitting up more frequently. Plan is for tPA instillation through the chest tube per CT surgery today. Patient continues with continued purulent drainage noted in the tubing. Patient is maintained on antibiotics and awaiting for cultures to finalize. 12/25/2024 Patient seen in follow-up today reports to feeling slightly improved and less short of breath. Patient continues with chest tube CT surgery following will be receiving another tPA administration in the chest tube. Patient continues with purulent drainage although somewhat more clear today. Awaiting finalized cultures and follow-up on chest x-ray to monitor closely. Patient is using incentive spirometer encouraged to use at least 10 times every hour while awake. Continue current pain regimen. Will follow-up on repeat labs. Hemoglobin is stable above 7 with no active bleeding noted. 12/26/2024 Patient seen and evaluated in follow-up this morning and continues with right side chest tube and has been receiving tPA administrations with follow-up chest x-ray that shows similar small right basilar pneumothorax with small pleural effusion stable position of pigtail catheter with persistent right suprahilar and right basilar opacities likely. Patient is continued on Unasyn anidulafungin and per ID recommendations. Culture showing pichia kudriavzevii along with Actinomyces odontolyticus. patient is afebrile and reports to feeling weak and fatigued today. Repeat chest x-ray will be ordered for tomorrow and patient has scheduled CT of the chest per CT surgery for further evaluation of the loculated empyema. 12/27/2024 Patient is seen in follow-up today per CT surgery. Pulmonary following along with infectious disease as patient was noted to have loculated empyema status post chest tube. Apparently chest tube was dislodged and awaiting repeat chest tube insertion to be placed sometime today per CT surgery. Patient is afebrile and denies worsening shortness of breath actually reports to feeling somewhat im proved and is currently on room air. Patient does fatigue easily and becomes dyspneic with exertion. Patient has been encouraged to continue with incentive spirometer. 12/30/2024 Patient is seen in follow-up today with CT surgery pulmonary following along with infectious disease. Culture showing Lucy krusei and is maintained on ampicillin along with an antifungal and will continue. Per infectious disease, will likely require IV antibiotics on discharge and case management following working on discharge planning including verifying coverage for IV antibiotics. Patient continues to have chest tube on the right with CT surgery administering tPA daily and continues with significant drainage. Patient is adamant about leaving if he has a special needs child he has to take care of at home and is running out of resources to help him with this while he remains hospitalized. Will discuss with other consultations regarding discharge planning. Encouraged increase activity as tolerated and continued incentive spirometer use. Follow- up chest x-ray noted. Review of systems: Constitutional: No reports of fatigue, fever, or chills Cardiovascular: No reports of chest pain, reports chest wall pain with the chest tube site Respiratory: no further reports of shortness of breath, continues with occasional cough, shortness of breath is improved GI: No reports of nausea, vomiting, or diarrhea : No reports of dysuria or retention Neurovascular: No reports of weakness or numbness All medications have been reviewed Physical exam: GENERAL: The patient is alert and oriented x3, not in any acute distress. Well developed, well nourished. Appears older than stated age HEENT: Pupils are round and equally reacting to light. EOMI. No scleral icterus. No conjunctival pallor. Normocephalic, atraumatic. No pharyngeal erythema. No thyromegaly. CARDIOVASCULAR: S1 and S2 present. No murmurs, rubs, or gallops. -PULMONARY: Diminished breath sounds bilaterally otherwise chest is clear to auscultation, no wheezing , no crackles. Decreased breath sounds in the bases, more so on the right ABDOMEN: Soft, nontender, nondistended, normoactive bowel sounds. No palpable organomegaly. MUSCULOSKELETAL: No joint swelling or deformity. EXTREMITIES: No cyanosis, clubbing, or pedal edema. NEUROLOGICAL: Gross neurological examination did not reveal any focal deficits. SKIN: No rashes. no petechiae. Assessment: Right pneumonia failed outpatient treatment associated with large/huge right pleural effusion with left-sided mediastinal shift right sided thoracocentesis more than 3 L of purulent fluid was drained, empyema receiving tPA instillation in the chest tube with CT surgery, cultures showing pichia kudriavzevii along with Actinomyces odontolyticus and Lucy Acute hypoxic respiratory failure secondary to assessment #1, improving and currently on room air Normocytic hypochromic anemia Elevated D-dimer with negative CAT scan from pulmonary embolism GI prophylaxis DVT prophylaxis No code Plan: Continue with antibiotic currently on ampicillin and anidulafungin. Infectious disease following and awaiting cultures to determine appropriate antibiotics. Cardiothoracic surgery following is instilling another dose of tPA and the chest tube with continued significant amounts of purulence noted. Over 400 mL noted output this morning Patient did have right-sided chest tube although apparently was dislodged accidentally at this time per CT surgery. New chest tube was placed on Monday and is continued at this time per CT surgery. Follow-up on repeat chest x-ray Pulmonary team following closely Continue with breathing inhalational treatments and weaning FiO2 as tolerated. Patient currently room air today and continues with intermittent supplemental oxygen. Patient does not wear oxygen outpatient Hemoglobin noted to be 7.6 with no active bleeding noted at this time we will follow-up on repeat labs and recommend to transfuse if less than 7. Iron deficiency noted. Patient's hemoglobin in November of this year was 11 Encouraged incentive spirometer use at least 10 times every hour while awake Patient will need resources outpatient on discharge as patient has no primary care provider at this time. Case management following working on discharge planning including verifying coverage for IV antibiotic outpatient as per ID recommendations patient will require IV antibiotics on discharge Patient is adamant about leaving soon as he has a child to take care of at home and feels has been hospitalized for too long. Overall prognosis is guarded at this time. The impression and plan of care has been dictated by Suad San, Nurse Practitioner as directed. Dr. Mohit MD I have performed a history and examination and MDM of this patient, discussed the same with the dictator, and agree with the dictator's assessment and plan as written ,documented as a scribe. Based on total visit time, I have performed more than 50% of the visit. Objective - Vital Signs Vital signs: Vital Signs Temp 97.6 F 12/30/24 07:10 Pulse 88 12/30/24 09:24 Resp 18 12/30/24 07:10 BP 135/79 12/30/24 07:10 Pulse Ox 91 L 12/30/24 07:10 FiO2 Intake & Output 12/29/24 12/30/24 12/30/24 18:59 06:59 18:59 Intake Total 950 540 Output Total 570 850 Balance 380 -310 Intake: Intake, IV Titration 200 Amount Ampicillin-Sulbactam 3 gm 100 In Sodium Chloride 0.9% 100 ml @ 200 mls/hr IVPB Q6HR [facility] Rx#:[id number] Anidulafungin 100 mg In 100 Sodium Chloride 0.9% 100 ml @ 84 mls/hr IVPB DAILY [facility] Rx#:[id number] Oral 750 540 Output: Chest Tube Drainage 340 Chest Tube Right 340 Urine 230 850 Other: Voiding Method Urinal Urinal # Voids 3 2 - Labs CBC & Chem 7: 12/28/24 04:23 12/28/24 04:23
--- NOTE | 2024-12-31 08:20 | XR ---
EXAMINATION TYPE: XR chest 1V portable DATE OF EXAM: 12/31/2024 6:43 AM COMPARISON: 12/30/2024 CLINICAL INDICATION: Male, 54 years old with history of Empyema, , FINDINGS: Right basilar pigtail pleural catheter remains in place. Background hyperinflation and borderline hea rt size. Small pleural air cavity remains at the right costophrenic angle with adjacent patchy right basilar opacity and residual small right pleural effusion. Mild interstitial densities are similar as well. IMPRESSION: Similar findings of COPD,, background mild interstitial density, right basilar pleural catheter with a small pleural air cavity, residual small effusion, and prominent patchy right basilar opacity. [facility], Workstation: [id number], 12/31/2024 8:18 AM
[2024-12-31 08:21] LABS: Basophils # (A) 0.04 X 10*3/uL (0.00-0.10); Basophils % (A) 0.7 %; Eosinophils % (A) 1.7 %; HCT 27.7 % (39.6-50.0); HGB 8.1 g/dL (13.0-17.0); Lymphocytes # (A) 2.42 X 10*3/uL (0.90-5.00); Lymphocytes % (A) 41.8 %; MCH 24.4 pg (27.0-32.0); MCHC 29.2 g/dL (32.0-37.0); MCV 83.4 FL (80.0-97.0); Monocytes # (A) 0.57 X 10*3/uL (0.20-1.00); Monocytes % (A) 9.8 %; NRBC Per 100 WBC 0 X 10*3/uL (0.00-0.01); Neutrophils # (A) 2.56 X 10*3/uL (1.80-7.70); Neutrophils % (A) 44.3 %; Platelet Count 500 X 10*3/uL (140-440); RBC 3.32 X 10*6/uL (4.40-5.60); RDW 16.4 % (11.5-14.5); WBC 5.79 X 10*3/uL (4.50-10.00)
--- NOTE | 2024-12-31 09:21 | P.PN ---
Subjective Progress Note Date: 12/31/24 Principal diagnosis: Right empyema, trapped right lung. Previous medical history of recent right lower lobe pneumonia with failed treatment of azithromycin and Augmentin, and tobacco dependence with cessation 4 months ago. POD #11 right thoracentesis with 4 L of empyema drained by Dr. Rivera. POD #10 placement of right chest pigtail catheter by Dr. Casarez, POD #4 replacement of right sided pigtail catheter by IR The patient was seen and examined this morning sitting up in bed on the medical surgical unit in no acute distress. States pain controlled. Remains on room a ir with oxygen saturation in the mid 90s. Able to achieve 2000 mL on his incentive spirometry. Remains in sinus rhythm on telemetry, hemodynamically stable. Right pigtail catheter present, lytics were instilled for the eighth dose yesterday, 350 mL of drainage in the last 24 hours. Chest x-ray reviewed with Dr. Jenkins. Remains on Eraxis and Unasyn per infectious disease. Patient has been up and ambulatory without difficulty. 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 States he does have coverage for his son for today and tomorrow but really needs to be home by . Discussed with Dr. Jenkins. Agree that we will continue to i nstill lytics for the next couple days and then remove pigtail catheter so patient can be discharged to home on . Drainage amount has been less and less every day so it is reasonable to assume pigtail catheter can be safely removed for discharge on . Objective - Vital Signs Vital signs: Vital Signs Temp 98.2 F 12/31/24 08:02 Pulse 96 12/31/24 09:08 Resp 18 12/31/24 08:02 BP 111/67 12/31/24 08:02 Pulse Ox 96 12/31/24 08:54 FiO2 Intake & Output 12/30/24 12/31/24 12/31/24 18:59 06:59 18:59 Output Total 1500 550 Balance -1500 -550 Output: Chest Tube Drainage 300 Chest Tube Right 300 Urine 1200 550 Other: Voiding Method Urinal # Voids 1 - Exam CONSTITUTIONAL: Appears comfortable, cooperative, no acute distress RESPIRATORY: Lungs sounds diminished on the right. Respirations even, nonlabor ed. Currently on room air with oxygen saturation 95%. Able to achieve 2000 mL on incentive spirometry. Strong cough. CARDIOVASCULAR: S1, S2 present. Regular rate and rhythm, sinus rhythm on tel emetry. Palpable peripheral pulses bilaterally. No edema present. No calf pain or tenderness noted. SCDs present. GASTROINTESTINAL: Abdomen soft, nontender, nondistended. Active bowel sounds present 4 quadrants. Tolerating diet GENITOURINARY: Continues to void INTEGUMENTARY: Skin is warm and dry NEUROLOGIC: Cranial nerves II through XII intact MUSKULOSKELETAL: Able to move all extremities, strength equal bilaterally, gait normal PSYCHIATRIC: Alert and oriented to person place and time, appropriate affect, intact judgment and insight INVASIVE LINES AND TUBES: Right sided pigtail catheter present to continuous wall suction, drained 350 mL in the last 24 hours - Allied health notes Allied health notes reviewed: nursing - Labs CBC & Chem 7: 12/31/24 03:24 12/28/24 04:23 Labs: Abnormal Lab Results - Last 24 Hours (Table) 12/31/24 Range/Units 03:24 RBC 3.32 L (4.40-5.60) X 10*6/uL Hgb 8.1 L (13.0-17.0) g/dL Hct 27.7 L (39.6-50.0) % MCH 24.4 L (27.0-32.0) pg MCHC 29.2 L (32.0-37.0) g/dL RDW 16.4 H (11.5-14.5) % Plt Count 500 H (140-440) X 10*3/uL MPV 9.0 L (9.5-12.2) FL Immature Gran # 0.10 H (0.00-0.04) X 10*3/uL Microbiology - Last 24 Hours (Table) 12/20/24 11:21 Fungal Culture - Preliminary Pleural Fluid 12/22/24 09:40 Acid Fast Bacilli Smear - Preliminary Bronchoalviolar Lavage - Right Acid Fast Bacilli Culture - Preliminary 12/20/24 11:21 Acid Fast Bacilli Smear - Preliminary Lung - Right Acid Fast Bacilli Culture - Preliminary 12/22/24 09:40 Fungal Culture - Preliminary Bronchoalviolar Lavage - Right Lucy krusei - Imaging and Cardiology Chest x-ray: report reviewed, image reviewed Assessment and Plan Assessment: Right empyema, trapped right lung, status post right thoracentesis and placement of right pigtail catheter with lytic installation Acute hypoxic respiratory failure Shortness of breath secondary to above Normocytic hypochromic anemia Elevated D-dimer, CTA of the chest negative for pulmonary embolus Bronchial washing cultures positive for Pichia kudriavzevil, actinomyces odontolyicus History of recent right lower lobe pneumonia with failed treatment of azithromycin and Augmentin Tobacco dependence with cessation 4 months ago. Plan: Keep right pleural pigtail catheter in place to low continuous wall suction -20 cm H2O. May disconnect to ambulate to the bathroom and in the uribe. Will instill 9th dose alteplase/dornase today, will continue to instill as long as patient is getting adequate drainage Encourage use of incentive spirometry 10 times every hour while awake. Monitor daily chest x-rays. Dr. Nick from infectious disease is following, antibiotic management per infectious disease. Increase activity as tolerated. Out of bed for all meals. Pain control per current medication regimen No plan for surgical intervention More recommendations to follow based on patient's clinical course.
[2024-12-31 09:46] LABS: Blood Urea Nitrogen 12.5 mg/dL (9.0-27.0); Calcium 8.9 mg/dL (8.7-10.3); Chloride 102 mmol/L (96-109); Glucose 121 mg/dL (70-110); Potassium 4.6 mmol/L (3.5-5.5); Sodium 138 mmol/L (135-145)
[2024-12-31] MEDS: DORNASE ALFA 5 MG in SODIUM CHLORIDE 0.9% 50 ML IRRIGATION ONE (10:39)
[2024-12-31] MEDS: ALTEPLASE 10 MG in SODIUM CHLORIDE 0.9% 50 ML IRRIGATION ONE (10:39)
--- NOTE | 2024-12-31 11:37 | P.PN ---
Subjective Progress Note Date: 12/31/24 On 12/30/2024, the patient is being seen for a follow-up. The patient had an extensive right lung pneumonia with a loculated right-sided pleural effusion. The patient presented to us with increased shortness of breath. The patient had a large collection of pleural fluid with numerous internal foci of air and fluid levels and the findings were consistent essentially with empyema. The patient had a thoracentesis with a total of 4 L of thick pale yellowish fluid was aspirated. Following that, the patient had a loculated pneumothorax on the right. Subsequently, the patient had a CAT scan of the chest and abdomen that showed a large fluid collection/hydropneumothorax within the right hemithorax w ith consolidative opacities and multiple foci of air. The patient also had a bronchoscopy on 12/22/2024 that showed no evidence of any endobronchial tumors or lesions. The lavage from the right lung was consistent with Lucy Job the and actinomyces species. Subsequently, the patient had the pigtail catheter inserted and the patient is receiving thrombolytic therapy through the pigtail catheter that was inserted on the right. The patient is currently stable. Using incentive spirometer and pulling approximately 2000 on his I-S. Over the past 24 hours, another 400 cc of pleural fluid was aspirated from the right lung via the pigtail catheter. The most recent chest x-ray from today shows that the catheter is in the right lung base. The same time, there is a small right-sided pleural effusion and a tiny loculated right lower lobe pneumothorax. There is also COPD and bilateral interstitial and patchy opacities bilaterally. The patient remains on IV Unasyn and Eraxis. He is feeling well. No significant shortness of breath. No chest pain. No pleurisy. No hemoptysis. He is cu rrently on 2 L/min nasal cannula. The white cell count is at 5.2, hemoglobin 7.6 and a platelet count of 511. Sodium is at 139, bicarb is 24, BUN is 7 with a creatinine of 0.5. His serum iron level was low at 28. 12/31/2024, patient is being seen for a follow-up. The patient is doing well. S pecific complaints. A total of 400 cc of pleural fluid was aspirated from the pigtail catheter post alteplase administration yesterday. The same needs to be done today. The patient's chest x-ray shows similar findings. A loculated small right basilar pneumothorax. Extensive pleural density and a catheter is still in place. Patient is on room air oxygen. No significant leukocytosis. White cell count of 5.7, hemoglobin 8.1 and the rest of the electrolytes all within normal limits. The patient has no specific complaints for now. The patient remains on Unasyn and Eraxis. Objective - Vital Signs Vital signs: Vital Signs Temp 98.2 F 12/31/24 08:02 Pulse 96 12/31/24 09:08 Resp 18 12/31/24 08:02 BP 111/67 12/31/24 08:02 Pulse Ox 96 12/31/24 08:54 FiO2 Intake & Output 12/30/24 12/31/24 12/31/24 18:59 06:59 18:59 Output Total 1500 550 Balance -1500 -550 Output: Chest Tube Drainage 300 Chest Tube Right 300 Urine 1200 550 Other: Voiding Method Urinal # Voids 1 - Exam The patient appeared well nourished and normally developed. Vital signs as documented. The patient is currently on room air oxygen Head exam is unremarkable. No scleral icterus or corneal arcus noted. Neck is without jugular venous distension, thyromegaly, or carotid bruits. Carotid upstrokes are brisk bilaterally. Lungs are diminished in the right lung base and the patient is a pigtail catheter in place. There is some crackles and diminished breath sound right lung base. Cardiac exam reveals the PMI to be normally sized and situated. Rhythm is regular. First and second heart sounds normal. No murmurs, rubs or gallops. Abdominal exam reveals normal bowel sounds, no masses, no organomegaly and no aortic enlargement. Extremities are nonedematous and both femoral and pedal pulses are normal. Examination of the skin revealed no evidence of significant rashes, suspicious appearing nevi or other concerning lesions. Neurologically, the patient is awake and alert and the patient does not have any focal neurological deficit. Cranial nerves are essentially intact. - Labs CBC & Chem 7: 12/31/24 03:24 12/31/24 03:24 Labs: Abnormal Lab Results - Last 24 Hours (Table) 12/31/24 Range/Units 03:24 RBC 3.32 L (4.40-5.60) X 10*6/uL Hgb 8.1 L (13.0-17.0) g/dL Hct 27.7 L (39.6-50.0) % MCH 24.4 L (27.0-32.0) pg MCHC 29.2 L (32.0-37.0) g/dL RDW 16.4 H (11.5-14.5) % Plt Count 500 H (140-440) X 10*3/uL MPV 9.0 L (9.5-12.2) FL Immature Gran # 0.10 H (0.00-0.04) X 10*3/uL Microbiology - Last 24 Hours (Table) 12/20/24 11:21 Fungal Culture - Preliminary Pleural Fluid 12/22/24 09:40 Acid Fast Bacilli Smear - Preliminary Bronchoalviolar Lavage - Right Acid Fast Bacilli Culture - Preliminary 12/20/24 11:21 Acid Fast Bacilli Smear - Preliminary Lung - Right Acid Fast Bacilli Culture - Preliminary 12/22/24 09:40 Fungal Culture - Preliminary Bronchoalviolar Lavage - Right Lucy krusei Assessment and Plan Plan: Right lung empyema, status post thoracentesis today with 4 L of thick yellowish- brown fluid returned. CT scan of the chest and abdomen redemonstrates a large fluid collection/hydropneumothorax within the right lung with consolidative opacities and multiple foci of gas. Additional multiloculated portion along the right major fissure superiorly. Reactive mediastinal adenopathy. Moderate COPD changes. Post bronchoscopy with BAL on 12/22/2024. Bronchoalveolar lavage cultures were positive for Pichia kudriavzevii and actinomyces odontolyticus process. Remains on Unasyn. Remains on Eraxis. Pigtail catheter replaced 12/27/2024 and 5 doses of alteplase/dornase infused per CT service. 6th dose of alteplase to be given today. Output from yesterday was in order of 400 cc. Chest x-ray findings are stable. Acute hypoxemic respiratory failure secondary to above, recovered and on 2 L of oxygen by nasal cannula Recent treatment for right lower lobe pneumonia on 11/30/2024 in our emergency department with Augmentin and azithromycin Anemia of chronic disease, normocytic Chronic tobacco dependence, states quit approximately 4 months ago No primary care provider, no recent health care assessment Plan: Keep right pleural pigtail catheter in place to low continuous wall suction -20 cm H2O. May disconnect to ambulate to the bathroom and in the uribe. Will instill 8th dose alteplase/dornase today, will continue to instill as long as patient is getting adequate drainage, a 6th dose will be given today Chest x-ray shows improvement and there is a loculated small right-sided pneumothorax in the right lung base Encourage use of incentive spirometry 10 times every hour while awake. Monitor daily chest x-rays. Dr. Nick from infectious disease is following, antibiotic management per infectious disease. The patient remains on a combination of Eraxis and Unasyn Increase activity as tolerated. Out of bed for all meals. Pain control per current medication regimen Cardiothoracic surgery is on the case Continue the incentive spirometer Increase his activity as tolerated We will continue to follow Time with Patient: Greater than 30
--- NOTE | 2024-12-31 13:41 | P.PN ---
Subjective Progress Note Date: 12/29/24 Principal diagnosis: Reason for follow-up is pneumonia/empyema Patient is a 54-year-old male with a past medical history significant for pneumonia former smoker presenting to the hospital for evaluation of increasing shortness of breath, patient be diagnosed with a right-sided pneumonia concerning for empyema in this patient was status post chest tube placement on the right side. On today's evaluation that is 12/29/2024,the patient denies any fever or any chills, patient is breathing comfortably on room air, the patient denies chest pain shortness of breath and no worsening cough, patient denies abdominal pain, no nausea vomiting or diarrhea. No new labs has been obtained today Objective - Vital Signs Vital signs: Vital Signs Temp 97.6 F 12/29/24 07:45 Pulse 86 12/29/24 09:07 Resp 18 12/29/24 07:46 BP 124/78 12/29/24 07:45 Pulse Ox 97 12/29/24 08:53 FiO2 Intake & Output 12/28/24 12/29/24 12/29/24 18:59 06:59 18:59 Intake Total 180 Output Total 2770 1400 230 Balance -2590 -1400 -230 Intake: Oral 180 Output: Chest Tube Drainage 270 Chest Tube Right 270 Drainage 150 Right Chest 150 Urine 2500 1250 230 Other: Voiding Method Urinal Urinal # Voids 1 - Exam GENERAL DESCRIPTION: Middle-age male lying in bed in no distress RESPIRATORY SYSTEM: Unlabored breathing , decreased breath sounds at bases HEART: S1 S2 regular rate and rhythm , ABDOMEN: Soft , no tenderness EXTREMITIES: No edema feet - Labs CBC & Chem 7: 12/31/24 03:24 12/31/24 03:24 Assessment and Plan (1) Sepsis Current Visit: Yes Status: Acute Code(s): A41.9 - SEPSIS, UNSPECIFIED ORGANISM SNOMED Code(s): 20566285 (2) Empyema Current Visit: Yes Status: Acute Code(s): J86.9 - PYOTHORAX WITHOUT FISTULA SNOMED Code(s): 197410181 (3) Pneumonia Current Visit: No Status: Inactive Code(s): J18.9 - PNEUMONIA, UNSPECIFIED ORGANISM SNOMED Code(s): 280127475 Plan: 1patient presented to hospital with sepsis in this patient who did have tachycardia elevated white count meeting criteria for SIRS source is right-sided pneumonia and underlying empyema status post thoracocentesis in this patient failing outpatient oral Augmentin and Zithromax therapy will need to cover for resistant gram-positive as well as gram-negative pathogen 2-patient sputum and pleural fluid cultures so far pending MRSA nasal screen was negative culture currently growing actinomyces and Pichia Kudriavzevii 3patient is afebrile white count is normal, 4patient currently being treated with Eraxis and Unasyn and monitor clinical course closely Dictation was produced using [employer] dictation software. please excuse any grammatical, word or spelling errors. Time with Patient: Less than 30
--- NOTE | 2024-12-31 13:42 | P.PN ---
Subjective Progress Note Date: 12/30/24 Principal diagnosis: Reason for follow-up is pneumonia/empyema Patient is a 54-year-old male with a past medical history significant for pneumonia former smoker presenting to the hospital for evaluation of increasing shortness of breath, patient be diagnosed with a right-sided pneumonia concerning for empyema in this patient was status post chest tube placement on the right side. On today's evaluation that is 12/30/2024,the patient remains to be afebrile, patient is on room air not requiring supplemental oxygen and denies any shortness of breath no chest pain and cough is decreased intensity.Patient denies having any nausea or vomiting, no abdominal pain and no diarrhea has been reported. No new lab has been obtained today cultures with Lucy and actinomyces Objective - Vital Signs Vital signs: Vital Signs Temp 98.8 F 12/30/24 14:00 Pulse 94 12/30/24 21:05 Resp 18 12/30/24 14:00 BP 127/67 12/30/24 14:00 Pulse Ox 93 L 12/30/24 14:00 FiO2 Intake & Output 12/30/24 12/30/24 12/31/24 06:59 18:59 06:59 Intake Total 540 Output Total 850 1500 Balance -310 -1500 Intake: Oral 540 Output: Chest Tube Drainage 300 Chest Tube Right 300 Urine 850 1200 Other: Voiding Method Urinal Urinal # Voids 2 - Exam GENERAL DESCRIPTION: Middle-age male lying in bed in no distress RESPIRATORY SYSTEM: Unlabored breathing , decreased breath sounds at bases HEART: S1 S2 regular rate and rhythm , ABDOMEN: Soft , no tenderness EXTREMITIES: No edema feet - Labs CBC & Chem 7: 12/31/24 03:24 12/31/24 03:24 Labs: Microbiology - Last 24 Hours (Table) 12/20/24 11:21 Fungal Culture - Preliminary Pleural Fluid 12/22/24 09:40 Acid Fast Bacilli Smear - Preliminary Bronchoalviolar Lavage - Right Acid Fast Bacilli Culture - Preliminary 12/20/24 11:21 Acid Fast Bacilli Smear - Preliminary Lung - Right Acid Fast Bacilli Culture - Preliminary 12/22/24 09:40 Fungal Culture - Preliminary Bronchoalviolar Lavage - Right Lucy krusei Assessment and Plan (1) Sepsis Current Visit: Yes Status: Acute Code(s): A41.9 - SEPSIS, UNSPECIFIED ORGANISM SNOMED Code(s): 64421719 (2) Empyema Current Visit: Yes Status: Acute Code(s): J86.9 - PYOTHORAX WITHOUT FISTULA SNOMED Code(s): 781289547 (3) Pneumonia Current Visit: No Status: Inactive Code(s): J18.9 - PNEUMONIA, UNSPECIFIED ORGANISM SNOMED Code(s): 476230120 Plan: 1patient presented to hospital with sepsis in this patient who did have tachycardia elevated white count meeting criteria for SIRS source is right-sided pneumonia and underlying empyema status post thoracocentesis in this patient failing outpatient oral Augmentin and Zithromax therapy will need to cover for resistant gram-positive as well as gram-negative pathogen 2-patient sputum and pleural fluid cultures so far pending MRSA nasal screen was negative culture currently growing actinomyces and Pichia Kudriavzevii 3patient is afebrile white count is normal, patient did get a PICC line she will continue with Eraxis and Unasyn and continue with supportive care Dictation was produced using [employer] dictation software. please excuse any grammatical, word or spelling errors. Time with Patient: Less than 30
--- NOTE | 2024-12-31 15:57 | P.PN ---
Subjective Progress Note Date: 12/31/24 Principal diagnosis: Reason for follow-up is pneumonia/empyema Patient is a 54-year-old male with a past medical history significant for pneumonia former smoker presenting to the hospital for evaluation of increasing shortness of breath, patient be diagnosed with a right-sided pneumonia concerning for empyema in this patient was status post chest tube placement on the right side. On today's evaluation that is 12/31/2024, the patient continues to be afebrile, the patient is on room air and breathing comfortably, the Pt denies having any chest pain or any worsening cough, the patient denies having any abdominal pain no vomiting or any diarrhea, no new symptoms. Patient white count is 5.79, creatinine 0.5 chest x-ray this morning similar findings patchy right basilar opacity Objective - Vital Signs Vital signs: Vital Signs Temp 98.2 F 12/31/24 08:02 Pulse 96 12/31/24 09:08 Resp 18 12/31/24 08:02 BP 111/67 12/31/24 08:02 Pulse Ox 96 12/31/24 08:54 FiO2 Intake & Output 12/30/24 12/31/24 12/31/24 18:59 06:59 18:59 Output Total 1500 550 Balance -1500 -550 Output: Chest Tube Drainage 300 Chest Tube Right 300 Urine 1200 550 Other: Voiding Method Urinal # Voids 1 1 # Bowel Movements 1 - Exam GENERAL DESCRIPTION: Middle-age male lying in bed in no distress RESPIRATORY SYSTEM: Unlabored breathing , decreased breath sounds at bases HEART: S1 S2 regular rate and rhythm , ABDOMEN: Soft , no tenderness EXTREMITIES: No edema feet - Labs CBC & Chem 7: 12/31/24 03:24 12/31/24 03:24 Labs: Abnormal Lab Results - Last 24 Hours (Table) 12/31/24 12/31/24 Range/Units 03:24 03:24 RBC 3.32 L (4.40-5.60) X 10*6/uL Hgb 8.1 L (13.0-17.0) g/dL Hct 27.7 L (39.6-50.0) % MCH 24.4 L (27.0-32.0) pg MCHC 29.2 L (32.0-37.0) g/dL RDW 16.4 H (11.5-14.5) % Plt Count 500 H (140-440) X 10*3/uL MPV 9.0 L (9.5-12.2) FL Immature Gran # 0.10 H (0.00-0.04) X 10*3/uL Creatinine 0.5 L (0.6-1.5) mg/dL BUN/Creatinine Ratio 25.00 H (12.00-20.00) Ratio Glucose 121 H (70-110) mg/dL Microbiology - Last 24 Hours (Table) 12/20/24 11:21 Fungal Culture - Preliminary Pleural Fluid 12/22/24 09:40 Acid Fast Bacilli Smear - Preliminary Bronchoalviolar Lavage - Right Acid Fast Bacilli Culture - Preliminary 12/20/24 11:21 Acid Fast Bacilli Smear - Preliminary Lung - Right Acid Fast Bacilli Culture - Preliminary 12/22/24 09:40 Fungal Culture - Preliminary Bronchoalviolar Lavage - Right Lucy krusei Assessment and Plan (1) Sepsis Current Visit: Yes Status: Acute Code(s): A41.9 - SEPSIS, UNSPECIFIED ORGANISM SNOMED Code(s): 81020092 (2) Empyema Current Visit: Yes Status: Acute Code(s): J86.9 - PYOTHORAX WITHOUT FISTULA SNOMED Code(s): 179464844 (3) Pneumonia Current Visit: No Status: Inactive Code(s): J18.9 - PNEUMONIA, UNSPECIFIED ORGANISM SNOMED Code(s): 185327176 Plan: 1patient presented to hospital with sepsis in this patient who did have tachycardia elevated white count meeting criteria for SIRS source is right-sided pneumonia and underlying empyema status post thoracocentesis in this patient failing outpatient oral Augmentin and Zithromax therapy will need to cover for resistant gram-positive as well as gram-negative pathogen 2-patient sputum and pleural fluid cultures so far pending MRSA nasal screen was negative culture currently growing actinomyces and Pichia Kudriavzevii 3patient is afebrile white count is normal, 4patient currently being treated with Eraxis and Unasyn plan will be for 2 to 3-week course depending upon clinical response Dictation was produced using [employer] dictation software. please excuse any grammatical, word or spelling errors. Time with Patient: Less than 30
--- NOTE | 2025-01-01 06:03 | P.PN ---
Subjective Progress Note Date: 12/31/24 This is a pleasant 54 years old male with no significant past medical history Patient presents because of worsening dyspnea. About 1 month ago he was diagnosed with pneumonia pneumonia with small right pleural effusion and he was treated with oral antibiotic, this was progressed gradually over this month and become more opacified right lung on chest x-ray. Patient underwent thoracocentesis with pulmonary team while he is still in the emergency room where more than 3 L of purulent fluid has been drained. Patient with no significant pain, no significant coughing and is on room air He denies any other specific symptoms He quit smoking about 4 months ago with no alcohol or illicit drugs. Vitals stable he was mildly tachycardic which is improving now Labs showing leukocytosis 11.2, hemoglobin 7.6. Platelet count 707 Rest of BMP LFT troponin and INR were unremarkable D-dimer was elevated 1.6. He underwent CTA of the chest which was negative for PE but showing large pleural effusion on the right with collapse of the right lung. Chest x-ray and CTA of the lung showing the same findings of large pleural effusion and collapse of the right lung EKG showing sinus tachycardia [address]-T changes Patient underwent right sided thoracocentesis more than 3 L of purulent fluid was drained. And patient tolerated the procedure well 12/21 Patient feels more comfortable and breathing easily no significant chest pain or coughing Repeat CT of the chest and abdomen showing loculated still large fluid collection in the right lung for his empyema. thoracic surgery was consulted for possible decortication Patient currently kept on IV vancomycin and Zosyn pending final culture results 12/22 Patient breathing better Remains on oxygen He is s/p bronchoscopy showing no tumor Status post right-sided chest tube with about 2 L of discharge mainly purulent and pus Cardiothoracic surgery team following closely Culture pending Remains on Zosyn 12/23/2024 Patient is seen in follow-up today remains with a right-sided chest tube with CT surgery following administering another dose of tPA for right empyema. Infectious disease and pulmonary following as well and will continue current reg imen while awaiting cultures. Patient has been encouraged to increase activity as tolerated and continued incentive spirometer use at least 10 times every hour while awake. Patient is currently maintained on 2 L via nasal cannula and does not wear oxygen outpatient. Hemoglobin is noted to be 7 and will follow-up on repeat labs, transfuse if less than 7. Will follow-up on cultures and discuss quentin sonya with consultations regarding treatment plan moving forward. No plans of chest tube removal as of yet as patient continues with significant amount of purulence being drained. 12/24/2024 Patient is seen in follow-up today reports to feeling lethargic today but doing well otherwise. Patient is continued on oxygenation at 2 L and reports shortness of breath. Patient reports his pain during breakthrough is becoming extreme and Toradol is helping asking for increased frequency. Will adjust N orco slightly and encouraged continued incentive spirometer use and increased activity as tolerated with sitting up more frequently. Plan is for tPA instillation through the chest tube per CT surgery today. Patient continues with continued purulent drainage noted in the tubing. Patient is maintained on antibiotics and awaiting for cultures to finalize. 12/25/2024 Patient seen in follow-up today reports to feeling slightly improved and less short of breath. Patient continues with chest tube CT surgery following will be receiving another tPA administration in the chest tube. Patient continues with purulent drainage although somewhat more clear today. Awaiting finalized cultures and follow-up on chest x-ray to monitor closely. Patient is using incentive spirometer encouraged to use at least 10 times every hour while awake. Continue current pain regimen. Will follow-up on repeat labs. Hemoglobin is stable above 7 with no active bleeding noted. 12/26/2024 Patient seen and evaluated in follow-up this morning and continues with right side chest tube and has been receiving tPA administrations with follow-up chest x-ray that shows similar small right basilar pneumothorax with small pleural effusion stable position of pigtail catheter with persistent right suprahilar and right basilar opacities likely. Patient is continued on Unasyn anidulafungin and per ID recommendations. Culture showing pichia kudriavzevii along with Actinomyces odontolyticus. patient is afebrile and reports to feeling weak and fatigued today. Repeat chest x-ray will be ordered for tomorrow and patient has scheduled CT of the chest per CT surgery for further evaluation of the loculated empyema. 12/27/2024 Patient is seen in follow-up today per CT surgery. Pulmonary following along with infectious disease as patient was noted to have loculated empyema status post chest tube. Apparently chest tube was dislodged and awaiting repeat chest tube insertion to be placed sometime today per CT surgery. Patient is afebrile and denies worsening shortness of breath actually reports to feeling somewhat im proved and is currently on room air. Patient does fatigue easily and becomes dyspneic with exertion. Patient has been encouraged to continue with incentive spirometer. 12/30/2024 Patient is seen in follow-up today with CT surgery pulmonary following along with infectious disease. Culture showing Lucy krusei and is maintained on ampicillin along with an antifungal and will continue. Per infectious disease, will likely require IV antibiotics on discharge and case management following working on discharge planning including verifying coverage for IV antibiotics. Patient continues to have chest tube on the right with CT surgery administering tPA daily and continues with significant drainage. Patient is adamant about leaving if he has a special needs child he has to take care of at home and is running out of resources to help him with this while he remains hospitalized. Will discuss with other consultations regarding discharge planning. Encouraged increase activity as tolerated and continued incentive spirometer use. Follow- up chest x-ray noted. 12/31/2024 Patient is seen in follow-up continues to receive tPA installation per CT surgery into the chest tube and is showing some improvements in output. Discussion was had between CT surgery and infectious disease as patient is adamant that he has to leave to take care of his child although working on resources to help with that while he remains hospitalized. Patient will receive a PICC line and is being arranged for IV antibiotics outpatient which will be done in the home and home care being arranged. Plans for possible discharge as early as per CT surgery. Will follow-up on repeat chest x-ray and monitor closely. Continue to encourage incentive spirometer and increased activity as tolerated. Patient remains on room air. Review of systems: Constitutional: No reports of fatigue, fever, or chills Cardiovascular: No reports of chest pain, reports chest wall pain with the chest tube site Respiratory: no further reports of shortness of breath, continues with occasional cough, shortness of breath is improved GI: No reports of nausea, vomiting, or diarrhea : No reports of dysuria or retention Neurovascular: No reports of weakness or numbness All medications have been reviewed Physical exam: GENERAL: The patient is alert and oriented x3, not in any acute distress. Well developed, well nourished. Appears older than stated age HEENT: Pupils are round and equally reacting to light. EOMI. No scleral icterus. No conjunctival pallor. Normocephalic, atraumatic. No pharyngeal erythema. No thyromegaly. CARDIOVASCULAR: S1 and S2 present. No murmurs, rubs, or gallops. -PULMONARY: Diminished breath sounds bilaterally otherwise chest is clear to auscultation, no wheezing , no crackles. Decreased breath sounds in the bases, more so on the right ABDOMEN: Soft, nontender, nondistended, normoactive bowel sounds. No palpable organomegaly. MUSCULOSKELETAL: No joint swelling or deformity. EXTREMITIES: No cyanosis, clubbing, or pedal edema. NEUROLOGICAL: Gross neurological examination did not reveal any focal deficits. SKIN: No rashes. no petechiae. Assessment: Right pneumonia failed outpatient treatment associated with large/huge right pleural effusion with left-sided mediastinal shift right sided thoracocentesis more than 3 L of purulent fluid was drained, empyema receiving tPA instillation in the chest tube with CT surgery, cultures showing pichia kudriavzevii along with Actinomyces odontolyticus and Lucy Acute hypoxic respiratory failure secondary to assessment #1, improving and currently on room air Normocytic hypochromic anemia Elevated D-dimer with negative CAT scan from pulmonary embolism GI prophylaxis DVT prophylaxis No code Plan: Continue with antibiotic currently on ampicillin and anidulafungin. Infectious disease following and awaiting cultures to determine appropriate antibiotics. Patient will need a PICC line for outpatient IV antibiotics with case management following making arrangements and verifying coverage. Patient will have home care arranged. Cardiothoracic surgery following is instilling another dose of tPA and the chest tube with continued purulence noted. Slightly improving and less output noted Patient did have right-sided chest tube although apparently was dislodged accidentally at this time per CT surgery. New chest tube was placed on Monday and is continued at this time per CT surgery. Follow-up on repeat chest x-ray Pulmonary team following closely Continue with breathing inhalational treatments and weaning FiO2 as tolerated. Patient currently room air today and continues with intermittent supplemental oxygen. Patient does not wear oxygen outpatient Hemoglobin noted to be stable above 7 with no active bleeding noted at this time we will follow-up on repeat labs and recommend to transfuse if less than 7. Iron deficiency noted. Patient's hemoglobin in November of this year was 11 Encouraged incentive spirometer use at least 10 times every hour while awake Patient will need resources outpatient on discharge as patient has no primary care provider at this time. Case management following working on discharge planning including verifying coverage for IV antibiotic outpatient as per ID recommendations patient will require IV antibiotics on discharge. PICC line ordered and has been placed Patient is adamant about leaving soon as he has a child to take care of at home and feels has been hospitalized for too long. Discussed with CT surgery and possibly discharge planning in place for this week Overall prognosis is guarded at this time. The impression and plan of care has been dictated by Suad San, Nurse Practitioner as directed. Dr. Mohit MD I have performed a history and examination and MDM of this patient, discussed the same with the dictator, and agree with the dictator's assessment and plan as written ,documented as a scribe. Based on total visit time, I have performed more than 50% of the visit. Objective - Vital Signs Vital signs: Vital Signs Temp 98.3 F 01/01/25 00:45 Pulse 95 01/01/25 00:45 Resp 17 01/01/25 00:45 BP 118/67 01/01/25 00:45 Pulse Ox 95 01/01/25 00:45 FiO2 Intake & Output 12/31/24 12/31/24 01/01/25 06:59 18:59 06:59 Output Total 550 325 80 Balance -550 -325 -80 Output: Chest Tube Drainage 125 80 Chest Tube Right 125 80 Urine 550 200 Other: Voiding Method Urinal Urinal # Voids 1 2 3 # Bowel Movements 1 - Labs CBC & Chem 7: 12/31/24 03:24 12/31/24 03:24 Labs: Abnormal Lab Results - Last 24 Hours (Table) 12/31/24 12/31/24 Range/Units 03:24 03:24 RBC 3.32 L (4.40-5.60) X 10*6/uL Hgb 8.1 L (13.0-17.0) g/dL Hct 27.7 L (39.6-50.0) % MCH 24.4 L (27.0-32.0) pg MCHC 29.2 L (32.0-37.0) g/dL RDW 16.4 H (11.5-14.5) % Plt Count 500 H (140-440) X 10*3/uL MPV 9.0 L (9.5-12.2) FL Immature Gran # 0.10 H (0.00-0.04) X 10*3/uL Creatinine 0.5 L (0.6-1.5) mg/dL BUN/Creatinine Ratio 25.00 H (12.00-20.00) Ratio Glucose 121 H (70-110) mg/dL
--- NOTE | 2025-01-01 08:33 | XR ---
EXAMINATION TYPE: XR chest 1V portable DATE OF EXAM: 01/01/2025 6:37 AM COMPARISON: 12/31/2024 CLINICAL INDICATION: Male, 54 years old with history of Empyema, , FINDINGS: Right basilar pigtail pleural catheter remains in place. Similar small pleural air cavity lateral rig ht costophrenic angle, residual small right effusion, and prominent patchy right basilar opacity. Hea rt normal size. Hyperinflation. Interstitial opacities persist bilaterally. Interval placement left P ICC tip at the cavoatrial junction. IMPRESSION: Overall stable exam with right basilar pigtail pleural catheter, small pleural air cavity here, resid ual small right effusion, and prominent right basilar opacity. Background bilateral interstitial hudson ges are also similar. [facility], , 01/01/2025 8:30 AM
--- NOTE | 2025-01-01 09:34 | P.PN ---
Subjective Progress Note Date: 01/01/25 Principal diagnosis: Right empyema, trapped right lung. Previous medical history of recent right lower lobe pneumonia with failed treatment of azithromycin and Augmentin, and tobacco dependence with cessation 4 months ago. POD #12 right thoracentesis with 4 L of empyema drained by Dr. Rivera. POD #11 placement of right chest pigtail catheter by Dr. Casarez, POD #5 replacement of right sided pigtail catheter by IR The patient was seen and examined this morning sitting up in bed on the medical surgical unit in no acute distress. States pain controlled. Remains on room a ir with oxygen saturation in the mid 90s. Able to achieve 2000 mL on his incentive spirometry. Remains in sinus rhythm on telemetry, hemodynamically stable. Right pigtail catheter present, lytics were instilled for the ninth dose yesterday, 225 mL of drainage in the last 24 hours. Chest x-ray reviewed. Remains on Eraxis and Unasyn per infectious disease. Patient has been up and ambulatory without difficulty. 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 Discussed with Dr. Bland. No further lytic instillation as drainage has decreased significantly, pigtail can be removed today. Objective - Vital Signs Vital signs: Vital Signs Temp 98.4 F 01/01/25 07:29 Pulse 85 01/01/25 07:29 Resp 16 01/01/25 07:29 BP 127/79 01/01/25 07:29 Pulse Ox 95 01/01/25 07:29 FiO2 Intake & Output 12/31/24 01/01/25 01/01/25 18:59 06:59 18:59 Output Total 325 100 Balance -325 -100 Output: Chest Tube Drainage 125 100 Chest Tube Right 125 100 Urine 200 Other: Voiding Method Urinal # Voids 2 3 # Bowel Movements 1 - Exam CONSTITUTIONAL: Appears comfortable, cooperative, no acute distress RESPIRATORY: Lungs sounds diminished on the right. Respirations even, nonlabored. Currently on room air with oxygen saturation 95%. Able to achieve 2000 mL on incentive spirometry. Strong cough. CARDIOVASCULAR: S1, S2 present. Regular rate and rhythm, sinus rhythm on telemetry. Palpable peripheral pulses bilaterally. No edema present. No calf pain or tenderness noted. SCDs present. GASTROINTESTINAL: Abdomen soft, nontender, nondistended. Active bowel sounds present 4 quadrants. Tolerating diet GENITOURINARY: Continues to void INTEGUMENTARY: Skin is warm and dry NEUROLOGIC: Cranial nerves II through XII intact MUSKULOSKELETAL: Able to move all extremities, strength equal bilaterally, gait normal PSYCHIATRIC: Alert and oriented to person place and time, appropriate affect, intact judgment and insight INVASIVE LINES AND TUBES: Right sided pigtail catheter present to continuous wall suction, drained 225 mL in the last 24 hours - Allied health notes Allied health notes reviewed: nursing - Labs CBC & Chem 7: 12/31/24 03:24 12/31/24 03:24 Labs: Abnormal Lab Results - Last 24 Hours (Table) 12/31/24 Range/Units 03:24 Creatinine 0.5 L (0.6-1.5) mg/dL BUN/Creatinine Ratio 25.00 H (12.00-20.00) Ratio Glucose 121 H (70-110) mg/dL - Imaging and Cardiology Chest x-ray: report reviewed, image reviewed Assessment and Plan Assessment: Right empyema, trapped right lung, status post right thoracentesis and placement of right pigtail catheter with lytic installation Acute hypoxic respiratory failure Shortness of breath secondary to above Normocytic hypochromic anemia Elevated D-dimer, CTA of the chest negative for pulmonary embolus Bronchial washing cultures positive for Pichia kudriavzevil, actinomyces odontolyicus History of recent right lower lobe pneumonia with failed treatment of azithromycin and Augmentin Tobacco dependence with cessation 4 months ago. Plan: No further lytic instillation, may DC pigtail today Encourage use of incentive spirometry 10 times every hour while awake. Monitor daily chest x-rays. Dr. Nick from infectious disease is following, antibiotic management per infectious disease. Increase activity as tolerated. Out of bed for all meals. Pain control per current medication regimen No plan for surgical intervention After pigtail cath removal patient may be discharged to home from our standpoint
--- NOTE | 2025-01-01 12:47 | P.PN ---
Subjective Progress Note Date: 01/01/25 Principal diagnosis: Reason for follow-up is pneumonia/empyema Patient is a 54-year-old male with a past medical history significant for pneumonia former smoker presenting to the hospital for evaluation of increasing shortness of breath, patient be diagnosed with a right-sided pneumonia concerning for empyema in this patient was status post chest tube placement on the right side. On today's evaluation that is 01/01/2025, Patient is afebrile patient is currently on room air and denies having any shortness of breath, the patient did have removal of his chest tube denies any worsening chest pain no cough no vomiting or diarrhea. Patient did have white count 5.7, creatinine 0.5 Objective - Vital Signs Vital signs: Vital Signs Temp 98.4 F 01/01/25 07:29 Pulse 85 01/01/25 07:29 Resp 16 01/01/25 07:29 BP 127/79 01/01/25 07:29 Pulse Ox 95 01/01/25 07:29 FiO2 Intake & Output 12/31/24 01/01/25 01/01/25 18:59 06:59 18:59 Output Total 325 100 Balance -325 -100 Output: Chest Tube Drainage 125 100 Chest Tube Right 125 100 Urine 200 Other: Voiding Method Urinal Toilet # Voids 2 3 # Bowel Movements 1 - Exam GENERAL DESCRIPTION: Middle-age male lying in bed in no distress RESPIRATORY SYSTEM: Unlabored breathing , decreased breath sounds at bases HEART: S1 S2 regular rate and rhythm , ABDOMEN: Soft , no tenderness EXTREMITIES: No edema feet - Labs CBC & Chem 7: 12/31/24 03:24 12/31/24 03:24 Assessment and Plan (1) Sepsis Current Visit: Yes Status: Acute Code(s): A41.9 - SEPSIS, UNSPECIFIED ORGANISM SNOMED Code(s): 51817830 (2) Empyema Current Visit: Yes Status: Acute Code(s): J86.9 - PYOTHORAX WITHOUT FISTULA SNOMED Code(s): 623835258 Plan: 1patient presented to hospital with sepsis in this patient who did have tachycardia elevated white count meeting criteria for SIRS source is right-sided pneumonia and underlying empyema status post thoracocentesis in this patient failing outpatient oral Augmentin and Zithromax therapy will need to cover for resistant gram-positive as well as gram-negative pathogen 2-patient MRSA nasal screen was negative, pleural fluid culture currently growing actinomyces and Pichia Kudriavzevii 3patient is afebrile white count is normal, and did have a discontinuation of the chest tube as of 01/01/2025 4patient did have a PICC line placement and plan is for 2 to 3-week course of Eraxis and Unasyn, depending upon clinical response, prescription provided to case picker Dictation was produced using [employer] dictation software. please excuse any grammatical, word or spelling errors. Time with Patient: Less than 30
--- NOTE | 2025-01-01 16:16 | P.PN ---
Subjective Progress Note Date: 01/01/25 On 12/30/2024, the patient is being seen for a follow-up. The patient had an extensive right lung pneumonia with a loculated right-sided pleural effusion. The patient presented to us with increased shortness of breath. The patient had a large collection of pleural fluid with numerous internal foci of air and fluid levels and the findings were consistent essentially with empyema. The patient had a thoracentesis with a total of 4 L of thick pale yellowish fluid was aspirated. Following that, the patient had a loculated pneumothorax on the right. Subsequently, the patient had a CAT scan of the chest and abdomen that showed a large fluid collection/hydropneumothorax within the right hemithorax w ith consolidative opacities and multiple foci of air. The patient also had a bronchoscopy on 12/22/2024 that showed no evidence of any endobronchial tumors or lesions. The lavage from the right lung was consistent with Lucy Job the and actinomyces species. Subsequently, the patient had the pigtail catheter inserted and the patient is receiving thrombolytic therapy through the pigtail catheter that was inserted on the right. The patient is currently stable. Using incentive spirometer and pulling approximately 2000 on his I-S. Over the past 24 hours, another 400 cc of pleural fluid was aspirated from the right lung via the pigtail catheter. The most recent chest x-ray from today shows that the catheter is in the right lung base. The same time, there is a small right-sided pleural effusion and a tiny loculated right lower lobe pneumothorax. There is also COPD and bilateral interstitial and patchy opacities bilaterally. The patient remains on IV Unasyn and Eraxis. He is feeling well. No significant shortness of breath. No chest pain. No pleurisy. No hemoptysis. He is cu rrently on 2 L/min nasal cannula. The white cell count is at 5.2, hemoglobin 7.6 and a platelet count of 511. Sodium is at 139, bicarb is 24, BUN is 7 with a creatinine of 0.5. His serum iron level was low at 28. 12/31/2024, patient is being seen for a follow-up. The patient is doing well. S pecific complaints. A total of 400 cc of pleural fluid was aspirated from the pigtail catheter post alteplase administration yesterday. The same needs to be done today. The patient's chest x-ray shows similar findings. A loculated small right basilar pneumothorax. Extensive pleural density and a catheter is still in place. Patient is on room air oxygen. No significant leukocytosis. White cell count of 5.7, hemoglobin 8.1 and the rest of the electrolytes all within normal limits. The patient has no specific complaints for now. The patient remains on Unasyn and Eraxis. On 01/01/2025, the patient is being seen for a follow-up. The patient is doing extremely well. No specific complaints. He is on room air oxygen. He is ambulating. No reported cough sputum production chest tightness or wheezing. I discussed the case with the cardiothoracic team. The patient had another dose o f alteplase instillation and this was his ninth dose yesterday and the total amount of output over the past 24 hours was around 200 cc. The output is minimal at this point in time. The chest x-ray showing a tiny loculated right basilar pneumothorax. There are some chronic pleural-parenchymal changes in the right lung base. There are some background interstitial changes in addition. The white cell count is 5.7 with a hemoglobin 8.1 and a platelet count of 500. Electrolytes are all within normal limits. In terms of antibiotic coverage, the patient remains on IV Unasyn and Eraxis and we are also making arrangements for outpatient antibiotic treatment. I made recommendations to remove the pigtail catheter and this was removed successfully without any complications. A PICC line is to be inserted accordingly for outpatient antibiotic therapy. Objective - Vital Signs Vital signs: Vital Signs Temp 98.4 F 01/01/25 07:29 Pulse 85 01/01/25 07:29 Resp 16 01/01/25 07:29 BP 127/79 01/01/25 07:29 Pulse Ox 95 01/01/25 07:29 FiO2 Intake & Output 12/31/24 01/01/25 01/01/25 18:59 06:59 18:59 Output Total 325 100 Balance -325 -100 Output: Chest Tube Drainage 125 100 Chest Tube Right 125 100 Urine 200 Other: Voiding Method Urinal Toilet # Voids 2 3 # Bowel Movements 1 - Exam The patient appeared well nourished and normally developed. Vital signs as documented. The patient is currently on room air oxygen Head exam is unremarkable. No scleral icterus or corneal arcus noted. Neck is without jugular venous distension, thyromegaly, or carotid bruits. Carotid upstrokes are brisk bilaterally. Lungs are diminished in the right lung base and the pigtail catheter was removed there is some crackles and diminished breath sound right lung base. Cardiac exam reveals the PMI to be normally sized and situated. Rhythm is regular. First and second heart sounds normal. No murmurs, rubs or gallops. Abdominal exam reveals normal bowel sounds, no masses, no organomegaly and no aortic enlargement. Extremities are nonedematous and both femoral and pedal pulses are normal. Examination of the skin revealed no evidence of significant rashes, suspicious appearing nevi or other concerning lesions. Neurologically, the patient is awake and alert and the patient does not have any focal neurological deficit. Cranial nerves are essentially intact. - Labs CBC & Chem 7: 12/31/24 03:24 12/31/24 03:24 Assessment and Plan Plan: Right lung empyema, status post thoracentesis with 4 L of thick yellowish- brown fluid returned. CT scan of the chest and abdomen redemonstrates a large fluid collection/hydropneumothorax within the right lung with consolidative opacities and multiple foci of gas. Additional multiloculated portion along the right major fissure superiorly. Reactive mediastinal adenopathy. Moderate COPD changes. Post bronchoscopy with BAL on 12/22/2024. Bronchoalveolar lavage cul tures were positive for Pichia kudriavzevii and actinomyces odontolyticus process. Remains on Unasyn. Remains on Eraxis. The patient received a total of 9 doses of alteplase pigtail catheter replaced 12/27/2024 and through the right pleural cavity. Output is minimal and the pigtail catheter was removed on 01/01/2025. Acute hypoxemic respiratory failure secondary to above, recovered and on room air oxygen Recent treatment for right lower lobe pneumonia on 11/30/2024 in our emergency department with Augmentin and azithromycin Anemia of chronic disease, normocytic Chronic tobacco dependence, states quit approximately 4 months ago No primary care provider, no recent health care assessment Plan: Will remove the pigtail catheter Chest x-ray shows improvement and there is a loculated small right-sided pneumothorax in the right lung base Encourage use of incentive spirometry 10 times every hour while awake. Monitor daily chest x-rays. Dr. Nick from infectious disease is following, antibiotic management per infectious disease. The patient remains on a combination of Eraxis and Unasyn. A PICC line was inserted for outpatient about treatment. Increase activity as tolerated. Out of bed for all meals. Pain control per current medication regimen Cardiothoracic surgery is on the case Continue the incentive spirometer Increase his activity as tolerated We will continue to follow Time with Patient: Greater than 30
[2025-01-02 02:31] VITALS: RESP 16; TEMP 97.9
--- NOTE | 2025-01-02 03:06 | P.PN ---
Subjective Progress Note Date: 01/01/25 This is a pleasant 54 years old male with no significant past medical history Patient presents because of worsening dyspnea. About 1 month ago he was diagnosed with pneumonia pneumonia with small right pleural effusion and he was treated with oral antibiotic, this was progressed gradually over this month and become more opacified right lung on chest x-ray. Patient underwent thoracocentesis with pulmonary team while he is still in the emergency room where more than 3 L of purulent fluid has been drained. Patient with no significant pain, no significant coughing and is on room air He denies any other specific symptoms He quit smoking about 4 months ago with no alcohol or illicit drugs. Vitals stable he was mildly tachycardic which is improving now Labs showing leukocytosis 11.2, hemoglobin 7.6. Platelet count 707 Rest of BMP LFT troponin and INR were unremarkable D-dimer was elevated 1.6. He underwent CTA of the chest which was negative for PE but showing large pleural effusion on the right with collapse of the right lung. Chest x-ray and CTA of the lung showing the same findings of large pleural effusion and collapse of the right lung EKG showing sinus tachycardia [address]-T changes Patient underwent right sided thoracocentesis more than 3 L of purulent fluid was drained. And patient tolerated the procedure well 12/21 Patient feels more comfortable and breathing easily no significant chest pain or coughing Repeat CT of the chest and abdomen showing loculated still large fluid collection in the right lung for his empyema. thoracic surgery was consulted for possible decortication Patient currently kept on IV vancomycin and Zosyn pending final culture results 12/22 Patient breathing better Remains on oxygen He is s/p bronchoscopy showing no tumor Status post right-sided chest tube with about 2 L of discharge mainly purulent and pus Cardiothoracic surgery team following closely Culture pending Remains on Zosyn 12/23/2024 Patient is seen in follow-up today remains with a right-sided chest tube with CT surgery following administering another dose of tPA for right empyema. Infectious disease and pulmonary following as well and will continue current reg imen while awaiting cultures. Patient has been encouraged to increase activity as tolerated and continued incentive spirometer use at least 10 times every hour while awake. Patient is currently maintained on 2 L via nasal cannula and does not wear oxygen outpatient. Hemoglobin is noted to be 7 and will follow-up on repeat labs, transfuse if less than 7. Will follow-up on cultures and discuss quentin sonya with consultations regarding treatment plan moving forward. No plans of chest tube removal as of yet as patient continues with significant amount of purulence being drained. 12/24/2024 Patient is seen in follow-up today reports to feeling lethargic today but doing well otherwise. Patient is continued on oxygenation at 2 L and reports shortness of breath. Patient reports his pain during breakthrough is becoming extreme and Toradol is helping asking for increased frequency. Will adjust N orco slightly and encouraged continued incentive spirometer use and increased activity as tolerated with sitting up more frequently. Plan is for tPA instillation through the chest tube per CT surgery today. Patient continues with continued purulent drainage noted in the tubing. Patient is maintained on antibiotics and awaiting for cultures to finalize. 12/25/2024 Patient seen in follow-up today reports to feeling slightly improved and less short of breath. Patient continues with chest tube CT surgery following will be receiving another tPA administration in the chest tube. Patient continues with purulent drainage although somewhat more clear today. Awaiting finalized cultures and follow-up on chest x-ray to monitor closely. Patient is using incentive spirometer encouraged to use at least 10 times every hour while awake. Continue current pain regimen. Will follow-up on repeat labs. Hemoglobin is stable above 7 with no active bleeding noted. 12/26/2024 Patient seen and evaluated in follow-up this morning and continues with right side chest tube and has been receiving tPA administrations with follow-up chest x-ray that shows similar small right basilar pneumothorax with small pleural effusion stable position of pigtail catheter with persistent right suprahilar and right basilar opacities likely. Patient is continued on Unasyn anidulafungin and per ID recommendations. Culture showing pichia kudriavzevii along with Actinomyces odontolyticus. patient is afebrile and reports to feeling weak and fatigued today. Repeat chest x-ray will be ordered for tomorrow and patient has scheduled CT of the chest per CT surgery for further evaluation of the loculated empyema. 12/27/2024 Patient is seen in follow-up today per CT surgery. Pulmonary following along with infectious disease as patient was noted to have loculated empyema status post chest tube. Apparently chest tube was dislodged and awaiting repeat chest tube insertion to be placed sometime today per CT surgery. Patient is afebrile and denies worsening shortness of breath actually reports to feeling somewhat im proved and is currently on room air. Patient does fatigue easily and becomes dyspneic with exertion. Patient has been encouraged to continue with incentive spirometer. 12/30/2024 Patient is seen in follow-up today with CT surgery pulmonary following along with infectious disease. Culture showing Lucy krusei and is maintained on ampicillin along with an antifungal and will continue. Per infectious disease, will likely require IV antibiotics on discharge and case management following working on discharge planning including verifying coverage for IV antibiotics. Patient continues to have chest tube on the right with CT surgery administering tPA daily and continues with significant drainage. Patient is adamant about leaving if he has a special needs child he has to take care of at home and is running out of resources to help him with this while he remains hospitalized. Will discuss with other consultations regarding discharge planning. Encouraged increase activity as tolerated and continued incentive spirometer use. Follow- up chest x-ray noted. 12/31/2024 Patient is seen in follow-up continues to receive tPA installation per CT surgery into the chest tube and is showing some improvements in output. Discussion was had between CT surgery and infectious disease as patient is adamant that he has to leave to take care of his child although working on resources to help with that while he remains hospitalized. Patient will receive a PICC line and is being arranged for IV antibiotics outpatient which will be done in the home and home care being arranged. Plans for possible discharge as early as per CT surgery. Will follow-up on repeat chest x-ray and monitor closely. Continue to encourage incentive spirometer and increased activity as tolerated. Patient remains on room air. 01/01/2025 Patient seen in follow-up today and chest x-ray shows overall stable exam with right basilar pigtail pleural catheter and small pleural air cavity with residual small right pleural effusion and prominent right basilar opacity. Plan is to have chest tube removed today per CT surgery. Patient did have a PICC line placed with infectious disease following and will continue on IV antibiotics outpatient. Plan is for Eraxis and Unasyn for minimum 2 to 3 weeks on discharge. Plan will be for patient to continue with home care and antibiotics in the home. Will provide resources on discharge planning regarding primary care providers to establish. Patient is on room air and denies any worsening shortness of breath. Encouraged continued incentive spirometer use and increase activity as tolerated. Review of systems: Constitutional: No reports of fatigue, fever, or chills Cardiovascular: No reports of chest pain, reports chest wall tenderness at the chest tube site Respiratory: no further reports of shortness of breath, continues with occasional cough, shortness of breath is improved GI: No reports of nausea, vomiting, or diarrhea : No reports of dysuria or retention Neurovascular: No reports of weakness or numbness All medications have been reviewed Physical exam: GENERAL: The patient is alert and oriented x3, not in any acute distress. Well developed, well nourished. Appears older than stated age HEENT: Pupils are round and equally reacting to light. EOMI. No scleral icterus. No conjunctival pallor. Normocephalic, atraumatic. No pharyngeal erythema. No thyromegaly. CARDIOVASCULAR: S1 and S2 present. No murmurs, rubs, or gallops. PULMONARY: Diminished breath sounds bilaterally otherwise chest is clear to auscultation, no wheezing , no crackles. Decreased breath sounds in the bases, more so on the right, chest tube removed ABDOMEN: Soft, nontender, nondistended, normoactive bowel sounds. No palpable organomegaly. MUSCULOSKELETAL: No joint swelling or deformity. EXTREMITIES: No cyanosis, clubbing, or pedal edema. NEUROLOGICAL: Gross neurological examination did not reveal any focal deficits. SKIN: No rashes. no petechiae. Assessment: Right pneumonia failed outpatient treatment associated with large/huge right pleural effusion with left-sided mediastinal shift right sided thoracocentesis more than 3 L of purulent fluid was drained, empyema receiving tPA instillation in the chest tube with CT surgery, cultures showing pichia kudriavzevii along with Actinomyces odontolyticus and Lucy. Chest tube is being removed per CT surgery today Encourage incentive spirometer use at least 10 times every hour while awake Encouraged increase activity as tolerated Acute hypoxic respiratory failure secondary to assessment #1, improving and currently on room air Normocytic hypochromic anemia, continued on IV iron and will transition to oral on discharge Elevated D-dimer with negative CAT scan from pulmonary embolism GI prophylaxis DVT prophylaxis No code Plan: Continue with antibiotic currently on ampicillin and anidulafungin. Infectious disease following and arranging for outpatient antibiotics. Patient received a PICC line for outpatient IV antibiotics with case management following making arrangements and verifying coverage. Patient will have home care arranged and able to start service and evaluate the patient on 01/02/2025. Cardiothoracic surgery following and has removed the chest tube recommending outpatient follow-up and continued IV Continue with breathing inhalational treatments and weaning FiO2 as tolerated. Patient currently room air today and continues with intermittent supplemental oxygen. Patient does not wear oxygen outpatient Hemoglobin noted to be stable above 7 with no active bleeding noted at this time we will follow-up on repeat labs and recommend to transfuse if less than 7. Iron deficiency noted. Patient's hemoglobin in November of this year was 11 Encouraged incentive spirometer use at least 10 times every hour while awake Patient will need resources outpatient on discharge as patient has no primary care provider at this time. Case management following working on discharge planning including verifying coverage for IV antibiotic outpatient as per ID recommendations patient will require IV antibiotics on discharge. PICC line placed and arranging for home care with discharge planning in 24 hours Patient is adamant about leaving soon as he has a child to take care of at home and feels has been hospitalized for too long. Discussed with CT surgery and stable for discharge once antibiotics are arranged Overall prognosis is guarded at this time. The impression and plan of care has been dictated by Suad San, Nurse Practitioner as directed. Dr. Mohit MD I have performed a history and examination and MDM of this patient, discussed the same with the dictator, and agree with the dictator's assessment and plan as written ,documented as a scribe. Based on total visit time, I have performed more than 50% of the visit. Objective - Vital Signs Vital signs: Vital Signs Temp 97.9 F 01/02/25 00:51 Pulse 87 01/02/25 00:51 Resp 16 01/02/25 00:51 BP 155/75 01/02/25 00:51 Pulse Ox 96 01/02/25 00:51 FiO2 Intake & Output 01/01/25 01/01/25 01/02/25 06:59 18:59 06:59 Output Total 100 Balance -100 Output: Chest Tube Drainage 100 Chest Tube Right 100 Other: Voiding Method Urinal Toilet # Voids 3 3 - Labs CBC & Chem 7: 12/31/24 03:24 12/31/24 03:24
[2025-01-02 08:47] VITALS: BP 120/73
[2025-01-02 09:47] VITALS: PULSE 88
--- NOTE | 2025-01-02 13:22 | XR ---
EXAMINATION TYPE: XR chest 2V DATE OF EXAM: 01/02/2025 11:49 AM COMPARISON: 01/01/2025 CLINICAL INDICATION: Male, 54 years old with history of empyema, , TECHNIQUE: PA and lateral views FINDINGS: Interval removal of right-sided basilar pigtail pleural catheter. A small loculated right basilar hyd ropneumothorax remains, not significantly changed. Prominent adjacent patchy right lower lung opacity remains. Background interstitial changes are similar. Left PICC tip not well seen, possibly to the m id SVC level. IMPRESSION: 1. Interval removal of right basilar pigtail pleural catheter. A small loculated basilar hydropneumot horax remains here, not significantly changed. 2. Prominent adjacent right basilar opacity is similar as well. 3. Background interstitial changes are also similar. [facility] Alex, , 01/02/2025 1:20 PM
--- NOTE | 2025-01-02 15:49 | P.PN ---
Subjective Progress Note Date: 01/02/25 On 12/30/2024, the patient is being seen for a follow-up. The patient had an extensive right lung pneumonia with a loculated right-sided pleural effusion. The patient presented to us with increased shortness of breath. The patient had a large collection of pleural fluid with numerous internal foci of air and fluid levels and the findings were consistent essentially with empyema. The patient had a thoracentesis with a total of 4 L of thick pale yellowish fluid was aspirated. Following that, the patient had a loculated pneumothorax on the right. Subsequently, the patient had a CAT scan of the chest and abdomen that showed a large fluid collection/hydropneumothorax within the right hemithorax w ith consolidative opacities and multiple foci of air. The patient also had a bronchoscopy on 12/22/2024 that showed no evidence of any endobronchial tumors or lesions. The lavage from the right lung was consistent with Ulcy Job the and actinomyces species. Subsequently, the patient had the pigtail catheter inserted and the patient is receiving thrombolytic therapy through the pigtail catheter that was inserted on the right. The patient is currently stable. Using incentive spirometer and pulling approximately 2000 on his I-S. Over the past 24 hours, another 400 cc of pleural fluid was aspirated from the right lung via the pigtail catheter. The most recent chest x-ray from today shows that the catheter is in the right lung base. The same time, there is a small right-sided pleural effusion and a tiny loculated right lower lobe pneumothorax. There is also COPD and bilateral interstitial and patchy opacities bilaterally. The patient remains on IV Unasyn and Eraxis. He is feeling well. No significant shortness of breath. No chest pain. No pleurisy. No hemoptysis. He is cu rrently on 2 L/min nasal cannula. The white cell count is at 5.2, hemoglobin 7.6 and a platelet count of 511. Sodium is at 139, bicarb is 24, BUN is 7 with a creatinine of 0.5. His serum iron level was low at 28. 12/31/2024, patient is being seen for a follow-up. The patient is doing well. S pecific complaints. A total of 400 cc of pleural fluid was aspirated from the pigtail catheter post alteplase administration yesterday. The same needs to be done today. The patient's chest x-ray shows similar findings. A loculated small right basilar pneumothorax. Extensive pleural density and a catheter is still in place. Patient is on room air oxygen. No significant leukocytosis. White cell count of 5.7, hemoglobin 8.1 and the rest of the electrolytes all within normal limits. The patient has no specific complaints for now. The patient remains on Unasyn and Eraxis. On 01/01/2025, the patient is being seen for a follow-up. The patient is doing extremely well. No specific complaints. He is on room air oxygen. He is ambulating. No reported cough sputum production chest tightness or wheezing. I discussed the case with the cardiothoracic team. The patient had another dose o f alteplase instillation and this was his ninth dose yesterday and the total amount of output over the past 24 hours was around 200 cc. The output is minimal at this point in time. The chest x-ray showing a tiny loculated right basilar pneumothorax. There are some chronic pleural-parenchymal changes in the right lung base. There are some background interstitial changes in addition. The white cell count is 5.7 with a hemoglobin 8.1 and a platelet count of 500. Electrolytes are all within normal limits. In terms of antibiotic coverage, the patient remains on IV Unasyn and Eraxis and we are also making arrangements for outpatient antibiotic treatment. I made recommendations to remove the pigtail catheter and this was removed successfully without any complications. A PICC line is to be inserted accordingly for outpatient antibiotic therapy. 01/02/2025, the patient has no specific complaints. He is on room air oxygen. PICC line has been inserted and the patient is looking forward to be discharged today on home antibiotic treatment. Chest x-ray shows a small loculated basilar hydropneumothorax which has not significantly changed compared to yesterday. There is also come chronic pleural-parenchymal changes in the right lower lobe area. Otherwise, the patient ambulating. No nausea or emesis. No side effects related to antibiotic treatment. Objective - Vital Signs Vital signs: Vital Signs Temp 97.9 F 01/02/25 07:13 Pulse 88 01/02/25 09:47 Resp 16 01/02/25 07:13 BP 120/73 01/02/25 07:13 Pulse Ox 96 01/02/25 09:40 FiO2 21 01/02/25 09:40 Intake & Output 01/01/25 01/02/25 01/02/25 18:59 06:59 18:59 Output Total 1700 Balance -1700 Output: Urine 1700 Other: Voiding Method Toilet # Voids 3 2 - Exam The patient appeared well nourished and normally developed. Vital signs as documented. The patient is currently on room air oxygen Head exam is unremarkable. No scleral icterus or corneal arcus noted. Neck is without jugular venous distension, thyromegaly, or carotid bruits. Carotid upstrokes are brisk bilaterally. Lungs are diminished in the right lung base and the pigtail catheter was removed there is some crackles and diminished breath sound right lung base. Cardiac exam reveals the PMI to be normally sized and situated. Rhythm is regular. First and second heart sounds normal. No murmurs, rubs or gallops. Abdominal exam reveals normal bowel sounds, no masses, no organomegaly and no aortic enlargement. Extremities are nonedematous and both femoral and pedal pulses are normal. Examination of the skin revealed no evidence of significant rashes, suspicious appearing nevi or other concerning lesions. Neurologically, the patient is awake and alert and the patient does not have any focal neurological deficit. Cranial nerves are essentially intact. - Labs CBC & Chem 7: 12/31/24 03:24 12/31/24 03:24 Assessment and Plan Plan: Right lung empyema, status post thoracentesis with 4 L of thick yellowish- brown fluid returned. CT scan of the chest and abdomen redemonstrates a large fluid collection/hydropneumothorax within the right lung with consolidative opacities and multiple foci of gas. Additional multiloculated portion along the right major fissure superiorly. Reactive mediastinal adenopathy. Moderate COPD changes. Post bronchoscopy with BAL on 12/22/2024. Bronchoalveolar lavage cultures were positive for Pichia kudriavzevii and actinomyces odontolyticus process. Remains on Unasyn. Remains on Eraxis. The patient received a total of 9 doses of alteplase pigtail catheter replaced 12/27/2024 and through the right pleural cavity. Output is minimal and the pigtail catheter was removed on 01/01/2025. Acute hypoxemic respiratory failure secondary to above, recovered and on room air oxygen Recent treatment for right lower lobe pneumonia on 11/30/2024 in our emergency department with Augmentin and azithromycin Anemia of chronic disease, normocytic Chronic tobacco dependence, states quit approximately 4 months ago No primary care provider, no recent health care assessment Plan: Pigtail catheters were removed more than 24 hours ago Chest x-ray shows improvement and there is a loculated small right-sided pneumothorax in the right lung base, chest x-ray findings remains essentially stable and unchanged Encourage use of incentive spirometry 10 times every hour while awake. Dr. Nick from infectious disease is following, antibiotic management per infectious disease. The patient remains on a combination of Eraxis and Unasyn. A PICC line was inserted for outpatient about treatment. Increase activity as tolerated. No issues with pain Continue the incentive spirometer Increase his activity as tolerated We will continue to follow on outpatient basis. Going home today. Antibiotics to be arranged by ID.
--- NOTE | 2025-01-03 13:10 | P.PN ---
Subjective Progress Note Date: 01/02/25 Principal diagnosis: Reason for follow-up is pneumonia/empyema Patient is a 54-year-old male with a past medical history significant for pneumonia former smoker presenting to the hospital for evaluation of increasing shortness of breath, patient be diagnosed with a right-sided pneumonia concerning for empyema in this patient was status post chest tube placement on the right side. On today's evaluation that is 01/02/2025, patient has been afebrile, patient is breathing comfortably and is currently on room air, patient denies having any chest pain and cough has decreased in intensity and has productive, patient denies nausea vomiting or diarrhea and no abdominal pain. No new lab has been repeated today Objective - Vital Signs Vital signs: Vital Signs Temp 97.9 F 01/02/25 07:13 Pulse 88 01/02/25 09:47 Resp 16 01/02/25 07:13 BP 120/73 01/02/25 07:13 Pulse Ox 96 01/02/25 09:40 FiO2 21 01/02/25 09:40 Intake & Output 01/01/25 01/02/25 01/02/25 18:59 06:59 18:59 Output Total 1700 Balance -1700 Output: Urine 1700 Other: Voiding Method Toilet # Voids 3 2 - Exam GENERAL DESCRIPTION: Middle-age male lying in bed in no distress RESPIRATORY SYSTEM: Unlabored breathing , decreased breath sounds at bases HEART: S1 S2 regular rate and rhythm , ABDOMEN: Soft , no tenderness EXTREMITIES: No edema feet - Labs CBC & Chem 7: 12/31/24 03:24 12/31/24 03:24 Assessment and Plan (1) Sepsis Status: Acute Code(s): A41.9 - SEPSIS, UNSPECIFIED ORGANISM SNOMED Code(s): 81995794 (2) Empyema Status: Acute Code(s): J86.9 - PYOTHORAX WITHOUT FISTULA SNOMED Code(s): 993802248 Plan: 1patient presented to hospital with sepsis in this patient who did have tachycardia elevated white count meeting criteria for SIRS source is right-sided pneumonia and underlying empyema status post thoracocentesis in this patient failing outpatient oral Augmentin and Zithromax therapy will need to cover for resistant gram-positive as well as gram-negative pathogen 2-patient MRSA nasal screen was negative, pleural fluid culture currently growing actinomyces and Pichia Kudriavzevii 3patient is afebrile white count is normal, and did have a discontinuation of the chest tube as of 01/01/2025 4patient currently being treated with Eraxis and Unasyn plan is for 2 to 3- week course of therapy, depending upon clinical response, and close outpatient follow-up Dictation was produced using [employer] dictation software. please excuse any gra mmatical, word or spelling errors. Time with Patient: Less than 30
--- NOTE | 2025-01-06 09:36 | P.DS ---
Providers Date of admission: 12/20/24 10:16 Expected date of discharge: 01/02/25 Attending physician: Darvin Murrell MD Consults: 12/20/24 09:35 Consult Physician Urgent Consulting Provider: Isabel Regan Consult Reason/Comments: effusion Do you want consulting provider notified?: Yes 12/20/24 11:15 Consult Physician Routine Consulting Provider: Jesse Jenkins Consult Reason/Comments: Right lung trapped/empyema Do you want consulting provider notified?: Already Contacted 12/20/24 11:21 Consult Physician Routine Consulting Provider: Kevan Nick Consult Reason/Comments: Empyema right lung Do you want consulting provider notified?: Yes Primary care physician: Stated None Hospital Course: Final diagnosis Right pneumonia failed outpatient treatment associated with large/huge right pleural effusion with left-sided mediastinal shift right sided thoracocentesis more than 3 L of purulent fluid was drained, empyema receiving tPA instillation in the chest tube with CT surgery, cultures showing pichia kudriavzevii along with Actinomyces odontolyticus and Lucy. Chest tube removed Acute hypoxic respiratory failure secondary to assessment #1, improving and curr ently on room air Normocytic hypochromic anemia, recommend outpatient follow-up and further workup Elevated D-dimer with negative CAT scan from pulmonary embolism GI prophylaxis DVT prophylaxis No code Discharge disposition Patient is being discharged in a stable condition with guarded prognosis to home with home care. Patient will follow-up with Dr. Prashant Lind to establish in the outpatient setting upon discharge. Patient is to continue with IV antibiotics per ID recommendations and close outpatient follow-up with infectious disease as well as CT surgery and pulmonary as scheduled. Total time taken is greater than 35 minutes. Hospital course This is a 54-year-old male who was recently admitted with increasing shortness of breath with right sided pneumonia with failed outpatient treatment with loculated right pleural effusion concerns of empyema. Patient is status post thoracentesis and chest tube placement receiving tPA with culture showing pichia kudriavzevii along with Actinomyces odontolyticus and Lucy. Infectious disease following and has received a PICC line and will continue on IV antibiotics in the form of Unasyn as well as Eraxis with close outpatient follow-up. Patient does not have a primary care provider and provided resources to follow-up and will need CT surgery, pulmonary, infectious disease outpatient. Patient has been cleared by consultations reports to feeling improved and extremely keen on getting home to take care of his child. Patient has improved on respiratory status and is tolerating room air. Encouraged continued incentive spirometer use and close outpatient follow-up. Please refer to other consultation notes for further HPI. Currently no reports of chest pain, shortness of breath, or palpitations. Patient is afebrile. No reports of nausea or vomiting and patient is tolerating diet. Patient will be discharged home today. Guarded prognosis and high risk for readmissions. Physical exam: Gen: This is a 54-year-old male who is awake, alert oriented x 3, thin built, appears older than stated age HEENT: Head is atraumatic, normocephalic. Pupils equal, round. Sclerae is anicteric. NECK: Supple. No JVD. No lymphadenopathy. No thyromegaly. LUNGS: Diminished breath sounds bilaterally otherwise clear to auscultation. No wheezes or rhonchi. No intercostal retractions. HEART: Regular rate and rhythm. No murmur. ABDOMEN: Soft. Bowel sounds are present. No masses. No tenderness. EXTREMITIES: No pedal edema. No calf tenderness. NEUROLOGICAL: Patient is awake, alert and oriented x3. Cranial nerves 2 through 12 are grossly intact. Please refer to medication reconciliation sheet for a list of medications. The impression and plan of care has been dictated by Suad San, Nurse Practitioner as directed. Dr. Mohit MD I have performed a history and examination and MDM of this patient, discussed the same with the dictator, and agree with the dictator's assessment and plan as written ,documented as a scribe. Based on total visit time, I have performed more than 50% of the visit. Patient Condition at Discharge: Fair Plan - Discharge Summary Discharge Rx Participant: No New Discharge Prescriptions: New Anidulafungin [Eraxis] 100 mg IVPB DAILY each Ampicillin-Sulbactam [Unasyn 3 gm vial] 3 gm IVPB Q6HR each HYDROcodone/APAP 7.5-325MG [Weldon 7.5-325] 1 each PO Q4HR PRN #12 tab PRN Reason: Moderate To Severe Pain (4-10) Pantoprazole [Protonix] 40 mg PO AC-BRKFST #30 tab Acetaminophen Tab [Tylenol] 650 mg PO Q4HR PRN tab PRN Reason: Fever and/ or Mild Pain Discharge Medication List Acetaminophen Tab [Tylenol] 650 mg PO Q4HR PRN tab 01/02/25 [Rx] Ampicillin-Sulbactam [Unasyn 3 gm vial] 3 gm IVPB Q6HR each 01/02/25 [Rx] Anidulafungin [Eraxis] 100 mg IVPB DAILY each 01/02/25 [Rx] HYDROcodone/APAP 7.5-325MG [Weldon 7.5-325] 1 each PO Q4HR PRN #12 tab 01/02/25 [Rx] Pantoprazole [Protonix] 40 mg PO AC-BRKFST #30 tab 01/02/25 [Rx] Follow up Appointment(s)/Referral(s): None,Stated [Primary Care Provider] - 1-2 days Infusion Services,[facility] [REFERRING] - 1 Week Jazmyne Rodríguez MD [STAFF PHYSICIAN] - 1 Week Kevan Nick MD [STAFF PHYSICIAN] - 1 Week Patient Instructions/Handouts: Pleural Empyema (DC) Activity/Diet/Wound Care/Special Instructions: Activity limited until follow-up Follow-up with primary care provider on discharge Continue with IV antibiotics per ID recommendations Recommend outpatient follow-up with infectious disease Continue incentive spirometer use Discharge/Stand Alone Forms: Who Do I Call?, Community Resources, Area PCPs Discharge Disposition: HOME SELF-CARE
== END 2025-01-02 12:45 | disposition home or self-care (01) | DRG 871 ==
LOC: EC 08:28 → 4SSUR 10:16
PROVIDERS: ADMIT Internal Medicine; ATTEND Internal Medicine
PROC: 0W993ZZ Drainage of Right Pleural Cavity, Percutaneous Approach (ICD-10-PCS; 2024-12-20)
PROC: 0B9D8ZX Drainage of Right Middle Lung Lobe, Via Natural or Artificial Opening Endoscopic, Diagnostic (ICD-10-PCS; 2024-12-22)
PROC: 0B9F8ZX Drainage of Right Lower Lung Lobe, Via Natural or Artificial Opening Endoscopic, Diagnostic (ICD-10-PCS; 2024-12-22)
PROC: 3E0L317 Introduction of Other Thrombolytic into Pleural Cavity, Percutaneous Approach (ICD-10-PCS; 2024-12-23)
PROC: 0W9900Z Drainage of Right Pleural Cavity with Drainage Device, Open Approach (ICD-10-PCS; principal; 2024-12-27)
PROC: 02HV33Z Insertion of Infusion Device into Superior Vena Cava, Percutaneous Approach (ICD-10-PCS; 2024-12-31)
DX: B37.7 Candidal sepsis (principal); J18.9 Pneumonia, unspecified organism; J86.9 Pyothorax without fistula; J96.01 Acute respiratory failure with hypoxia; J91.8 Pleural effusion in other conditions classified elsewhere; Z66 Do not resuscitate; J94.8 Other specified pleural conditions; J44.0 Chronic obstructive pulmonary disease with (acute) lower respiratory infection; D50.9 Iron deficiency anemia, unspecified; A42.0 Pulmonary actinomycosis; J98.19 Other pulmonary collapse; J98.11 Atelectasis; B37.1 Pulmonary candidiasis; R16.1 Splenomegaly, not elsewhere classified; R59.0 Localized enlarged lymph nodes; K80.20 Calculus of gallbladder without cholecystitis without obstruction; B96.89 Other specified bacterial agents as the cause of diseases classified elsewhere; Z87.891 Personal history of nicotine dependence
CPT/HCPCS: 31624; 32551; 36415; 36573; 71045; 71046; 71250; 71260; 71275; 74160; 76604; 80048; 80053; 80202; 82465; 82565; 82728; 82945; 83540; 83550; 83605; 83615; 83735; 83880; 84155; 84157; 84484; 85025; 85379; 85610; 85730; 87040; 87070; 87102; 87116; 87205; 87206; 87449; 87496; 87498; 87502; 87529; 87634; 87635; 87636; 87798; 88108; 88305; 89050; 93005; 93306; 94640; 94760; 96365; 96366; 96367; 99291

== ENCOUNTER → 2025-02-14 | Outpatient (CLI) | payer OTHER ==
--- NOTE | 2025-02-14 12:27 | XR ---
EXAMINATION TYPE: XR chest 2V DATE OF EXAM: 02/14/2025 11:25 AM COMPARISON: 01/20/2025 CLINICAL INDICATION: Male, 54 years old with history of J86.9 PYOTHORAX WITHOUT FISTULA, TECHNIQUE: XR chest 2V view(s) obtained. FINDINGS: The heart size is normal. The pulmonary vasculature is normal. Small right fluid collection is present. Minimal left pleural fluid may be present. Findings are stab le from comparison. IMPRESSION: 1. Small right and minimal left fluid collections the lung bases. [facility], , 02/14/2025 12:25 PM
== END | disposition home or self-care (01) ==
LOC: RADXRMAIN 11:08
PROVIDERS: ATTEND Internal Medicine Infectious Disease
DX: J86.9 Pyothorax without fistula (principal); J98.4 Other disorders of lung
CPT/HCPCS: 71046